=== PATIENT | female | born 1940 | race Caucasian/White ===

== ENCOUNTER → 2019-12-04 14:03 | Outpatient (BNVA) | payer MEDICARE, SELFPAY | PROVIDERS: PCP Internal Medicine; Referring Provider Internal Medicine; Visit Provider Nurse Practitioner Gerontology | DX: I12.9 Hypertensive chronic kidney disease with stage 1 through stage 4 chronic kidney disease, or unspecified chronic kidney disease (principal); E11.29 Type 2 diabetes mellitus with other diabetic kidney complication; N18.30 Chronic kidney disease, stage 3 unspecified; K21.9 Gastro-esophageal reflux disease without esophagitis; E21.2 Other hyperparathyroidism; E78.5 Hyperlipidemia, unspecified; E66.01 Morbid (severe) obesity due to excess calories; Z68.41 Body mass index [BMI] 40.0-44.9, adult; Z88.5 Allergy status to narcotic agent; Z88.0 Allergy status to penicillin; Z79.4 Long term (current) use of insulin; Z79.82 Long term (current) use of aspirin; Z79.899 Other long term (current) drug therapy | CPT/HCPCS: 82947; 99212 ==

== ENCOUNTER 2020-02-13 09:06 | Outpatient (REF) | payer MEDICARE, SELFPAY ==
[2020-02-13 11:21] LABS: MANUAL DIFF FLAG NO
[2020-02-13 11:28] LABS: Basophils Percent Auto 0.3 % (0-2); Eosinophils Absolute Auto 0.2 X10*3/uL (0.0-0.4); Eosinophils Percent Auto 2.8 % (0-4); Hematocrit 40.7 % (37-47); Imm Gran Abs Auto 0.05 X10*3/uL (0.00-0.03); Imm Gran Pct Auto 0.7 % (0.0-0.4); Lymphocytes Absolute Auto 1.7 X10*3/uL (1.2-4.9); Lymphocytes Percent Auto 22.3 % (20-40); Mean Corpuscular HGB Conc 31.9 g/dl (31.0-35.0); Mean Corpuscular Hemoglobin 27.6 pg (27.0-33.0); Mean Corpuscular Volume 86.4 fL (80-98); Mean Platelet Volume 10.2 fL (9.4-12.3); Monocytes Absolute Auto 0.6 X10*3/uL (0.1-1.2); Monocytes Percent Auto 8.3 % (2-11); Neutrophils Percent Auto 65.6 % (45-73); Platelet Count 233 X10*3/uL (160-400); Red Blood Count 4.71 X10*6/uL (4.20-5.50); Red Cell Distribution Width 13.2 % (11.0-16.0); White Blood Count 7.6 X10*3/uL (4.8-10.8)
[2020-02-13 11:37] LABS: Estimated Average Glucose 194 mg/dL; Hemoglobin A1c % 8.4 %
[2020-02-13 11:51] LABS: Alanine Aminotransferase 12 U/L (0-31); Albumin Level 3.7 g/dL (3.5-5.0); Alkaline Phosphatase 108 U/L (39-117); Anion Gap 15 (12-20); Aspartate Amino Transferase 12 U/L (5-31); Bilirubin Total 0.5 mg/dL (0.0-1.0); Blood Urea Nitrogen 38 mg/dL (9-16); Calcium 9.5 mg/dL (8.4-10.2); Carbon Dioxide 25 mmol/L (22-29); Chloride 102 mmol/L (96-108); Cholesterol 176 mg/dL; Estimated Glomerular Filt Rate 22; Glucose Fasting 184 mg/dL (60-99); HDL Cholesterol 35 mg/dL; LDL Cholesterol Calculated 100 mg/dl; Potassium 4.1 mmol/l (3.3-5.1); Sodium 138 mmol/L (135-145); Triglycerides 207 mg/dL
== END 2020-02-13 09:07 | disposition home or self-care (01) ==
LOC: HO.HMGCLDS 09:06
PROVIDERS: Internal Medicine Hypertension Specialist; PCP Internal Medicine; Visit Provider Nurse Practitioner Gerontology
DX: E11.29 Type 2 diabetes mellitus with other diabetic kidney complication (principal); I13.0 Hypertensive heart and chronic kidney disease with heart failure and stage 1 through stage 4 chronic kidney disease, or unspecified chronic kidney disease; N18.30 Chronic kidney disease, stage 3 unspecified
CPT/HCPCS: 36415; 80053; 80061; 82043; 83036; 85025

== ENCOUNTER → 2020-02-20 14:57 | Outpatient (BNVA) | payer MEDICARE, SELFPAY | PROVIDERS: PCP Internal Medicine; Visit Provider Internal Medicine Cardiovascular Disease | DX: I47.1 Supraventricular tachycardia (principal); I44.7 Left bundle-branch block, unspecified; I10 Essential (primary) hypertension | CPT/HCPCS: 93005; 99212 ==

== ENCOUNTER → 2020-03-04 11:14 | Outpatient (BNVA) | payer MEDICARE, SELFPAY | PROVIDERS: PCP Internal Medicine; Visit Provider Nurse Practitioner Gerontology | DX: Z13.89 Encounter for screening for other disorder (principal) | CPT/HCPCS: Q3014 ==

== ENCOUNTER → 2020-06-02 13:28 | Outpatient (BNVA) | payer MEDICARE, SELFPAY | PROVIDERS: PCP Internal Medicine; Visit Provider Nurse Practitioner Gerontology | DX: E11.29 Type 2 diabetes mellitus with other diabetic kidney complication (principal); E66.01 Morbid (severe) obesity due to excess calories; I10 Essential (primary) hypertension; E78.5 Hyperlipidemia, unspecified; R80.9 Proteinuria, unspecified; Z68.39 Body mass index [BMI] 39.0-39.9, adult | CPT/HCPCS: 82947; 99212 ==

== ENCOUNTER 2020-06-22 10:01 | Outpatient (REF) | payer MEDICARE, SELFPAY ==
[2020-06-22 11:29] LABS: MANUAL DIFF FLAG NO
[2020-06-22 11:40] LABS: Basophils Percent Auto 0.3 % (0-2); Eosinophils Absolute Auto 0.2 X10*3/uL (0.0-0.4); Eosinophils Percent Auto 2.4 % (0-4); Hematocrit 39.7 % (37-47); Hemoglobin 12.8 g/dl (12.0-16.0); Imm Gran Abs Auto 0.02 X10*3/uL (0.00-0.03); Imm Gran Pct Auto 0.3 % (0.0-0.4); Lymphocytes Absolute Auto 1.7 X10*3/uL (1.2-4.9); Lymphocytes Percent Auto 25.6 % (20-40); Mean Corpuscular HGB Conc 32.2 g/dl (31.0-35.0); Mean Corpuscular Hemoglobin 27.9 pg (27.0-33.0); Mean Corpuscular Volume 86.7 fL (80-98); Mean Platelet Volume 10.6 fL (9.4-12.3); Monocytes Absolute Auto 0.6 X10*3/uL (0.1-1.2); Monocytes Percent Auto 8.9 % (2-11); Neutrophils Absolute Auto 4.2 X10*3/uL (2.0-8.3); Neutrophils Percent Auto 62.5 % (45-73); Platelet Count 209 X10*3/uL (160-400); Red Blood Count 4.58 X10*6/uL (4.20-5.50); Red Cell Distribution Width 14.3 % (11.0-16.0); White Blood Count 6.6 X10*3/uL (4.8-10.8)
[2020-06-22 12:16] LABS: Anion Gap 16 (12-20); Blood Urea Nitrogen 47 mg/dL (9-16); Carbon Dioxide 25 mmol/L (22-29); Chloride 107 mmol/L (96-108); Estimated Glomerular Filt Rate 19; Potassium 4.4 mmol/L (3.3-5.1); Sodium 144 mmol/L (135-145)
== END 2020-06-22 10:02 | disposition home or self-care (01) ==
LOC: HO.HMGCLDS 10:01
PROVIDERS: PCP Internal Medicine; Visit Provider Internal Medicine Hypertension Specialist
DX: E11.22 Type 2 diabetes mellitus with diabetic chronic kidney disease (principal); E11.21 Type 2 diabetes mellitus with diabetic nephropathy; I13.0 Hypertensive heart and chronic kidney disease with heart failure and stage 1 through stage 4 chronic kidney disease, or unspecified chronic kidney disease; I50.9 Heart failure, unspecified; N18.30 Chronic kidney disease, stage 3 unspecified
CPT/HCPCS: 36415; 80051; 82565; 84520; 85025

== ENCOUNTER → 2020-08-28 13:54 | Outpatient (BNVA) | payer MEDICARE, SELFPAY | PROVIDERS: PCP Internal Medicine; Visit Provider Nurse Practitioner Gerontology | DX: E11.29 Type 2 diabetes mellitus with other diabetic kidney complication (principal); E78.5 Hyperlipidemia, unspecified; E66.01 Morbid (severe) obesity due to excess calories; I10 Essential (primary) hypertension; R80.9 Proteinuria, unspecified; Z68.41 Body mass index [BMI] 40.0-44.9, adult | CPT/HCPCS: 82947; 99212 ==

== ENCOUNTER 2020-09-14 08:42 | Outpatient (REF) | payer MEDICARE, SELFPAY ==
[2020-09-14 11:26] LABS: Hematocrit 37.8 % (37-47); Hemoglobin 12.1 g/dl (12.0-16.0); Mean Corpuscular Hemoglobin 27.6 pg (27.0-33.0); Mean Corpuscular Volume 86.1 fL (80-98); Mean Platelet Volume 10.1 fL (9.4-12.3); Platelet Count 234 X10*3/uL (160-400); Red Blood Count 4.39 X10*6/uL (4.20-5.50); White Blood Count 6.3 X10*3/uL (4.8-10.8)
[2020-09-14 11:40] LABS: Anion Gap 14 (12-20); Blood Urea Nitrogen 44 mg/dL (9-16); Calcium 9.2 mg/dL (8.4-10.2); Carbon Dioxide 26 mmol/L (22-29); Chloride 106 mmol/L (96-108); Estimated Glomerular Filt Rate 17; Potassium 4.8 mmol/L (3.3-5.1); Sodium 141 mmol/L (135-145)
[2020-09-14 11:56] LABS: Creatinine Urine 61.42 mg/dL
[2020-09-14 12:24] LABS: Alanine Aminotransferase 12 U/L (0-31); Albumin Level 3.5 g/dL (3.5-5.0); Alkaline Phosphatase 113 U/L (39-117); Anion Gap 13 (12-20); Aspartate Amino Transferase 13 U/L (5-31); Bilirubin Total 0.4 mg/dL (0.0-1.0); Blood Urea Nitrogen 45 mg/dL (9-16); Calcium 9.2 mg/dL (8.4-10.2); Carbon Dioxide 25 mmol/L (22-29); Chloride 107 mmol/L (96-108); Cholesterol 162 mg/dL; Estimated Glomerular Filt Rate 17; Glucose Fasting 179 mg/dL (60-99); HDL Cholesterol 30 mg/dL; LDL Cholesterol Calculated 95 mg/dl; Potassium 4.7 mmol/L (3.3-5.1); Sodium 140 mmol/L (135-145); Total Protein 5.6 g/dL (6.5-8.0); Triglycerides 185 mg/dL
== END 2020-09-14 08:43 | disposition home or self-care (01) ==
LOC: HO.HMGCLDS 08:42
PROVIDERS: Nurse Practitioner Gerontology; PCP Internal Medicine; Visit Provider Internal Medicine Hypertension Specialist
DX: E11.22 Type 2 diabetes mellitus with diabetic chronic kidney disease (principal); N18.4 Chronic kidney disease, stage 4 (severe)
CPT/HCPCS: 36415; 80051; 80053; 80061; 82043; 82310; 82565; 84520; 85027

== ENCOUNTER 2021-01-07 08:30 | Outpatient (REF) | payer MEDICARE, SELFPAY ==
[2021-01-07 11:37] LABS: Anion Gap 15 (12-20); Blood Urea Nitrogen 49 mg/dL (9-16); Calcium 9.8 mg/dL (8.4-10.2); Carbon Dioxide 26 mmol/L (22-29); Chloride 107 mmol/L (96-108); Estimated Glomerular Filt Rate 15; Potassium 4.7 mmol/L (3.3-5.1); Sodium 143 mmol/L (135-145)
== END 2021-01-07 08:31 | disposition home or self-care (01) ==
LOC: HO.HMGCLDS 08:30
PROVIDERS: PCP Internal Medicine; Visit Provider Internal Medicine Hypertension Specialist
DX: N18.4 Chronic kidney disease, stage 4 (severe) (principal)
CPT/HCPCS: 36415; 80051; 82310; 82565; 84520

== ENCOUNTER → 2021-01-12 14:01 | Outpatient (BNVA) | payer MEDICARE, SELFPAY | PROVIDERS: PCP Internal Medicine; Visit Provider Nurse Practitioner Gerontology | DX: E11.29 Type 2 diabetes mellitus with other diabetic kidney complication (principal); E11.22 Type 2 diabetes mellitus with diabetic chronic kidney disease; I12.9 Hypertensive chronic kidney disease with stage 1 through stage 4 chronic kidney disease, or unspecified chronic kidney disease; N18.4 Chronic kidney disease, stage 4 (severe); E78.5 Hyperlipidemia, unspecified; E66.01 Morbid (severe) obesity due to excess calories; R80.9 Proteinuria, unspecified; Z68.41 Body mass index [BMI] 40.0-44.9, adult; Z79.4 Long term (current) use of insulin | CPT/HCPCS: 82947; 99212 ==

== ENCOUNTER → 2021-02-08 15:50 | Outpatient (BNVA) | payer MEDICARE, SELFPAY | PROVIDERS: PCP Internal Medicine; Visit Provider Registered Nurse Diabetes Educator | DX: E11.22 Type 2 diabetes mellitus with diabetic chronic kidney disease (principal); N18.4 Chronic kidney disease, stage 4 (severe); Z79.4 Long term (current) use of insulin | CPT/HCPCS: Q3014 ==

== ENCOUNTER → 2021-02-15 13:29 | Outpatient (BNVA) | payer MEDICARE, SELFPAY | PROVIDERS: PCP Internal Medicine; Visit Provider Registered Nurse Diabetes Educator | DX: E11.22 Type 2 diabetes mellitus with diabetic chronic kidney disease (principal); N18.4 Chronic kidney disease, stage 4 (severe); Z79.4 Long term (current) use of insulin | CPT/HCPCS: 99211 ==

== ENCOUNTER → 2021-03-26 11:23 | Outpatient (BNVA) | payer MEDICARE, SELFPAY | PROVIDERS: PCP Internal Medicine; Visit Provider Registered Nurse Diabetes Educator | DX: E11.22 Type 2 diabetes mellitus with diabetic chronic kidney disease (principal); N18.4 Chronic kidney disease, stage 4 (severe); Z79.4 Long term (current) use of insulin | CPT/HCPCS: Q3014 ==

== ENCOUNTER 2021-04-29 09:25 | Outpatient (REF) | payer MEDICARE, SELFPAY ==
[2021-04-29 11:17] LABS: Basophils Percent Auto 0.3 % (0-2); Eosinophils Absolute Auto 0.2 X10*3/uL (0.0-0.4); Hemoglobin 11.8 g/dl (12.0-16.0); Imm Gran Abs Auto 0.03 X10*3/uL (0.00-0.03); Imm Gran Pct Auto 0.4 % (0.0-0.4); Lymphocytes Absolute Auto 1.5 X10*3/uL (1.2-4.9); Lymphocytes Percent Auto 21.8 % (20-40); MANUAL DIFF FLAG NO; Mean Corpuscular HGB Conc 31.1 g/dl (31.0-35.0); Mean Corpuscular Hemoglobin 27.5 pg (27.0-33.0); Mean Corpuscular Volume 88.6 fL (80.0-98.0); Mean Platelet Volume 10.3 fL (9.4-12.3); Monocytes Absolute Auto 0.7 X10*3/uL (0.1-1.2); Monocytes Percent Auto 9.9 % (2-11); Neutrophils Absolute Auto 4.4 x10*3/uL (2.0-8.3); Neutrophils Percent Auto 64.6 % (45-73); Platelet Count 259 X10*3/uL (160-400); Red Blood Count 4.29 X10*6/uL (4.20-5.50); Red Cell Distribution Width 14.9 % (11.0-16.0); White Blood Count 6.8 X10*3/uL (4.8-10.8)
[2021-04-29 11:21] LABS: Appearance Urine HAZY; Color Urine YELLOW; Glucose Urine UA 100 MG/DL (NEG); Leukocyte Esterase Urine NEG (NEG); Nitrite Urine NEG (NEG); UACC Culture Trigger NO; Urine Blood 1+ (NEG); Urine Ketones NEG (NEG); Urine Protein 3+ MG/DL (NEG-TRACE)
[2021-04-29 11:27] LABS: Estimated Average Glucose 148 mg/dL; Hemoglobin A1c % 6.8 %
[2021-04-29 11:42] LABS: Bacteria Urine 2+ /LPF; Mucus Urine 1+ /LPF; Squamous Epithelial Cell Urine 2+ /LPF; WBC Urine 0-2 /HPF (0-4)
[2021-04-29 11:55] LABS: TSH reflex Free T4 9.66 uIU/mL (0.32-4.0)
[2021-04-29 12:01] LABS: Alanine Aminotransferase 24 U/L (0-31); Albumin Level 3.2 g/dL (3.5-5.0); Alkaline Phosphatase 104 U/L (39-117); Anion Gap 12 (12-20); Aspartate Amino Transferase 22 U/L (5-31); Bilirubin Total 0.6 mg/dL (0.0-1.0); Blood Urea Nitrogen 48 mg/dL (9-16); Calcium 9.3 mg/dL (8.4-10.2); Carbon Dioxide 27 mmol/L (22-29); Chloride 108 mmol/L (96-108); Cholesterol 143 mg/dL; Estimated Glomerular Filt Rate 12; Glucose Fasting 80 mg/dL (60-99); HDL Cholesterol 35 mg/dL; LDL Cholesterol Calculated 87 mg/dl; Potassium 5.1 mmol/L (3.3-5.1); Sodium 142 mmol/L (135-145); Total Protein 5.5 g/dL (6.5-8.0); Triglycerides 108 mg/dL
[2021-04-29 13:35] LABS: Microalbum/Creatinine Ratio Ur 7214.9 ug/mg cr
[2021-04-29 16:23] LABS: Vitamin D 25-OH Total 27.8 ng/mL (>30)
== END 2021-04-29 09:26 | disposition home or self-care (01) ==
LOC: HO.HMGCLDS 09:25
PROVIDERS: Absent Provider Internal Medicine Hypertension Specialist; Visit Provider Internal Medicine
DX: I12.9 Hypertensive chronic kidney disease with stage 1 through stage 4 chronic kidney disease, or unspecified chronic kidney disease (principal); E11.22 Type 2 diabetes mellitus with diabetic chronic kidney disease; N18.4 Chronic kidney disease, stage 4 (severe); E78.00 Pure hypercholesterolemia, unspecified; E55.9 Vitamin D deficiency, unspecified
CPT/HCPCS: 36415; 80053; 80061; 81001; 82043; 82306; 83036; 84439; 84443; 85025

== ENCOUNTER → 2021-05-12 12:54 | Outpatient (REF) | payer MEDICARE, SELFPAY ==
--- NOTE | 2021-05-12 12:57 | CA_ITS ---
Transthoracic Echocardiogram Patient (Last, First, Middle): Kate Vidal M Gender: Female Date of : 1940 Age: 81 Procedure Date: 05/12/2021 Procedure Type: Transthoracic Echocardiogram Location: OP Height: 167.64 cm Weight: 113.4 kg BSA: 2.20 m2 Heart Rate: bpm Resident Intern: [facility] Referring MD: Shaquille Pandya MD Symptoms: I44.7 - Left bundle-branch block, unspecified Study Quality: Fair Conclusions: - 1. Normal LV systolic function with mild LVH with impaired relaxation filling pattern 2. Mild left atrial enlargement 3. Moderate mitral and calcification with possibly mild mitral stenosis and mild mitral regurgitation 4. Normal RV systolic pressure with mildly elevated right atrial pressures 5. No gross pericardial effusion Findings Left Ventricle Mildly increased left ventricular cavity size. There is mildly increased left ventricular wall thickness. The left ventricular systolic function is normal. The visually estimated ejection fraction is between 60-65%. There is paradoxical septal motion consistent with a left bundle branch block. Spectral Doppler is indicative of an impaired relaxation filling pattern. E/E prime ratio is between 8 and 15 consistent with indeterminate filling pressures. There is moderate septal asymmetric hypertrophy. Right Ventricle Normal right ventricular cavity size and systolic function. Atria The left atrium is mildly dilated. There is lipomatous hypertrophy of the interatrial septum. There is no evidence of interatrial shunt. The right atrium is normal in size. Aortic Valve There is mild calcification of the aortic valve. There is no aortic valve stenosis. There is no aortic valve regurgitation. Mitral Valve There is mild anterior and moderate posterior mitral leaflet thickening. The posterior mitral leaflet has restricted mobility. There is moderate mitral annular calcification. There is mild mitral valve regurgitation. There is mild mitral valve stenosis. Pulmonic Valve The pulmonic valve is likely normal. There is trace pulmonic valve regurgitation. Tricuspid Valve Normal tricuspid valve structure. There is mild tricuspid valve regurgitation. The right ventricular systolic pressure is normal. Mildly elevated right atrial pressure. There is no evidence of pulmonary hypertension. Great Vessels All visible segments of the aorta are normal in size. The pulmonary artery was not well visualized. Venous The inferior vena cava is moderately dilated and collapses greater than 50% with inspiration. Pericardium/Pleural There is no evidence of pericardial effusion. Prior Study Comparison Changes noted compared to prior study. mild mitral regurgitation mild mitral stenosis is present Measurements 2D Linear Measurements IVSd: 1.56 0.6-0.9/0.6-1.0 cm LVIDd: 6.02 3.9-5.3/4.2-5.9 cm LVIDd Index: 2.74 2.4-3.2/2.2-3.1 cm/m2 LVIDs: 5.10 2.0-3.6 cm LVPWd: 1.24 0.7-1.1 cm LA Diam: 4.10 2.7-3.8/3.0-4.0 cm LAIDs Index: 1.86 1.5-2.3 cm/m2 LV Mass: 486.68 67-162/88-224 g LV Mass Index: 221.22 43-95/49-115 g/m2 LVOT Diam: 2.00 3.0+(-)1.3 cm 2D Systolic Function EF 4C: 60.40 >55% EF 2C: 63.00 >55% EF BiP: 62.70 >55% Mitral Valve MV Pk E: 0.83 MV PK A: 0.78 MV Decel Time: 365.00 E/A: 1.10 E'Lateral: 3.70 E'Medial: 4.13 E/E' Med: 20.10 E/E' Lat: 22.50 PHT: 107.00 MVA PHT: 2.06 Decel [place]: 2.28 Aortic Valve AoV Pk Andres: 1.69 AoV Mn Andres: 1.23 AoV VTI: 0.48 AoV Pk Grad: 11.00 Aov Mn Grad: 7.00 YUSUF Cont.VTI: 2.13 LVOT LVOT Pk Andres: 1.18 LVOT Mn Andres: 0.86 LVOT VTI: 0.33 LVOT Pk Grad: 6.00 LVOT Mn Grad: 3.00 LVOT Diam: 2.00 LVOT Area: 3.14 Diastolic Function MV Pk E: 0.83 MV Pk A: 0.78 E/A: 1.10 E'Medial: 4.13 E/E' Med: 20.10 E' Laterial: 3.70 E/E' Lat: 22.50 Right Ventricle TAPSE (mm): 21.90 TVS' Andres: 10.30 Tricuspid Valve TR Pk Andres: 2.71 TR Pk Grad: 29.00 RA Press: 8.00 RVSP: 37.00 Great Vessels Aorta Sinus of Valsalva: 3.16 2.0-3.[address] [place]: 2.94 1.7-3.4 cm Ao Asc: 2.70 2.1-3.4 cm Updated in Other Vendor System with Status of Final Shaquille Pandya MD electronically signed on 05/13/2021 12:08:16 PM with status of Final
== END ==
LOC: HO.CARD 12:54
PROVIDERS: PCP Internal Medicine; Visit Provider Internal Medicine Cardiovascular Disease
DX: I44.7 Left bundle-branch block, unspecified (principal); I10 Essential (primary) hypertension
CPT/HCPCS: 93306; Q9957

== ENCOUNTER 2021-05-17 14:17 | Outpatient (REF) | payer MEDICARE, SELFPAY ==
--- NOTE | ~2021-05-17 | XR_ITS ---
EXAMINATION: XR CHEST CLINICAL INFORMATION: Dyspnea COMPARISON: None TECHNIQUE: 2 views of the chest were obtained. FINDINGS: The cardiac silhouette is enlarged. There is pulmonary venous redistribution. The lungs are otherwise clear. There are small bilateral pleural effusions. Findings are suggestive of mild CHF. There are degenerative changes of the spine. There is increased density projecting over the thoracic spine seen on the lateral view at the T2-T3, T6-T7 and T8-T9 disc space levels. It is uncertain whether this is related to degenerative disc disease. XR/XR chest 2V IMPRESSION: Probable mild CHF. Increased density projecting over the spine as described above, question related to degenerative disc disease. This could be confirmed with chest CT if clinically indicated.
== END 2021-05-17 14:18 | disposition home or self-care (01) ==
LOC: HO.XRAY 14:17
PROVIDERS: PCP Internal Medicine; Visit Provider Internal Medicine
DX: R06.00 Dyspnea, unspecified (principal); R06.01 Orthopnea
CPT/HCPCS: 71046

== ENCOUNTER 2021-05-20 15:10 | Outpatient (REF) | payer MEDICARE, SELFPAY ==
[2021-05-20 16:48] LABS: B Type Natriuretic Peptide 755 pg/mL (<100)
== END 2021-05-20 15:11 | disposition home or self-care (01) ==
LOC: HO.LAB 15:10
PROVIDERS: PCP Internal Medicine; Referring Provider Internal Medicine; Visit Provider Internal Medicine Cardiovascular Disease
DX: R06.01 Orthopnea (principal); I47.1 Supraventricular tachycardia; I44.7 Left bundle-branch block, unspecified; I50.30 Unspecified diastolic (congestive) heart failure
CPT/HCPCS: 36415; 83880; 99212

== ENCOUNTER 2021-05-28 09:26 | Outpatient (REF) | payer MEDICARE, SELFPAY ==
[2021-05-28 12:02] LABS: B Type Natriuretic Peptide 695 pg/mL (<100)
[2021-05-28 12:15] LABS: Anion Gap 13 (12-20); Blood Urea Nitrogen 55 mg/dL (9-16); Calcium 9.3 mg/dL (8.4-10.2); Carbon Dioxide 25 mmol/L (22-29); Chloride 108 mmol/L (96-108); Estimated Glomerular Filt Rate 12; Glucose Random 152 mg/dL (60-115); Potassium 4.8 mmol/L (3.3-5.1); Sodium 141 mmol/L (135-145)
== END 2021-05-28 09:27 | disposition home or self-care (01) ==
LOC: HO.LAB 09:26
PROVIDERS: Absent Provider Internal Medicine Cardiovascular Disease; PCP Internal Medicine; Visit Provider Nurse Practitioner Gerontology
DX: E11.29 Type 2 diabetes mellitus with other diabetic kidney complication (principal); E11.22 Type 2 diabetes mellitus with diabetic chronic kidney disease; I13.0 Hypertensive heart and chronic kidney disease with heart failure and stage 1 through stage 4 chronic kidney disease, or unspecified chronic kidney disease; N18.4 Chronic kidney disease, stage 4 (severe); I50.30 Unspecified diastolic (congestive) heart failure; E66.01 Morbid (severe) obesity due to excess calories; Z68.41 Body mass index [BMI] 40.0-44.9, adult; E78.5 Hyperlipidemia, unspecified; R80.9 Proteinuria, unspecified; Z79.4 Long term (current) use of insulin
CPT/HCPCS: 36415; 80048; 82947; 83880; 99212

== ENCOUNTER → 2021-06-25 12:32 | Outpatient (BNVA) | payer MEDICARE, SELFPAY | PROVIDERS: PCP Internal Medicine; Visit Provider Registered Nurse Diabetes Educator | DX: E11.22 Type 2 diabetes mellitus with diabetic chronic kidney disease (principal); N18.4 Chronic kidney disease, stage 4 (severe); Z79.4 Long term (current) use of insulin | CPT/HCPCS: 99211 ==

== ENCOUNTER → 2021-07-08 15:05 | Outpatient (BNVA) | payer MEDICARE, SELFPAY | PROVIDERS: PCP Internal Medicine; Referring Provider Internal Medicine; Visit Provider Internal Medicine Cardiovascular Disease | DX: I50.30 Unspecified diastolic (congestive) heart failure (principal); I47.1 Supraventricular tachycardia | CPT/HCPCS: 99212 ==

== ENCOUNTER 2021-07-15 12:41 | Outpatient (REF) | payer MEDICARE, SELFPAY ==
[2021-07-15 13:52] LABS: Hematocrit 36.3 % (37.0-47.0); Hemoglobin 11.5 g/dl (12.0-16.0); Mean Corpuscular HGB Conc 31.7 g/dl (31.0-35.0); Mean Corpuscular Hemoglobin 27.4 pg (27.0-33.0); Mean Corpuscular Volume 86.4 fL (80.0-98.0); Platelet Count 245 X10*3/uL (160-400); Red Cell Distribution Width 15.2 % (11.0-16.0); White Blood Count 7.6 X10*3/uL (4.8-10.8)
[2021-07-15 14:10] LABS: Anion Gap 16 (12-20); Blood Urea Nitrogen 62 mg/dL (9-16); Carbon Dioxide 24 mmol/L (22-29); Chloride 104 mmol/L (96-108); Potassium 4.3 mmol/L (3.3-5.1); Sodium 140 mmol/L (135-145)
[2021-07-15 14:11] LABS: Alanine Aminotransferase 32 U/L (0-31); Albumin Level 3.4 g/dL (3.5-5.0); Alkaline Phosphatase 132 U/L (39-117); Aspartate Amino Transferase 17 U/L (5-31); Bilirubin Total 0.7 mg/dL (0.0-1.0); Calcium 8.7 mg/dL (8.4-10.2); Estimated Glomerular Filt Rate 11; Glucose Random 163 mg/dL (60-115); Total Protein 5.8 g/dL (6.5-8.0)
[2021-07-15 14:26] LABS: B Type Natriuretic Peptide 877 pg/mL (<100)
[2021-07-15 17:41] LABS: Creatinine Urine 50.38 mg/dL
[2021-07-15 17:47] LABS: Protein/Creatinine Ratio, Ur 12.27 (<0.2); Total Protein Urine Random 618 mg/dL (<12)
[2021-07-16 13:56] LABS: PTHI 621 pg/mL (16-77)
== END 2021-07-15 12:42 | disposition home or self-care (01) ==
LOC: HO.HMGCLDS 12:41
PROVIDERS: Absent Provider Internal Medicine Cardiovascular Disease; PCP Internal Medicine; Visit Provider Internal Medicine Hypertension Specialist
DX: N18.4 Chronic kidney disease, stage 4 (severe) (principal); I50.30 Unspecified diastolic (congestive) heart failure
CPT/HCPCS: 36415; 80048; 80053; 83880; 83970; 84156; 85027

== ENCOUNTER → 2021-07-26 12:59 | Outpatient (BNVA) | payer MEDICARE, SELFPAY | PROVIDERS: PCP Internal Medicine; Visit Provider Registered Nurse Diabetes Educator | DX: E11.22 Type 2 diabetes mellitus with diabetic chronic kidney disease (principal); N18.4 Chronic kidney disease, stage 4 (severe); Z79.4 Long term (current) use of insulin | CPT/HCPCS: 99211 ==

== ENCOUNTER → 2021-08-12 15:29 | Outpatient (BNVA) | payer MEDICARE, SELFPAY | PROVIDERS: PCP Internal Medicine; Referring Provider Internal Medicine; Visit Provider Internal Medicine Cardiovascular Disease | DX: I47.1 Supraventricular tachycardia (principal); R00.2 Palpitations; I50.30 Unspecified diastolic (congestive) heart failure; Z79.899 Other long term (current) drug therapy | CPT/HCPCS: 93005; 99212 ==

== ENCOUNTER → 2021-08-16 12:27 | Outpatient (BNVA) | payer MEDICARE, SELFPAY | PROVIDERS: PCP Internal Medicine; Visit Provider Registered Nurse Diabetes Educator | DX: E11.22 Type 2 diabetes mellitus with diabetic chronic kidney disease (principal); N18.4 Chronic kidney disease, stage 4 (severe); Z79.4 Long term (current) use of insulin | CPT/HCPCS: 99211 ==

== ENCOUNTER → 2021-08-20 11:08 | Outpatient (REF) | payer MEDICARE, SELFPAY | LOC: HO.CARD 11:08 | PROVIDERS: PCP Internal Medicine; Visit Provider Internal Medicine Cardiovascular Disease | DX: I47.1 Supraventricular tachycardia (principal) | CPT/HCPCS: 93242 ==

== ENCOUNTER 2021-08-26 08:00 | Outpatient (REF) | payer MEDICARE, SELFPAY ==
[2021-08-26 11:08] LABS: MANUAL DIFF FLAG NO
[2021-08-26 11:15] LABS: Basophils Percent Auto 0.3 % (0-2); Eosinophils Absolute Auto 0.2 X10*3/uL (0.0-0.4); Eosinophils Percent Auto 3.3 % (0-4); Hematocrit 33.9 % (37.0-47.0); Hemoglobin 10.6 g/dl (12.0-16.0); Imm Gran Abs Auto 0.04 X10*3/uL (0.00-0.03); Imm Gran Pct Auto 0.6 % (0.0-0.4); Lymphocytes Absolute Auto 1.4 X10*3/uL (1.2-4.9); Lymphocytes Percent Auto 21.9 % (20-40); Mean Corpuscular HGB Conc 31.3 g/dl (31.0-35.0); Mean Corpuscular Hemoglobin 27.2 pg (27.0-33.0); Mean Corpuscular Volume 87.1 fL (80.0-98.0); Mean Platelet Volume 10.4 fL (9.4-12.3); Monocytes Absolute Auto 0.6 X10*3/uL (0.1-1.2); Monocytes Percent Auto 9.5 % (2-11); Neutrophils Absolute Auto 4.1 x10*3/uL (2.0-8.3); Neutrophils Percent Auto 64.4 % (45-73); Platelet Count 211 X10*3/uL (160-400); Red Blood Count 3.89 X10*6/uL (4.20-5.50); Red Cell Distribution Width 15.2 % (11.0-16.0); White Blood Count 6.3 X10*3/uL (4.8-10.8)
[2021-08-26 11:34] LABS: Anion Gap 13 (12-20); Blood Urea Nitrogen 62 mg/dL (9-16); Calcium 8.8 mg/dL (8.4-10.2); Carbon Dioxide 24 mmol/L (22-29); Chloride 106 mmol/L (96-108); Glucose Random 115 mg/dL (60-115); Potassium 4.6 mmol/L (3.3-5.1); Sodium 138 mmol/L (135-145)
[2021-08-26 11:36] LABS: Estimated Glomerular Filt Rate 10
[2021-08-26 11:37] LABS: B Type Natriuretic Peptide 655 pg/mL (<100)
[2021-08-26 11:49] LABS: Uric Acid 6.9 mg/dL (2.4-5.7)
== END 2021-08-26 08:01 | disposition home or self-care (01) ==
LOC: HO.HMGCLDS 08:00
PROVIDERS: Absent Provider Internal Medicine Hypertension Specialist; PCP Internal Medicine; Visit Provider Internal Medicine Cardiovascular Disease
DX: I50.30 Unspecified diastolic (congestive) heart failure (principal); N18.5 Chronic kidney disease, stage 5
CPT/HCPCS: 36415; 80048; 83880; 84550; 85025

== ENCOUNTER → 2021-09-20 12:37 | Outpatient (BNVA) | payer MEDICARE, SELFPAY | PROVIDERS: PCP Internal Medicine; Visit Provider Registered Nurse Diabetes Educator | DX: E11.22 Type 2 diabetes mellitus with diabetic chronic kidney disease (principal); N18.4 Chronic kidney disease, stage 4 (severe); Z79.4 Long term (current) use of insulin | CPT/HCPCS: 99211 ==

== ENCOUNTER → 2021-09-24 11:35 | Outpatient (REF) | payer MEDICARE, SELFPAY ==
--- NOTE | 2021-09-24 11:37 | HM_ITS ---
* Total monitoring time 2 days and 23 hours. * Underlying rhythm is sinus. Average rate 53/Min. Range 37 to 83. * Occasional supraventricular ectopy. [place] of 0.9%. * Several episodes of rapid ventricular rate noted. Longest 26 minutes. Rate in the 120s. Regular. Probable atrial tachycardia. * Rare ventricular ectopy. * One short run of 7 beats, possible accelerated idioventricular rhythm. Could also be supraventricular. * No patient events. MTDD
== END ==
LOC: HO.CARD 11:35
PROVIDERS: PCP Internal Medicine; Visit Provider Internal Medicine Cardiovascular Disease
DX: I47.1 Supraventricular tachycardia (principal)
CPT/HCPCS: 93242

== ENCOUNTER → 2021-10-13 15:03 | Outpatient (BNVA) | payer MEDICARE, SELFPAY | PROVIDERS: PCP Internal Medicine; Referring Provider Internal Medicine; Visit Provider Internal Medicine Cardiovascular Disease | DX: I50.30 Unspecified diastolic (congestive) heart failure (principal); I47.1 Supraventricular tachycardia; R00.2 Palpitations; Z79.899 Other long term (current) drug therapy | CPT/HCPCS: 99212 ==

== ENCOUNTER → 2021-10-18 11:39 | Outpatient (BNVA) | payer MEDICARE, SELFPAY | PROVIDERS: PCP Internal Medicine; Visit Provider Registered Nurse Diabetes Educator | DX: E11.22 Type 2 diabetes mellitus with diabetic chronic kidney disease (principal); N18.4 Chronic kidney disease, stage 4 (severe); Z79.4 Long term (current) use of insulin | CPT/HCPCS: 99211 ==

== ENCOUNTER → 2021-10-25 08:51 | Outpatient (REF) | payer MEDICARE, SELFPAY ==
[2021-10-25 11:37] LABS: Basophils Percent Auto 0.4 % (0-2); Eosinophils Absolute Auto 0.1 X10*3/uL (0.0-0.4); Eosinophils Percent Auto 2.5 % (0-4); Hematocrit 32.9 % (37.0-47.0); Hemoglobin 10.5 g/dl (12.0-16.0); Imm Gran Abs Auto 0.03 X10*3/uL (0.00-0.03); Imm Gran Pct Auto 0.5 % (0.0-0.4); Lymphocytes Absolute Auto 1.3 X10*3/uL (1.2-4.9); Lymphocytes Percent Auto 22.6 % (20-40); MANUAL DIFF FLAG NO; Mean Corpuscular HGB Conc 31.9 g/dl (31.0-35.0); Mean Corpuscular Volume 87.7 fL (80.0-98.0); Mean Platelet Volume 10.3 fL (9.4-12.3); Monocytes Absolute Auto 0.5 X10*3/uL (0.1-1.2); Monocytes Percent Auto 8.8 % (2-11); Neutrophils Absolute Auto 3.7 x10*3/uL (2.0-8.3); Neutrophils Percent Auto 65.2 % (45-73); Platelet Count 198 X10*3/uL (160-400); Red Blood Count 3.75 X10*6/uL (4.20-5.50); Red Cell Distribution Width 14.9 % (11.0-16.0); White Blood Count 5.7 X10*3/uL (4.8-10.8)
[2021-10-25 11:40] LABS: Appearance Urine Clear; Color Urine Yellow; Glucose Urine UA 100 mg/dL (Negative); Leukocyte Esterase Urine Negative (Negative); Nitrite Urine Negative (Negative); PH 6.5 (5.0-9.0); Specific Gravity - Urine 1.015 (1.005-1.025); UMIC TRIGGER UACC YES; Urine Blood Negative (Negative); Urine Ketones Negative (Negative); Urine Protein 300 (3+) mg/dL (Neg-Trace)
[2021-10-25 11:47] LABS: Bacteria Urine Trace (None Seen); Hyaline Casts Urine 0-2 /LPF (0-2); RBC Urine 0-2 /HPF (0-2); WBC Urine 0-5 /HPF (0-5)
[2021-10-25 12:31] LABS: Estimated Average Glucose 160 mg/dL; Hemoglobin A1c % 7.2 %
[2021-10-25 12:42] LABS: Free T4 (Free Thyroxine) 0.97 ng/dL (0.71-1.85); Vitamin D 25-OH Total 39.5 ng/mL (>30)
[2021-10-25 12:43] LABS: Ferritin 89 ng/mL (10-250); Thyroid Stimulating Hormone 4.38 uIU/mL (0.32-4.0)
[2021-10-25 13:02] LABS: Creatinine Urine 53.25 mg/dL
[2021-10-25 13:21] LABS: Alanine Aminotransferase 75 U/L (0-31); Albumin Level 3.5 g/dL (3.5-5.0); Alkaline Phosphatase 131 U/L (39-117); Anion Gap 17 (12-20); Aspartate Amino Transferase 36 U/L (5-31); Bilirubin Total 0.6 mg/dL (0.0-1.0); Blood Urea Nitrogen 60 mg/dL (9-16); Calcium 9.1 mg/dL (8.4-10.2); Carbon Dioxide 23 mmol/L (22-29); Chloride 104 mmol/L (96-108); Cholesterol 123 mg/dL; Estimated Glomerular Filt Rate 9; Glucose Fasting 156 mg/dL (60-99); HDL Cholesterol 32 mg/dL; Iron 62 mcg/dL (30-160); LDL Cholesterol Calculated 66 mg/dl; Percent Iron Saturation 21 % (15-50); Phosphorus 5.4 mg/dL (2.7-4.5); Potassium 4.9 mmol/L (3.3-5.1); Sodium 139 mmol/L (135-145); Total Iron Binding Capacity 291 mcg/dL (228-428); Total Protein 5.6 g/dL (6.5-8.0); Triglycerides 125 mg/dL; Unsaturated Iron Binding 229 ug/dL
--- NOTE | 2021-10-25 13:57 | HM_ITS ---
REQUESTING PROVIDER: Shaquille Pandya MD REASON FOR TEST: Palpitation. INTERPRETATION: The patient was hooked up to cardiac event monitor from 10/26/2019 to 11/24/2021. FINDINGS: Patient's baseline rhythm was normal sinus rhythm with heart rate 52-110 beats per minute. Multiple runs of SVT noted. Heart rate varying from 133 to 160 beats per minute. These were in the setting of known underlying bundle-branch block. The patient reported multiple events of fluttering and palpitation which correlated with SVT. CONCLUSION: Event monitor is remarkable. 1. Baseline normal sinus rhythm. 2. Multiple bursts of SVT. 3. The patient reported symptoms correlating with SVT. Shaquille Pandya MD NRS/MODL / [id number] MTDD
[2021-10-26 12:47] LABS: Calcium (PTHI) 9.2 mg/dL (8.6-10.4); PTHI 685 pg/mL (16-77)
== END ==
LOC: HO.CARD 08:51
PROVIDERS: Absent Provider Internal Medicine Hypertension Specialist; PCP Internal Medicine; Referring Provider Internal Medicine; Visit Provider Internal Medicine Cardiovascular Disease
DX: I13.2 Hypertensive heart and chronic kidney disease with heart failure and with stage 5 chronic kidney disease, or end stage renal disease (principal); E11.22 Type 2 diabetes mellitus with diabetic chronic kidney disease; N18.5 Chronic kidney disease, stage 5; I50.9 Heart failure, unspecified; R00.2 Palpitations; E78.00 Pure hypercholesterolemia, unspecified; E55.9 Vitamin D deficiency, unspecified; R79.89 Other specified abnormal findings of blood chemistry
CPT/HCPCS: 36415; 80048; 80053; 80061; 81001; 82043; 82306; 82728; 83036; 83540; 83970; 84100; 84439; 84443; 84550; 85025; 93270

== ENCOUNTER 2021-12-14 11:02 | Inpatient (IN) | payer MEDICARE, SELFPAY ==
--- NOTE | ~2021-12-14 | XR_ITS ---
EXAMINATION: XR CHEST CLINICAL INFORMATION: Pulmonary edema. COMPARISON: 05/17/2021 chest radiographs. TECHNIQUE: Frontal view of the chest was obtained. FINDINGS: Increased opacification is seen at the left lung base with blunting of the left costophrenic angle and superjacent markings. The right lung is clear. The heart and mediastinal structures are unremarkable. XR/XR chest 1V IMPRESSION: Small left pleural effusion represents interval worsening from the previous study.
[2021-12-14 11:12] VITALS: BP 157/89; PULSE 124; RESP 20; TEMP 36.9; O2SAT 97; BMI 42.7
[2021-12-14 11:27] VITALS: PULSE 127; RESP 26; O2SAT 94
--- NOTE | 2021-12-14 11:41 | ECG_ITS ---
Test Reason : TARCHYCARDIA,SOB Blood Pressure : / mmHG Vent. Rate : 121 BPM Atrial Rate : 000 BPM P-R Int : 000 ms QRS Dur : 144 ms QT Int : 388 ms P-R-T Axes : 000 000 168 degrees QTc Int : 550 ms Wide QRS tachycardia Left bundle branch block Abnormal ECG When compared with ECG of 21-JUN-2016 08:44, Wide QRS tachycardia has replaced Sinus rhythm Vent. rate has increased BY 66 BPM Left bundle branch block is new Referred By: Mildred Byrd Electronically Signed By:MARIE DIOP MD
--- NOTE | 2021-12-14 11:44 | ED_ITS ---
HPI - Chest Pain General Chief Complaint: Chest Pain Stated Complaint: Abnormal EKG Time Seen by Provider: 12/14/21 11:25 Source: patient Mode of arrival: ambulatory Limitations: no limitations History of Present Illness HPI narrative: Patient comes to the emergency room from the cardiology office. Patient has bee n complaining of chest pain with exertion and shortness of breath for approximately 1 month. Patient complaining also of worsening lower extremity edema and cellulitis. Patient recently finished a course of cephalexin 2 days ago. Patient denies fever chills. Patient also states that for the last month she has been unable to sleep in her bed due to orthopnea. Patient reports that 10 lb weight gain in the last month. Patient is supposed to be taking bumetanide 1 mg b.i.d., but she continues having symptoms. Related Data Home Medications Medication Instructions Recorded Confirmed cholecalciferol (vitamin D3) 25 25 mcg PO DAILY 12/04/19 12/14/21 mcg (1,000 unit) capsule lancets 33 gauge #100 ea 12/04/19 12/02/21 allopurinol 100 mg tablet 200 mg PO DAILY 12/20/20 12/14/21 latanoprost 0.005 % eye drops 1 drp ophthalmic (eye) BEDTIME 01/12/21 12/14/21 flash glucose sensor (FreeStyle 05/28/21 12/02/21 Charly 2 Sensor kit) hydralazine 25 mg tablet 25 mg PO BID 05/28/21 12/14/21 melatonin 5 mg capsule 5 mg PO BEDTIME PRN Sleep 07/08/21 12/14/21 metoprolol tartrate 50 mg tablet 75 mg PO BID 12/02/21 12/14/21 bumetanide 1 mg tablet 0.5 mg PO DAILY@1700 12/14/21 12/14/21 bumetanide 1 mg tablet 1 mg PO DAILY@0630 12/14/21 12/14/21 calcitriol 0.25 mcg capsule 0.25 mcg PO .everyother day 12/14/21 12/14/21 insulin glargine U-300 conc 300 44 unit subcut DAILY 12/14/21 12/14/21 unit/mL (3 mL) subcutaneous pen timolol maleate 0.5 % eye drops 1 drp ophthalmic (eye) DAILY 12/14/21 12/14/21 Previous Rx's Medication Instructions Recorded pen needle, diabetic 32 gauge x #360 ea 12/12/19 blood sugar diagnostic (OneTouch #400 ea 01/14/21 Verio test strips) insulin lispro 100 unit/mL 20 - 30 unit (0.2 - 0.3 mL) subcut 05/28/21 subcutaneous solution TID 90 days #80 mL atorvastatin 80 mg tablet 80 mg PO DAILY #90 tabs 11/08/21 pen needle, diabetic 32 gauge x #100 ea 12/09/21 (BD Ultra-Fine Renetta Pen Needle) Allergies Allergy/AdvReac Type Severity Reaction Status Date / Time amoxicillin [Amoxicillin] Allergy Unknown VAGINAL Verified 12/02/21 15:50 ITCH hydrocodone [HYDROCODONE] Allergy Unknown LETHARGIC Verified 12/02/21 15:50 Review of Systems Review of Systems: Constitutional : No Weight loss, No Fever, No Chills, No Night Sweats, No Fatigue, No Malaise ENT/Mouth : No Hearing loss, No Ear Pain, No Nasal Congestion, No Sinus Pain, No Hoarseness, No sore throat, No Rhinorrhea, No Swallowing Difficulty Eyes: No Eye Pain, No Swelling, No Redness, No Foreign Body, No Discharge, No Vision Changes Cardiovascular : Chest pain with exertion, shortness of breath with exertion, positive orthopnea, palpitations present intermittently, worsening lower extremity edema Respiratory : No Cough, No Sputum, No Wheezing, No Smoke Exposure, No Dyspnea Gastrointestinal : No Nausea, No Vomiting, No Diarrhea, No Constipation, No abdominal Pain, No Hematochezia, No Melena Genitourinary : no irregular bleeding, No Dysuria, No Urinary Frequency, No Hematuria, No Urinary Incontinence, No Urgency, No Flank Pain, No Urinary Flow Changes, No Hesitancy Musculoskeletal : No joint pain, No Myalgias, No Joint Swelling Skin : Finish course of Keflex 2 days ago for lower extremity cellulitis Neuro : No Weakness, No Numbness, No Paresthesias, No Loss of Consciousness, No Dizziness, No Headache Psych : No Anxiety/Panic, No Depression, No SI/HI/AH/VH, No Social Issues, Heme/Lymph: No Bruising, No Bleeding,No Lymphadenopathy Endocrine : No Polyuria, No Polydipsia, No Temperature Intolerance [facility] Past Medical History Medical History Arthritis Benign essential hypertension Chronic kidney disease, stage 4 (severe) Constipation Essential hypertension Gout History of kidney cancer Hyperlipidemia LDL goal <100 Left bundle branch block Morbid obesity with BMI of 40.0-44.9, adult Obesity due to excess calories Obstructive sleep apnea Personal history of renal cell carcinoma Psoriasis Pure hypercholesterolemia Sleep apnea Squamous cell carcinoma in situ Supraventricular tachycardia Type 2 diabetes mellitus with chronic kidney disease Type 2 diabetes mellitus with other diabetic kidney complication Vitamin D deficiency Surgical History History of carpal tunnel release of both wrists History of cryosurgery History of surgery Hx of colonoscopy Hx of hysterectomy Hx of mammogram Hx of tonsillectomy Hx of total knee replacement Family History Family History Mother Diabetes Father No problems noted. Social History Social History Household Members: None Housing: House Alcohol intake: former Patient Tobacco Use Status: Never used Tobacco e-Cigarette/Vaping Use: Never Used Second Hand Smoke Exposure: Yes (46 years of passive smoke exposure ) Advance Directives: Yes Advance Directives Information Provided: Yes Advance Directives on File: No service: No Current occupational status: retired Cognitive needs: No Hearing needs: No Vision needs: Yes (glasses) Physical Exam Vital Signs: Vital Signs: Last Vital Signs Temp 98.7 F 12/14/21 14:00 Pulse 125 H 12/14/21 14:00 Resp 24 H 12/14/21 14:00 BP 143/98 H 12/14/21 14:00 Pulse Ox 97 12/14/21 14:00 O2 Del Method 12/14/21 14:00 BMI result Body Mass Index 42.7 Const: Other: Appearance: Alert. Oriented X3. No acute distress. Eyes: Pupils equal, round and reactive to light. ENT: Pharynx normal. Neck: Normal inspection. Neck supple. No lymph nodes noted. No crepitus CVS: Tachycardia, heart rate approximately 110-120 Pulses normal. Normal S1 and S2 Respiratory: No respiratory distress. no Wheezing. No rales , decreased breath sounds on the left side Abdomen: Soft and nontender. No rigidity. No distention. Skin: Skin warm and dry. Normal skin color. Normal skin turgor. Extremities: +3 pitting edema, erythema over lower extremities, likely cellulitis Neuro: Oriented X 3. No motor deficit. No sensory deficit. Moving all extremities. No slurred speech. CN 2 through 12 grossly intact Psych: calm, cooperative, normal affect Course Course Course Narrative: Patient likely has CHF exacerbation. Chest x-ray shows small pleural effusion. Patient gets short of breath with minimal exertion. Patient was started on IV Bumex. Dr. Bustillos will be admitting the patient. It was noted that patient is mostly tachycardic but at times her heart rate drops to the low 40s. Patient's blood pressure remains within normal limits and patient remains asymptomatic. Medications Administered Generic Name Dose Route Start Last Admin Trade Name Freq PRN Reason Stop Dose Admin Bumetanide 25 mg/ IV 100 mls @ 2 mls/hr 12/14/21 12:00 12/14/21 13:44 Miscellaneous Supplies IVCONT 0.5 mg/hr .Q24H MC 2 mls/hr Administration 0.5 MG/HR MDM - Chest Pain Lab Data Result diagrams: 12/14/21 11:47 12/14/21 12:12 Labs: Lab Results 12/14/21 12/14/21 12/14/21 Range/Units 11:47 11:47 11:47 WBC 6.9 (4.8-10.8) X10*3/uL RBC 3.77 L (4.20-5.50) X10*6/uL Hgb 10.5 L (12.0-16.0) g/dl Hct 33.6 L (37.0-47.0) % MCV 89.1 (80.0-98.0) fL MCH 27.9 (27.0-33.0) pg MCHC 31.3 (31.0-35.0) g/dl RDW 15.6 (11.0-16.0) % Plt Count 237 (160-400) X10*3/uL MPV 10.4 (9.4-12.3) fL Immature Gran % (Auto) 0.4 (0.0-0.4) % Neut % (Auto) 77.3 H (45-73) % Lymph % (Auto) 13.1 L (20-40) % [place] % (Auto) 7.5 (2-11) % Eos % (Auto) 1.6 (0-4) % Baso % (Auto) 0.1 (0-2) % Lymph # (Auto) 0.9 L (1.2-4.9) X10*3/uL [place] # (Auto) 0.5 (0.1-1.2) X10*3/uL Eos # (Auto) 0.1 (0.0-0.4) X10*3/uL Baso # (Auto) 0.0 (0.0-0.2) X10*3/uL Abs Immat Gran (auto) 0.03 (0.00-0.03) X10*3/uL Absolute Neuts (auto) 5.3 (2.0-8.3) x10*3/uL Absolute Nucleated RBC 0.000 (0.0-0.012) X10*3/uL Nucleated RBC % (auto) 0.0 (0.0-0.2) /100WBC PT (10.0-13.1) SEC INR (0.9-1.1) Sodium (135-145) mmol/L Potassium (3.3-5.1) mmol/L Chloride (96-108) mmol/L Carbon Dioxide (22-29) mmol/L Anion Gap (12-20) BUN (9-16) mg/dL Creatinine (0.5-1.4) mg/dL Estim Creat Clear Calc Estimated GFR Random Glucose (60-115) mg/dL Calcium (8.4-10.2) mg/dL Total Bilirubin (0.0-1.0) mg/dL Direct Bilirubin (0.0-0.5) mg/dL AST (5-31) U/L ALT (0-31) U/L Alkaline Phosphatase (39-117) U/L Troponin I High Sens 75.4 H* (<3.5-17.0) ng/L B-Natriuretic Peptide (<100) pg/mL Total Protein (6.5-8.0) g/dL Albumin (3.5-5.0) g/dL COVID-19 (TREVON) Negative (Negative) COVID-19 Clin Com See Note 11/08/22 11/08/22 11/08/22 Range/Units 11:47 11:47 12:12 WBC (4.8-10.8) X10*3/uL RBC (4.20-5.50) X10*6/uL Hgb (12.0-16.0) g/dl Hct (37.0-47.0) % MCV (80.0-98.0) fL MCH (27.0-33.0) pg MCHC (31.0-35.0) g/dl RDW (11.0-16.0) % Plt Count (160-400) X10*3/uL MPV (9.4-12.3) fL Immature Gran % (Auto) (0.0-0.4) % Neut % (Auto) (45-73) % Lymph % (Auto) (20-40) % [place] % (Auto) (2-11) % Eos % (Auto) (0-4) % Baso % (Auto) (0-2) % Lymph # (Auto) (1.2-4.9) X10*3/uL [place] # (Auto) (0.1-1.2) X10*3/uL Eos # (Auto) (0.0-0.4) X10*3/uL Baso # (Auto) (0.0-0.2) X10*3/uL Abs Immat Gran (auto) (0.00-0.03) X10*3/uL Absolute Neuts (auto) (2.0-8.3) x10*3/uL Absolute Nucleated RBC (0.0-0.012) X10*3/uL Nucleated RBC % (auto) (0.0-0.2) /100WBC PT 13.0 (10.0-13.1) SEC INR 1.1 (0.9-1.1) Sodium 144 (135-145) mmol/L Potassium 4.3 (3.3-5.1) mmol/L Chloride 109 H (96-108) mmol/L Carbon Dioxide 22 (22-29) mmol/L Anion Gap 17 (12-20) BUN 100 H D (9-16) mg/dL Creatinine 5.13 H* (0.5-1.4) mg/dL Estim Creat Clear Calc 11.7 Estimated GFR 8 Random Glucose 78 (60-115) mg/dL Calcium 8.6 (8.4-10.2) mg/dL Total Bilirubin 0.5 (0.0-1.0) mg/dL Direct Bilirubin 0.3 (0.0-0.5) mg/dL AST 55 H (5-31) U/L ALT 65 H (0-31) U/L Alkaline Phosphatase 156 H (39-117) U/L Troponin I High Sens (<3.5-17.0) ng/L B-Natriuretic Peptide 1494 H (<100) pg/mL Total Protein 5.2 L (6.5-8.0) g/dL Albumin 3.2 L (3.5-5.0) g/dL COVID-19 (TREVON) (Negative) COVID-19 Clin Com Imaging Data Chest x-ray: Radiologist's impression: FINDINGS: Increased opacification is seen at the left lung base with blunting of the left costophrenic angle and superjacent markings. The right lung is clear. The heart and mediastinal structures are unremarkable. XR/XR chest 1V IMPRESSION: Small left pleural effusion represents interval worsening from the previous study. Critical Care Time Critical Care Time Critical Care Time: Yes Total Critical Care Time: 60 Attestation: I have personally provided critical care time. Time includes review of lab data, radiology results, discussion with consultants, and monitoring for potential decompensation. Intervention performed as documented. Discharge Plan Discharge Clinical Impression: CHF (congestive heart failure), Acute kidney injury superimposed on CKD Patient Disposition: Admitted As Inpatient Prescriptions: No Action (DME) pen needle, diabetic 32 gauge x 5/32 needle See Rx Instructions subcut .MEDSUPPLY Qty: 360 3RF Rx Instructions: As directed 4 times a day (DME) OneTouch Verio test strips Strip See Rx Instructions .ROUTE .MEDSUPPLY Qty: 400 3RF Rx Instructions: four times a day atorvastatin 80 mg tablet 80 mg PO DAILY Qty: 90 0RF (DME) pen needle, diabetic [BD Ultra-Fine Renetta Pen Needle] 32 gauge x 5/32 needle See Rx Instructions .ROUTE .MEDSUPPLY Qty: 100 5RF Rx Instructions: As directed 4 times a day bumetanide 1 mg Tablet 0.5 mg PO DAILY@1700 insulin glargine U-300 conc 300 unit/mL (3 mL) insulin pen 44 unit subcut DAILY timolol maleate 0.5 % Drops 1 drp OPHTHALMIC (EYE) DAILY metoprolol tartrate 50 mg tablet 75 mg PO BID latanoprost 0.005 % drops 1 drp ophthalmic (eye) BEDTIME (DME) lancets 33 gauge misc See Rx Instructions topical TID Qty: 100 Rx Instructions: As directed cholecalciferol (vitamin D3) 25 mcg (1,000 unit) capsule 25 mcg PO DAILY allopurinol 100 mg tablet 200 mg PO DAILY hydralazine 25 mg tablet 25 mg PO BID (DME) FreeStyle Charly 2 Sensor Kit See Rx Instructions .Route Rx Instructions: As directed insulin lispro 100 unit/mL solution 20 - 30 unit subcut TID 90 Days Qty: 80 1RF melatonin 5 mg capsule 5 mg PO BEDTIME PRN (Reason: Sleep) calcitriol 0.25 mcg capsule 0.25 mcg PO .everyother day bumetanide 1 mg tablet 1 mg PO DAILY@0630 Rx Instructions: 1/2 pm
[2021-12-14 11:52] LABS: MANUAL DIFF FLAG NO
[2021-12-14 11:56] LABS: Basophils Percent Auto 0.1 % (0-2); Eosinophils Absolute Auto 0.1 X10*3/uL (0.0-0.4); Eosinophils Percent Auto 1.6 % (0-4); Hematocrit 33.6 % (37.0-47.0); Hemoglobin 10.5 g/dl (12.0-16.0); Imm Gran Abs Auto 0.03 X10*3/uL (0.00-0.03); Imm Gran Pct Auto 0.4 % (0.0-0.4); Lymphocytes Absolute Auto 0.9 X10*3/uL (1.2-4.9); Lymphocytes Percent Auto 13.1 % (20-40); Mean Corpuscular HGB Conc 31.3 g/dl (31.0-35.0); Mean Corpuscular Hemoglobin 27.9 pg (27.0-33.0); Mean Corpuscular Volume 89.1 fL (80.0-98.0); Mean Platelet Volume 10.4 fL (9.4-12.3); Monocytes Absolute Auto 0.5 X10*3/uL (0.1-1.2); Monocytes Percent Auto 7.5 % (2-11); Neutrophils Absolute Auto 5.3 x10*3/uL (2.0-8.3); Neutrophils Percent Auto 77.3 % (45-73); Platelet Count 237 X10*3/uL (160-400); Red Blood Count 3.77 X10*6/uL (4.20-5.50); Red Cell Distribution Width 15.6 % (11.0-16.0); White Blood Count 6.9 X10*3/uL (4.8-10.8)
[2021-12-14 12:00] LABS: INTERNATIONAL NORM RATIO 1.1 (0.9-1.1)
--- NOTE | 2021-12-14 12:04 | PC.NURSE ---
Pt alert and oriented. Short of breath with exertion. Pitting edema in bilateral lower extremities. IV established, labs drawn and sent. Pt on bus monitor, noted to be ranging from 58-134. Reporting heart racing while tachycardic.
[2021-12-14 12:12] LABS: B Type Natriuretic Peptide 1494 pg/mL (<100)
[2021-12-14 12:19] LABS: Troponin-I High Sensitivity 75.4 ng/L (<3.5-17.0)
[2021-12-14 12:35] LABS: COVID-19 Test Negative (Negative)
[2021-12-14 12:45] LABS: Alanine Aminotransferase 65 U/L (0-31); Albumin Level 3.2 g/dL (3.5-5.0); Alkaline Phosphatase 156 U/L (39-117); Anion Gap 17 (12-20); Aspartate Amino Transferase 55 U/L (5-31); Bilirubin Direct 0.3 mg/dL (0.0-0.5); Bilirubin Total 0.5 mg/dL (0.0-1.0); Blood Urea Nitrogen 100 mg/dL (9-16); Calcium 8.6 mg/dL (8.4-10.2); Carbon Dioxide 22 mmol/L (22-29); Chloride 109 mmol/L (96-108); Creatinine Clr Calc Pharmacy 11.7; Estimated Glomerular Filt Rate 8; Glucose Random 78 mg/dL (60-115); Potassium 4.3 mmol/L (3.3-5.1); Sodium 144 mmol/L (135-145); Total Protein 5.2 g/dL (6.5-8.0)
--- NOTE | 2021-12-14 12:47 | PHA.MEDREC ---
Pharmacy Consult ? Medication Reconciliation Pharmacy has completed the medication reconciliation. Patient had list of medications on her phone. Completed med rec using list and patient was able to confirm list accuracy and time of last doses.
[2021-12-14] MEDS: Bumetanide 25 MG in Container,Empty 0 ML IVCONT (13:44)
[2021-12-14 14:00] VITALS: BP 143/98; PULSE 125; RESP 24; TEMP 37.1; O2SAT 97
--- NOTE | 2021-12-14 15:06 | PC.NURSE ---
Pt continues with heart rate from 50's to 120's on the monitor. Provider aware, will continue to monitor.
--- NOTE | 2021-12-14 15:32 | PC.NURSE ---
hospitalist at bedside for evaluation
--- NOTE | 2021-12-14 15:52 | PM.IMHP ---
History of Present Illness Date of Service: 12/14/21 Chief Complaint: Dyspnea on exertion, lower extremities edema A 81 years old lady with PMH of diastolic CHF, HLD, HTN, type 2 diabetes, CKD stage 4, morbid obesity among others who presents to the hospital from Cardiology office for worsening dyspnea on exertion and lower extremities edema. The patient reports that for the last few weeks she has been having more difficulties laying back or walking for short distances with worsening dyspnea on exertion with no associated chest pain but noticed increase palpitation upon minimal exertion. Denies any lightheadedness, wheezing, sweating, nausea or vomiting. She noticed increased body weight of more than 10 lb over the last few weeks with associated worsening edema in lower extremities and development of rash in the chance of her legs bilaterally. She went to Cardiology office today for regular follow-up for the surgeon was made to send her to the emergency by Dr. Pandya for admission and IV diuresis. The emergency noted to have worsening kidney function from her baseline. Started on Bumex drip per Cardiology recommendations. Review of Systems Review of Systems: No fever, chills or weakness No chest pain, palpitation Dyspnea on exertion, orthopnea No abdominal pain, nausea or vomiting No urinary symptoms Lower extremities edema bilaterally with superficial rash PMFSH Medical History Arthritis Benign essential hypertension Chronic kidney disease, stage 4 (severe) Constipation Essential hypertension Gout History of kidney cancer Hyperlipidemia LDL goal <100 Left bundle branch block Morbid obesity with BMI of 40.0-44.9, adult Obesity due to excess calories Obstructive sleep apnea Personal history of renal cell carcinoma Psoriasis Pure hypercholesterolemia Sleep apnea Squamous cell carcinoma in situ Supraventricular tachycardia Type 2 diabetes mellitus with chronic kidney disease Type 2 diabetes mellitus with other diabetic kidney complication Vitamin D deficiency Family History Mother Diabetes Father No problems noted. Surgical History History of carpal tunnel release of both wrists History of cryosurgery History of surgery Hx of colonoscopy Hx of hysterectomy Hx of mammogram Hx of tonsillectomy Hx of total knee replacement Social History Household Members: None Housing: House Alcohol intake: former Patient Tobacco Use Status: Never used Tobacco e-Cigarette/Vaping Use: Never Used Second Hand Smoke Exposure: Yes (46 years of passive smoke exposure ) Advance Directives: Yes Advance Directives Information Provided: Yes Advance Directives on File: No service: No Current occupational status: retired Cognitive needs: No Hearing needs: No Vision needs: Yes (glasses) Meds Allergies Allergy/AdvReac Type Severity Reaction Status Date / Time amoxicillin [Amoxicillin] Allergy Unknown VAGINAL Verified 12/02/21 15:50 ITCH hydrocodone [HYDROCODONE] Allergy Unknown LETHARGIC Verified 12/02/21 15:50 Active Medications: Current Medications Acetaminophen (Acetaminophen 325 Mg Tablet) 650 mg PO Q6H PRN PRN Reason: Pain, Mild (Pain Scale 1-3) Allopurinol (Allopurinol 100 Mg Tablet) 100 mg PO DAILY [facility] Atorvastatin Calcium (Atorvastatin Calcium 80 Mg Tablet) 80 mg PO DAILY [facility] Calcitriol (Calcitriol 0.25 Mcg Capsule) 0.25 mcg PO Q48H [facility] Heparin Sodium (Porcine) (Heparin Sodium,Porcine 5,000 Unit/Ml Vial) 5,000 unit SUBCUT Q12H [facility] Hydralazine HCl (Hydralazine Hcl 25 Mg Tablet) 25 mg PO BID [facility]; Protocol Bumetanide 25 mg/ IV (Miscellaneous Supplies) 100 mls @ 2 mls/hr IVCONT .Q24H [facility] Last Admin: 12/14/21 13:44 Dose: 0.5 mg/hr, 2 mls/hr Insulin Glargine (Insulin Glargine,Hum.Rec.Anlog 100 Unit/Ml 10 Ml Vial) 30 unit SUBCUT DAILY [facility] Insulin Human Lispro (Insulin Lispro 100 Unit/Ml 3 Ml Vial) 0 unit SUBCUT QIDACHS [facility]; Protocol Latanoprost (Latanoprost 0.005 % Ophth Cyndi 2.5 Ml Drops) 1 drop EYE-BOTH BEDTIME [facility] Melatonin (Melatonin 3 Mg Tablet) 6 mg PO BEDTIME PRN PRN Reason: Sleep Metoprolol Tartrate (Metoprolol Tartrate 25 Mg Tablet) 75 mg PO BID [facility]; Protocol Ondansetron HCl (Ondansetron Hcl 4 Mg/2 Ml Vial) 4 mg IVPUSH Q8H PRN PRN Reason: Nausea and Vomiting Pharmacy Consult (Consult Rx Perform Med Rec) 1 each MISCELLANE ONCE PRN PRN Reason: Consult order Sodium Chloride (0.9 % Sodium Chloride Flush 3 Ml Syringe) 3 ml IVFLUSH QSHIFT [facility] Timolol Maleate (Timolol Maleate 0.5 % Oph Cyndi 5 Ml Drbtl) 1 drop EYE-BOTH DAILY [facility] Vitamin D (Cholecalciferol (Vitamin D3) 25 Mcg Tablet) 25 mcg PO DAILY [facility] Home Medications Medication Instructions Recorded Confirmed Last Taken Type cholecalciferol (vitamin D3) 25 25 mcg PO DAILY 12/04/19 12/14/21 12/13/21 History mcg (1,000 unit) capsule lancets 33 gauge #100 ea 12/04/19 12/02/21 Unknown History allopurinol 100 mg tablet 200 mg PO DAILY 12/20/20 12/14/21 12/13/21 History latanoprost 0.005 % eye drops 1 drp ophthalmic (eye) BEDTIME 01/12/21 12/14/21 12/13/21 History flash glucose sensor (FreeStyle 05/28/21 12/02/21 Unknown History Charly 2 Sensor kit) hydralazine 25 mg tablet 25 mg PO BID 05/28/21 12/14/21 12/14/21 History melatonin 5 mg capsule 5 mg PO BEDTIME PRN Sleep 07/08/21 12/14/21 Unknown History metoprolol tartrate 50 mg tablet 75 mg PO BID 12/02/21 12/14/21 12/14/21 History bumetanide 1 mg tablet 0.5 mg PO DAILY@1700 12/14/21 12/14/21 12/13/21 History bumetanide 1 mg tablet 1 mg PO DAILY@0630 12/14/21 12/14/21 12/14/21 History calcitriol 0.25 mcg capsule 0.25 mcg PO .everyother day 12/14/21 12/14/21 Unknown History insulin glargine U-300 conc 300 44 unit subcut DAILY 12/14/21 12/14/21 12/13/21 History unit/mL (3 mL) subcutaneous pen timolol maleate 0.5 % eye drops 1 drp ophthalmic (eye) DAILY 12/14/21 12/14/21 12/13/21 History Physical Exam Vital Signs and Narrative: Vital Signs: Last Vital Signs Temp 98.7 F 12/14/21 14:00 Pulse 125 H 12/14/21 14:00 Resp 24 H 12/14/21 14:00 BP 143/98 H 12/14/21 14:00 Pulse Ox 97 12/14/21 14:00 O2 Del Method 12/14/21 14:00 BMI result Body Mass Index 42.7 Const: Other: Constitutional : Awake, interactive, not in distress Neck : Normal inspection, Supple Cardiovascular : RRR, no JVP, +2 bilateral lower extremity edema, tachycardia Respiratory : good bilateral air entry, no crackles, wheezes or rhonchi Gastrointestinal: soft, lax, Normal bowel sounds, Non tender Skin : Warm, Dry, bilateral lower extremities superficial pinkish rash with no erythema or tenderness Neurological : Alert & oriented x3, No focal deficit Results Labs CBC and Chem 7: 12/14/21 11:47 12/14/21 12:12 Labs: Laboratory Results - last 24 hr 12/14/21 12/14/21 12/14/21 11:47 11:47 11:47 MCV 89.1 MCH 27.9 MCHC 31.3 RDW 15.6 Plt Count 237 MPV 10.4 Immature Gran % (Auto) 0.4 Neut % (Auto) 77.3 H Lymph % (Auto) 13.1 L Charles % (Auto) 7.5 Eos % (Auto) 1.6 Baso % (Auto) 0.1 Lymph # (Auto) 0.9 L Charles # (Auto) 0.5 Eos # (Auto) 0.1 Baso # (Auto) 0.0 Abs Immat Gran (auto) 0.03 Absolute Neuts (auto) 5.3 Absolute Nucleated RBC 0.000 Nucleated RBC % (auto) 0.0 PT INR Anion Gap Estim Creat Clear Calc Estimated GFR Random Glucose Calcium Total Bilirubin Direct Bilirubin AST ALT Alkaline Phosphatase Troponin I High Sens 75.4 H* B-Natriuretic Peptide Total Protein Albumin COVID-19 (TREVON) Negative COVID-19 Clin Com See Note 12/14/21 12/14/21 12/14/21 11:47 11:47 12:12 MCV MCH MCHC RDW Plt Count MPV Immature Gran % (Auto) Neut % (Auto) Lymph % (Auto) Charles % (Auto) Eos % (Auto) Baso % (Auto) Lymph # (Auto) Charles # (Auto) Eos # (Auto) Baso # (Auto) Abs Immat Gran (auto) Absolute Neuts (auto) Absolute Nucleated RBC Nucleated RBC % (auto) PT 13.0 INR 1.1 Anion Gap 17 Estim Creat Clear Calc 11.7 Estimated GFR 8 Random Glucose 78 Calcium 8.6 Total Bilirubin 0.5 Direct Bilirubin 0.3 AST 55 H ALT 65 H Alkaline Phosphatase 156 H Troponin I High Sens B-Natriuretic Peptide 1494 H Total Protein 5.2 L Albumin 3.2 L COVID-19 (TREVON) COVID-19 Clin Com Imaging Radiologist's Impressions: Impressions Chest X-Ray 12/14/21 12:01 IMPRESSION: Small left pleural effusion represents interval worsening from the previous study. Assessment and Plan (1) Acute kidney injury superimposed on CKD: Status: Acute (2) Acute heart failure with preserved ejection fraction: Status: Acute Plan A 81 years old lady with PMH of diastolic CHF, HLD, HTN, type 2 diabetes, CKD stage 4, morbid obesity among others who presents to the hospital from Cardiology office for worsening dyspnea on exertion and lower extremities edema. Acute diastolic CHF exacerbation Patient not making enough urine even while on Bumex Start Bumex drip Monitor intake and output Get Cardiology evaluation Grady I on CKD stage 3 Worsening kidney function could be part of advanced kidney disease or secondary to heart failure exacerbation Monitor B and B while on Bumex drip Monitor intake and output Get Nephrology evaluation, patient my need to end up on dialysis soon Type 2 diabetes SSI, diabetic diet Decrease Lantus to 30 units Tachycardia Has an evidence of tachycardia with episodes of bradycardia EKG showing Continue current medications of metoprolol b.i.d. Cardiology to follow Get an echo DVT PPX Heparin The patient will need 2. Overnight hospital stay for treatment of acute heart failure and worsening kidney function pending Cardiology, Nephrology evaluation and repeat echo. Quality Stroke Does the patient have a stroke diagnosis?: No VTE Prior VTE?: No VTE Risk Level:: Medical - moderate - high VTE Device Contraindication: Treatment Not Indicated VTE Drug Contraindication: N/A - Med Ordered
--- NOTE | 2021-12-14 15:59 | PC.NURSE ---
Urine output of 120mL
[2021-12-14 16:47] LABS: Thyroid Stimulating Hormone 7.06 uIU/mL (0.32-4.0)
[2021-12-14 18:14] VITALS: BP 132/89; PULSE 129; RESP 18; O2SAT 96
[2021-12-14 18:26] LABS: Appearance Urine Clear; Color Urine Yellow; Glucose Urine UA Negative (Negative); Leukocyte Esterase Urine Negative (Negative); Nitrite Urine Negative (Negative); UMIC TRIGGER UACC YES; Urine Blood Negative (Negative); Urine Ketones Negative (Negative); Urine Protein 100 (2+) mg/dL (Neg-Trace)
[2021-12-14 18:31] LABS: Bacteria Urine None Seen (None Seen); Hyaline Casts Urine 0-2 /LPF (0-2); RBC Urine 0-2 /HPF (0-2); Squamous Epithelial Cell Urine 0-2 /HPF (0-2); WBC Urine 0-5 /HPF (0-5)
[2021-12-14 18:49] LABS: Glucose, Whole Blood 127 mg/dL (60-115)
[2021-12-14 20:35] LABS: Glucose, Whole Blood 197 mg/dL (60-115)
[2021-12-14] MEDS: Heparin Sodium,Porcine 5,000 UNIT/ML VIAL 5000 UNIT SUBCUT (20:50)
[2021-12-14] MEDS: hydrALAZINE HCl 25 MG TABLET PO (20:50)
[2021-12-14] MEDS: Metoprolol Tartrate 25 MG TABLET 75 MG PO (20:50)
[2021-12-14] MEDS: Insulin Lispro 100 UNIT/ML 3 ML VIAL SUBCUT (20:51)
[2021-12-14 20:55] VITALS: BP 130/80; PULSE 121
--- NOTE | 2021-12-14 23:10 | PC.NURSE ---
Hospital bed and commode provided for patient comfort and ease of walking.
[2021-12-14 23:54] VITALS: BP 144/84; PULSE 127; RESP 24; TEMP 36.9; O2SAT 93
[2021-12-15] VITALS (9 sets, daily range): BP systolic 138–163; BP diastolic 68–88; PULSE 55–122; RESP 17–23; TEMP 36.3–37; O2SAT 94–98; BMI 41.8
--- NOTE | 2021-12-15 | ECG_ITS ---
Test Reason : REPEAT Blood Pressure : / mmHG Vent. Rate : 123 BPM Atrial Rate : 000 BPM P-R Int : 000 ms QRS Dur : 150 ms QT Int : 400 ms P-R-T Axes : 000 -02 176 degrees QTc Int : 572 ms Wide QRS tachycardia Left bundle branch block Abnormal ECG When compared with ECG of 14-DEC-2021 11:51, No significant change was found Referred By: Kyree Balderas Electronically Signed By:MARIE DIOP MD
[2021-12-15] MEDS: Melatonin 3 MG TABLET 6 MG PO ×2 (00:39→21:57)
[2021-12-15] MEDS: diphenhydrAMINE HCL 25 MG CAPSULE PO (00:39)
--- NOTE | 2021-12-15 03:23 | PC.NURSE ---
While sleeping patient's heart rate drops to 55. Wide QRS, unable to capture on EKG (attempted x2) because when patient wakes up HR up to 122 and EKG appears same as prior. MD. Balderas aware. looking back on history pt's HR did the same tachy/jovanna during the daytime 12/14/21 and prior RN made MD's aware of same. Patient denies any complaints at this time.
[2021-12-15 06:58] LABS: Hematocrit 31.3 % (37.0-47.0); Hemoglobin 9.6 g/dl (12.0-16.0); Mean Corpuscular HGB Conc 30.7 g/dl (31.0-35.0); Mean Corpuscular Hemoglobin 27.6 pg (27.0-33.0); Mean Corpuscular Volume 89.9 fL (80.0-98.0); Mean Platelet Volume 10.3 fL (9.4-12.3); Platelet Count 201 X10*3/uL (160-400); Red Blood Count 3.48 X10*6/uL (4.20-5.50); Red Cell Distribution Width 15.8 % (11.0-16.0); White Blood Count 5.9 X10*3/uL (4.8-10.8)
--- NOTE | 2021-12-15 07:00 | CA_ITS ---
Transthoracic Echocardiogram Patient (Last, First, Middle): Kate Vidal M Gender: Female Date of : 1940 Age: 81 Procedure Date: 12/15/2021 Procedure Type: Transthoracic Echocardiogram Location: ER Height: 167.64 cm Weight: 120.2 kg BSA: 2.25 m2 Heart Rate: bpm BP: 163 / 76 mmHg Test Data Developer: Referring MD: Mario Bustillos MD Symptoms: Acute CHF exacerbation Study Quality: Adequate with Contrast ECG Rhythm: Sinus/Afib at times Conclusions: - There is moderately increased left ventricular wall thickness. The left ventricular systolic function is mild to moderately decreased. The visually estimated ejection fraction is between 35-40%. - LV is dilated. - Normal right ventricular cavity size. There is borderline right ventricular systolic function. - The left atrium is severely dilated. - There is moderate tricuspid valve regurgitation. Significantly elevated right atrial pressure. Moderate pulmonary hypertension is present. - The inferior vena cava is dilated and does not collapse with inspiration. Findings Left Ventricle There is moderately increased left ventricular wall thickness. The left ventricular systolic function is mild to moderately decreased. The visually estimated ejection fraction is between 35-40%. There is paradoxical septal motion consistent with a left bundle branch block. Diastolic function is indeterminate on the basis of available data. LV is dilated. Right Ventricle Normal right ventricular cavity size. There is borderline right ventricular systolic function. Atria The left atrium is severely dilated. Aortic Valve There is a normal trileaflet aortic valve. There is mild calcification of the aortic valve. There is no aortic valve stenosis. There is no aortic valve regurgitation. Mitral Valve There is no mitral valve stenosis. Posterior mitral valve leaflet appears restricted in some views. Mild to moderate mitral valve regurgitation. Pulmonic Valve The pulmonic valve is likely normal. Tricuspid Valve Normal tricuspid valve structure. There is moderate tricuspid valve regurgitation. Significantly elevated right atrial pressure. Moderate pulmonary hypertension is present. Great Vessels All visible segments of the aorta are normal in size. The visualized portions of the pulmonary artery and branches are normal. Venous The inferior vena cava is dilated and does not collapse with inspiration. Pericardium/Pleural There is a trivial pericardial effusion. There is a large pleural effusion. Prior Study Comparison Changes noted compared to prior study dated: 05/12/2021. EF 35-40%, Severe LA dilation, mild to moderate MR., moderate TR, moderate pulm hypertension. Measurements 2D Linear Measurements IVSd: 1.37 0.6-0.9/0.6-1.0 cm LVIDd: 6.08 3.9-5.3/4.2-5.9 cm LVIDd Index: 2.70 2.4-3.2/2.2-3.1 cm/m2 LVIDs: 4.44 2.0-3.6 cm LVPWd: 1.32 0.7-1.1 cm Ao Root: 3.20 2.1-3.5 cm LA Diam: 5.30 2.7-3.8/3.0-4.0 cm LAIDs Index: 2.36 1.5-2.3 cm/m2 LV Mass: 467.76 67-162/88-224 g LV Mass Index: 207.89 43-95/49-115 g/m2 LVOT Diam: 2.00 3.0+(-)1.3 cm 2D Systolic Function EF 4C: 35.80 >55% EF 2C: 44.30 >55% EF BiP: 38.50 >55% Mitral Valve MV Pk E: 1.10 MV PK A: 0.75 MV Decel Time: 191.00 E/A: 1.50 E'Lateral: 3.48 E'Medial: 4.24 E/E' Med: 25.90 E/E' Lat: 31.60 PHT: 56.00 MVA PHT: 3.93 Decel [place]: 5.75 Aortic Valve AoV Pk Andres: 1.19 AoV Mn Andres: 0.80 AoV VTI: 0.20 AoV Pk Grad: 6.00 Aov Mn Grad: 3.00 YUSUF Cont.VTI: 1.98 LVOT LVOT Pk Andres: 0.83 LVOT Mn Andres: 0.52 LVOT VTI: 0.13 LVOT Pk Grad: 3.00 LVOT Mn Grad: 1.00 LVOT Diam: 2.00 LVOT Area: 3.14 Diastolic Function MV Pk E: 1.10 MV Pk A: 0.75 E/A: 1.50 E'Medial: 4.24 E/E' Med: 25.90 E' Laterial: 3.48 E/E' Lat: 31.60 Right Ventricle TAPSE (mm): 17.00 TVS' Andres: 7.00 Tricuspid Valve TR Pk Andres: 2.84 TR Pk Grad: 32.00 RA Press: 15.00 RVSP: 47.00 Great Vessels Aorta Ao Root-2D: 3.20 2.0-3.7 cm Ao Asc: 3.00 2.1-3.4 cm Pulmonary Valve PV Pk Andres: 0.86 Peak PV Grad: 3.00 Updated in Other Vendor System with Status of Final David Rowan MD electronically signed on 12/15/2021 11:00:46 AM with status of Final
[2021-12-15 07:11] LABS: Glucose, Whole Blood 153 mg/dL (60-115)
[2021-12-15 07:19] LABS: Anion Gap 19 (12-20); Blood Urea Nitrogen 99 mg/dL (9-16); Calcium 8.8 mg/dL (8.4-10.2); Carbon Dioxide 22 mmol/L (22-29); Chloride 108 mmol/L (96-108); Creatinine Clr Calc Pharmacy 11.4; Estimated Glomerular Filt Rate 8; Glucose Random 183 mg/dL (60-115); Potassium 4.4 mmol/L (3.3-5.1); Sodium 145 mmol/L (135-145)
[2021-12-15] MEDS: Metoprolol Tartrate 25 MG TABLET 75 MG PO (09:38)
[2021-12-15] MEDS: calcitrioL 0.25 MCG CAPSULE PO (09:38)
[2021-12-15] MEDS: Cholecalciferol (Vitamin D3) 25 MCG TABLET PO (09:38)
[2021-12-15] MEDS: Atorvastatin Calcium 80 MG TABLET PO (09:38)
[2021-12-15] MEDS: allopurinoL 100 MG TABLET PO (09:38)
[2021-12-15] MEDS: Heparin Sodium,Porcine 5,000 UNIT/ML VIAL 5000 UNIT SUBCUT ×2 (09:39→21:36)
[2021-12-15] MEDS: hydrALAZINE HCl 25 MG TABLET PO (09:40)
[2021-12-15] MEDS: Insulin Glargine,Hum.rec.anlog 100 UNIT/ML 10 ML VIAL 30 UNIT SUBCUT (09:40)
[2021-12-15] MEDS: Hydrocortisone 1 % Cream 28.35 GM TUBE 1 APPL TOPICAL ×2 (09:41→21:37)
[2021-12-15] MEDS: 0.9 % Sodium Chloride Flush 3 ML SYRINGE IVFLUSH ×2 (09:41→17:30)
[2021-12-15] MEDS: timoloL maleate 0.5 % Oph Sol 5 ML DRBTL 1 DROP EYE-BOTH (09:43)
--- NOTE | 2021-12-15 10:26 | MHC.CM.PN ---
Addendum entered by Teresa Simth 12/15/21 11:18: Daughters to transport @ d/c Original Note: This technical report writer met with patient for D/C planning needs. Lives home alone, no service prior to d/c. Has daughters that do support her. Walks around @ home w/ cane. Has HCP w/ daughter. Vax'd. No services prior to hospital but open to [facility] if needed. IMM delivered.
--- NOTE | 2021-12-15 10:41 | PM.CNCAR ---
History of Present Illness History of Present Illness Date of Service: 12/15/21 Requesting physician: Regino Vaughn Chief complaint: CHF, A tach Narrative: 81-year-old female who is presenting from Cardiology Clinic with congestive heart failure. She has known history of diastolic heart failure. It appears she has been experiencing shortness of breath and lower extremity edema with progressive weight gain. She had Holter monitoring which showed multiple runs of supraventricular tachycardia. She has known left bundle-branch block. Previously his echocardiography showed normal biventricular function. She has multiple runs of SVT with heart rates as high as 120 to 130s but when she breaks out of them her heart rate is in 50s. She was on 75 mg of metoprolol b.i.d. at home. No dizziness or syncope. Clinically significantly volume overloaded at this point. She is saying her dry weight is close to 250 lb. She is also hypertensive at this point. Also complaining of her right shoulder discomfort with ambulation. This does not happen when she develops tachycardia. [facility] Past Medical History Medical History Arthritis Benign essential hypertension Chronic kidney disease, stage 4 (severe) Constipation Essential hypertension Gout History of kidney cancer Hyperlipidemia LDL goal <100 Left bundle branch block Morbid obesity with BMI of 40.0-44.9, adult Obesity due to excess calories Obstructive sleep apnea Personal history of renal cell carcinoma Psoriasis Pure hypercholesterolemia Sleep apnea Squamous cell carcinoma in situ Supraventricular tachycardia Type 2 diabetes mellitus with chronic kidney disease Type 2 diabetes mellitus with other diabetic kidney complication Vitamin D deficiency Family History Family History Mother Diabetes Father No problems noted. Surgical History Surgical History History of carpal tunnel release of both wrists History of cryosurgery History of surgery Hx of colonoscopy Hx of hysterectomy Hx of mammogram Hx of tonsillectomy Hx of total knee replacement Social History Social History Household Members: None Housing: House Alcohol intake: former Patient Tobacco Use Status: Never used Tobacco e-Cigarette/Vaping Use: Never Used Second Hand Smoke Exposure: Yes (46 years of passive smoke exposure ) Advance Directives: Yes Advance Directives Information Provided: Yes Advance Directives on File: No service: No Current occupational status: retired Cognitive needs: No Hearing needs: No Vision needs: Yes (glasses) Meds Allergies Allergy/AdvReac Type Severity Reaction Status Date / Time amoxicillin [Amoxicillin] Allergy Unknown VAGINAL Verified 12/02/21 15:50 ITCH hydrocodone [HYDROCODONE] Allergy Unknown LETHARGIC Verified 12/02/21 15:50 Active Medications: Current Medications Acetaminophen (Acetaminophen 325 Mg Tablet) 650 mg PO Q6H PRN PRN Reason: Pain, Mild (Pain Scale 1-3) Allopurinol (Allopurinol 100 Mg Tablet) 100 mg PO DAILY [facility] Last Admin: 12/15/21 09:38 Dose: 100 mg Atorvastatin Calcium (Atorvastatin Calcium 80 Mg Tablet) 80 mg PO DAILY [facility] Last Admin: 12/15/21 09:38 Dose: 80 mg Calcitriol (Calcitriol 0.25 Mcg Capsule) 0.25 mcg PO Q48H [facility] Last Admin: 12/15/21 09:38 Dose: 0.25 mcg Heparin Sodium (Porcine) (Heparin Sodium,Porcine 5,000 Unit/Ml Vial) 5,000 unit SUBCUT Q12H [facility] Last Admin: 12/15/21 09:39 Dose: 5,000 unit Hydralazine HCl (Hydralazine Hcl 25 Mg Tablet) 25 mg PO BID [facility]; Protocol Last Admin: 12/15/21 09:40 Dose: 25 mg Hydrocortisone (Hydrocortisone 1 % Cream 28.35 Gm Tube) 1 appl TOPICAL BID [facility]; Protocol Last Admin: 12/15/21 09:41 Dose: 1 appl Bumetanide 25 mg/ IV (Miscellaneous Supplies) 100 mls @ 2 mls/hr IVCONT .Q24H [facility] Last Admin: 12/14/21 13:44 Dose: 0.5 mg/hr, 2 mls/hr Insulin Glargine (Insulin Glargine,Hum.Rec.Anlog 100 Unit/Ml 10 Ml Vial) 30 unit SUBCUT DAILY [facility] Last Admin: 12/15/21 09:40 Dose: 30 unit Insulin Human Lispro (Insulin Lispro 100 Unit/Ml 3 Ml Vial) 0 unit SUBCUT QIDACHS [facility]; Protocol Last Admin: 12/15/21 09:41 Dose: Not Given Latanoprost (Latanoprost 0.005 % Ophth Cyndi 2.5 Ml Drops) 1 drop EYE-BOTH BEDTIME [facility] Last Admin: 12/15/21 00:50 Dose: Not Given Melatonin (Melatonin 3 Mg Tablet) 6 mg PO BEDTIME PRN PRN Reason: Sleep Last Admin: 12/15/21 00:39 Dose: 6 mg Metoprolol Tartrate (Metoprolol Tartrate 25 Mg Tablet) 75 mg PO BID [facility]; Protocol Last Admin: 12/15/21 09:38 Dose: 75 mg Ondansetron HCl (Ondansetron Hcl 4 Mg/2 Ml Vial) 4 mg IVPUSH Q8H PRN PRN Reason: Nausea and Vomiting Pharmacy Consult (Consult Rx Perform Med Rec) 1 each MISCELLANE ONCE PRN PRN Reason: Consult order Sodium Chloride (0.9 % Sodium Chloride Flush 3 Ml Syringe) 3 ml IVFLUSH QSHIFT [facility] Last Admin: 12/15/21 09:41 Dose: 3 ml Timolol Maleate (Timolol Maleate 0.5 % Oph Cyndi 5 Ml Drbtl) 1 drop EYE-BOTH DAILY [facility] Last Admin: 12/15/21 09:43 Dose: 1 drop Vitamin D (Cholecalciferol (Vitamin D3) 25 Mcg Tablet) 25 mcg PO DAILY [facility] Last Admin: 12/15/21 09:38 Dose: 25 mcg Home Medications Medication Instructions Recorded Confirmed Last Taken Type cholecalciferol (vitamin D3) 25 25 mcg PO DAILY 12/04/19 12/14/21 12/13/21 History mcg (1,000 unit) capsule lancets 33 gauge #100 ea 12/04/19 12/02/21 Unknown History allopurinol 100 mg tablet 200 mg PO DAILY 12/20/20 12/14/21 12/13/21 History latanoprost 0.005 % eye drops 1 drp ophthalmic (eye) BEDTIME 01/12/21 12/14/21 12/13/21 History flash glucose sensor (FreeStyle 05/28/21 12/02/21 Unknown History Charly 2 Sensor kit) hydralazine 25 mg tablet 25 mg PO BID 05/28/21 12/14/21 12/14/21 History melatonin 5 mg capsule 5 mg PO BEDTIME PRN Sleep 07/08/21 12/14/21 Unknown History metoprolol tartrate 50 mg tablet 75 mg PO BID 12/02/21 12/14/21 12/14/21 History bumetanide 1 mg tablet 0.5 mg PO DAILY@1700 12/14/21 12/14/21 12/13/21 History bumetanide 1 mg tablet 1 mg PO DAILY@0630 12/14/21 12/14/21 12/14/21 History calcitriol 0.25 mcg capsule 0.25 mcg PO .everyother day 12/14/21 12/14/21 Unknown History insulin glargine U-300 conc 300 44 unit subcut DAILY 12/14/21 12/14/21 12/13/21 History unit/mL (3 mL) subcutaneous pen timolol maleate 0.5 % eye drops 1 drp ophthalmic (eye) DAILY 12/14/21 12/14/21 12/13/21 History Physical Exam Vital Signs: Vital Signs: Last Vital Signs Temp 97.8 F 12/15/21 07:15 Pulse 122 H 12/15/21 09:48 Resp 19 12/15/21 09:48 BP 163/76 H 12/15/21 09:48 Pulse Ox 96 12/15/21 09:48 O2 Del Method 12/15/21 09:48 BMI result Body Mass Index 42.7 GENERAL APPEARANCE: in no acute distress, pleasant. NECK: no carotid bruit, elevated jugular venous distention. SKIN: no suspicious lesions, warm and dry. HEART: no murmurs, regular rate and rhythm. LUNGS: Bibasilar crackles. ABDOMEN: soft, nontender. EXTREMITIES: 2- 3+ edema bilaterally up to the knees. PERIPHERAL PULSES: equal. NEUROLOGIC: No gross deficits, AAO X 3 Objective Labs and Meds Result diagrams: 12/15/21 06:17 12/15/21 06:17 Lab results: Laboratory Results - last 24 hr 12/14/21 12/14/21 12/14/21 11:47 11:47 11:47 WBC 6.9 RBC 3.77 L Hgb 10.5 L Hct 33.6 L MCV 89.1 MCH 27.9 MCHC 31.3 RDW 15.6 Plt Count 237 MPV 10.4 Immature Gran % (Auto) 0.4 Neut % (Auto) 77.3 H Lymph % (Auto) 13.1 L Mccormick % (Auto) 7.5 Eos % (Auto) 1.6 Baso % (Auto) 0.1 Lymph # (Auto) 0.9 L Mccormick # (Auto) 0.5 Eos # (Auto) 0.1 Baso # (Auto) 0.0 Abs Immat Gran (auto) 0.03 Absolute Neuts (auto) 5.3 Absolute Nucleated RBC 0.000 Nucleated RBC % (auto) 0.0 PT INR Sodium Potassium Chloride Carbon Dioxide Anion Gap BUN Creatinine Estim Creat Clear Calc Estimated GFR POC Glucose Random Glucose Calcium Total Bilirubin Direct Bilirubin AST ALT Alkaline Phosphatase Troponin I High Sens 75.4 H* B-Natriuretic Peptide Total Protein Albumin TSH Urine Color Urine Appearance Urine pH Ur Specific [place] Urine Protein Urine Glucose (UA) Urine Ketones Urine Blood Urine Nitrite Ur Leukocyte Esterase Urine RBC Urine WBC Ur Squamous Epith Cells Urine Bacteria Hyaline Casts COVID-19 (TREVON) Negative COVID-Social[employer] Com See Note 12/14/21 12/14/21 12/14/21 11:47 11:47 12:12 WBC RBC Hgb Hct MCV MCH MCHC RDW Plt Count MPV Immature Gran % (Auto) Neut % (Auto) Lymph % (Auto) Mccormick % (Auto) Eos % (Auto) Baso % (Auto) Lymph # (Auto) Mccormick # (Auto) Eos # (Auto) Baso # (Auto) Abs Immat Gran (auto) Absolute Neuts (auto) Absolute Nucleated RBC Nucleated RBC % (auto) PT 13.0 INR 1.1 Sodium 144 Potassium 4.3 Chloride 109 H Carbon Dioxide 22 Anion Gap 17 BUN 100 H D Creatinine 5.13 H* Estim Creat Clear Calc 11.7 Estimated GFR 8 POC Glucose Random Glucose 78 Calcium 8.6 Total Bilirubin 0.5 Direct Bilirubin 0.3 AST 55 H ALT 65 H Alkaline Phosphatase 156 H Troponin I High Sens B-Natriuretic Peptide 1494 H Total Protein 5.2 L Albumin 3.2 L TSH 7.06 H Urine Color Urine Appearance Urine pH Ur Specific [place] Urine Protein Urine Glucose (UA) Urine Ketones Urine Blood Urine Nitrite Ur Leukocyte Esterase Urine RBC Urine WBC Ur Squamous Epith Cells Urine Bacteria Hyaline Casts COVID-19 (TREVON) COVID-WhoJam 12/14/21 12/14/21 12/14/21 18:17 18:45 20:32 WBC RBC Hgb Hct MCV MCH MCHC RDW Plt Count MPV Immature Gran % (Auto) Neut % (Auto) Lymph % (Auto) Mccormick % (Auto) Eos % (Auto) Baso % (Auto) Lymph # (Auto) Mccormick # (Auto) Eos # (Auto) Baso # (Auto) Abs Immat Gran (auto) Absolute Neuts (auto) Absolute Nucleated RBC Nucleated RBC % (auto) PT INR Sodium Potassium Chloride Carbon Dioxide Anion Gap BUN Creatinine Estim Creat Clear Calc Estimated GFR POC Glucose 127 H 197 H Random Glucose Calcium Total Bilirubin Direct Bilirubin AST ALT Alkaline Phosphatase Troponin I High Sens B-Natriuretic Peptide Total Protein Albumin TSH Urine Color Yellow Urine Appearance Clear Urine pH 5.0 Ur Specific [place] 1.010 Urine Protein 100 (2+) H Urine Glucose (UA) Negative Urine Ketones Negative Urine Blood Negative Urine Nitrite Negative Ur Leukocyte Esterase Negative Urine RBC 0-2 Urine WBC 0-5 Ur Squamous Epith Cells 0-2 Urine Bacteria None Seen Hyaline Casts 0-2 COVID-19 (TREVON) COVID-19 Clin Com 12/15/21 12/15/21 12/15/21 06:17 06:17 07:05 WBC 5.9 RBC 3.48 L Hgb 9.6 L Hct 31.3 L MCV 89.9 MCH 27.6 MCHC 30.7 L RDW 15.8 Plt Count 201 MPV 10.3 Immature Gran % (Auto) Neut % (Auto) Lymph % (Auto) Mccormick % (Auto) Eos % (Auto) Baso % (Auto) Lymph # (Auto) Mccormick # (Auto) Eos # (Auto) Baso # (Auto) Abs Immat Gran (auto) Absolute Neuts (auto) Absolute Nucleated RBC 0.000 Nucleated RBC % (auto) 0.0 PT INR Sodium 145 Potassium 4.4 Chloride 108 Carbon Dioxide 22 Anion Gap 19 BUN 99 H Creatinine 5.26 H* Estim Creat Clear Calc 11.4 Estimated GFR 8 POC Glucose 153 H Random Glucose 183 H Calcium 8.8 Total Bilirubin Direct Bilirubin AST ALT Alkaline Phosphatase Troponin I High Sens B-Natriuretic Peptide Total Protein Albumin TSH Urine Color Urine Appearance Urine pH Ur Specific [place] Urine Protein Urine Glucose (UA) Urine Ketones Urine Blood Urine Nitrite Ur Leukocyte Esterase Urine RBC Urine WBC Ur Squamous Epith Cells Urine Bacteria Hyaline Casts COVID-19 (TREVON) COVID-19 Clin Com Imaging Radiologist's impression: Impressions Chest X-Ray 12/14/21 12:01 IMPRESSION: Small left pleural effusion represents interval worsening from the previous study. Assessment and Plan (1) CHF (congestive heart failure): Status: Acute (2) Essential hypertension: Status: Acute (3) Supraventricular tachycardia: Status: Acute (4) Left bundle branch block: Status: Acute (5) Acute kidney injury superimposed on CKD: Status: Acute Plan Pleasant 81-year-old female presenting for shortness of breath and congestive heart failure. Her echocardiography is showing drop in ejection fraction from normal to 35 40%. She has been experiencing multiple runs of supraventricular tachycardia which I think is atrial tachycardia. She had multiple runs of similar arrhythmia on Holter monitor. She is symptomatic with them and get some palpitations. Blood pressure does not change in the setting of supraventricular tachycardia. She has known history of left bundle-branch block and previously are EF was normal. Right now she is significantly volume overloaded. She is acting like tachy-jovanna syndrome and her heart rates fluctuate between 120s to 130s when she is in atrial tach to sinus bradycardia in 50s. She is on metoprolol 75 mg twice a day. I am stopping the metoprolol. Continue Bumex drip. Gave him oral Zaroxolyn 5 mg. Increase the hydralazine to 50 mg 3 times a day and added isosorbide mononitrate 30 mg once a day. Fairly complex situation as there is cardiomyopathy present now too. I think this can be due to SVT versus left bundle-branch block. With the right shoulder discomfort happening with activities underlying coronary disease is also possible and she has multiple risk factors for that. In any case she has significant kidney injury which I think is due to cardiorenal interaction. My hope is that her creatinine will improve with diuresis. Would monitor her closely and electrolytes need to be monitored closely. If she has no symptomatic pauses or any other concerns and heart rate improved after stopping metoprolol then I will give her amiodarone to suppress the supraventricular tachycardia. I have explained to the patient that there is a possibility that we may have to consider putting a pacemaker in her because of significant fluctuation her heart rate and safety concerns about treating the tachycardia appropriately. Thank you for allowing me to participate in the care of your patient. Please feel free to contact me if you have any questions. Procedures Date of Service Date of Service: 12/15/21
--- NOTE | 2021-12-15 11:19 | PM.CNNEP ---
History of Present Illness Reason for Consult Consult date: 12/15/21 Chief Complaint Chief complaint: dyspnea on exertion, LE swelling History of Present Illness Narrative: 81 years old lady with CKD stage 4 who presented to the hospital from Cardiology office for worsening dyspnea on exertion and lower extremities edema. The patient reports that for the last few weeks she has been having more difficulties laying back or walking for short distances with worsening dyspnea on exertion with no associated chest pain but noticed increase palpitation upon minimal exertion.? Denies any lightheadedness, wheezing, sweating, nausea or vomiting.? She noticed increased body weight of more than 10 lb over the last few weeks with associated worsening edema in lower extremities and development of rash in the chance of her legs bilaterally. She went to Cardiology office yesterday for regular follow-up and was sent to the emergency by Dr. Pandya for admission and IV diuresis.? She was also noted to have worsening kidney function from her baseline.?She was started on Bumex drip and was admitted for further management. Nephrology was consulted to assist in her clinical care during her current hospital stay Review of Systems Review of Systems Yes all other systems are reviewed and are negative PMFSH Past Medical History Medical History Arthritis Benign essential hypertension Chronic kidney disease, stage 4 (severe) Constipation Essential hypertension Gout History of kidney cancer Hyperlipidemia LDL goal <100 Left bundle branch block Morbid obesity with BMI of 40.0-44.9, adult Obesity due to excess calories Obstructive sleep apnea Personal history of renal cell carcinoma Psoriasis Pure hypercholesterolemia Sleep apnea Squamous cell carcinoma in situ Supraventricular tachycardia Type 2 diabetes mellitus with chronic kidney disease Type 2 diabetes mellitus with other diabetic kidney complication Vitamin D deficiency Family History Family History Mother Diabetes Father No problems noted. Surgical History Surgical History History of carpal tunnel release of both wrists History of cryosurgery History of surgery Hx of colonoscopy Hx of hysterectomy Hx of mammogram Hx of tonsillectomy Hx of total knee replacement Social History Social History Household Members: None Housing: House Alcohol intake: former Patient Tobacco Use Status: Never used Tobacco e-Cigarette/Vaping Use: Never Used Second Hand Smoke Exposure: Yes (46 years of passive smoke exposure ) Advance Directives: Yes Advance Directives Information Provided: Yes Advance Directives on File: No service: No Current occupational status: retired Cognitive needs: No Hearing needs: No Vision needs: Yes (glasses) Meds Allergies Allergy/AdvReac Type Severity Reaction Status Date / Time amoxicillin [Amoxicillin] Allergy Unknown VAGINAL Verified 12/02/21 15:50 ITCH hydrocodone [HYDROCODONE] Allergy Unknown LETHARGIC Verified 12/02/21 15:50 Active Medications: Current Medications Acetaminophen (Acetaminophen 325 Mg Tablet) 650 mg PO Q6H PRN PRN Reason: Pain, Mild (Pain Scale 1-3) Allopurinol (Allopurinol 100 Mg Tablet) 100 mg PO DAILY [facility] Last Admin: 12/15/21 09:38 Dose: 100 mg Atorvastatin Calcium (Atorvastatin Calcium 80 Mg Tablet) 80 mg PO DAILY [facility] Last Admin: 12/15/21 09:38 Dose: 80 mg Calcitriol (Calcitriol 0.25 Mcg Capsule) 0.25 mcg PO Q48H [facility] Last Admin: 12/15/21 09:38 Dose: 0.25 mcg Heparin Sodium (Porcine) (Heparin Sodium,Porcine 5,000 Unit/Ml Vial) 5,000 unit SUBCUT Q12H [facility] Last Admin: 12/15/21 09:39 Dose: 5,000 unit Hydralazine HCl (Hydralazine Hcl 50 Mg Tablet) 50 mg PO TID [facility]; Protocol Hydrocortisone (Hydrocortisone 1 % Cream 28.35 Gm Tube) 1 appl TOPICAL BID [facility]; Protocol Last Admin: 12/15/21 09:41 Dose: 1 appl Bumetanide 25 mg/ IV (Miscellaneous Supplies) 100 mls @ 2 mls/hr IVCONT .Q24H [facility] Last Admin: 12/14/21 13:44 Dose: 0.5 mg/hr, 2 mls/hr Insulin Glargine (Insulin Glargine,Hum.Rec.Anlog 100 Unit/Ml 10 Ml Vial) 30 unit SUBCUT DAILY [facility] Last Admin: 12/15/21 09:40 Dose: 30 unit Insulin Human Lispro (Insulin Lispro 100 Unit/Ml 3 Ml Vial) 0 unit SUBCUT QIDACHS [facility]; Protocol Last Admin: 12/15/21 09:41 Dose: Not Given Isosorbide Mononitrate (Isosorbide Mononitrate 30 Mg Tab.Er.24h) 30 mg PO DAILY [facility]; Protocol Latanoprost (Latanoprost 0.005 % Ophth Cyndi 2.5 Ml Drops) 1 drop EYE-BOTH BEDTIME [facility] Last Admin: 12/15/21 00:50 Dose: Not Given Melatonin (Melatonin 3 Mg Tablet) 6 mg PO BEDTIME PRN PRN Reason: Sleep Last Admin: 12/15/21 00:39 Dose: 6 mg Ondansetron HCl (Ondansetron Hcl 4 Mg/2 Ml Vial) 4 mg IVPUSH Q8H PRN PRN Reason: Nausea and Vomiting Pharmacy Consult (Consult Rx Perform Med Rec) 1 each MISCELLANE ONCE PRN PRN Reason: Consult order Sodium Chloride (0.9 % Sodium Chloride Flush 3 Ml Syringe) 3 ml IVFLUSH QSHIFT [facility] Last Admin: 12/15/21 09:41 Dose: 3 ml Timolol Maleate (Timolol Maleate 0.5 % Oph Cyndi 5 Ml Drbtl) 1 drop EYE-BOTH DAILY [facility] Last Admin: 12/15/21 09:43 Dose: 1 drop Vitamin D (Cholecalciferol (Vitamin D3) 25 Mcg Tablet) 25 mcg PO DAILY [facility] Last Admin: 12/15/21 09:38 Dose: 25 mcg Home Medications Medication Instructions Recorded Confirmed Last Taken Type cholecalciferol (vitamin D3) 25 25 mcg PO DAILY 12/04/19 12/14/21 12/13/21 History mcg (1,000 unit) capsule lancets 33 gauge #100 ea 12/04/19 12/02/21 Unknown History allopurinol 100 mg tablet 200 mg PO DAILY 12/20/20 12/14/21 12/13/21 History latanoprost 0.005 % eye drops 1 drp ophthalmic (eye) BEDTIME 01/12/21 12/14/21 12/13/21 History flash glucose sensor (FreeStyle 05/28/21 12/02/21 Unknown History Charly 2 Sensor kit) hydralazine 25 mg tablet 25 mg PO BID 05/28/21 12/14/21 12/14/21 History melatonin 5 mg capsule 5 mg PO BEDTIME PRN Sleep 07/08/21 12/14/21 Unknown History metoprolol tartrate 50 mg tablet 75 mg PO BID 12/02/21 12/14/21 12/14/21 History bumetanide 1 mg tablet 0.5 mg PO DAILY@1700 12/14/21 12/14/21 12/13/21 History bumetanide 1 mg tablet 1 mg PO DAILY@0630 12/14/21 12/14/21 12/14/21 History calcitriol 0.25 mcg capsule 0.25 mcg PO .everyother day 12/14/21 12/14/21 Unknown History insulin glargine U-300 conc 300 44 unit subcut DAILY 12/14/21 12/14/21 12/13/21 History unit/mL (3 mL) subcutaneous pen timolol maleate 0.5 % eye drops 1 drp ophthalmic (eye) DAILY 12/14/21 12/14/21 12/13/21 History Physical Exam Vital Signs: Last Vital Signs Temp 97.8 F 12/15/21 07:15 Pulse 122 H 12/15/21 09:48 Resp 19 12/15/21 09:48 BP 163/76 H 12/15/21 09:48 Pulse Ox 96 12/15/21 09:48 O2 Del Method 12/15/21 09:48 BMI result Body Mass Index 42.7 Const General: no acute distress Orientation/consciousness: patient oriented x3 Eyes EOM: EOMs intact bilaterally Resp Auscultation: diminished lung sounds Cardio Rate: regular rate GI Palpation (GI): Soft to palpation Neuro General: patient oriented x3 and moves all extremities Results Lab Results Result Diagrams: 12/15/21 06:17 12/15/21 06:17 Lab results: Chemistry 12/14/21 12/15/21 12:12 06:17 Sodium 144 145 Potassium 4.3 4.4 Carbon Dioxide 22 22 BUN 100 H D 99 H Creatinine 5.13 H* 5.26 H* Calcium 8.6 8.8 Hematology 12/14/21 12/15/21 11:47 06:17 WBC 6.9 5.9 Hgb 10.5 L 9.6 L Plt Count 237 201 Urinalysis 12/14/21 18:17 Urine Color Yellow Urine Appearance Clear Urine pH 5.0 Ur Specific [place] 1.010 Urine Protein 100 (2+) H Urine Glucose (UA) Negative Urine Ketones Negative Urine Blood Negative Urine Nitrite Negative Ur Leukocyte Esterase Negative Urine RBC 0-2 Urine WBC 0-5 Ur Squamous Epith Cells 0-2 Hyaline Casts 0-2 Assessment and Plan (1) Acute kidney injury superimposed on CKD: Status: Acute Plan 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 K/HCO3 OK; On Bumex drip No indication for renal replacement yet; C/W rest of current supportive care for now Procedures Date of Service Date of Service: 12/15/21
--- NOTE | 2021-12-15 11:19 | HO.PM.IMPN ---
Subjective Subjective Date of Service: 12/15/21 Interval History: cc: sob, edema interval history:urinating, not sob at rest Cardiovascular Cardiovascular: Reports no additional cardiovascular complaints Respiratory Respiratory: Reports no additional respiratory complaints Physical Exam Vital Signs: Vital Signs: Last Vital Signs Temp 97.8 F 12/15/21 07:15 Pulse 122 H 12/15/21 09:48 Resp 19 12/15/21 09:48 BP 163/76 H 12/15/21 09:48 Pulse Ox 96 12/15/21 09:48 O2 Del Method 12/15/21 09:48 BMI result Body Mass Index 42.7 General: AO X 3, no acute distress Resp: diminished bilateral, no accessory muscles used CVS: S1,S2,regular, slow GI: soft, non tender, non distended Neuro: motor grossly intact, alert Psych: appropriate affect, appropriate insight Objective Data Active Medications Acetaminophen (Acetaminophen 325 Mg Tablet) 650 mg PO Q6H PRN PRN Reason: Pain, Mild (Pain Scale 1-3) Allopurinol (Allopurinol 100 Mg Tablet) 100 mg PO DAILY [facility] Last Admin: 12/15/21 09:38 Dose: 100 mg Documented By: BARBIE Atorvastatin Calcium (Atorvastatin Calcium 80 Mg Tablet) 80 mg PO DAILY [facility] Last Admin: 12/15/21 09:38 Dose: 80 mg Documented By: BARBIE Calcitriol (Calcitriol 0.25 Mcg Capsule) 0.25 mcg PO Q48H [facility] Last Admin: 12/15/21 09:38 Dose: 0.25 mcg Documented By: BARBIE Heparin Sodium (Porcine) (Heparin Sodium,Porcine 5,000 Unit/Ml Vial) 5,000 unit SUBCUT Q12H [facility] Last Admin: 12/15/21 09:39 Dose: 5,000 unit Documented By: BARBIE Hydralazine HCl (Hydralazine Hcl 50 Mg Tablet) 50 mg PO TID [facility]; Protocol Hydrocortisone (Hydrocortisone 1 % Cream 28.35 Gm Tube) 1 appl TOPICAL BID [facility]; Protocol Last Admin: 12/15/21 09:41 Dose: 1 appl Documented By: BARBIE Bumetanide 25 mg/ IV (Miscellaneous Supplies) 100 mls @ 2 mls/hr IVCONT .Q24H [facility] Last Admin: 12/14/21 13:44 Dose: 0.5 mg/hr, 2 mls/hr Documented By: PAOLA Insulin Glargine (Insulin Glargine,Hum.Rec.Anlog 100 Unit/Ml 10 Ml Vial) 30 unit SUBCUT DAILY [facility] Last Admin: 12/15/21 09:40 Dose: 30 unit Documented By: BARBIE Insulin Human Lispro (Insulin Lispro 100 Unit/Ml 3 Ml Vial) 0 unit SUBCUT QIDACHS [facility]; Protocol Last Admin: 12/15/21 09:41 Dose: Not Given Documented By: BARBIE Non-Admin Reason: See Note Isosorbide Mononitrate (Isosorbide Mononitrate 30 Mg Tab.Er.24h) 30 mg PO DAILY [facility]; Protocol Latanoprost (Latanoprost 0.005 % Ophth Cyndi 2.5 Ml Drops) 1 drop EYE-BOTH BEDTIME [facility] Last Admin: 12/15/21 00:50 Dose: Not Given Documented By: YURIY Non-Admin Reason: Med Not Available Melatonin (Melatonin 3 Mg Tablet) 6 mg PO BEDTIME PRN PRN Reason: Sleep Last Admin: 12/15/21 00:39 Dose: 6 mg Documented By: YURIY Ondansetron HCl (Ondansetron Hcl 4 Mg/2 Ml Vial) 4 mg IVPUSH Q8H PRN PRN Reason: Nausea and Vomiting Pharmacy Consult (Consult Rx Perform Med Rec) 1 each MISCELLANE ONCE PRN PRN Reason: Consult order Sodium Chloride (0.9 % Sodium Chloride Flush 3 Ml Syringe) 3 ml IVFLUSH QSHIFT [facility] Last Admin: 12/15/21 09:41 Dose: 3 ml Documented By: BARBIE Timolol Maleate (Timolol Maleate 0.5 % Oph Cyndi 5 Ml Drbtl) 1 drop EYE-BOTH DAILY [facility] Last Admin: 12/15/21 09:43 Dose: 1 drop Documented By: BARBIE Vitamin D (Cholecalciferol (Vitamin D3) 25 Mcg Tablet) 25 mcg PO DAILY [facility] Last Admin: 12/15/21 09:38 Dose: 25 mcg Documented By: BARBIE Labs CBC & Chem 7: 12/15/21 06:17 12/15/21 06:17 Labs: Laboratory Results - last 24 hr 12/14/21 12/14/21 12/14/21 11:47 11:47 11:47 MCV 89.1 MCH 27.9 MCHC 31.3 RDW 15.6 Plt Count 237 MPV 10.4 Immature Gran % (Auto) 0.4 Neut % (Auto) 77.3 H Lymph % (Auto) 13.1 L Castro % (Auto) 7.5 Eos % (Auto) 1.6 Baso % (Auto) 0.1 Lymph # (Auto) 0.9 L Castro # (Auto) 0.5 Eos # (Auto) 0.1 Baso # (Auto) 0.0 Abs Immat Gran (auto) 0.03 Absolute Neuts (auto) 5.3 Absolute Nucleated RBC 0.000 Nucleated RBC % (auto) 0.0 PT INR Anion Gap Estim Creat Clear Calc Estimated GFR POC Glucose Random Glucose Calcium Total Bilirubin Direct Bilirubin AST ALT Alkaline Phosphatase Troponin I High Sens 75.4 H* B-Natriuretic Peptide Total Protein Albumin TSH Urine Color Urine Appearance Urine pH Ur Specific [place] Urine Protein Urine Glucose (UA) Urine Ketones Urine Blood Urine Nitrite Ur Leukocyte Esterase Urine RBC Urine WBC Ur Squamous Epith Cells Urine Bacteria Hyaline Casts COVID-19 ([facility]REVON) Negative COVID-19 Clin Com See Note 12/14/21 12/14/21 12/14/21 11:47 11:47 12:12 MCV MCH MCHC RDW Plt Count MPV Immature Gran % (Auto) Neut % (Auto) Lymph % (Auto) Castro % (Auto) Eos % (Auto) Baso % (Auto) Lymph # (Auto) Castro # (Auto) Eos # (Auto) Baso # (Auto) Abs Immat Gran (auto) Absolute Neuts (auto) Absolute Nucleated RBC Nucleated RBC % (auto) PT 13.0 INR 1.1 Anion Gap 17 Estim Creat Clear Calc 11.7 Estimated GFR 8 POC Glucose Random Glucose 78 Calcium 8.6 Total Bilirubin 0.5 Direct Bilirubin 0.3 AST 55 H ALT 65 H Alkaline Phosphatase 156 H Troponin I High Sens B-Natriuretic Peptide 1494 H Total Protein 5.2 L Albumin 3.2 L TSH 7.06 H Urine Color Urine Appearance Urine pH Ur Specific [place] Urine Protein Urine Glucose (UA) Urine Ketones Urine Blood Urine Nitrite Ur Leukocyte Esterase Urine RBC Urine WBC Ur Squamous Epith Cells Urine Bacteria Hyaline Casts COVID-19 ([facility]ON) COVID-19 Clin Com 12/14/21 12/14/21 12/14/21 18:17 18:45 20:32 MCV MCH MCHC RDW Plt Count MPV Immature Gran % (Auto) Neut % (Auto) Lymph % (Auto) Castro % (Auto) Eos % (Auto) Baso % (Auto) Lymph # (Auto) Castro # (Auto) Eos # (Auto) Baso # (Auto) Abs Immat Gran (auto) Absolute Neuts (auto) Absolute Nucleated RBC Nucleated RBC % (auto) PT INR Anion Gap Estim Creat Clear Calc Estimated GFR POC Glucose 127 H 197 H Random Glucose Calcium Total Bilirubin Direct Bilirubin AST ALT Alkaline Phosphatase Troponin I High Sens B-Natriuretic Peptide Total Protein Albumin TSH Urine Color Yellow Urine Appearance Clear Urine pH 5.0 Ur Specific [place] 1.010 Urine Protein 100 (2+) H Urine Glucose (UA) Negative Urine Ketones Negative Urine Blood Negative Urine Nitrite Negative Ur Leukocyte Esterase Negative Urine RBC 0-2 Urine WBC 0-5 Ur Squamous Epith Cells 0-2 Urine Bacteria None Seen Hyaline Casts 0-2 COVID-19 ([facility]) COVID-19 Clin Com 12/15/21 12/15/21 12/15/21 06:17 06:17 07:05 MCV 89.9 MCH 27.6 MCHC 30.7 L RDW 15.8 Plt Count 201 MPV 10.3 Immature Gran % (Auto) Neut % (Auto) Lymph % (Auto) Castro % (Auto) Eos % (Auto) Baso % (Auto) Lymph # (Auto) Castro # (Auto) Eos # (Auto) Baso # (Auto) Abs Immat Gran (auto) Absolute Neuts (auto) Absolute Nucleated RBC 0.000 Nucleated RBC % (auto) 0.0 PT INR Anion Gap 19 Estim Creat Clear Calc 11.4 Estimated GFR 8 POC Glucose 153 H Random Glucose 183 H Calcium 8.8 Total Bilirubin Direct Bilirubin AST ALT Alkaline Phosphatase Troponin I High Sens B-Natriuretic Peptide Total Protein Albumin TSH Urine Color Urine Appearance Urine pH Ur Specific [place] Urine Protein Urine Glucose (UA) Urine Ketones Urine Blood Urine Nitrite Ur Leukocyte Esterase Urine RBC Urine WBC Ur Squamous Epith Cells Urine Bacteria Hyaline Casts COVID-19 ([facility]) COVID-19 Clin Com Assessment and Plan (1) CHF (congestive heart failure): Status: Acute Plan 81 years old lady with PMH of diastolic CHF, HLD, HTN, type 2 diabetes, CKD stage 4, morbid obesity among others who presented to the hospital from Cardiology office for worsening dyspnea on exertion and lower extremities edema. Acute on chronic CHF with reduced ejection fraction Echo with new finding of reduced EF Continue Bumex drip, given Zaroxolyn Avoid beta-blockers and calcium channel blockers Increased hydralazine and Imdur started Monitor electrolytes Acute kidney injury on CKD 3 Likely cardiorenal Monitor on diuresis Nephrology following Atrial tachycardia with sinus bradycardia Avoid beta-sravanthi or calcium channel blockers Monitor Diabetes Insulin DVT prophylaxis with heparin subQ reason for continued hospitalization: iv diuresis in paitent with severe volume overload, and close monitoring of renal function. Quality Stroke Does the patient have a stroke diagnosis?: No VTE Prior VTE?: No VTE Risk Level:: Medical - moderate - high VTE Device Contraindication: Treatment Not Indicated VTE Drug Contraindication: N/A - Med Ordered
[2021-12-15] MEDS: Isosorbide Mononitrate 30 MG TAB.ER.24H PO (11:31)
[2021-12-15] MEDS: metOLazone 5 MG TABLET PO (11:31)
[2021-12-15 13:22] LABS: Glucose, Whole Blood 151 mg/dL (60-115)
[2021-12-15] MEDS: Bumetanide 25 MG in Container,Empty 0 ML IVCONT ×2 (14:01→23:15)
[2021-12-15 16:32] LABS: Glucose, Whole Blood 268 mg/dL (60-115)
[2021-12-15] MEDS: Insulin Lispro 100 UNIT/ML 3 ML VIAL SUBCUT ×2 (17:36→21:36)
[2021-12-15] MEDS: hydrALAZINE HCl 50 MG TABLET PO ×2 (17:36→21:36)
[2021-12-15 19:38] LABS: Glucose, Whole Blood 230 mg/dL (60-115)
[2021-12-15] MEDS: Sennosides 8.6 MG TABLET 17.2 MG PO (21:36)
[2021-12-16] VITALS (7 sets, daily range): BP systolic 131–181; BP diastolic 56–88; PULSE 55–133; RESP 18–20; TEMP 36.1–36.6; O2SAT 96–98
[2021-12-16 07:08] LABS: Hematocrit 30.3 % (37.0-47.0); Hemoglobin 9.7 g/dl (12.0-16.0); Mean Corpuscular Volume 87.6 fL (80.0-98.0); Mean Platelet Volume 10.9 fL (9.4-12.3); Platelet Count 201 X10*3/uL (160-400); Red Blood Count 3.46 X10*6/uL (4.20-5.50); Red Cell Distribution Width 15.5 % (11.0-16.0); White Blood Count 6.6 X10*3/uL (4.8-10.8)
[2021-12-16 07:34] LABS: Glucose, Whole Blood 178 mg/dL (60-115)
[2021-12-16 07:43] LABS: Anion Gap 19 (12-20); Blood Urea Nitrogen 96 mg/dL (9-16); Calcium 8.7 mg/dL (8.4-10.2); Carbon Dioxide 20 mmol/L (22-29); Chloride 108 mmol/L (96-108); Creatinine Clr Calc Pharmacy 11.5; Estimated Glomerular Filt Rate 8; Glucose Fasting 167 mg/dL (60-99); Magnesium 1.6 mg/dL (1.6-2.6); Potassium 4.2 mmol/L (3.3-5.1); Sodium 143 mmol/L (135-145)
[2021-12-16] MEDS: Cholecalciferol (Vitamin D3) 25 MCG TABLET PO (08:08)
[2021-12-16] MEDS: Insulin Glargine,Hum.rec.anlog 100 UNIT/ML 10 ML VIAL 30 UNIT SUBCUT (08:08)
[2021-12-16] MEDS: allopurinoL 100 MG TABLET PO (08:08)
[2021-12-16] MEDS: Insulin Lispro 100 UNIT/ML 3 ML VIAL SUBCUT ×4 (08:08→22:03)
[2021-12-16] MEDS: Atorvastatin Calcium 80 MG TABLET PO (08:08)
[2021-12-16] MEDS: hydrALAZINE HCl 50 MG TABLET PO (08:08)
[2021-12-16] MEDS: Isosorbide Mononitrate 30 MG TAB.ER.24H PO (08:08)
[2021-12-16] MEDS: Heparin Sodium,Porcine 5,000 UNIT/ML VIAL 5000 UNIT SUBCUT ×2 (08:08→22:02)
[2021-12-16] MEDS: timoloL maleate 0.5 % Oph Sol 5 ML DRBTL 1 DROP EYE-BOTH ×2 (08:09→22:04)
[2021-12-16] MEDS: Hydrocortisone 1 % Cream 28.35 GM TUBE 1 APPL TOPICAL ×2 (08:09→22:04)
--- NOTE | 2021-12-16 10:30 | HO.PM.IMPN ---
Subjective Subjective Date of Service: 12/16/21 Interval History: cc: sob, edema interval history:urinating, not sob at rest Cardiovascular Cardiovascular: Reports no additional cardiovascular complaints Respiratory Respiratory: Reports no additional respiratory complaints Physical Exam Vital Signs: Vital Signs: Last Vital Signs Temp 97.4 F 12/16/21 07:14 Pulse 133 H 12/16/21 07:14 Resp 20 12/16/21 07:14 BP 181/85 H 12/16/21 07:14 Pulse Ox 97 12/16/21 07:14 O2 Del Method 12/16/21 07:14 BMI result Body Mass Index 41.8 General: AO X 3, no acute distress Resp: diminished bilateral, no accessory muscles used CVS: S1,S2,regular, slow GI: soft, non tender, non distended Neuro: motor grossly intact, alert Psych: appropriate affect, appropriate insight Objective Data Active Medications Acetaminophen (Acetaminophen 325 Mg Tablet) 650 mg PO Q6H PRN PRN Reason: Pain, Mild (Pain Scale 1-3) Allopurinol (Allopurinol 100 Mg Tablet) 100 mg PO DAILY [facility] Last Admin: 12/16/21 08:08 Dose: 100 mg Documented By: ERICK Atorvastatin Calcium (Atorvastatin Calcium 80 Mg Tablet) 80 mg PO DAILY [facility] Last Admin: 12/16/21 08:08 Dose: 80 mg Documented By: ERICK Calcitriol (Calcitriol 0.25 Mcg Capsule) 0.25 mcg PO Q48H [facility] Last Admin: 12/15/21 09:38 Dose: 0.25 mcg Documented By: BARBIE Heparin Sodium (Porcine) (Heparin Sodium,Porcine 5,000 Unit/Ml Vial) 5,000 unit SUBCUT Q12H [facility] Last Admin: 12/16/21 08:08 Dose: 5,000 unit Documented By: ERICK Hydralazine HCl (Hydralazine Hcl 50 Mg Tablet) 50 mg PO TID [facility]; Protocol Last Admin: 12/16/21 08:08 Dose: 50 mg Documented By: ERICK Hydrocortisone (Hydrocortisone 1 % Cream 28.35 Gm Tube) 1 appl TOPICAL BID [facility]; Protocol Last Admin: 12/16/21 08:09 Dose: 1 appl Documented By: ERICK Bumetanide 25 mg/ IV (Miscellaneous Supplies) 100 mls @ 2 mls/hr IVCONT .Q24H [facility] Last Admin: 12/15/21 23:15 Dose: 0.5 mg/hr, 2 mls/hr Documented By: EMERSON Insulin Glargine (Insulin Glargine,Hum.Rec.Anlog 100 Unit/Ml 10 Ml Vial) 30 unit SUBCUT DAILY [facility] Last Admin: 12/16/21 08:08 Dose: 30 unit Documented By: ERICK Insulin Human Lispro (Insulin Lispro 100 Unit/Ml 3 Ml Vial) 0 unit SUBCUT QIDACHS [facility]; Protocol Last Admin: 12/16/21 08:08 Dose: 3 unit Documented By: ERICK Isosorbide Mononitrate (Isosorbide Mononitrate 30 Mg Tab.Er.24h) 30 mg PO DAILY [facility]; Protocol Last Admin: 12/16/21 08:08 Dose: 30 mg Documented By: ERICK Latanoprost (Latanoprost 0.005 % Ophth Cyndi 2.5 Ml Drops) 1 drop EYE-BOTH BEDTIME [facility] Last Admin: 12/15/21 22:03 Dose: Not Given Documented By: EMERSON Non-Admin Reason: Med Not Available Melatonin (Melatonin 3 Mg Tablet) 6 mg PO BEDTIME PRN PRN Reason: Sleep Last Admin: 12/15/21 21:57 Dose: 6 mg Documented By: EMERSON Ondansetron HCl (Ondansetron Hcl 4 Mg/2 Ml Vial) 4 mg IVPUSH Q8H PRN PRN Reason: Nausea and Vomiting Pharmacy Consult (Consult Rx Perform Med Rec) 1 each MISCELLANE ONCE PRN PRN Reason: Consult order Sodium Chloride (0.9 % Sodium Chloride Flush 3 Ml Syringe) 3 ml IVFLUSH QSHIFT [facility] Last Admin: 12/16/21 07:50 Dose: Not Given Documented By: ERICK Non-Admin Reason: See Note Timolol Maleate (Timolol Maleate 0.5 % Oph Cyndi 5 Ml Drbtl) 1 drop EYE-BOTH DAILY [facility] Last Admin: 12/16/21 08:09 Dose: 1 drop Documented By: ERICK Vitamin D (Cholecalciferol (Vitamin D3) 25 Mcg Tablet) 25 mcg PO DAILY [facility] Last Admin: 12/16/21 08:08 Dose: 25 mcg Documented By: ERICK Labs CBC & Chem 7: 12/16/21 06:31 12/16/21 06:31 Labs: Laboratory Results - last 24 hr 12/15/21 12/15/21 12/15/21 13:13 16:27 19:17 MCV MCH MCHC RDW Plt Count MPV Absolute Nucleated RBC Nucleated RBC % (auto) Anion Gap Estim Creat Clear Calc Estimated GFR POC Glucose 151 H 268 H 230 H Fasting Glucose Calcium Magnesium 12/16/21 12/16/21 12/16/21 06:31 06:31 07:30 MCV 87.6 MCH 28.0 MCHC 32.0 RDW 15.5 Plt Count 201 MPV 10.9 Absolute Nucleated RBC 0.000 Nucleated RBC % (auto) 0.0 Anion Gap 19 Estim Creat Clear Calc 11.5 Estimated GFR 8 POC Glucose 178 H Fasting Glucose 167 H Calcium 8.7 Magnesium 1.6 Assessment and Plan (1) CHF (congestive heart failure): Status: Acute Plan 81 years old lady with PMH of diastolic CHF, HLD, HTN, type 2 diabetes, CKD stage 4, morbid obesity among others who presented to the hospital from Cardiology office for worsening dyspnea on exertion and lower extremities edema. Acute on chronic CHF with reduced ejection fraction Echo with new finding of reduced EF Continue Bumex drip, given Zaroxolyn Avoid beta-blockers and calcium channel blockers Increased hydralazine and Imdur started Monitor electrolytes Acute kidney injury on CKD 3 Likely cardiorenal Monitor on diuresis no need for MANAGER EDUCATION at this time Nephrology following Atrial tachycardia with sinus bradycardia Avoid beta-sravanthi or calcium channel blockers Monitor, may need pacer Diabetes Insulin DVT prophylaxis with heparin subQ reason for continued hospitalization: iv diuresis in paitent with severe volume overload, and close monitoring of renal function. Quality Stroke Does the patient have a stroke diagnosis?: No VTE Prior VTE?: No VTE Risk Level:: Medical - moderate - high VTE Device Contraindication: Treatment Not Indicated VTE Drug Contraindication: N/A - Med Ordered
--- NOTE | 2021-12-16 10:34 | PM.PNNEP ---
Subjective Subjective Date of Service: 12/16/21 Interval history: Seen AM. Feels better. All recent data reviewed Physical Exam Vital Signs: Vital Signs: Last Vital Signs Temp 97.4 F 12/16/21 07:14 Pulse 133 H 12/16/21 07:14 Resp 20 12/16/21 07:14 BP 181/85 H 12/16/21 07:14 Pulse Ox 97 12/16/21 07:14 O2 Del Method 12/16/21 07:14 BMI result Body Mass Index 41.8 Const: General: no acute distress Orientation/consciousness: patient oriented x3 Eyes: EOM: EOMs intact bilaterally Neck: Neck: Yes supple Resp: Auscultation: diminished lung sounds Cardio: Rate: regular rate GI: Palpation (GI): Soft to palpation Neuro: General: patient oriented x3 and moves all extremities Objective Data Labs CBC & Chem 7: 12/16/21 06:31 12/16/21 06:31 Labs: Laboratory Results - last 24 hr 12/15/21 12/15/21 12/15/21 13:13 16:27 19:17 WBC RBC Hgb Hct MCV MCH MCHC RDW Plt Count MPV Absolute Nucleated RBC Nucleated RBC % (auto) Sodium Potassium Chloride Carbon Dioxide Anion Gap BUN Creatinine Estim Creat Clear Calc Estimated GFR POC Glucose 151 H 268 H 230 H Fasting Glucose Calcium Magnesium 12/16/21 12/16/21 12/16/21 06:31 06:31 07:30 WBC 6.6 RBC 3.46 L Hgb 9.7 L Hct 30.3 L MCV 87.6 MCH 28.0 MCHC 32.0 RDW 15.5 Plt Count 201 MPV 10.9 Absolute Nucleated RBC 0.000 Nucleated RBC % (auto) 0.0 Sodium 143 Potassium 4.2 Chloride 108 Carbon Dioxide 20 L Anion Gap 19 BUN 96 H Creatinine 5.17 H* Estim Creat Clear Calc 11.5 Estimated GFR 8 POC Glucose 178 H Fasting Glucose 167 H Calcium 8.7 Magnesium 1.6 Procedures Date of Service Date of Service: 12/16/21 Assessment & Plan Assessment and plan (1) Acute kidney injury superimposed on CKD: Status: Acute Assessment and Plan: 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 K/HCO3 OK; On Bumex drip; Vol status better; Renal fn stable No indication for renal replacement yet; C/W rest of current supportive care for now Time Spent With Patient Time: Total time spent is greater than 50% in coordination of care (as documented) at patient's floor/unit and/or counseling patient: Progress Note: Quality Stroke Does the patient have a stroke diagnosis?: No
[2021-12-16 11:44] LABS: Glucose, Whole Blood 265 mg/dL (60-115)
[2021-12-16] MEDS: Acetaminophen 325 MG TABLET 650 MG PO (13:00)
[2021-12-16] MEDS: Bumetanide 25 MG in Container,Empty 0 ML IVCONT (13:01)
--- NOTE | 2021-12-16 13:11 | PM.PNCARD ---
Subjective Subjective Date of Service: 12/16/21 Interval history: Seen examined at bedside. Saying her breathing is regular better but continues to be short of breath. A lot of palpitations and multiple runs of atrial tachycardia on the telemetry. Also experiencing right shoulder pain with activity. Physical Exam Vital Signs: Last Vital Signs Temp 97.9 F 12/16/21 11:59 Pulse 57 12/16/21 12:11 Resp 18 12/16/21 11:59 BP 162/68 H 12/16/21 12:11 Pulse Ox 97 12/16/21 12:11 O2 Del Method 12/16/21 11:59 BMI result Body Mass Index 41.8 GENERAL APPEARANCE: in no acute distress, pleasant. NECK: no carotid bruit, elevated jugular venous distention. SKIN: no suspicious lesions, warm and dry. HEART: no murmurs, regular rate and rhythm. LUNGS: Bibasilar crackles. ABDOMEN: soft, nontender. EXTREMITIES: 2- 3+ edema with changes from lymphedema as well as erythema bilaterally. PERIPHERAL PULSES: equal. NEUROLOGIC: No gross deficits, AAO X 3 Objective Labs and Meds Result diagrams: 12/16/21 06:31 12/16/21 06:31 Lab results: Laboratory Results - last 24 hr 12/15/21 12/15/21 12/15/21 13:13 16:27 19:17 WBC RBC Hgb Hct MCV MCH MCHC RDW Plt Count MPV Absolute Nucleated RBC Nucleated RBC % (auto) Sodium Potassium Chloride Carbon Dioxide Anion Gap BUN Creatinine Estim Creat Clear Calc Estimated GFR POC Glucose 151 H 268 H 230 H Fasting Glucose Calcium Magnesium 12/16/21 12/16/21 12/16/21 06:31 06:31 07:30 WBC 6.6 RBC 3.46 L Hgb 9.7 L Hct 30.3 L MCV 87.6 MCH 28.0 MCHC 32.0 RDW 15.5 Plt Count 201 MPV 10.9 Absolute Nucleated RBC 0.000 Nucleated RBC % (auto) 0.0 Sodium 143 Potassium 4.2 Chloride 108 Carbon Dioxide 20 L Anion Gap 19 BUN 96 H Creatinine 5.17 H* Estim Creat Clear Calc 11.5 Estimated GFR 8 POC Glucose 178 H Fasting Glucose 167 H Calcium 8.7 Magnesium 1.6 12/16/21 11:35 WBC RBC Hgb Hct MCV MCH MCHC RDW Plt Count MPV Absolute Nucleated RBC Nucleated RBC % (auto) Sodium Potassium Chloride Carbon Dioxide Anion Gap BUN Creatinine Estim Creat Clear Calc Estimated GFR POC Glucose 265 H Fasting Glucose Calcium Magnesium Progress Note: A&P Assessment and plan (1) CHF (congestive heart failure): Status: Acute (2) Acute kidney injury superimposed on CKD: Status: Acute (3) Essential hypertension: Status: Acute (4) Cardiomyopathy: Status: Acute Plan 81-year-old female who is here for congestive heart failure. Echocardiography has shown ejection fraction of 35-40% with global hypokinesis. She has multiple runs of atrial tachycardia on telemetry and her Holter monitor also showed similar changes previously. She has been taken off the metoprolol. She was bradycardic at baseline when not in atrial tachycardia and we decided to stop the metoprolol to see if he can replace that with amiodarone. Will start on 40 mg twice a day of amiodarone today. Still clinically volume overloaded. Kidney function is significantly abnormal but plateaued and not getting worse. My hope is that with continues diuresis and improved forward flow kidney function will recover. Increasing hydralazine to 75 mg 3 times a day. Increase isosorbide to 60 mg if BP stays stable today. Multiple issues going on. Quite complex situation. She also is complaining of right shoulder discomfort when she ambulates. She will need ischemic evaluation which we will decide based on how things evolve. I have explained to the patient that she has some bradycardia and conduction disease and baseline and there is a possibility that for treating her atrial tachycardia we may have to titrate medications which may worsen bradycardia and she may require pacemaker. Currently there is no indication for that. Thank you for allowing me to participate in the care of your patient. Please feel free to contact me if you have any questions. Time Spent With Patient Time: Total time spent is greater than 50% in coordination of care (as documented) at patient's floor/unit and/or counseling patient: Progress Note: Quality Stroke Does the patient have a stroke diagnosis?: No Procedures Date of Service Date of Service: 12/16/21
[2021-12-16] MEDS: Amiodarone HCL 200 MG TABLET 400 MG PO ×2 (13:31→22:03)
[2021-12-16] MEDS: metOLazone 5 MG TABLET PO (13:31)
[2021-12-16 16:03] LABS: Glucose, Whole Blood 182 mg/dL (60-115)
[2021-12-16] MEDS: hydrALAZINE HCl 25 MG TABLET 75 MG PO ×2 (17:18→22:02)
[2021-12-16] MEDS: Magnesium Oxide 400 MG TABLET PO (17:18)
[2021-12-16 19:49] LABS: Glucose, Whole Blood 201 mg/dL (60-115)
[2021-12-16] MEDS: Melatonin 3 MG TABLET 6 MG PO (22:03)
[2021-12-16] MEDS: 0.9 % Sodium Chloride Flush 3 ML SYRINGE IVFLUSH (22:04)
[2021-12-17] VITALS (7 sets, daily range): BP systolic 137–154; BP diastolic 63–78; PULSE 53–62; RESP 18–20; TEMP 36.3–37; O2SAT 94–98
[2021-12-17 06:19] LABS: Hematocrit 30.2 % (37.0-47.0); Hemoglobin 9.5 g/dl (12.0-16.0); Mean Corpuscular HGB Conc 31.5 g/dl (31.0-35.0); Mean Corpuscular Hemoglobin 27.8 pg (27.0-33.0); Mean Corpuscular Volume 88.3 fL (80.0-98.0); Mean Platelet Volume 10.7 fL (9.4-12.3); Platelet Count 210 X10*3/uL (160-400); Red Blood Count 3.42 X10*6/uL (4.20-5.50); Red Cell Distribution Width 15.2 % (11.0-16.0); White Blood Count 5.6 X10*3/uL (4.8-10.8)
[2021-12-17 06:39] LABS: Anion Gap 21 (12-20); Blood Urea Nitrogen 99 mg/dL (9-16); Calcium 8.5 mg/dL (8.4-10.2); Carbon Dioxide 22 mmol/L (22-29); Chloride 101 mmol/L (96-108); Creatinine Clr Calc Pharmacy 11.5; Estimated Glomerular Filt Rate 8; Glucose Fasting 166 mg/dL (60-99); Potassium 3.5 mmol/L (3.3-5.1); Sodium 140 mmol/L (135-145)
[2021-12-17 07:21] LABS: Glucose, Whole Blood 156 mg/dL (60-115)
[2021-12-17] MEDS: Cholecalciferol (Vitamin D3) 25 MCG TABLET PO (08:52)
[2021-12-17] MEDS: calcitrioL 0.25 MCG CAPSULE PO (08:52)
[2021-12-17] MEDS: Magnesium Oxide 400 MG TABLET PO ×2 (08:53→17:03)
[2021-12-17] MEDS: Amiodarone HCL 200 MG TABLET 400 MG PO ×2 (08:53→22:32)
[2021-12-17] MEDS: Atorvastatin Calcium 80 MG TABLET PO (08:53)
[2021-12-17] MEDS: hydrALAZINE HCl 25 MG TABLET 75 MG PO ×3 (08:54→22:31)
[2021-12-17] MEDS: Isosorbide Mononitrate 30 MG TAB.ER.24H PO (08:56)
[2021-12-17] MEDS: allopurinoL 100 MG TABLET PO (08:56)
[2021-12-17] MEDS: Heparin Sodium,Porcine 5,000 UNIT/ML VIAL 5000 UNIT SUBCUT ×2 (08:57→22:32)
[2021-12-17] MEDS: Insulin Lispro 100 UNIT/ML 3 ML VIAL SUBCUT ×4 (09:04→22:32)
[2021-12-17] MEDS: Insulin Glargine,Hum.rec.anlog 100 UNIT/ML 10 ML VIAL 30 UNIT SUBCUT (09:05)
[2021-12-17] MEDS: Hydrocortisone 1 % Cream 28.35 GM TUBE 1 APPL TOPICAL ×2 (09:26→22:37)
--- NOTE | 2021-12-17 09:52 | PM.PNNEP ---
Subjective Subjective Date of Service: 12/17/21 Interval history: Seen AM. Feels better. All recent data reviewed Physical Exam Vital Signs: Vital Signs: Last Vital Signs Temp 97.4 F 12/17/21 07:27 Pulse 54 12/17/21 07:27 Resp 20 12/17/21 07:27 BP 151/68 H 12/17/21 07:27 Pulse Ox 96 12/17/21 07:27 O2 Del Method 12/17/21 07:27 BMI result Body Mass Index 41.8 Const: General: no acute distress Orientation/consciousness: patient oriented x3 Eyes: EOM: EOMs intact bilaterally Neck: Neck: Yes supple Resp: Auscultation: diminished lung sounds Cardio: Rate: regular rate GI: Palpation (GI): Soft to palpation Neuro: General: patient oriented x3 and moves all extremities Objective Data Labs CBC & Chem 7: 12/17/21 05:30 12/17/21 05:30 Labs: Laboratory Results - last 24 hr 12/16/21 12/16/21 12/16/21 11:35 15:59 19:39 WBC RBC Hgb Hct MCV MCH MCHC RDW Plt Count MPV Absolute Nucleated RBC Nucleated RBC % (auto) Sodium Potassium Chloride Carbon Dioxide Anion Gap BUN Creatinine Estim Creat Clear Calc Estimated GFR POC Glucose 265 H 182 H 201 H Fasting Glucose Calcium 12/17/21 12/17/21 12/17/21 05:30 05:30 07:17 WBC 5.6 RBC 3.42 L Hgb 9.5 L Hct 30.2 L MCV 88.3 MCH 27.8 MCHC 31.5 RDW 15.2 Plt Count 210 MPV 10.7 Absolute Nucleated RBC 0.000 Nucleated RBC % (auto) 0.0 Sodium 140 Potassium 3.5 Chloride 101 Carbon Dioxide 22 Anion Gap 21 H BUN 99 H Creatinine 5.16 H* Estim Creat Clear Calc 11.5 Estimated GFR 8 POC Glucose 156 H Fasting Glucose 166 H Calcium 8.5 Procedures Date of Service Date of Service: 12/17/21 Assessment & Plan Assessment and plan (1) Acute kidney injury superimposed on CKD: Status: Acute Assessment and Plan: 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 K/HCO3 OK; On Bumex drip; Vol status better; Renal fn stable No indication for renal replacement yet; C/W rest of current supportive care for now Time Spent With Patient Time: Total time spent is greater than 50% in coordination of care (as documented) at patient's floor/unit and/or counseling patient: Progress Note: Quality Stroke Does the patient have a stroke diagnosis?: No
--- NOTE | 2021-12-17 10:15 | P.PNIM_ITS ---
Subjective Subjective Date of Service: 12/17/21 Interval History: cc: sob, edema interval history:urinating, not sob at rest Cardiovascular Cardiovascular: Reports no additional cardiovascular complaints Respiratory Respiratory: Reports no additional respiratory complaints Physical Exam Vital Signs: Vital Signs: Last Vital Signs Temp 97.4 F 12/17/21 07:27 Pulse 54 12/17/21 07:27 Resp 20 12/17/21 07:27 BP 151/68 H 12/17/21 07:27 Pulse Ox 96 12/17/21 07:27 O2 Del Method 12/17/21 07:27 BMI result Body Mass Index 41.8 Const: General: no acute distress Orientation/consciousness: patient oriented x3 Eyes: EOM: EOMs intact bilaterally Neck: Neck: Yes supple Resp: Auscultation: diminished lung sounds Cardio: Rate: regular rate GI: Palpation (GI): Soft to palpation Neuro: General: patient oriented x3 and moves all extremities Objective Data Active Medications Acetaminophen (Acetaminophen 325 Mg Tablet) 650 mg PO Q6H PRN PRN Reason: Pain, Mild (Pain Scale 1-3) Last Admin: 12/16/21 13:00 Dose: 650 mg Documented By: RADHA Allopurinol (Allopurinol 100 Mg Tablet) 100 mg PO DAILY [facility] Last Admin: 12/17/21 08:56 Dose: 100 mg Documented By: STEPHANIE Amiodarone HCl (Amiodarone Hcl 200 Mg Tablet) 400 mg PO BID [facility] Last Admin: 12/17/21 08:53 Dose: 400 mg Documented By: STEPHANIE Atorvastatin Calcium (Atorvastatin Calcium 80 Mg Tablet) 80 mg PO DAILY [facility] Last Admin: 12/17/21 08:53 Dose: 80 mg Documented By: STEPHANIE Calcitriol (Calcitriol 0.25 Mcg Capsule) 0.25 mcg PO Q48H [facility] Last Admin: 12/17/21 08:52 Dose: 0.25 mcg Documented By: STEPHANIE Heparin Sodium (Porcine) (Heparin Sodium,Porcine 5,000 Unit/Ml Vial) 5,000 unit SUBCUT Q12H [facility] Last Admin: 12/17/21 08:57 Dose: 5,000 unit Documented By: STEPHANIE Hydralazine HCl (Hydralazine Hcl 25 Mg Tablet) 75 mg PO TID [facility]; Protocol Last Admin: 12/17/21 08:54 Dose: 75 mg Documented By: STEPHANIE Hydrocortisone (Hydrocortisone 1 % Cream 28.35 Gm Tube) 1 appl TOPICAL BID [facility]; Protocol Last Admin: 12/17/21 09:26 Dose: 1 appl Documented By: STEPHANIE Bumetanide 25 mg/ IV (Miscellaneous Supplies) 100 mls @ 2 mls/hr IVCONT .Q24H [facility] Last Admin: 12/16/21 13:01 Dose: 0.5 mg/hr, 2 mls/hr Documented By: RADHA Insulin Glargine (Insulin Glargine,Hum.Rec.Anlog 100 Unit/Ml 10 Ml Vial) 30 unit SUBCUT DAILY [facility] Last Admin: 12/17/21 09:05 Dose: 30 unit Documented By: STEPHANIE Insulin Human Lispro (Insulin Lispro 100 Unit/Ml 3 Ml Vial) 0 unit SUBCUT QIDACHS [facility]; Protocol Last Admin: 12/17/21 09:04 Dose: 2 unit Documented By: STEPHANIE Isosorbide Mononitrate (Isosorbide Mononitrate 60 Mg Tab.Er.24h) 60 mg PO DAILY [facility]; Protocol Latanoprost (Latanoprost 0.005 % Ophth Cyndi 2.5 Ml Drops) 1 drop EYE-BOTH BEDTIME [facility] Last Admin: 12/16/21 22:10 Dose: Not Given Documented By: EMERSON Non-Admin Reason: Med Not Available Magnesium Oxide (Magnesium Oxide 400 Mg Tablet) 400 mg PO BIDPC [facility] Last Admin: 12/17/21 08:53 Dose: 400 mg Documented By: STEPHANIE Melatonin (Melatonin 3 Mg Tablet) 6 mg PO BEDTIME PRN PRN Reason: Sleep Last Admin: 12/16/21 22:03 Dose: 6 mg Documented By: EMERSON Ondansetron HCl (Ondansetron Hcl 4 Mg/2 Ml Vial) 4 mg IVPUSH Q8H PRN PRN Reason: Nausea and Vomiting Pharmacy Consult (Consult Rx Perform Med Rec) 1 each MISCELLANE ONCE PRN PRN Reason: Consult order Sodium Chloride (0.9 % Sodium Chloride Flush 3 Ml Syringe) 3 ml IVFLUSH QSHIFT [facility] Last Admin: 12/17/21 09:25 Dose: Not Given Documented By: STEPHANIE Non-Admin Reason: IV Running Timolol Maleate (Timolol Maleate 0.5 % Oph Cyndi 5 Ml Drbtl) 1 drop EYE-BOTH DAILY [facility] Last Admin: 12/16/21 22:04 Dose: 1 drop Documented By: EMERSON Vitamin D (Cholecalciferol (Vitamin D3) 25 Mcg Tablet) 25 mcg PO DAILY [facility] Last Admin: 12/17/21 08:52 Dose: 25 mcg Documented By: STEPHANIE Labs CBC & Chem 7: 12/17/21 05:30 12/17/21 05:30 Labs: Laboratory Results - last 24 hr 12/16/21 12/16/21 12/16/21 11:35 15:59 19:39 MCV MCH MCHC RDW Plt Count MPV Absolute Nucleated RBC Nucleated RBC % (auto) Anion Gap Estim Creat Clear Calc Estimated GFR POC Glucose 265 H 182 H 201 H Fasting Glucose Calcium 12/17/21 12/17/21 12/17/21 05:30 05:30 07:17 MCV 88.3 MCH 27.8 MCHC 31.5 RDW 15.2 Plt Count 210 MPV 10.7 Absolute Nucleated RBC 0.000 Nucleated RBC % (auto) 0.0 Anion Gap 21 H Estim Creat Clear Calc 11.5 Estimated GFR 8 POC Glucose 156 H Fasting Glucose 166 H Calcium 8.5 Assessment and Plan (1) CHF (congestive heart failure): Status: Acute Plan 81 years old lady with PMH of diastolic CHF, HLD, HTN, type 2 diabetes, CKD stage 4, morbid obesity among others who presented to the hospital from Cardiology office for worsening dyspnea on exertion and lower extremities edema. Acute on chronic CHF with reduced ejection fraction Echo with new finding of reduced EF Continue Bumex drip, given Zaroxolyn Avoid beta-blockers and calcium channel blockers Increased hydralazine and Imdur started Monitor electrolytes continue diuresis Acute kidney injury on CKD 3 Likely cardiorenal Monitor on diuresis no need for UNIFORM ATTENDANT at this time Nephrology following Atrial tachycardia with sinus bradycardia Avoid beta-sravanthi or calcium channel blockers started amio 400mg bid Diabetes Insulin DVT prophylaxis with heparin subQ reason for continued hospitalization: iv diuresis in patient with severe volume overload, and close monitoring of renal function. Quality Stroke Does the patient have a stroke diagnosis?: No VTE Prior VTE?: No VTE Risk Level:: Medical - moderate - high VTE Device Contraindication: Treatment Not Indicated VTE Drug Contraindication: N/A - Med Ordered
[2021-12-17] MEDS: Isosorbide Mononitrate 60 MG TAB.ER.24H PO (10:40)
--- NOTE | 2021-12-17 11:15 | P.PNCA_ITS ---
Subjective Subjective Date of Service: 12/17/21 Interval history: Seen examined at bedside. Feeling better. Creatinine continues to be plateaued. Physical Exam Vital Signs: Last Vital Signs Temp 97.4 F 12/17/21 11:05 Pulse 56 12/17/21 11:05 Resp 20 12/17/21 11:05 BP 137/63 12/17/21 11:05 Pulse Ox 96 12/17/21 11:05 O2 Del Method 12/17/21 11:05 BMI result Body Mass Index 41.8 GENERAL APPEARANCE: in no acute distress, pleasant. NECK: no carotid bruit, mild jugular venous distention. SKIN: no suspicious lesions, warm and dry. HEART: no murmurs, regular rate and rhythm. LUNGS: Few crackles at bases. ABDOMEN: soft, nontender. EXTREMITIES: 2- 3+ edema with changes from lymphedema as well as erythema bilaterally. PERIPHERAL PULSES: equal. NEUROLOGIC: No gross deficits, AAO X 3 Objective Labs and Meds Result diagrams: 12/17/21 05:30 12/17/21 05:30 Lab results: Laboratory Results - last 24 hr 12/16/21 12/16/21 12/16/21 11:35 15:59 19:39 WBC RBC Hgb Hct MCV MCH MCHC RDW Plt Count MPV Absolute Nucleated RBC Nucleated RBC % (auto) Sodium Potassium Chloride Carbon Dioxide Anion Gap BUN Creatinine Estim Creat Clear Calc Estimated GFR POC Glucose 265 H 182 H 201 H Fasting Glucose Calcium 12/17/21 12/17/21 12/17/21 05:30 05:30 07:17 WBC 5.6 RBC 3.42 L Hgb 9.5 L Hct 30.2 L MCV 88.3 MCH 27.8 MCHC 31.5 RDW 15.2 Plt Count 210 MPV 10.7 Absolute Nucleated RBC 0.000 Nucleated RBC % (auto) 0.0 Sodium 140 Potassium 3.5 Chloride 101 Carbon Dioxide 22 Anion Gap 21 H BUN 99 H Creatinine 5.16 H* Estim Creat Clear Calc 11.5 Estimated GFR 8 POC Glucose 156 H Fasting Glucose 166 H Calcium 8.5 Progress Note: A&P Assessment and plan (1) CHF (congestive heart failure): Status: Acute (2) Acute kidney injury superimposed on CKD: Status: Acute (3) Essential hypertension: Status: Acute (4) Cardiomyopathy: Status: Acute Plan 81-year-old female who is here for congestive heart failure. Echocardiography has shown ejection fraction of 35-40% with global hypokinesis. She has multiple runs of atrial tachycardia on telemetry and her Holter monitor also showed similar changes previously. She has been taken off the metoprolol. She was bradycardic at baseline when not in atrial tachycardia and we decided to stop the metoprolol to see if he can re place that with amiodarone. Started her on Amiodarone 400 mg BID and she has not had further SVT. Volume status improving. c/w IV Bumex. Kidney function is significantly abnormal but plateaued and not getting worse. My hope is that with continued diuresis and improved forward flow the kidney function will recover. Increased hydralazine to 75 mg 3 times a day. Increased isosorbide to 60 mg. BP improving. Multiple issues going on. Quite complex situation. She also is complaining of right shoulder discomfort when she ambulates. She will need ischemic evaluation which we will decide based on how things evolve. I have explained to the patient that she has some bradycardia and conduction disease and baseline and there is a possibility that for treating her atrial tachycardia we may have to titrate medications which may worsen bradycardia and she may require pacemaker. Currently there is no indication for that. Thank you for allowing me to participate in the care of your patient. Please feel free to contact me if you have any questions. Time Spent With Patient Time: Total time spent is greater than 50% in coordination of care (as documented) at patient's floor/unit and/or counseling patient: Progress Note: Quality Stroke Does the patient have a stroke diagnosis?: No Procedures Date of Service Date of Service: 12/17/21
[2021-12-17 12:16] LABS: Glucose, Whole Blood 197 mg/dL (60-115)
[2021-12-17] MEDS: Bumetanide 25 MG in Container,Empty 0 ML IVCONT (12:44)
--- NOTE | 2021-12-17 12:46 | MHC.CM.PN ---
IMM 02/14/21 Patient continues on IV Bumex. Per MD rounds no discharge today DP Home with or with out services. Pts dtr will provide transportation home.
[2021-12-17] MEDS: 0.9 % Sodium Chloride Flush 3 ML SYRINGE IVFLUSH (16:09)
[2021-12-17 16:45] LABS: Glucose, Whole Blood 191 mg/dL (60-115)
[2021-12-17 20:25] LABS: Glucose, Whole Blood 207 mg/dL (60-115)
[2021-12-17] MEDS: Melatonin 3 MG TABLET 6 MG PO (22:31)
[2021-12-17] MEDS: polyethylene glycoL 3350 17 GM POWD.PACK PO (22:32)
[2021-12-17] MEDS: timoloL maleate 0.5 % Oph Sol 5 ML DRBTL 1 DROP EYE-BOTH (22:38)
[2021-12-17] MEDS: Latanoprost 0.005 % Ophth Sol 2.5 ML DROPS 1 DROP EYE-BOTH (22:39)
[2021-12-18] MEDS: 0.9 % Sodium Chloride Flush 3 ML SYRINGE IVFLUSH ×3 (00:57→16:47)
[2021-12-18 03:25] VITALS: BP 186/77; PULSE 58; RESP 18; TEMP 36.3; O2SAT 94
[2021-12-18] MEDS: Amiodarone/Dextrose 150 MG/100 ML PLAST..BAG 600 MG IV ×2 (05:36→23:43)
--- NOTE | 2021-12-18 05:42 | P.EN_ITS ---
Event Note Date of Service: 12/18/21 Event Note: Was called by nurse for evaluation of possible sustained v tach. At bedside, pt's HR in the 150s with BP 129/89. Patient awake and with palpitations. Obtained 12 lead EKG and ordered amiodarone bolus. Discussed EKG with brand ambassador promotional model corsets salesperson, Dr Rowan who thinks the rhythm is atrial flutter with LBBB morphology as patient has known LBBB. Agreed with amiodarone bolus. Rate controlle with amio bolus with HR in hte 70s. Palpitations resolved. No need for GGT as patient is on po amiodarone.
--- NOTE | 2021-12-18 06:26 | PC.NURSE ---
at approx 0515, pt noted on the tele monitor to be in SVT rhythym. Upon examination, pt stated she could feel her heartbeat in her neck, along with a complaint of nausea. MD was notified, and came to examine the pt. Vitals recorded at 128/73, 153 HR, 96% RA, 97.3F. MD ordered stat EKG, read as abnormal ECG, prolonged QT interval, and sinus tachycardia. MD ordered x1 stat bolus amiodarone 150mg. administered, pt HR dropped within a range of 70-80, has maintained this range at time of writing. Will continue to monitor.
[2021-12-18 06:51] LABS: Hemoglobin 9.8 g/dl (12.0-16.0); Mean Corpuscular HGB Conc 31.6 g/dl (31.0-35.0); Mean Corpuscular Hemoglobin 27.5 pg (27.0-33.0); Mean Corpuscular Volume 86.8 fL (80.0-98.0); Platelet Count 208 X10*3/uL (160-400); Red Blood Count 3.57 X10*6/uL (4.20-5.50); Red Cell Distribution Width 15.2 % (11.0-16.0); White Blood Count 5.9 X10*3/uL (4.8-10.8)
[2021-12-18 07:28] LABS: Anion Gap 22 (12-20); Blood Urea Nitrogen 97 mg/dL (9-16); Calcium 8.8 mg/dL (8.4-10.2); Carbon Dioxide 24 mmol/L (22-29); Chloride 96 mmol/L (96-108); Creatinine Clr Calc Pharmacy 11.5; Estimated Glomerular Filt Rate 8; Glucose Fasting 214 mg/dL (60-99); Magnesium 1.8 mg/dL (1.6-2.6); Potassium 3.5 mmol/L (3.3-5.1); Sodium 138 mmol/L (135-145)
[2021-12-18 08:00] VITALS: BP 164/67; PULSE 67; RESP 19; TEMP 36.5; O2SAT 96
[2021-12-18 08:01] LABS: Glucose, Whole Blood 188 mg/dL (60-115)
[2021-12-18] MEDS: Amiodarone HCL 200 MG TABLET 400 MG PO ×2 (08:03→20:47)
[2021-12-18] MEDS: Atorvastatin Calcium 80 MG TABLET PO (08:03)
[2021-12-18] MEDS: hydrALAZINE HCl 25 MG TABLET 75 MG PO (08:03)
[2021-12-18] MEDS: Cholecalciferol (Vitamin D3) 25 MCG TABLET PO (08:03)
[2021-12-18] MEDS: Heparin Sodium,Porcine 5,000 UNIT/ML VIAL 5000 UNIT SUBCUT ×2 (08:03→20:47)
[2021-12-18] MEDS: Insulin Lispro 100 UNIT/ML 3 ML VIAL SUBCUT ×4 (08:03→20:48)
[2021-12-18] MEDS: Isosorbide Mononitrate 60 MG TAB.ER.24H PO (08:03)
[2021-12-18] MEDS: Insulin Glargine,Hum.rec.anlog 100 UNIT/ML 10 ML VIAL 30 UNIT SUBCUT (08:03)
[2021-12-18] MEDS: allopurinoL 100 MG TABLET PO (08:04)
[2021-12-18] MEDS: Magnesium Oxide 400 MG TABLET PO ×2 (08:04→16:42)
[2021-12-18] MEDS: Hydrocortisone 1 % Cream 28.35 GM TUBE 1 APPL TOPICAL ×2 (08:04→20:48)
[2021-12-18] MEDS: Magnesium Sulfate/H2O 2 GM/50 ML PIGGYBACK IV (08:14)
--- NOTE | 2021-12-18 11:14 | PM.PNCARD ---
Subjective Subjective Date of Service: 12/18/21 Interval history: Seen examined at bedside. Feeling good. She had runs of atrial tachycardia overnight and heart rates were up to 150s. Difficult to say whether this was similar rhythm or atrial flutter. Previously she clearly had atrial tachycardia. Physical Exam Vital Signs: Last Vital Signs Temp 97.7 F 12/18/21 08:00 Pulse 67 12/18/21 08:00 Resp 19 12/18/21 08:00 BP 164/67 H 12/18/21 08:00 Pulse Ox 96 12/18/21 08:00 O2 Del Method 12/18/21 08:00 BMI result Body Mass Index 41.8 GENERAL APPEARANCE: in no acute distress, pleasant. NECK: no carotid bruit, mild jugular venous distention. SKIN: no suspicious lesions, warm and dry. HEART: no murmurs, regular rate and rhythm. LUNGS: Few crackles at bases. ABDOMEN: soft, nontender. EXTREMITIES: 2- 3+ edema. PERIPHERAL PULSES: equal. NEUROLOGIC: No gross deficits, AAO X 3 Objective Labs and Meds Result diagrams: 12/18/21 06:20 12/18/21 06:20 Lab results: Laboratory Results - last 24 hr 12/17/21 12/17/21 12/17/21 11:07 16:33 20:21 WBC RBC Hgb Hct MCV MCH MCHC RDW Plt Count MPV Absolute Nucleated RBC Nucleated RBC % (auto) Sodium Potassium Chloride Carbon Dioxide Anion Gap BUN Creatinine Estim Creat Clear Calc Estimated GFR POC Glucose 197 H 191 H 207 H Random Glucose Fasting Glucose Calcium Magnesium 12/18/21 12/18/21 12/18/21 06:20 06:20 06:20 WBC 5.9 RBC 3.57 L Hgb 9.8 L Hct 31.0 L MCV 86.8 MCH 27.5 MCHC 31.6 RDW 15.2 Plt Count 208 MPV 10.0 Absolute Nucleated RBC 0.000 Nucleated RBC % (auto) 0.0 Sodium 138 Cancelled Potassium 3.5 Cancelled Chloride 96 Cancelled Carbon Dioxide 24 Cancelled Anion Gap 22 H Cancelled BUN 97 H Cancelled Creatinine 5.18 H* Cancelled Estim Creat Clear Calc 11.5 Cancelled Estimated GFR 8 Cancelled POC Glucose Random Glucose Cancelled Fasting Glucose 214 H Calcium 8.8 Cancelled Magnesium 1.8 Cancelled 12/18/21 07:48 WBC RBC Hgb Hct MCV MCH MCHC RDW Plt Count MPV Absolute Nucleated RBC Nucleated RBC % (auto) Sodium Potassium Chloride Carbon Dioxide Anion Gap BUN Creatinine Estim Creat Clear Calc Estimated GFR POC Glucose 188 H Random Glucose Fasting Glucose Calcium Magnesium Progress Note: A&P Assessment and plan (1) Cardiomyopathy: Status: Acute (2) CHF (congestive heart failure): Status: Acute (3) Acute kidney injury superimposed on CKD: Status: Acute (4) Essential hypertension: Status: Acute Plan 81-year-old female who is here for congestive heart failure. Echocardiography has shown ejection fraction of 35-40% with global hypokinesis. She has multiple runs of atrial tachycardia on telemetry and her Holter monitor also showed similar changes previously. She has been taken off the metoprolol. She was bradycardic at baseline when not in atrial tachycardia and we decided to stop the metoprolol to see if we can replace that with amiodarone. Started her on Amiodarone 400 mg BID. she had one episode overnight on 12/18 and received IV amio. Volume status improving. c/w IV Bumex. Kidney function is significantly abnormal - nephro following. Multiple issues going on. Quite complex situation. She also is complaining of right shoulder discomfort when she ambulates. She will need ischemic evaluation eventually. Thank you for allowing me to participate in the care of your patient. Please feel free to contact me if you have any questions. Time Spent With Patient Time: Total time spent is greater than 50% in coordination of care (as documented) at patient's floor/unit and/or counseling patient: Progress Note: Quality Stroke Does the patient have a stroke diagnosis?: No Procedures Date of Service Date of Service: 12/18/21
[2021-12-18 11:39] LABS: Glucose, Whole Blood 211 mg/dL (60-115)
[2021-12-18] MEDS: Aspirin 81 MG TAB.CHEW PO (11:45)
[2021-12-18 12:00] VITALS: BP 130/60; PULSE 50; RESP 18; TEMP 36.3; O2SAT 96
--- NOTE | 2021-12-18 12:03 | HO.PM.IMPN ---
Subjective Subjective Date of Service: 12/18/21 Interval History: cc: sob, edema interval history:urinating, not sob at rest, had palpiations last night, noted to have episode of atrial tach with abberancy Cardiovascular Cardiovascular: Reports no additional cardiovascular complaints Respiratory Respiratory: Reports no additional respiratory complaints Physical Exam Vital Signs: Vital Signs: Last Vital Signs Temp 97.7 F 12/18/21 08:00 Pulse 67 12/18/21 08:00 Resp 19 12/18/21 08:00 BP 164/67 H 12/18/21 08:00 Pulse Ox 96 12/18/21 08:00 O2 Del Method 12/18/21 08:00 BMI result Body Mass Index 41.8 GENERAL APPEARANCE: in no acute distress, pleasant. NECK: no carotid bruit, mild jugular venous distention. SKIN: no suspicious lesions, warm and dry. HEART: no murmurs, regular rate and rhythm. LUNGS: Few crackles at bases. ABDOMEN: soft, nontender. EXTREMITIES: 2- 3+ edema. PERIPHERAL PULSES: equal. NEUROLOGIC: No gross deficits, AAO X 3 Objective Data Active Medications Acetaminophen (Acetaminophen 325 Mg Tablet) 650 mg PO Q6H PRN PRN Reason: Pain, Mild (Pain Scale 1-3) Last Admin: 12/16/21 13:00 Dose: 650 mg Documented By: RADHA Allopurinol (Allopurinol 100 Mg Tablet) 100 mg PO DAILY [facility] Last Admin: 12/18/21 08:04 Dose: 100 mg Documented By: RUSTY Amiodarone HCl (Amiodarone Hcl 200 Mg Tablet) 400 mg PO BID [facility] Last Admin: 12/18/21 08:03 Dose: 400 mg Documented By: RUSTY Aspirin (Aspirin 81 Mg Tab.Chew) 81 mg PO DAILY [facility] Last Admin: 12/18/21 11:45 Dose: 81 mg Documented By: RUSTY Atorvastatin Calcium (Atorvastatin Calcium 80 Mg Tablet) 80 mg PO DAILY [facility] Last Admin: 12/18/21 08:03 Dose: 80 mg Documented By: RUSTY Calcitriol (Calcitriol 0.25 Mcg Capsule) 0.25 mcg PO Q48H [facility] Last Admin: 12/17/21 08:52 Dose: 0.25 mcg Documented By: STEPHANIE Heparin Sodium (Porcine) (Heparin Sodium,Porcine 5,000 Unit/Ml Vial) 5,000 unit SUBCUT Q12H [facility] Last Admin: 12/18/21 08:03 Dose: 5,000 unit Documented By: RUSTY Hydralazine HCl (Hydralazine Hcl 50 Mg Tablet) 100 mg PO TID [facility]; Protocol Hydrocortisone (Hydrocortisone 1 % Cream 28.35 Gm Tube) 1 appl TOPICAL BID [facility]; Protocol Last Admin: 12/18/21 08:04 Dose: 1 appl Documented By: RUSTY Bumetanide 25 mg/ IV (Miscellaneous Supplies) 100 mls @ 2 mls/hr IVCONT .Q24H [facility] Last Admin: 12/17/21 12:44 Dose: 0.5 mg/hr, 2 mls/hr Documented By: MAKAYLA Insulin Glargine (Insulin Glargine,Hum.Rec.Anlog 100 Unit/Ml 10 Ml Vial) 30 unit SUBCUT DAILY [facility] Last Admin: 12/18/21 08:03 Dose: 30 unit Documented By: RUSTY Insulin Human Lispro (Insulin Lispro 100 Unit/Ml 3 Ml Vial) 0 unit SUBCUT QIDACHS [facility]; Protocol Last Admin: 12/18/21 11:46 Dose: 4 unit Documented By: RUSTY Isosorbide Mononitrate (Isosorbide Mononitrate 60 Mg Tab.Er.24h) 60 mg PO DAILY [facility]; Protocol Last Admin: 12/18/21 08:03 Dose: 60 mg Documented By: RUSTY Latanoprost (Latanoprost 0.005 % Ophth Cyndi 2.5 Ml Drops) 1 drop EYE-BOTH BEDTIME [facility] Last Admin: 12/17/21 22:39 Dose: 1 drop Documented By: SAMEER Magnesium Oxide (Magnesium Oxide 400 Mg Tablet) 400 mg PO BIDPC [facility] Last Admin: 12/18/21 08:04 Dose: 400 mg Documented By: RUSTY Melatonin (Melatonin 3 Mg Tablet) 6 mg PO BEDTIME PRN PRN Reason: Sleep Last Admin: 12/17/21 22:31 Dose: 6 mg Documented By: SAMEER Ondansetron HCl (Ondansetron Hcl 4 Mg/2 Ml Vial) 4 mg IVPUSH Q8H PRN PRN Reason: Nausea and Vomiting Pharmacy Consult (Consult Rx Perform Med Rec) 1 each MISCELLANE ONCE PRN PRN Reason: Consult order Sodium Chloride (0.9 % Sodium Chloride Flush 3 Ml Syringe) 3 ml IVFLUSH QSHIFT [facility] Last Admin: 12/18/21 08:04 Dose: 3 ml Documented By: RUSTY Timolol Maleate (Timolol Maleate 0.5 % Oph Cyndi 5 Ml Drbtl) 1 drop EYE-BOTH DAILY [facility] Last Admin: 12/17/21 22:38 Dose: 1 drop Documented By: SAMEER Vitamin D (Cholecalciferol (Vitamin D3) 25 Mcg Tablet) 25 mcg PO DAILY [facility] Last Admin: 12/18/21 08:03 Dose: 25 mcg Documented By: RUSTY Labs CBC & Chem 7: 12/18/21 06:20 12/18/21 06:20 Labs: Laboratory Results - last 24 hr 12/17/21 12/17/21 12/17/21 11:07 16:33 20:21 MCV MCH MCHC RDW Plt Count MPV Absolute Nucleated RBC Nucleated RBC % (auto) Anion Gap Estim Creat Clear Calc Estimated GFR POC Glucose 197 H 191 H 207 H Random Glucose Fasting Glucose Calcium Magnesium 12/18/21 12/18/21 12/18/21 06:20 06:20 06:20 MCV 86.8 MCH 27.5 MCHC 31.6 RDW 15.2 Plt Count 208 MPV 10.0 Absolute Nucleated RBC 0.000 Nucleated RBC % (auto) 0.0 Anion Gap 22 H Cancelled Estim Creat Clear Calc 11.5 Cancelled Estimated GFR 8 Cancelled POC Glucose Random Glucose Cancelled Fasting Glucose 214 H Calcium 8.8 Cancelled Magnesium 1.8 Cancelled 12/18/21 12/18/21 07:48 11:31 MCV MCH MCHC RDW Plt Count MPV Absolute Nucleated RBC Nucleated RBC % (auto) Anion Gap Estim Creat Clear Calc Estimated GFR POC Glucose 188 H 211 H Random Glucose Fasting Glucose Calcium Magnesium Assessment and Plan (1) CHF (congestive heart failure): Status: Acute Plan 81 years old lady with PMH of diastolic CHF, HLD, HTN, type 2 diabetes, CKD stage 4, morbid obesity among others who presented to the hospital from Cardiology office for worsening dyspnea on exertion and lower extremities edema. Acute on chronic CHF with reduced ejection fraction Echo with new finding of reduced EF Continue Bumex drip, given Zaroxolyn Avoid beta-blockers and calcium channel blockers Increased hydralazine and Imdur started Monitor electrolytes continue diuresis Acute kidney injury on CKD 3 Likely cardiorenal Monitor on diuresis no need for METER RECORD CLERK at this time Nephrology following Atrial tachycardia with sinus bradycardia Avoid beta-sravnathi or calcium channel blockers amio 400mg bid Diabetes Insulin DVT prophylaxis with heparin subQ reason for continued hospitalization: iv diuresis in patient with severe volume overload, and close monitoring of renal function. Quality Stroke Does the patient have a stroke diagnosis?: No VTE Prior VTE?: No VTE Risk Level:: Medical - moderate - high VTE Device Contraindication: Treatment Not Indicated VTE Drug Contraindication: N/A - Med Ordered
[2021-12-18] MEDS: Bumetanide 25 MG in Container,Empty 0 ML IVCONT (12:22)
--- NOTE | 2021-12-18 14:36 | PM.PNNEP ---
Subjective Subjective Date of Service: 12/18/21 Interval history: Events noted.All recent data reviewed Physical Exam Vital Signs: Vital Signs: Last Vital Signs Temp 97.4 F 12/18/21 12:00 Pulse 50 12/18/21 12:00 Resp 18 12/18/21 12:00 BP 130/60 12/18/21 12:00 Pulse Ox 96 12/18/21 12:00 O2 Del Method 12/18/21 12:00 BMI result Body Mass Index 41.8 Const: General: no acute distress HEENT: Head: Yes normocephalic Eyes: EOM: EOMs intact bilaterally Neck: Neck: Yes supple Resp: Auscultation: diminished lung sounds Cardio: Rate: regular rate GI: Palpation (GI): Soft to palpation Neuro: General: moves all extremities Objective Data Labs CBC & Chem 7: 12/18/21 06:20 12/18/21 06:20 Labs: Laboratory Results - last 24 hr 12/17/21 12/17/21 12/18/21 16:33 20:21 06:20 WBC 5.9 RBC 3.57 L Hgb 9.8 L Hct 31.0 L MCV 86.8 MCH 27.5 MCHC 31.6 RDW 15.2 Plt Count 208 MPV 10.0 Absolute Nucleated RBC 0.000 Nucleated RBC % (auto) 0.0 Sodium Potassium Chloride Carbon Dioxide Anion Gap BUN Creatinine Estim Creat Clear Calc Estimated GFR POC Glucose 191 H 207 H Random Glucose Fasting Glucose Calcium Magnesium 12/18/21 12/18/21 12/18/21 06:20 06:20 07:48 WBC RBC Hgb Hct MCV MCH MCHC RDW Plt Count MPV Absolute Nucleated RBC Nucleated RBC % (auto) Sodium 138 Cancelled Potassium 3.5 Cancelled Chloride 96 Cancelled Carbon Dioxide 24 Cancelled Anion Gap 22 H Cancelled BUN 97 H Cancelled Creatinine 5.18 H* Cancelled Estim Creat Clear Calc 11.5 Cancelled Estimated GFR 8 Cancelled POC Glucose 188 H Random Glucose Cancelled Fasting Glucose 214 H Calcium 8.8 Cancelled Magnesium 1.8 Cancelled 12/18/21 11:31 WBC RBC Hgb Hct MCV MCH MCHC RDW Plt Count MPV Absolute Nucleated RBC Nucleated RBC % (auto) Sodium Potassium Chloride Carbon Dioxide Anion Gap BUN Creatinine Estim Creat Clear Calc Estimated GFR POC Glucose 211 H Random Glucose Fasting Glucose Calcium Magnesium Procedures Date of Service Date of Service: 12/18/21 Assessment & Plan Assessment and plan (1) Acute kidney injury superimposed on CKD: Status: Acute Assessment and Plan: 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 K/HCO3 OK; On Bumex drip; Vol status better; Renal fn stable No indication for renal replacement yet; C/W rest of current supportive care for now Time Spent With Patient Time: Total time spent is greater than 50% in coordination of care (as documented) at patient's floor/unit and/or counseling patient: Progress Note: Quality Stroke Does the patient have a stroke diagnosis?: No
[2021-12-18 15:28] LABS: Glucose, Whole Blood 226 mg/dL (60-115)
[2021-12-18 16:00] VITALS: BP 161/70; PULSE 63; RESP 18; TEMP 36.3; O2SAT 97
--- NOTE | 2021-12-18 16:10 | ECG_ITS ---
Test Reason : ? tele change Blood Pressure : / mmHG Vent. Rate : 061 BPM Atrial Rate : 061 BPM P-R Int : 240 ms QRS Dur : 156 ms QT Int : 544 ms P-R-T Axes : 058 -01 161 degrees QTc Int : 547 ms Sinus rhythm with 1st degree A-V block with occasional Premature ventricular complexes Left bundle branch block Abnormal ECG When compared with ECG of 15-DEC-2021 03:17, Sinus rhythm has replaced Wide QRS tachycardia Vent. rate has decreased BY 62 BPM Referred By: Regino Vaughn Electronically Signed By:MARIE DIOP MD
[2021-12-18] MEDS: hydrALAZINE HCl 50 MG TABLET 100 MG PO ×2 (16:44→20:47)
[2021-12-18 19:58] VITALS: BP 155/70; PULSE 68; RESP 18; TEMP 36.4; O2SAT 95
[2021-12-18] MEDS: diphenhydrAMINE HCL 25 MG CAPSULE PO (20:47)
[2021-12-18] MEDS: timoloL maleate 0.5 % Oph Sol 5 ML DRBTL 1 DROP EYE-BOTH (20:48)
[2021-12-18] MEDS: Latanoprost 0.005 % Ophth Sol 2.5 ML DROPS 1 DROP EYE-BOTH (20:48)
[2021-12-18 21:26] LABS: Glucose, Whole Blood 181 mg/dL (60-115)
[2021-12-18 23:18] VITALS: BP 142/77; PULSE 146; RESP 20; TEMP 36.2; O2SAT 96
[2021-12-19] VITALS (7 sets, daily range): BP systolic 117–151; BP diastolic 54–72; PULSE 60–137; RESP 18–20; TEMP 36.2–36.9; O2SAT 93–95
--- NOTE | 2021-12-19 | ECG_ITS ---
Test Reason : cp Blood Pressure : / mmHG Vent. Rate : 071 BPM Atrial Rate : 071 BPM P-R Int : 252 ms QRS Dur : 154 ms QT Int : 496 ms P-R-T Axes : 077 024 175 degrees QTc Int : 538 ms Sinus rhythm with 1st degree A-V block with occasional Premature ventricular complexes and Premature atrial complexes Left bundle branch block Abnormal ECG When compared with ECG of 18-DEC-2021 16:22, No significant changes seen Referred By: Regino Vaughn Electronically Signed By:MARIE DIOP MD
[2021-12-19 07:29] LABS: Hematocrit 31.4 % (37.0-47.0); Hemoglobin 10.3 g/dl (12.0-16.0); Mean Corpuscular HGB Conc 32.8 g/dl (31.0-35.0); Mean Corpuscular Hemoglobin 27.8 pg (27.0-33.0); Mean Corpuscular Volume 84.9 fL (80.0-98.0); Mean Platelet Volume 10.8 fL (9.4-12.3); Platelet Count 203 X10*3/uL (160-400); Red Cell Distribution Width 15.1 % (11.0-16.0); White Blood Count 6.5 X10*3/uL (4.8-10.8)
[2021-12-19 07:31] LABS: Glucose, Whole Blood 157 mg/dL (60-115)
[2021-12-19 07:44] LABS: Anion Gap 24 (12-20); Blood Urea Nitrogen 97 mg/dL (9-16); Calcium 8.9 mg/dL (8.4-10.2); Carbon Dioxide 24 mmol/L (22-29); Chloride 95 mmol/L (96-108); Creatinine Clr Calc Pharmacy 11.1; Estimated Glomerular Filt Rate 8; Glucose Fasting 167 mg/dL (60-99); Magnesium 2.1 mg/dL (1.6-2.6); Potassium 3.8 mmol/L (3.3-5.1); Sodium 139 mmol/L (135-145)
[2021-12-19] MEDS: Magnesium Oxide 400 MG TABLET PO ×2 (08:15→17:25)
[2021-12-19] MEDS: hydrALAZINE HCl 50 MG TABLET 100 MG PO ×3 (08:15→21:42)
[2021-12-19] MEDS: Insulin Lispro 100 UNIT/ML 3 ML VIAL SUBCUT ×4 (08:15→21:43)
[2021-12-19] MEDS: Insulin Glargine,Hum.rec.anlog 100 UNIT/ML 10 ML VIAL 30 UNIT SUBCUT (08:15)
[2021-12-19] MEDS: Isosorbide Mononitrate 60 MG TAB.ER.24H PO (08:15)
[2021-12-19] MEDS: allopurinoL 100 MG TABLET PO (08:15)
[2021-12-19] MEDS: Heparin Sodium,Porcine 5,000 UNIT/ML VIAL 5000 UNIT SUBCUT ×2 (08:15→21:43)
[2021-12-19] MEDS: Cholecalciferol (Vitamin D3) 25 MCG TABLET PO (08:15)
[2021-12-19] MEDS: Acetaminophen 325 MG TABLET 650 MG PO (08:16)
[2021-12-19] MEDS: calcitrioL 0.25 MCG CAPSULE PO (08:16)
[2021-12-19] MEDS: Amiodarone HCL 200 MG TABLET 400 MG PO ×2 (08:16→21:43)
[2021-12-19] MEDS: Atorvastatin Calcium 80 MG TABLET PO (08:16)
[2021-12-19] MEDS: Aspirin 81 MG TAB.CHEW PO (08:16)
[2021-12-19] MEDS: Hydrocortisone 1 % Cream 28.35 GM TUBE 1 APPL TOPICAL ×2 (08:20→21:58)
[2021-12-19] MEDS: Metoprolol Tartrate 5 MG/5 ML VIAL 2.5 MG IVPUSH (10:47)
[2021-12-19] MEDS: Metoprolol Tartrate 25 MG TABLET PO ×2 (10:47→21:43)
--- NOTE | 2021-12-19 10:54 | HO.PM.IMPN ---
Subjective Subjective Date of Service: 12/19/21 Interval History: cc: sob, edema interval history:urinating, not sob at rest, had palpiations last night, noted to have episode of atrial tach with some symptoms Cardiovascular Cardiovascular: Reports no additional cardiovascular complaints Respiratory Respiratory: Reports no additional respiratory complaints Physical Exam Vital Signs: Vital Signs: Last Vital Signs Temp 98.0 F 12/19/21 08:00 Pulse 137 H 12/19/21 08:00 Resp 19 12/19/21 08:00 BP 118/64 12/19/21 08:00 Pulse Ox 95 12/19/21 08:00 O2 Del Method 12/19/21 08:00 O2 Flow Rate 3 12/18/21 23:18 BMI result Body Mass Index 41.8 Const: General: no acute distress HEENT: Head: Yes normocephalic Eyes: EOM: EOMs intact bilaterally Neck: Neck: Yes supple Resp: Auscultation: diminished lung sounds Cardio: Rate: regular rate GI: Palpation (GI): Soft to palpation Neuro: General: moves all extremities Objective Data Active Medications Acetaminophen (Acetaminophen 325 Mg Tablet) 650 mg PO Q6H PRN PRN Reason: Pain, Mild (Pain Scale 1-3) Last Admin: 12/19/21 08:16 Dose: 650 mg Documented By: ERICK Allopurinol (Allopurinol 100 Mg Tablet) 100 mg PO DAILY [facility] Last Admin: 12/19/21 08:15 Dose: 100 mg Documented By: ERICK Amiodarone HCl (Amiodarone Hcl 200 Mg Tablet) 400 mg PO BID [facility] Last Admin: 12/19/21 08:16 Dose: 400 mg Documented By: ERICK Aspirin (Aspirin 81 Mg Tab.Chew) 81 mg PO DAILY [facility] Last Admin: 12/19/21 08:16 Dose: 81 mg Documented By: ERICK Atorvastatin Calcium (Atorvastatin Calcium 80 Mg Tablet) 80 mg PO DAILY [facility] Last Admin: 12/19/21 08:16 Dose: 80 mg Documented By: ERICK Calcitriol (Calcitriol 0.25 Mcg Capsule) 0.25 mcg PO Q48H [facility] Last Admin: 12/19/21 08:16 Dose: 0.25 mcg Documented By: ERICK Heparin Sodium (Porcine) (Heparin Sodium,Porcine 5,000 Unit/Ml Vial) 5,000 unit SUBCUT Q12H [facility] Last Admin: 12/19/21 08:15 Dose: 5,000 unit Documented By: ERICK Hydralazine HCl (Hydralazine Hcl 50 Mg Tablet) 100 mg PO TID [facility]; Protocol Last Admin: 12/19/21 08:15 Dose: 100 mg Documented By: ERICK Hydrocortisone (Hydrocortisone 1 % Cream 28.35 Gm Tube) 1 appl TOPICAL BID [facility]; Protocol Last Admin: 12/19/21 08:20 Dose: 1 appl Documented By: ERICK Bumetanide 25 mg/ IV (Miscellaneous Supplies) 100 mls @ 2 mls/hr IVCONT .Q24H [facility] Last Admin: 12/18/21 12:22 Dose: 0.5 mg/hr, 2 mls/hr Documented By: RUSTY Insulin Glargine (Insulin Glargine,Hum.Rec.Anlog 100 Unit/Ml 10 Ml Vial) 30 unit SUBCUT DAILY [facility] Last Admin: 12/19/21 08:15 Dose: 30 unit Documented By: ERICK Insulin Human Lispro (Insulin Lispro 100 Unit/Ml 3 Ml Vial) 0 unit SUBCUT QIDACHS [facility]; Protocol Last Admin: 12/19/21 08:15 Dose: 2 unit Documented By: ERICK Isosorbide Mononitrate (Isosorbide Mononitrate 60 Mg Tab.Er.24h) 60 mg PO DAILY [facility]; Protocol Last Admin: 12/19/21 08:15 Dose: 60 mg Documented By: ERICK Latanoprost (Latanoprost 0.005 % Ophth Cyndi 2.5 Ml Drops) 1 drop EYE-BOTH BEDTIME [facility] Last Admin: 12/18/21 20:48 Dose: 1 drop Documented By: SAMEER Magnesium Oxide (Magnesium Oxide 400 Mg Tablet) 400 mg PO BIDPC [facility] Last Admin: 12/19/21 08:15 Dose: 400 mg Documented By: ERICK Melatonin (Melatonin 3 Mg Tablet) 6 mg PO BEDTIME PRN PRN Reason: insomnia Metoprolol Tartrate (Metoprolol Tartrate 25 Mg Tablet) 25 mg PO TID [facility]; Protocol Last Admin: 12/19/21 10:47 Dose: 25 mg Documented By: ERICK Ondansetron HCl (Ondansetron Hcl 4 Mg/2 Ml Vial) 4 mg IVPUSH Q8H PRN PRN Reason: Nausea and Vomiting Pharmacy Consult (Consult Rx Perform Med Rec) 1 each MISCELLANE ONCE PRN PRN Reason: Consult order Sodium Chloride (0.9 % Sodium Chloride Flush 3 Ml Syringe) 3 ml IVFLUSH QSHIFT [facility] Last Admin: 12/19/21 07:13 Dose: Not Given Documented By: ERICK Non-Admin Reason: See Note Timolol Maleate (Timolol Maleate 0.5 % Oph Cyndi 5 Ml Drbtl) 1 drop EYE-BOTH DAILY [facility] Last Admin: 12/18/21 20:48 Dose: 1 drop Documented By: SAMEER Vitamin D (Cholecalciferol (Vitamin D3) 25 Mcg Tablet) 25 mcg PO DAILY [facility] Last Admin: 12/19/21 08:15 Dose: 25 mcg Documented By: ERICK Labs CBC & Chem 7: 12/19/21 06:30 12/19/21 06:30 Labs: Laboratory Results - last 24 hr 12/18/21 12/18/21 12/18/21 11:31 15:19 21:13 MCV MCH MCHC RDW Plt Count MPV Absolute Nucleated RBC Nucleated RBC % (auto) Anion Gap Estim Creat Clear Calc Estimated GFR POC Glucose 211 H 226 H 181 H Fasting Glucose Calcium Magnesium 12/19/21 12/19/21 12/19/21 06:30 06:30 07:27 MCV 84.9 MCH 27.8 MCHC 32.8 RDW 15.1 Plt Count 203 MPV 10.8 Absolute Nucleated RBC 0.000 Nucleated RBC % (auto) 0.0 Anion Gap 24 H Estim Creat Clear Calc 11.1 Estimated GFR 8 POC Glucose 157 H Fasting Glucose 167 H Calcium 8.9 Magnesium 2.1 Assessment and Plan (1) CHF (congestive heart failure): Status: Acute Plan 81 years old lady with PMH of diastolic CHF, HLD, HTN, type 2 diabetes, CKD stage 4, morbid obesity among others who presented to the hospital from Cardiology office for worsening dyspnea on exertion and lower extremities edema. Acute on chronic CHF with reduced ejection fraction Echo with new finding of reduced EF Continue Bumex drip Increased hydralazine and Imdur started Monitor electrolytes continue diuresis Acute kidney injury on CKD 3 Likely cardiorenal Monitor on diuresis no need for SHINGLE INSPECTOR at this time Nephrology following Atrial tachycardia with sinus bradycardia amio 400mg bid will start lopressor 25mg tid Diabetes Insulin DVT prophylaxis with heparin subQ reason for continued hospitalization: iv diuresis in patient with severe volume overload, and close monitoring of renal function. Quality Stroke Does the patient have a stroke diagnosis?: No VTE Prior VTE?: No VTE Risk Level:: Medical - moderate - high VTE Device Contraindication: Treatment Not Indicated VTE Drug Contraindication: N/A - Med Ordered
--- NOTE | 2021-12-19 11:01 | PM.PNCARD ---
Subjective Subjective Date of Service: 12/19/21 Interval history: Patient seen examined at bedside. She has multiple runs of atrial tachycardia on telemetry. Feeling palpitations. Physical Exam Vital Signs: Last Vital Signs Temp 98.0 F 12/19/21 08:00 Pulse 137 H 12/19/21 08:00 Resp 19 12/19/21 08:00 BP 118/64 12/19/21 08:00 Pulse Ox 95 12/19/21 08:00 O2 Del Method 12/19/21 08:00 O2 Flow Rate 3 12/18/21 23:18 BMI result Body Mass Index 41.8 GENERAL APPEARANCE: in no acute distress, pleasant. NECK: no carotid bruit, mild jugular venous distention. SKIN: no suspicious lesions, warm and dry. HEART: no murmurs, regular rate and rhythm. LUNGS: Few crackles at bases. ABDOMEN: soft, nontender. EXTREMITIES: 2- 3+ edema. PERIPHERAL PULSES: equal. NEUROLOGIC: No gross deficits, AAO X 3 Objective Labs and Meds Result diagrams: 12/19/21 06:30 12/19/21 06:30 Lab results: Laboratory Results - last 24 hr 12/18/21 12/18/21 12/18/21 11:31 15:19 21:13 WBC RBC Hgb Hct MCV MCH MCHC RDW Plt Count MPV Absolute Nucleated RBC Nucleated RBC % (auto) Sodium Potassium Chloride Carbon Dioxide Anion Gap BUN Creatinine Estim Creat Clear Calc Estimated GFR POC Glucose 211 H 226 H 181 H Fasting Glucose Calcium Magnesium 12/19/21 12/19/21 12/19/21 06:30 06:30 07:27 WBC 6.5 RBC 3.70 L Hgb 10.3 L Hct 31.4 L MCV 84.9 MCH 27.8 MCHC 32.8 RDW 15.1 Plt Count 203 MPV 10.8 Absolute Nucleated RBC 0.000 Nucleated RBC % (auto) 0.0 Sodium 139 Potassium 3.8 Chloride 95 L Carbon Dioxide 24 Anion Gap 24 H BUN 97 H Creatinine 5.35 H* Estim Creat Clear Calc 11.1 Estimated GFR 8 POC Glucose 157 H Fasting Glucose 167 H Calcium 8.9 Magnesium 2.1 Progress Note: A&P Assessment and plan (1) Cardiomyopathy: Status: Acute (2) CHF (congestive heart failure): Status: Acute (3) Acute kidney injury superimposed on CKD: Status: Acute (4) Essential hypertension: Status: Acute Plan 81-year-old female who is here for congestive heart failure. Echocardiography has shown ejection fraction of 35-40% with global hypokinesis. She has multiple runs of atrial tachycardia on telemetry and her Holter monitor also showed similar changes previously. Metoprolol was initially stopped and she was started on amiodarone. She has been on 400 mg b.i.d. amiodarone. She continues to have multiple runs of atrial tachycardia. We have decided to put her back on metoprolol in addition to amiodarone. She started on 25 mg 3 times a day of metoprolol tartrate. Peripheral edema still present. Her breathing is improving. Currently on IV Bumex. Creatinine continues to be significantly abnormal. Nephrology is following. Multiple issues going on. Quite complex situation. She also is complaining of right shoulder discomfort when she ambulates. She will need ischemic evaluation eventually. Thank you for allowing me to participate in the care of your patient. Please feel free to contact me if you have any questions. Time Spent With Patient Time: Total time spent is greater than 50% in coordination of care (as documented) at patient's floor/unit and/or counseling patient: Progress Note: Quality Stroke Does the patient have a stroke diagnosis?: No Procedures Date of Service Date of Service: 12/19/21
[2021-12-19 11:58] LABS: Glucose, Whole Blood 206 mg/dL (60-115)
[2021-12-19] MEDS: ondansetron HCL 4 MG/2 ML VIAL IVPUSH (12:00)
--- NOTE | 2021-12-19 14:39 | PM.PNNEP ---
Subjective Subjective Date of Service: 12/19/21 Interval history: All recent data reviewed. Renal function stable. No uremic symptoms Physical Exam Vital Signs: Vital Signs: Last Vital Signs Temp 97.4 F 12/19/21 12:00 Pulse 60 12/19/21 12:00 Resp 18 12/19/21 12:00 BP 117/54 L 12/19/21 12:00 Pulse Ox 95 12/19/21 12:00 O2 Del Method 12/19/21 12:00 O2 Flow Rate 3 12/18/21 23:18 BMI result Body Mass Index 41.8 Const: General: no acute distress Orientation/consciousness: patient oriented x3 Eyes: EOM: EOMs intact bilaterally Neck: Neck: Yes supple Resp: Auscultation: diminished lung sounds Cardio: Rate: regular rate GI: Palpation (GI): Soft to palpation Neuro: General: patient oriented x3 and moves all extremities Objective Data Labs CBC & Chem 7: 12/19/21 06:30 12/19/21 06:30 Labs: Laboratory Results - last 24 hr 12/18/21 12/18/21 12/19/21 15:19 21:13 06:30 WBC 6.5 RBC 3.70 L Hgb 10.3 L Hct 31.4 L MCV 84.9 MCH 27.8 MCHC 32.8 RDW 15.1 Plt Count 203 MPV 10.8 Absolute Nucleated RBC 0.000 Nucleated RBC % (auto) 0.0 Sodium Potassium Chloride Carbon Dioxide Anion Gap BUN Creatinine Estim Creat Clear Calc Estimated GFR POC Glucose 226 H 181 H Fasting Glucose Calcium Magnesium 12/19/21 12/19/21 12/19/21 06:30 07:27 11:50 WBC RBC Hgb Hct MCV MCH MCHC RDW Plt Count MPV Absolute Nucleated RBC Nucleated RBC % (auto) Sodium 139 Potassium 3.8 Chloride 95 L Carbon Dioxide 24 Anion Gap 24 H BUN 97 H Creatinine 5.35 H* Estim Creat Clear Calc 11.1 Estimated GFR 8 POC Glucose 157 H 206 H Fasting Glucose 167 H Calcium 8.9 Magnesium 2.1 Procedures Date of Service Date of Service: 12/19/21 Assessment & Plan Assessment and plan (1) Acute kidney injury superimposed on CKD: Status: Acute Assessment and Plan: 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 K/HCO3 OK; On Bumex drip; Vol status better; Renal fn stable No indication for renal replacement yet; C/W rest of current supportive care for now Time Spent With Patient Time: Total time spent is greater than 50% in coordination of care (as documented) at patient's floor/unit and/or counseling patient: Progress Note: Quality Stroke Does the patient have a stroke diagnosis?: No
[2021-12-19 16:46] LABS: Glucose, Whole Blood 156 mg/dL (60-115)
--- NOTE | 2021-12-19 18:21 | PC.NURSE ---
informed MD of pt's HR sustaining 130-140s. additional dose of lopressor administered as ordered w/ + effect. prn meds administered w/ + effect. pt family at bedside this evening.
[2021-12-19 21:16] LABS: Glucose, Whole Blood 242 mg/dL (60-115)
[2021-12-19] MEDS: Bumetanide 25 MG in Container,Empty 0 ML IVCONT (21:43)
[2021-12-19] MEDS: timoloL maleate 0.5 % Oph Sol 5 ML DRBTL 1 DROP EYE-BOTH (21:46)
[2021-12-19] MEDS: Melatonin 3 MG TABLET 6 MG PO (21:57)
[2021-12-20] VITALS (7 sets, daily range): BP systolic 142–159; BP diastolic 63–70; PULSE 52–128; RESP 16–20; TEMP 36–36.6; O2SAT 93–97
[2021-12-20 07:22] LABS: Hematocrit 31.9 % (37.0-47.0); Hemoglobin 10.1 g/dl (12.0-16.0); Mean Corpuscular HGB Conc 31.7 g/dl (31.0-35.0); Mean Corpuscular Hemoglobin 27.5 pg (27.0-33.0); Mean Corpuscular Volume 86.9 fL (80.0-98.0); Platelet Count 208 X10*3/uL (160-400); Red Blood Count 3.67 X10*6/uL (4.20-5.50); White Blood Count 7.4 X10*3/uL (4.8-10.8)
[2021-12-20 07:37] LABS: Glucose, Whole Blood 188 mg/dL (60-115)
[2021-12-20 08:33] LABS: Anion Gap 19 (12-20); Blood Urea Nitrogen 98 mg/dL (9-16); Carbon Dioxide 30 mmol/L (22-29); Chloride 91 mmol/L (96-108); Creatinine Clr Calc Pharmacy 11.1; Estimated Glomerular Filt Rate 8; Glucose Fasting 201 mg/dL (60-99); Magnesium 2.2 mg/dL (1.6-2.6); Potassium 3.7 mmol/L (3.3-5.1); Sodium 136 mmol/L (135-145)
[2021-12-20] MEDS: Insulin Lispro 100 UNIT/ML 3 ML VIAL SUBCUT ×4 (09:09→21:32)
[2021-12-20] MEDS: Atorvastatin Calcium 80 MG TABLET PO (09:10)
[2021-12-20] MEDS: hydrALAZINE HCl 50 MG TABLET 100 MG PO ×3 (09:10→21:33)
[2021-12-20] MEDS: Aspirin 81 MG TAB.CHEW PO (09:10)
[2021-12-20] MEDS: Insulin Glargine,Hum.rec.anlog 100 UNIT/ML 10 ML VIAL 30 UNIT SUBCUT (09:10)
[2021-12-20] MEDS: Magnesium Oxide 400 MG TABLET PO ×2 (09:11→17:59)
[2021-12-20] MEDS: Heparin Sodium,Porcine 5,000 UNIT/ML VIAL 5000 UNIT SUBCUT ×2 (09:11→21:32)
[2021-12-20] MEDS: Cholecalciferol (Vitamin D3) 25 MCG TABLET PO (09:11)
[2021-12-20] MEDS: Amiodarone HCL 200 MG TABLET 400 MG PO ×2 (09:11→21:33)
[2021-12-20] MEDS: Metoprolol Tartrate 25 MG TABLET PO ×3 (09:11→21:33)
[2021-12-20] MEDS: Isosorbide Mononitrate 60 MG TAB.ER.24H PO (09:11)
[2021-12-20] MEDS: allopurinoL 100 MG TABLET PO (09:11)
[2021-12-20] MEDS: 0.9 % Sodium Chloride Flush 3 ML SYRINGE IVFLUSH ×2 (09:12→14:30)
[2021-12-20] MEDS: timoloL maleate 0.5 % Oph Sol 5 ML DRBTL 1 DROP EYE-BOTH (09:16)
[2021-12-20] MEDS: Hydrocortisone 1 % Cream 28.35 GM TUBE 1 APPL TOPICAL (09:16)
--- NOTE | 2021-12-20 10:23 | PM.PNNEP ---
Subjective Subjective Date of Service: 12/20/21 Interval history: Seen and examied,events noted Physical Exam Vital Signs: Vital Signs: Last Vital Signs Temp 97.4 F 12/20/21 07:19 Pulse 128 H 12/20/21 07:19 Resp 16 12/20/21 07:19 BP 152/67 H 12/20/21 07:19 Pulse Ox 93 12/20/21 07:19 O2 Del Method 12/20/21 07:19 O2 Flow Rate 3 12/18/21 23:18 BMI result Body Mass Index 41.8 Const: General: no acute distress Orientation/consciousness: patient oriented x3 HEENT: Head: Yes normocephalic Eyes: EOM: EOMs intact bilaterally Neck: Neck: Yes supple Resp: Auscultation: diminished lung sounds Cardio: Rate: regular rate GI: Palpation (GI): Soft to palpation Neuro: General: patient oriented x3 and moves all extremities Objective Data Labs CBC & Chem 7: 12/20/21 07:03 12/20/21 07:03 Labs: Laboratory Results - last 24 hr 12/19/21 12/19/21 12/19/21 11:50 16:42 20:33 WBC RBC Hgb Hct MCV MCH MCHC RDW Plt Count MPV Absolute Nucleated RBC Nucleated RBC % (auto) Sodium Potassium Chloride Carbon Dioxide Anion Gap BUN Creatinine Estim Creat Clear Calc Estimated GFR POC Glucose 206 H 156 H 242 H Fasting Glucose Calcium Magnesium 12/20/21 12/20/21 12/20/21 07:03 07:03 07:18 WBC 7.4 RBC 3.67 L Hgb 10.1 L Hct 31.9 L MCV 86.9 MCH 27.5 MCHC 31.7 RDW 15.0 Plt Count 208 MPV 10.0 Absolute Nucleated RBC 0.000 Nucleated RBC % (auto) 0.0 Sodium 136 Potassium 3.7 Chloride 91 L Carbon Dioxide 30 H Anion Gap 19 BUN 98 H Creatinine 5.35 H* Estim Creat Clear Calc 11.1 Estimated GFR 8 POC Glucose 188 H Fasting Glucose 201 H Calcium 9.0 Magnesium 2.2 Procedures Date of Service Date of Service: 12/20/21 Assessment & Plan Assessment and plan (1) Acute kidney injury superimposed on CKD: Status: Acute Assessment and Plan: YULIA: most c/w CRS but despite diuresis delay renal improvement is concenring 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
[2021-12-20 11:18] LABS: Glucose, Whole Blood 279 mg/dL (60-115)
--- NOTE | 2021-12-20 11:24 | HO.PM.IMPN ---
Subjective Subjective Date of Service: 12/20/21 Interval History: cc: sob, edema interval history:urinating, not sob at rest Cardiovascular Cardiovascular: Reports no additional cardiovascular complaints Respiratory Respiratory: Reports no additional respiratory complaints Physical Exam Vital Signs: Vital Signs: Last Vital Signs Temp 96.8 F 12/20/21 11:21 Pulse 89 12/20/21 11:21 Resp 16 12/20/21 11:21 BP 144/67 H 12/20/21 11:21 Pulse Ox 96 12/20/21 11:21 O2 Del Method 12/20/21 11:21 O2 Flow Rate 3 12/18/21 23:18 BMI result Body Mass Index 41.8 Const: General: no acute distress Orientation/consciousness: patient oriented x3 HEENT: Head: Yes normocephalic Eyes: EOM: EOMs intact bilaterally Neck: Neck: Yes supple Resp: Auscultation: diminished lung sounds Cardio: Rate: regular rate GI: Palpation (GI): Soft to palpation Neuro: General: patient oriented x3 and moves all extremities Objective Data Active Medications Acetaminophen (Acetaminophen 325 Mg Tablet) 650 mg PO Q6H PRN PRN Reason: Pain, Mild (Pain Scale 1-3) Last Admin: 12/19/21 08:16 Dose: 650 mg Documented By: ERICK Allopurinol (Allopurinol 100 Mg Tablet) 100 mg PO DAILY [facility] Last Admin: 12/20/21 09:11 Dose: 100 mg Documented By: RADHA Amiodarone HCl (Amiodarone Hcl 200 Mg Tablet) 400 mg PO BID [facility] Last Admin: 12/20/21 09:11 Dose: 400 mg Documented By: RADHA Aspirin (Aspirin 81 Mg Tab.Chew) 81 mg PO DAILY [facility] Last Admin: 12/20/21 09:10 Dose: 81 mg Documented By: RADHA Atorvastatin Calcium (Atorvastatin Calcium 80 Mg Tablet) 80 mg PO DAILY [facility] Last Admin: 12/20/21 09:10 Dose: 80 mg Documented By: RADHA Calcitriol (Calcitriol 0.25 Mcg Capsule) 0.25 mcg PO Q48H [facility] Last Admin: 12/19/21 08:16 Dose: 0.25 mcg Documented By: ERICK Heparin Sodium (Porcine) (Heparin Sodium,Porcine 5,000 Unit/Ml Vial) 5,000 unit SUBCUT Q12H [facility] Last Admin: 12/20/21 09:11 Dose: 5,000 unit Documented By: RADHA Hydralazine HCl (Hydralazine Hcl 50 Mg Tablet) 100 mg PO TID [facility]; Protocol Last Admin: 12/20/21 09:10 Dose: 100 mg Documented By: RADHA Hydrocortisone (Hydrocortisone 1 % Cream 28.35 Gm Tube) 1 appl TOPICAL BID [facility]; Protocol Last Admin: 12/20/21 09:16 Dose: 1 appl Documented By: RADHA Bumetanide 25 mg/ IV (Miscellaneous Supplies) 100 mls @ 2 mls/hr IVCONT .Q24H [facility] Last Admin: 12/19/21 21:43 Dose: 0.5 mg/hr, 2 mls/hr Documented By: CHERRY Insulin Glargine (Insulin Glargine,Hum.Rec.Anlog 100 Unit/Ml 10 Ml Vial) 30 unit SUBCUT DAILY [facility] Last Admin: 12/20/21 09:10 Dose: 30 unit Documented By: RADHA Insulin Human Lispro (Insulin Lispro 100 Unit/Ml 3 Ml Vial) 0 unit SUBCUT QIDACHS [facility]; Protocol Last Admin: 12/20/21 11:21 Dose: 6 unit Documented By: RADHA Isosorbide Mononitrate (Isosorbide Mononitrate 60 Mg Tab.Er.24h) 60 mg PO DAILY [facility]; Protocol Last Admin: 12/20/21 09:11 Dose: 60 mg Documented By: RADHA Latanoprost (Latanoprost 0.005 % Ophth Cyndi 2.5 Ml Drops) 1 drop EYE-BOTH BEDTIME [facility] Last Admin: 12/19/21 21:58 Dose: Not Given Documented By: CHERRY Non-Admin Reason: Med Not Available Magnesium Oxide (Magnesium Oxide 400 Mg Tablet) 400 mg PO BIDPC [facility] Last Admin: 12/20/21 09:11 Dose: 400 mg Documented By: RADHA Melatonin (Melatonin 3 Mg Tablet) 6 mg PO BEDTIME PRN PRN Reason: insomnia Last Admin: 12/19/21 21:57 Dose: 6 mg Documented By: CHERRY Metoprolol Tartrate (Metoprolol Tartrate 25 Mg Tablet) 25 mg PO TID [facility]; Protocol Last Admin: 12/20/21 09:11 Dose: 25 mg Documented By: RADHA Ondansetron HCl (Ondansetron Hcl 4 Mg/2 Ml Vial) 4 mg IVPUSH Q8H PRN PRN Reason: Nausea and Vomiting Last Admin: 12/19/21 12:00 Dose: 4 mg Documented By: ERICK Pharmacy Consult (Consult Rx Perform Med Rec) 1 each MISCELLANE ONCE PRN PRN Reason: Consult order Sodium Chloride (0.9 % Sodium Chloride Flush 3 Ml Syringe) 3 ml IVFLUSH QSHIFT [facility] Last Admin: 12/20/21 09:12 Dose: 3 ml Documented By: RADHA Timolol Maleate (Timolol Maleate 0.5 % Oph Cyndi 5 Ml Drbtl) 1 drop EYE-BOTH DAILY [facility] Last Admin: 12/20/21 09:16 Dose: 1 drop Documented By: RADHA Vitamin D (Cholecalciferol (Vitamin D3) 25 Mcg Tablet) 25 mcg PO DAILY [facility] Last Admin: 12/20/21 09:11 Dose: 25 mcg Documented By: RADHA Labs CBC & Chem 7: 12/20/21 07:03 12/20/21 07:03 Labs: Laboratory Results - last 24 hr 12/19/21 12/19/21 12/19/21 11:50 16:42 20:33 MCV MCH MCHC RDW Plt Count MPV Absolute Nucleated RBC Nucleated RBC % (auto) Anion Gap Estim Creat Clear Calc Estimated GFR POC Glucose 206 H 156 H 242 H Fasting Glucose Calcium Magnesium 12/20/21 12/20/21 12/20/21 07:03 07:03 07:18 MCV 86.9 MCH 27.5 MCHC 31.7 RDW 15.0 Plt Count 208 MPV 10.0 Absolute Nucleated RBC 0.000 Nucleated RBC % (auto) 0.0 Anion Gap 19 Estim Creat Clear Calc 11.1 Estimated GFR 8 POC Glucose 188 H Fasting Glucose 201 H Calcium 9.0 Magnesium 2.2 12/20/21 11:03 MCV MCH MCHC RDW Plt Count MPV Absolute Nucleated RBC Nucleated RBC % (auto) Anion Gap Estim Creat Clear Calc Estimated GFR POC Glucose 279 H Fasting Glucose Calcium Magnesium Assessment and Plan (1) CHF (congestive heart failure): Status: Acute Plan 81 years old lady with PMH of diastolic CHF, HLD, HTN, type 2 diabetes, CKD stage 4, morbid obesity among others who presented to the hospital from Cardiology office for worsening dyspnea on exertion and lower extremities edema. Acute on chronic CHF with reduced ejection fraction Echo with new finding of reduced EF Continue Bumex drip, so far -8L Increased hydralazine and Imdur started Monitor electrolytes continue diuresis Acute kidney injury on CKD 3 Likely cardiorenal Monitor on diuresis no need for [employer] WA[employer]/WAITRESS at this time, but likely in near future Nephrology following Atrial tachycardia with sinus bradycardia amio 400mg bid started lopressor 25mg tid Diabetes Insulin DVT prophylaxis with heparin subQ reason for continued hospitalization: iv diuresis in patient with severe volume overload, and close monitoring of renal function. Quality Stroke Does the patient have a stroke diagnosis?: No VTE Prior VTE?: No VTE Risk Level:: Medical - moderate - high VTE Device Contraindication: Treatment Not Indicated VTE Drug Contraindication: N/A - Med Ordered
--- NOTE | 2021-12-20 12:13 | MHC.CM.PN ---
Per ROUNDS discussion, Patient is on a Bumex Drip and not yet medically cleared for dc. PT is recommending home with services and CM will continue to follow.
--- NOTE | 2021-12-20 12:34 | PM.PNCARD ---
Subjective Subjective Date of Service: 12/20/21 Principal diagnosis: Heart failure Interval history: Patient has diuresed overall 8 L since admission. Says feels much better. With overall she is much less swollen as per her. Breathing is improved. Her cardiac arrhythmias have also improved significantly. Denies any palpitations. Review of Systems Review of Systems Yes all other systems are reviewed and are negative Physical Exam Vital Signs: Last Vital Signs Temp 96.8 F 12/20/21 11:21 Pulse 89 12/20/21 11:21 Resp 16 12/20/21 11:21 BP 144/67 H 12/20/21 11:21 Pulse Ox 96 12/20/21 11:21 O2 Del Method 12/20/21 11:21 O2 Flow Rate 3 12/18/21 23:18 BMI result Body Mass Index 41.8 Const General: cooperative, comfortable, no acute distress, alert and awake Nutritional Appearance: obese morbidly obese Orientation/consciousness: patient oriented x3 Neck Neck: Yes trachea midline, Yes supple and Yes JVD Resp Effort & Inspection: normal respiratory effort Auscultation: clear to auscultation bilaterally and diminished lung sounds Cardio Jugular venous distension: JVD Rate: regular rate Rhythm: regular rhythm Heart sounds: S1 normal heart sound present, S2 normal heart sound present, no click, no gallops and no murmurs Skin General skin exam: no rashes or lesions noted and ecchymosis Neuro General: patient oriented x3 and no focal motor deficits Extrem General: No clubbing, No cyanosis and Yes edema Objective Labs and Meds Result diagrams: 12/20/21 07:03 12/20/21 07:03 Lab results: Laboratory Results - last 24 hr 12/19/21 12/19/21 12/20/21 16:42 20:33 07:03 WBC 7.4 RBC 3.67 L Hgb 10.1 L Hct 31.9 L MCV 86.9 MCH 27.5 MCHC 31.7 RDW 15.0 Plt Count 208 MPV 10.0 Absolute Nucleated RBC 0.000 Nucleated RBC % (auto) 0.0 Sodium Potassium Chloride Carbon Dioxide Anion Gap BUN Creatinine Estim Creat Clear Calc Estimated GFR POC Glucose 156 H 242 H Fasting Glucose Calcium Magnesium 12/20/21 12/20/21 12/20/21 07:03 07:18 11:03 WBC RBC Hgb Hct MCV MCH MCHC RDW Plt Count MPV Absolute Nucleated RBC Nucleated RBC % (auto) Sodium 136 Potassium 3.7 Chloride 91 L Carbon Dioxide 30 H Anion Gap 19 BUN 98 H Creatinine 5.35 H* Estim Creat Clear Calc 11.1 Estimated GFR 8 POC Glucose 188 H 279 H Fasting Glucose 201 H Calcium 9.0 Magnesium 2.2 Progress Note: A&P Assessment and plan (1) Acute heart failure with preserved ejection fraction: Status: Acute Assessment and Plan: Patient present with acute heart failure predominant right heart failure findings. Has diuresed overall well about 8 L. Continue IV diuresis IV Bumex. Has advanced kidney dysfunction cannot add Aldactone therapy to her regimen. Importance of heart failure management was discussed. Will require outpatient workup for sleep apnea and treatment for the same. Continue controller cardiac arrhythmias. LV systolic dysfunction most likely tachycardia mediated. Will follow-up echocardiogram as outpatient. Continue to suppress supraventricular tachycardia/atrial tachycardia with current therapy. Overall prognosis is guarded. Please repeat BMP and BNP tomorrow (2) Supraventricular tachycardia: Status: Acute Assessment and Plan: Supraventricular tachycardia/atrial tachycardia currently suppressed on amiodarone loading and metoprolol. Change metoprolol to 25 mg b.i.d.. Continue amiodarone loading. Amiodarone loading for 2 weeks followed by 200 mg daily. Overall continue to suppress atrial arrhythmias as this most likely is cause for her LV systolic dysfunction. Overall prognosis guarded. Will follow up Time Spent With Patient Time: Total time spent is greater than 50% in coordination of care (as documented) at patient's floor/unit and/or counseling patient: Progress Note: Quality Stroke Does the patient have a stroke diagnosis?: No Procedures Date of Service Date of Service: 12/20/21
[2021-12-20 15:58] LABS: Glucose, Whole Blood 224 mg/dL (60-115)
[2021-12-20 18:53] LABS: Total Protein Urine Random 107 mg/dL (<12)
[2021-12-20 19:05] LABS: Microalbum/Creatinine Ratio Ur 2792.3 ug/mg cr
[2021-12-20 21:18] LABS: Glucose, Whole Blood 233 mg/dL (60-115)
[2021-12-20] MEDS: Melatonin 3 MG TABLET 6 MG PO (21:39)
[2021-12-21] MEDS: Hydrocortisone 1 % Cream 28.35 GM TUBE 1 APPL TOPICAL ×2 (00:40→08:42)
[2021-12-21] MEDS: Latanoprost 0.005 % Ophth Sol 2.5 ML DROPS 1 DROP EYE-BOTH (00:40)
[2021-12-21] MEDS: 0.9 % Sodium Chloride Flush 3 ML SYRINGE IVFLUSH ×2 (00:41→08:40)
[2021-12-21 04:00] VITALS: BP 128/60; PULSE 56; RESP 16; TEMP 36.1; O2SAT 94
[2021-12-21 07:58] LABS: Hemoglobin 11.1 g/dl (12.0-16.0); Mean Corpuscular HGB Conc 31.7 g/dl (31.0-35.0); Mean Corpuscular Volume 88.2 fL (80.0-98.0); Platelet Count 235 X10*3/uL (160-400); Red Blood Count 3.97 X10*6/uL (4.20-5.50); White Blood Count 8.4 X10*3/uL (4.8-10.8)
[2021-12-21 08:00] VITALS: BP 172/63; PULSE 56; RESP 20; TEMP 36.4; O2SAT 95
[2021-12-21 08:02] LABS: Glucose, Whole Blood 168 mg/dL (60-115)
[2021-12-21 08:31] LABS: Anion Gap 20 (12-20); Blood Urea Nitrogen 99 mg/dL (9-16); Calcium 9.6 mg/dL (8.4-10.2); Carbon Dioxide 33 mmol/L (22-29); Chloride 88 mmol/L (96-108); Estimated Glomerular Filt Rate 7; Glucose Fasting 172 mg/dL (60-99); Magnesium 2.4 mg/dL (1.6-2.6); Potassium 4.3 mmol/L (3.3-5.1); Sodium 137 mmol/L (135-145)
[2021-12-21] MEDS: Metoprolol Tartrate 25 MG TABLET PO ×2 (08:38→18:59)
[2021-12-21] MEDS: Amiodarone HCL 200 MG TABLET 400 MG PO (08:38)
[2021-12-21] MEDS: allopurinoL 100 MG TABLET PO (08:38)
[2021-12-21] MEDS: Heparin Sodium,Porcine 5,000 UNIT/ML VIAL 5000 UNIT SUBCUT (08:39)
[2021-12-21] MEDS: Isosorbide Mononitrate 60 MG TAB.ER.24H PO (08:39)
[2021-12-21] MEDS: Cholecalciferol (Vitamin D3) 25 MCG TABLET PO (08:39)
[2021-12-21] MEDS: Magnesium Oxide 400 MG TABLET PO ×2 (08:39→18:59)
[2021-12-21] MEDS: hydrALAZINE HCl 50 MG TABLET 100 MG PO ×2 (08:39→18:59)
[2021-12-21] MEDS: Atorvastatin Calcium 80 MG TABLET PO (08:39)
[2021-12-21] MEDS: calcitrioL 0.25 MCG CAPSULE PO (08:39)
[2021-12-21] MEDS: Aspirin 81 MG TAB.CHEW PO (08:39)
[2021-12-21] MEDS: Insulin Lispro 100 UNIT/ML 3 ML VIAL SUBCUT ×2 (08:40→11:56)
[2021-12-21] MEDS: Insulin Glargine,Hum.rec.anlog 100 UNIT/ML 10 ML VIAL 30 UNIT SUBCUT (08:40)
[2021-12-21] MEDS: timoloL maleate 0.5 % Oph Sol 5 ML DRBTL 1 DROP EYE-BOTH (08:43)
[2021-12-21] MEDS: ondansetron HCL 4 MG/2 ML VIAL IVPUSH (08:55)
--- NOTE | 2021-12-21 10:23 | PM.PNCARD ---
Subjective Subjective Date of Service: 12/21/21 Principal diagnosis: Heart failure Interval history: Patient diuresing tepid early overnight has only about 600 cc of negative balance on IV Bumex drip. Continues to have swelling in both lower extremity, right greater than left. Difficult to assess overall volume status given her body habitus. Creatinine is stable. BNP was not drawn, has been added to her lap. Blood pressure is elevated. She had 1 episode of fast heart rate consistent with atrial tachycardia with bundle-branch block Review of Systems Constitutional: Reports no additional constitutional complaints Cardiovascular: Denies syncope, Reports leg edema, Denies palpitations and Reports dyspnea Respiratory: Reports dyspnea Gastrointestinal: Reports no additional gastrointestinal complaints Musculoskeletal: Reports no additional musculoskeletal complaints Reports system reviewed and no additional complaints, except as documented and Denies syncope Psychiatric: Reports no additional psychiatric complaints Endocrine: Reports no additional endocrine complaints and Denies palpitations Hematologic/Lymphatic: Reports no additional hematologic/lymphatic complaints Allergic/Immunologic: Reports no additional allergic/immunologic complaints Physical Exam Vital Signs: Last Vital Signs Temp 97.6 F 12/21/21 08:00 Pulse 56 12/21/21 08:00 Resp 20 12/21/21 08:00 BP 172/63 H 12/21/21 08:00 Pulse Ox 95 12/21/21 08:00 O2 Del Method 12/21/21 08:00 O2 Flow Rate 3 12/18/21 23:18 BMI result Body Mass Index 41.8 Objective Labs and Meds Result diagrams: 12/21/21 07:37 12/21/21 07:38 Lab results: Laboratory Results - last 24 hr 12/20/21 12/20/21 12/20/21 11:03 15:48 18:00 WBC RBC Hgb Hct MCV MCH MCHC RDW Plt Count MPV Absolute Nucleated RBC Nucleated RBC % (auto) Sodium Potassium Chloride Carbon Dioxide Anion Gap BUN Creatinine Estim Creat Clear Calc Estimated GFR POC Glucose 279 H 224 H Fasting Glucose Calcium Magnesium U Random Total Protein Urine Creatinine Cancelled Urine Microalbumin Microalb/Creat Ratio 12/20/21 12/20/21 12/21/21 18:00 20:14 07:37 WBC 8.4 RBC 3.97 L Hgb 11.1 L Hct 35.0 L MCV 88.2 MCH 28.0 MCHC 31.7 RDW 15.0 Plt Count 235 MPV 10.0 Absolute Nucleated RBC 0.000 Nucleated RBC % (auto) 0.0 Sodium Potassium Chloride Carbon Dioxide Anion Gap BUN Creatinine Estim Creat Clear Calc Estimated GFR POC Glucose 233 H Fasting Glucose Calcium Magnesium U Random Total Protein 107 H Urine Creatinine 23.60 Urine Microalbumin 659.0 Microalb/Creat Ratio 2792.3 12/21/21 12/21/21 07:38 07:53 WBC RBC Hgb Hct MCV MCH MCHC RDW Plt Count MPV Absolute Nucleated RBC Nucleated RBC % (auto) Sodium 137 Potassium 4.3 Chloride 88 L Carbon Dioxide 33 H Anion Gap 20 BUN 99 H Creatinine 5.89 H* Estim Creat Clear Calc 10.0 Estimated GFR 7 POC Glucose 168 H Fasting Glucose 172 H Calcium 9.6 D Magnesium 2.4 U Random Total Protein Urine Creatinine Urine Microalbumin Microalb/Creat Ratio Progress Note: A&P Assessment and plan (1) CHF (congestive heart failure): Status: Acute Assessment and Plan: Patient heart failure predominantly right-sided heart failure syndrome but has cardiomyopathy. Difficult to assess her volume status. Will check BNP. BNP is improved significantly will switch her to oral diuretics today and discharged home later today. Blood pressure is still not optimized. Add Norvasc 5 mg to regimen. Continue hydralazine. I think she would benefit as outpatient are with CardioMEMS device. Discussed with her. She is agreeable. Will set up as an outpatient to help us with management of heart failure and identified earlier to avoid hospitalization. She understands and agrees. Avoidance of salt loading was discussed. Heart failure education to be provided. (2) Supraventricular tachycardia: Status: Acute Assessment and Plan: Atrial tachycardia/SVT. One episode yesterday his self terminating. Continue amiodarone loading for 2 weeks followed by 200 mg daily and continue metoprolol therapy. Will follow up as outpatient. Time Spent With Patient Time: Total time spent is greater than 50% in coordination of care (as documented) at patient's floor/unit and/or counseling patient: Progress Note: Quality Stroke Does the patient have a stroke diagnosis?: No Procedures Date of Service Date of Service: 12/21/21
[2021-12-21 10:41] LABS: B Type Natriuretic Peptide 672 pg/mL (<100)
[2021-12-21 11:29] LABS: Glucose, Whole Blood 323 mg/dL (60-115)
[2021-12-21 11:55] VITALS: BP 172/63; PULSE 56; O2SAT 95
[2021-12-21 12:04] VITALS: PULSE 43
[2021-12-21] MEDS: Bumetanide 25 MG in Container,Empty 0 ML IVCONT (13:59)
--- NOTE | 2021-12-21 14:37 | P.PNNP_ITS ---
Subjective Subjective Date of Service: 12/21/21 Principal diagnosis: YULIA CKD CHF Interval history: Seen and examinedd, events ntoed Physical Exam Vital Signs: Vital Signs: Last Vital Signs Temp 97.6 F 12/21/21 08:00 Pulse 43 L 12/21/21 12:04 Resp 20 12/21/21 08:00 BP 172/63 H 12/21/21 11:55 Pulse Ox 95 12/21/21 11:55 O2 Del Method 12/21/21 08:00 O2 Flow Rate 3 12/18/21 23:18 BMI result Body Mass Index 41.8 Const: General: no acute distress Orientation/consciousness: patient oriented x3 HEENT: Head: Yes normocephalic Eyes: EOM: EOMs intact bilaterally Neck: Neck: Yes supple Resp: Auscultation: diminished lung sounds Cardio: Rate: regular rate GI: Palpation (GI): Soft to palpation Neuro: General: patient oriented x3 and moves all extremities Objective Data Labs CBC & Chem 7: 12/21/21 07:37 12/21/21 07:38 Labs: Laboratory Results - last 24 hr 12/20/21 12/20/21 12/20/21 15:48 18:00 18:00 WBC RBC Hgb Hct MCV MCH MCHC RDW Plt Count MPV Absolute Nucleated RBC Nucleated RBC % (auto) Sodium Potassium Chloride Carbon Dioxide Anion Gap BUN Creatinine Estim Creat Clear Calc Estimated GFR POC Glucose 224 H Fasting Glucose Calcium Magnesium B-Natriuretic Peptide U Random Total Protein 107 H Urine Creatinine Cancelled 23.60 Urine Microalbumin 659.0 Microalb/Creat Ratio 2792.3 12/20/21 12/21/21 12/21/21 20:14 07:37 07:37 WBC 8.4 RBC 3.97 L Hgb 11.1 L Hct 35.0 L MCV 88.2 MCH 28.0 MCHC 31.7 RDW 15.0 Plt Count 235 MPV 10.0 Absolute Nucleated RBC 0.000 Nucleated RBC % (auto) 0.0 Sodium Potassium Chloride Carbon Dioxide Anion Gap BUN Creatinine Estim Creat Clear Calc Estimated GFR POC Glucose 233 H Fasting Glucose Calcium Magnesium B-Natriuretic Peptide 672 H U Random Total Protein Urine Creatinine Urine Microalbumin Microalb/Creat Ratio 12/21/21 12/21/21 12/21/21 07:38 07:53 11:15 WBC RBC Hgb Hct MCV MCH MCHC RDW Plt Count MPV Absolute Nucleated RBC Nucleated RBC % (auto) Sodium 137 Potassium 4.3 Chloride 88 L Carbon Dioxide 33 H Anion Gap 20 BUN 99 H Creatinine 5.89 H* Estim Creat Clear Calc 10.0 Estimated GFR 7 POC Glucose 168 H 323 H Fasting Glucose 172 H Calcium 9.6 D Magnesium 2.4 B-Natriuretic Peptide U Random Total Protein Urine Creatinine Urine Microalbumin Microalb/Creat Ratio Procedures Date of Service Date of Service: 12/21/21 Assessment & Plan Assessment and plan (1) Acute kidney injury superimposed on CKD: Status: Acute Assessment and Plan: YULIA: most c/w CRS but despite diuresis delay renal improvement is concenring 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 but need to r/o other causes ( UPCR 0.7 back in 2019 but 12.2 in 07/2021) HFpEF: diuresing on bumex drip MBD of CKD Disc: no abs indication for LITIGATION COORDINATOR yet but need to make prepartaions: protect LUE I d/w her daughter ( Cha) and PT the signif of her adv CKD and need for prep for LITIGATION COORDINATOR and we may need to start LITIGATION COORDINATOR this hosp REC: cont diuresis; sero w/u as ordered to r/o other causes of NSyn/CKD; protect LUE; check PTH; ask vasc to see for future AVF palcement Will follow juan alberto with team Time Spent With Patient Time: Total time spent is greater than 50% in coordination of care (as documented) at patient's floor/unit and/or counseling patient: Progress Note: Quality Stroke Does the patient have a stroke diagnosis?: No
--- NOTE | 2021-12-21 15:44 | P.DS_ITS ---
DS: Providers Provider Date of Service: 12/21/21 Date of admission: 12/14/21 15:45 Primary care physician: Imer Hernandez MD Consults: 12/14/21 15:44 Consult to Cardiology Routine Consulting Provider: David Rowan Reason for consultation: CHF exacerbation 12/14/21 15:50 Consult to Nephrology Routine Consulting Provider: Orlin Mauricio Reason for consultation: YULIA on CKD, Fluid overload DS: Diagnosis Discharge Diagnosis (1) Acute kidney injury superimposed on CKD: Status: Acute DS: Summary Hospital Course Hospital Course: from initial hpi: Chief Complaint: Dyspnea on exertion, lower extremities edema A 81 years old lady with PMH of diastolic CHF, HLD, HTN, type 2 diabetes, CKD stage 4, morbid obesity among others who presents to the hospital from Cardiology office for worsening dyspnea on exertion and lower extremities edema. The patient reports that for the last few weeks she has been having more difficulties laying back or walking for short distances with worsening dyspnea on exertion with no associated chest pain but noticed increase palpitation upon minimal exertion.? Denies any lightheadedness, wheezing, sweating, nausea or vomiting.? She noticed increased body weight of more than 10 lb over the last few weeks with associated worsening edema in lower extremities and development of rash in the chance of her legs bilaterally. She went to Cardiology office today for regular follow-up for the surgeon was made to send her to the emergency by Dr. Pandya for admission and IV diuresis.? The emergency noted to have worsening kidney function from her baseline.? Started on Bumex drip per Cardiology recommendations. hospital course: Patient was admitted for acute on chronic CHF with reduced ejection fraction ( reduced EF is new finding), she was treated with Bumex infusion. was approximately -8.6 L during hospitalization with significant improvement in symptoms. She was seen by Cardiology who recommended increasing hydralazine and starting Imdur and amlodipine, as well as following up outpatient for CardioMEMS device. Patient also presented with acute kidney injury on CKD 3, likely cardiorenal, her creatinine remained about 5.6 with no obvious uremia, patient was urinating with Bumex, therefore, no emergent dialysis was pursued, patient likely will need dialysis in the near future and will follow up closely with Nephrology. Course was further complicated by atrial tachycardia. She was started on amiodarone 400 b.i.d. and will be transitioned to 200 mg daily after 2 week total loading. for diabetes she was continue on insulin. For morbid o besity weight loss recommended. Patient is feeling better will be discharged home. Time Spent with Patient Time attestation: Total time spent providing and/or coordinating discharge services: Discharge coordination time: Greater than 30 minutes Quality: Safe Use of Opioids Does Pt have an Active Cancer Diagnosis on the Problem List?: No Quality: Stroke Does the patient have a stroke diagnosis?: No Physical Exam Vital Signs: Vital Signs: Last Vital Signs Temp 97.6 F 12/21/21 08:00 Pulse 43 L 12/21/21 12:04 Resp 20 12/21/21 08:00 BP 172/63 H 12/21/21 11:55 Pulse Ox 95 12/21/21 11:55 O2 Del Method 12/21/21 08:00 O2 Flow Rate 3 12/18/21 23:18 BMI result Body Mass Index 41.8 Const: General: no acute distress Orientation/consciousness: patient oriented x3 HEENT: Head: Yes normocephalic Eyes: EOM: EOMs intact bilaterally Neck: Neck: Yes supple Resp: Auscultation: diminished lung sounds Cardio: Rate: regular rate GI: Palpation (GI): Soft to palpation Neuro: General: patient oriented x3 and moves all extremities DS: Data Data Completed and Pending Labs on day of discharge: Laboratory Results - last 24 hr 12/20/21 12/20/21 12/20/21 15:48 18:00 18:00 WBC RBC Hgb Hct MCV MCH MCHC RDW Plt Count MPV Absolute Nucleated RBC Nucleated RBC % (auto) Sodium Potassium Chloride Carbon Dioxide Anion Gap BUN Creatinine Estim Creat Clear Calc Estimated GFR POC Glucose 224 H Fasting Glucose Calcium Magnesium B-Natriuretic Peptide U Random Total Protein 107 H Urine Creatinine Cancelled 23.60 Urine Microalbumin 659.0 Microalb/Creat Ratio 2792.3 12/20/21 12/21/21 12/21/21 20:14 07:37 07:37 WBC 8.4 RBC 3.97 L Hgb 11.1 L Hct 35.0 L MCV 88.2 MCH 28.0 MCHC 31.7 RDW 15.0 Plt Count 235 MPV 10.0 Absolute Nucleated RBC 0.000 Nucleated RBC % (auto) 0.0 Sodium Potassium Chloride Carbon Dioxide Anion Gap BUN Creatinine Estim Creat Clear Calc Estimated GFR POC Glucose 233 H Fasting Glucose Calcium Magnesium B-Natriuretic Peptide 672 H U Random Total Protein Urine Creatinine Urine Microalbumin Microalb/Creat Ratio 12/21/21 12/21/21 12/21/21 07:38 07:53 11:15 WBC RBC Hgb Hct MCV MCH MCHC RDW Plt Count MPV Absolute Nucleated RBC Nucleated RBC % (auto) Sodium 137 Potassium 4.3 Chloride 88 L Carbon Dioxide 33 H Anion Gap 20 BUN 99 H Creatinine 5.89 H* Estim Creat Clear Calc 10.0 Estimated GFR 7 POC Glucose 168 H 323 H Fasting Glucose 172 H Calcium 9.6 D Magnesium 2.4 B-Natriuretic Peptide U Random Total Protein Urine Creatinine Urine Microalbumin Microalb/Creat Ratio Discharge Plan Discharge Anticipated Discharge Date/Time: 12/21/21 15:34 Patient Disposition: Home, Self-Care Discharge Diagnosis: chf, yulia Referrals: Imer Hernandez MD [Primary Care Provider] - 1 Week Orlin Mauricio MD [Physician] - 1 Week Discharge Medications: New amiodarone 200 mg Tablet 400 mg PO BID Qty: 60 0RF Rx Instructions: 400mg bid for one week then 200mg daily hydralazine 50 mg Tablet 100 mg PO TID Qty: 90 0RF Protocol: Hold for SBP< HOLD for SBP < : 90 amlodipine 5 mg Tablet 5 mg PO DAILY Qty: 30 0RF Protocol: Hold for SBP< HOLD for SBP < : 90 isosorbide mononitrate 60 mg Tablet Extended Release 24 Hr 60 mg PO DAILY Qty: 30 0RF Protocol: Hold for SBP< HOLD for SBP < : 90 aspirin 81 mg Tablet,Chewable 81 mg PO DAILY Qty: 30 0RF Continued (DME) pen needle, diabetic 32 gauge x 5/32 needle See Rx Instructions subcut .MEDSUPPLY Qty: 360 3RF Rx Instructions: As directed 4 times a day (DME) OneTouch Verio test strips Strip See Rx Instructions .ROUTE .MEDSUPPLY Qty: 400 3RF Rx Instructions: four times a day atorvastatin 80 mg tablet 80 mg PO DAILY Qty: 90 0RF (DME) pen needle, diabetic [BD Ultra-Fine Renetta Pen Needle] 32 gauge x 5/32 needle See Rx Instructions .ROUTE .MEDSUPPLY Qty: 100 5RF Rx Instructions: As directed 4 times a day bumetanide 1 mg Tablet 0.5 mg PO DAILY@1700 insulin glargine U-300 conc 300 unit/mL (3 mL) insulin pen 44 unit subcut DAILY timolol maleate 0.5 % Drops 1 drp OPHTHALMIC (EYE) DAILY metoprolol tartrate 50 mg tablet 75 mg PO BID latanoprost 0.005 % drops 1 drp ophthalmic (eye) BEDTIME (DME) lancets 33 gauge misc See Rx Instructions topical TID Qty: 100 Rx Instructions: As directed cholecalciferol (vitamin D3) 25 mcg (1,000 unit) capsule 25 mcg PO DAILY allopurinol 100 mg tablet 200 mg PO DAILY (DME) FreeStyle Charly 2 Sensor Kit See Rx Instructions .Route Rx Instructions: As directed insulin lispro 100 unit/mL solution 20 - 30 unit subcut TID 90 Days Qty: 80 1RF melatonin 5 mg capsule 5 mg PO BEDTIME PRN (Reason: Sleep) calcitriol 0.25 mcg capsule 0.25 mcg PO .everyother day bumetanide 1 mg tablet 1 mg PO DAILY@0630 Rx Instructions: 1/2 pm Discontinued hydralazine 25 mg tablet 25 mg PO BID Discharge Orders: Discharge Order (Routine); Ordered 12/21/21 Ordered By: Regino Vaughn Diet: Advance to usual diet Activity on Discharge: As tolerated Stand Alone Forms: Patient Portal Discharge page Other Ambulatory Orders: Basic Metabolic Panel (Routine) Timeframe: 2 Days Facility: [facility] - Location: Laboratory Ordered By: Regino Vaughn Complete Blood Count no Diff (Routine) Timeframe: 2 Days Facility: [facility] - Location: Laboratory Ordered By: Regino Vaughn Care Plan Goals: reocvery Health Concerns: chf, yulia, atach Plan of Treatment: med changes as above, labs in 2 days, follow up very closely with cardiology and nephrology Assessment: see above
--- NOTE | 2021-12-21 15:52 | MHC.CM.PN ---
Patient has been medically cleared for dc to home today, self care. IMM addressed with Patient at bedside and original has been given to her and a copy has been placed on the chart. Patient's Daughter will provide transportation to home.Patient is aware of and in agreement with the dc plan.
[2021-12-23 13:36] LABS: IgA 83 mg/dL (70-320); IgG 569 mg/dL (600-1540); IgM 70 mg/dL (50-300)
[2021-12-23 14:16] LABS: Calcium (PTHI) 9.6 mg/dL (8.6-10.4); PTHI 568 pg/mL (16-77)
[2021-12-24 14:03] LABS: Kappa Light Chain, Free Serum 98.1 mg/L (3.3-19.4); Kappa/Lambda Lt Ch Free Ratio 1.35 (0.26-1.65); Lambda Light Chain, Free Serum 72.8 mg/L (5.7-26.3)
== END 2021-12-21 18:30 | disposition home or self-care (01) | DRG 291 ==
LOC: HO.ED 15:44 → HO.EDOVER 16:13 → HO.IMC 12-15 15:22
PROVIDERS: Internal Medicine Nephrology; Admitting Provider Student in an Organized Health Care Education/Training Program; Emergency Provider Emergency Medicine; PCP Internal Medicine; Visit Provider Internal Medicine
DX: I13.0 Hypertensive heart and chronic kidney disease with heart failure and stage 1 through stage 4 chronic kidney disease, or unspecified chronic kidney disease (principal); I50.23 Acute on chronic systolic (congestive) heart failure; N17.9 Acute kidney failure, unspecified; Z68.41 Body mass index [BMI] 40.0-44.9, adult; I47.1 Supraventricular tachycardia; E11.22 Type 2 diabetes mellitus with diabetic chronic kidney disease; N18.30 Chronic kidney disease, stage 3 unspecified; M10.9 Gout, unspecified; E66.01 Morbid (severe) obesity due to excess calories; I44.7 Left bundle-branch block, unspecified; I42.9 Cardiomyopathy, unspecified; G47.33 Obstructive sleep apnea (adult) (pediatric); E78.5 Hyperlipidemia, unspecified; E55.9 Vitamin D deficiency, unspecified; N25.0 Renal osteodystrophy; Z20.822 Contact with and (suspected) exposure to COVID-19; Z85.528 Personal history of other malignant neoplasm of kidney; Z88.0 Allergy status to penicillin; Z88.5 Allergy status to narcotic agent; Z79.4 Long term (current) use of insulin; Z79.82 Long term (current) use of aspirin; Z79.899 Other long term (current) drug therapy
CPT/HCPCS: 36415; 71045; 80048; 80076; 81001; 82043; 82784; 82947; 83521; 83735; 83880; 83970; 84156; 84443; 84484; 85025; 85027; 85610; 86334; 87635; 92950; 93005; 93306; 97110; 97116; 97162; 99212; 99285; J0282; J2405; J3475; Q9957

== ENCOUNTER 2021-12-23 09:54 | Outpatient (REF) | payer MEDICARE, SELFPAY ==
[2021-12-23 11:19] LABS: MANUAL DIFF FLAG NO
[2021-12-23 11:43] LABS: Anion Gap 20 (12-20); Blood Urea Nitrogen 112 mg/dL (9-16); Calcium 9.3 mg/dL (8.4-10.2); Carbon Dioxide 32 mmol/L (22-29); Chloride 87 mmol/L (96-108); Estimated Glomerular Filt Rate 6; Glucose Random 386 mg/dL (60-115); Potassium 4.3 mmol/L (3.3-5.1); Sodium 135 mmol/L (135-145)
[2021-12-23 11:46] LABS: Basophils Percent Auto 0.1 % (0-2); Eosinophils Absolute Auto 0.1 X10*3/uL (0.0-0.4); Hematocrit 31.9 % (37.0-47.0); Imm Gran Abs Auto 0.03 X10*3/uL (0.00-0.03); Imm Gran Pct Auto 0.4 % (0.0-0.4); Lymphocytes Absolute Auto 0.5 X10*3/uL (1.2-4.9); Lymphocytes Percent Auto 6.4 % (20-40); Mean Corpuscular HGB Conc 31.3 g/dl (31.0-35.0); Mean Corpuscular Hemoglobin 27.8 pg (27.0-33.0); Mean Corpuscular Volume 88.6 fL (80.0-98.0); Mean Platelet Volume 10.7 fL (9.4-12.3); Monocytes Absolute Auto 0.3 X10*3/uL (0.1-1.2); Neutrophils Percent Auto 88.1 % (45-73); Platelet Count 218 X10*3/uL (160-400); Red Cell Distribution Width 14.8 % (11.0-16.0); White Blood Count 7.9 X10*3/uL (4.8-10.8)
[2021-12-23 18:56] LABS: Appearance Urine Cloudy; Color Urine Yellow; Glucose Urine UA 250 mg/dL (Negative); Leukocyte Esterase Urine Negative (Negative); Nitrite Urine Negative (Negative); PH 5.5 (5.0-9.0); Specific Gravity - Urine 1.015 (1.005-1.025); UMIC TRIGGER UACC YES; Urine Blood Negative (Negative); Urine Ketones Negative (Negative); Urine Protein 300 (3+) mg/dL (Neg-Trace)
[2021-12-23 19:02] LABS: Bacteria Urine 4+ (None Seen); Hyaline Casts Urine 0-2 /LPF (0-2); RBC Urine 0-2 /HPF (0-2); UACC Culture Trigger YES
== END 2021-12-23 09:55 | disposition home or self-care (01) ==
LOC: HO.HMGCLDS 09:54
PROVIDERS: Absent Provider Internal Medicine; PCP Internal Medicine; Visit Provider Internal Medicine
DX: I42.9 Cardiomyopathy, unspecified (principal); I11.0 Hypertensive heart disease with heart failure; R06.00 Dyspnea, unspecified; I50.30 Unspecified diastolic (congestive) heart failure
CPT/HCPCS: 36415; 80048; 81001; 81003; 85025; 87086

== ENCOUNTER 2022-01-05 14:09 | Outpatient (REF) | payer MEDICARE, SELFPAY ==
[2022-01-05 16:46] LABS: Estimated Average Glucose 171 mg/dL; Hemoglobin A1C 150.7563 umol/L; Hemoglobin A1c % 7.6 %
[2022-01-05 16:47] LABS: Estimated Glomerular Filt Rate 7
[2022-01-05 16:53] LABS: Alanine Aminotransferase 31 U/L (0-31); Albumin Level 3.3 g/dL (3.5-5.0); Alkaline Phosphatase 136 U/L (39-117); Anion Gap 17 (12-20); Aspartate Amino Transferase 25 U/L (5-31); Bilirubin Total 0.7 mg/dL (0.0-1.0); Blood Urea Nitrogen 94 mg/dL (9-16); Calcium 9.2 mg/dL (8.4-10.2); Carbon Dioxide 29 mmol/L (22-29); Chloride 94 mmol/L (96-108); Glucose Random 97 mg/dL (60-115); Potassium 4.4 mmol/L (3.3-5.1); Sodium 136 mmol/L (135-145); Total Protein 5.5 g/dL (6.5-8.0)
[2022-01-11 12:04] LABS: NT-proBNP 9870 pg/mL
== END 2022-01-05 14:10 | disposition home or self-care (01) ==
LOC: HO.HMGCLDS 14:09
PROVIDERS: PCP Internal Medicine; Visit Provider Nurse Practitioner Family
DX: N18.9 Chronic kidney disease, unspecified (principal); I50.9 Heart failure, unspecified; N17.9 Acute kidney failure, unspecified
CPT/HCPCS: 36415; 80053; 83036; 83880

== ENCOUNTER 2022-01-11 13:02 | Outpatient (REF) | payer MEDICARE, SELFPAY ==
--- NOTE | ~2022-01-11 | MR_ITS ---
EXAMINATION: MR ABDOMEN WITHOUT AND WITH CONTRAST CLINICAL INFORMATION: Renal cyst. History of cryoablation treatment of right renal carcinoma. COMPARISON: Abdomen MRI from 09/13/2019. TECHNIQUE: MR abdomen was performed on a high-field magnet without and with use of 10 mL intravenous Gadavist contrast. Postcontrast images are performed in multiphase dynamic sequences. Imaging was performed in 3 planes. FINDINGS: LUNG BASES: Cardiomegaly. Small right pleural effusion is present. There appears to be atelectasis in the partially visualized lower lobes LIVER: Liver has normal size, contour and parenchymal signal. No hepatic mass. No cirrhotic morphology or steatosis. GALLBLADDER AND BILIARY TREE: Gallbladder is physiologically distended and has normal wall thickness. A 0.3 cm polyp or small stone of the posterior wall of the gallbladder (image 8, series 5). No pericholecystic fluid. No dilated bile ducts. PANCREAS: Normal. No edema, pancreatic ductal dilatation or mass. SPLEEN: Spleen is normal in size. There are calcified granulomas of the spleen. ADRENAL GLANDS: Normal. KIDNEYS: Simple cysts of both kidneys. 1.1 cm cyst with thin septation of the posterior right lower pole (Bosniak category 2 cyst). There is intrinsic T1 signal shortening of proteinaceous cysts of the right and left kidney that measures 0.9 cm and 1 cm, respectively (image 51, series 12). 0.9 cm focus of T1 signal shortening and T2 signal hypointensity is in the posterolateral lower pole the left kidney represents a proteinaceous cyst. No renal imaging follow-up is recommended for Bosniak category 1 or category 2 cysts. At the site of prior cryoablation of right renal cell carcinoma, there is a focus of heterogeneous, predominantly low T2 signal intensity that measures up to 2.4 cm and does not enhance after contrast administration. This is stable compared to 09/13/2019. This has the appearance of posttreatment fibrosis. The previously observed subcapsular collection along the lateral surface of the right kidney is 0.9 cm wide, previously 1.2 cm wide on 09/13/2019. Mild bilateral perinephric edema is present. BOWEL, PERITONEUM AND ABDOMINAL WALL: Stomach is unremarkable. No dilated loops of bowel. No bowel wall thickening or hyperenhancement. Minimal mesenteric edema is present. No ascites. There is mild edema of subcutaneous tissues of the flanks and back. Old small fat-containing umbilical hernia. There are old areas of reticular signal change in the subcutaneous tissues of the abdominal wall, likely from medication injections. VASCULATURE: Unremarkable. LYMPH NODES: No pathologic sized lymph nodes in the abdomen. SKELETAL: Chronic facet arthropathy, disc degenerative change, grade 1 anterolisthesis and spinal canal stenosis at L4-L5. Hemangioma of the L1 vertebral body. No suspicious bone lesions. OTHER: 3.1 cm simple cyst in the right adnexal area is partially seen on the coronal localizer images. This was observed on 09/13/2019 (previously measured 3.8 cm maximum dimension). This is almost certainly benign. If deemed clinically appropriate, annual pelvic ultrasound follow-up may be pursued to ensure long-term stability. MR/MR abdomen wo/w con IMPRESSION: * No evidence of recurrent renal cell carcinoma at site of cryoablation treatment. * There are Bosniak category 1 and category 2 cysts of the kidneys. * Cardiomegaly and small right pleural effusion. Mild anasarca. * Small stone or polyp of the gallbladder.
== END 2022-01-11 13:03 | disposition home or self-care (01) ==
LOC: HO.MRI 13:02
PROVIDERS: Visit Provider Internal Medicine Hypertension Specialist
DX: N28.1 Cyst of kidney, acquired (principal)
CPT/HCPCS: 74183; A9585

== ENCOUNTER → 2022-01-12 15:24 | Outpatient (REF) | payer MEDICARE, SELFPAY ==
--- NOTE | 2022-01-12 15:28 | ECG_ITS ---
Test Reason : bradycardia Blood Pressure : / mmHG Vent. Rate : 041 BPM Atrial Rate : 041 BPM P-R Int : 266 ms QRS Dur : 162 ms QT Int : 560 ms P-R-T Axes : 051 -07 147 degrees QTc Int : 462 ms Marked sinus bradycardia with 1st degree A-V block Left bundle branch block Abnormal ECG When compared with ECG of 19-DEC-2021 00:02, Premature ventricular complexes are no longer Present Premature atrial complexes are no longer Present Vent. rate has decreased BY 30 BPM T wave amplitude has decreased in Anterior leads T wave inversion less evident in Lateral leads QT has shortened Referred By: Imer Hernandez Electronically Signed By:ORION MCKEON MD
== END ==
LOC: HO.CARD 15:24
PROVIDERS: PCP Internal Medicine; Visit Provider Internal Medicine
DX: R00.1 Bradycardia, unspecified (principal)
CPT/HCPCS: 93005

== ENCOUNTER → 2022-01-17 09:45 | Outpatient (BNVA) | payer MEDICARE, SELFPAY | PROVIDERS: PCP Internal Medicine; Referring Provider Internal Medicine; Visit Provider Internal Medicine Cardiovascular Disease | DX: R00.1 Bradycardia, unspecified (principal); I42.9 Cardiomyopathy, unspecified; I11.0 Hypertensive heart disease with heart failure; I50.9 Heart failure, unspecified; I47.1 Supraventricular tachycardia; G47.10 Hypersomnia, unspecified; Z79.899 Other long term (current) drug therapy | CPT/HCPCS: 93005; 99212 ==

== ENCOUNTER → 2022-01-25 14:02 | Outpatient (REF) | payer MEDICARE, SELFPAY | LOC: HO.SL 14:02 | PROVIDERS: Visit Provider Internal Medicine Cardiovascular Disease | DX: G47.33 Obstructive sleep apnea (adult) (pediatric) (principal); G47.10 Hypersomnia, unspecified; I50.9 Heart failure, unspecified | CPT/HCPCS: 95806 ==

== ENCOUNTER 2022-01-27 12:26 | Day surgery (SDC) | payer MEDICARE, SELFPAY ==
[2022-01-19 09:32] VITALS: BMI 40.0
[2022-01-27] VITALS (10 sets, daily range): BP systolic 136–162; BP diastolic 45–62; PULSE 58–72; RESP 12–20; TEMP 36.3–36.8; O2SAT 92–97; BMI 39.8
[2022-01-27 13:08] LABS: MANUAL DIFF FLAG NO
[2022-01-27 13:18] LABS: Basophils Percent Auto 0.3 % (0-2); Eosinophils Absolute Auto 0.1 X10*3/uL (0.0-0.4); Eosinophils Percent Auto 1.8 % (0-4); Hematocrit 28.7 % (37.0-47.0); Hemoglobin 9.1 g/dl (12.0-16.0); Imm Gran Abs Auto 0.11 X10*3/uL (0.00-0.03); Imm Gran Pct Auto 1.8 % (0.0-0.4); Lymphocytes Percent Auto 16.1 % (20-40); Mean Corpuscular HGB Conc 31.7 g/dl (31.0-35.0); Mean Corpuscular Hemoglobin 28.3 pg (27.0-33.0); Mean Corpuscular Volume 89.4 fL (80.0-98.0); Mean Platelet Volume 9.1 fL (9.4-12.3); Monocytes Absolute Auto 0.6 X10*3/uL (0.1-1.2); Monocytes Percent Auto 9.6 % (2-11); Neutrophils Absolute Auto 4.3 x10*3/uL (2.0-8.3); Neutrophils Percent Auto 70.4 % (45-73); Platelet Count 210 X10*3/uL (160-400); Red Blood Count 3.21 X10*6/uL (4.20-5.50); Red Cell Distribution Width 16.6 % (11.0-16.0); White Blood Count 6.2 X10*3/uL (4.8-10.8)
--- NOTE | 2022-01-27 13:27 | HO.ANESPROP2 ---
HPI - Anesthesia Eval Consult details Narrative: [facility] Active Problems Active Problems: All Active Problems (Updated 01/19/22 @ 09:28 by Milvia Jiménez, RN) Proteinuria (Acute) Exertional dyspnea (Acute) Orthopnea (Acute) Elevated TSH (Acute) (HFpEF) heart failure with preserved ejection fraction (Acute) Acute heart failure with preserved ejection fraction (Acute) CHF (congestive heart failure) (Acute) Acute kidney injury superimposed on CKD (Acute) Cardiomyopathy (Acute) Bradycardia, unspecified (Acute) Squamous cell carcinoma in situ (Acute) Vitamin D deficiency (Acute) Morbid obesity with BMI of 40.0-44.9, adult (Acute) Constipation (Acute) Psoriasis (Acute) Gout (Acute) Personal history of renal cell carcinoma (Acute) Obstructive sleep apnea (Acute) Pure hypercholesterolemia (Acute) Benign essential hypertension (Acute) Chronic kidney disease, stage 4 (severe) (Acute) Type 2 diabetes mellitus with chronic kidney disease (Acute) Obesity due to excess calories (Acute) Left bundle branch block (Acute) Supraventricular tachycardia (Acute) Type 2 diabetes mellitus with other diabetic kidney complication (Acute) Essential hypertension (Acute) Hyperlipidemia LDL goal <100 (Acute) Past Medical History Medical History (Updated 01/19/22 @ 09:28 by Milvia Jiménez, RN) Anxiety and depression Arthritis Back pain Benign essential hypertension Chronic kidney disease, stage 4 (severe) Constipation Essential hypertension GERD (gastroesophageal reflux disease) Gout History of kidney cancer Hyperlipidemia LDL goal <100 Left bundle branch block Morbid obesity with BMI of 40.0-44.9, adult Obesity due to excess calories Obstructive sleep apnea Personal history of renal cell carcinoma Psoriasis Pure hypercholesterolemia Sleep apnea Squamous cell carcinoma in situ Supraventricular tachycardia Type 2 diabetes mellitus with chronic kidney disease Type 2 diabetes mellitus with other diabetic kidney complication Vitamin D deficiency Functional capacity: independent ambulation (Limited) Family History Family History Mother Diabetes Father No problems noted. Family history of problems with anesthesia: No Surgical History Surgical History History of carpal tunnel release of both wrists History of cryosurgery History of surgery Hx of colonoscopy Hx of hysterectomy Hx of mammogram Hx of tonsillectomy Hx of total knee replacement History of Problems with Anesthesia: No Social History Social History Household Members: None Housing: Apartment Housing Other:: 2nd floor - uses stair chair Are you a primary palliative care specialist to a significant other at home: No Do you presently have visiting nurse or other home services: Yes ([employer], PT, VNA post-hospital discharge) Alcohol intake: former Patient Tobacco Use Status: Never used Tobacco e-Cigarette/Vaping Use: Never Used Second Hand Smoke Exposure: Yes (father) Have you been hit, kicked, punched, or otherwise hurt by someone within the past year? If so, by whom?: No Are you DNR?: No Advance Directives: Yes Advance Directives Information Provided: No Advance Directives on File: Yes Advance Directives Date on File: 12/15/21 Recently lost weight without trying: No Nutrition Risks: Surgical patient >75years Poor oral hygiene: No (full upper denture, partial lower) service: No Current occupational status: retired Cognitive needs: Yes (walker ) Hearing needs: No Vision needs: Yes (glasses) Meds Allergies Allergy/AdvReac Type Severity Reaction Status Date / Time amoxicillin [Amoxicillin] Allergy Severe VAGINAL Verified 01/19/22 09:28 ITCH bee pollen [bee stings] Allergy Severe Anaphylaxis Verified 01/19/22 09:28 hydrocodone [HYDROCODONE] Allergy Severe severe Verified 01/19/22 09:28 lethargy Home Medications Medication Instructions Recorded Confirmed Last Taken Type cholecalciferol (vitamin D3) 25 25 mcg PO DAILY 12/04/19 01/19/22 12/13/21 History mcg (1,000 unit) capsule lancets 33 gauge #100 ea 12/04/19 12/24/21 Unknown History allopurinol 100 mg tablet 200 mg PO DAILY 12/20/20 01/19/22 12/13/21 History latanoprost 0.005 % eye drops 1 drp ophthalmic (eye) BEDTIME 01/12/21 01/19/22 12/13/21 History flash glucose sensor (FreeStyle 05/28/21 12/24/21 Unknown History Charly 2 Sensor kit) melatonin 5 mg capsule 10 mg PO BEDTIME PRN Sleep 07/08/21 01/19/22 Unknown History calcitriol 0.25 mcg capsule 0.25 mcg PO .everyother day 12/14/21 01/17/22 Unknown History insulin glargine U-300 conc 300 44 unit subcut DAILY 12/14/21 01/19/22 12/13/21 History unit/mL (3 mL) subcutaneous pen timolol maleate 0.5 % eye drops 1 drp ophthalmic (eye) DAILY 12/14/21 01/19/22 12/13/21 History atorvastatin 80 mg tablet 80 mg PO BEDTIME 01/19/22 01/19/22 Unknown History Exam Exam Date and Time: January 27, 2022 1327 Height,Weight and Vital Signs: Height 5 ft 6 in Weight 112 kg Last Vital Signs Temp 98.2 F 01/27/22 12:56 Pulse 72 01/27/22 12:56 Resp 20 01/27/22 12:56 BP 162/62 H 01/27/22 12:56 Pulse Ox 97 01/27/22 12:56 O2 Del Method 01/27/22 12:56 Pertinent Lab Results Pertinent Lab Results: Laboratory Tests 01/27/22 13:04 WBC 6.2 RBC 3.21 L Hgb 9.1 L Hct 28.7 L MCV 89.4 MCH 28.3 MCHC 31.7 RDW 16.6 H Plt Count 210 MPV 9.1 L Immature Gran % (Auto) 1.8 H Neut % (Auto) 70.4 Lymph % (Auto) 16.1 L Avery % (Auto) 9.6 Eos % (Auto) 1.8 Baso % (Auto) 0.3 Lymph # (Auto) 1.0 L A[place] # (Auto) 0.6 Eos # (Auto) 0.1 Baso # (Auto) 0.0 Abs Immat Gran (auto) 0.11 H Absolute Neuts (auto) 4.3 Absolute Nucleated RBC 0.000 Nucleated RBC % (auto) 0.0 Narrative Narrative: bun/creat 61/5.4 , K 4.8 Airway Mallampati Class: III TM Dist: <=3cm Neck ROM: Full Denture: Upper Heart: s3 Lungs: CTA Assessment and Plan Assessment Anesthesia Assessment: Anesthesia Plan Discussed and Chart Reviewed Final Anesthetic Review Family History of Problems with Anesthesia: No History of Problems with Anesthesia: No NPO: Yes ASA Class: IV Final Preanesthetic Review: No Changes in Pt Med Stat, Meds/Allgs Chart Reviewed, Consent Obtained/Reviewed and Anes Risks/Benef Reviewed Patient Risk: High Procedure Risk: Low Anesthetic Plan Anesthetic Plan: MAC: and Agree w/ Assess. and Plan Disposition: Standard PACU
[2022-01-27 13:48] LABS: Anion Gap 18 (12-20); Blood Urea Nitrogen 61 mg/dL (9-16); Calcium 9.5 mg/dL (8.4-10.2); Carbon Dioxide 27 mmol/L (22-29); Chloride 104 mmol/L (96-108); Creatinine Clr Calc Pharmacy 10.5; Estimated Glomerular Filt Rate 8; Glucose Fasting 164 mg/dL (60-99); Potassium 4.8 mmol/L (3.3-5.1); Sodium 144 mmol/L (135-145)
[2022-01-27 14:16] LABS: Glucose, Whole Blood 138 mg/dL (60-115)
--- NOTE | 2022-01-27 16:37 | PM.EVENT ---
Event Note Date of Service: 01/27/22 Event Note: The patient is status post CardioMEMS implantation via right femoral approach. She should lay flat in bed for 2 hours with the leg straight. Bed can be raised to 30 degrees after 2 hours and she should rest in bed for another 3 hours for a total of 5 hours. If any concerns for bleeding or hematoma formation, please message by [employer] connect. After bedrest she can be ambulated and discharged home. Time Spent With Patient Time: Total time managing care of this patient today ____ minutes.
--- NOTE | 2022-02-02 12:43 | W.PM.OPN ---
Operative Note Operative Note Date of Service: 01/27/22 Narrative: Procedure:? CardioMEMS implantation.? Indication:? Congestive heart failure.? We identified the patient and performed time-out.? After this patient was given sedation by Anesthesia. We accessed the right common femoral vein using micropuncture and advanced a J-wire.? We dilated the tract and placed 12 [place] sheath in the right femoral vein.? We then advanced a 7 [place] Med[employer]onic [place] catheter and measured pressures going up in right atrium, right ventricle, left pulmonary artery and pulmonary capillary wedge position.? Right heart catheterization: Right atrial pressure 10 mm Hg, RV 40/12, PA 42/16 mean 25, pulmonary capillary wedge pressure 16. PA saturation 71%. Cardiac index 3.3 Heart rate 59 beats per minute, blood pressure 148/67. At this stage we performed left pulmonary angiogram to choose an appropriate site for CardioMEMS implantation.? We wired with an 018 wire into 1 of the branches of left pulmonary artery.? We walked back the [place] catheter and advanced the CardioMEMS delivery catheter over the 018 wire.? When we were in appropriate position we deployed the CardioMEMS and confirmed that it was free from the delivery catheter and removed the delivery catheter.? After this we advanced a [place] catheter over the 018 wire to the main pulmonary artery and removed the 018 wire.? We measured pulmonary artery pressures and calibrated the device.? Once we were satisfied with appropriate calibration of the device we removed the [place] scans catheter.? The right femoral vein sheath was removed with manual compression with good hemostasis. Patient will be transferred to PACU for recovery.? She will stay flat in bed for 2 hours and then the head and the bed will be raised to 30 degrees for 3 hours.? Once she is stable and can get out of bed she will be sent back home. Complications: None.
== END 2022-01-27 21:10 | disposition home or self-care (01) ==
PROVIDERS: PCP Internal Medicine; Visit Provider Internal Medicine Cardiovascular Disease
DX: I13.0 Hypertensive heart and chronic kidney disease with heart failure and stage 1 through stage 4 chronic kidney disease, or unspecified chronic kidney disease (principal); I50.30 Unspecified diastolic (congestive) heart failure; I11.0 Hypertensive heart disease with heart failure; N18.4 Chronic kidney disease, stage 4 (severe); I43 Cardiomyopathy in diseases classified elsewhere; R00.1 Bradycardia, unspecified; E11.22 Type 2 diabetes mellitus with diabetic chronic kidney disease; I44.7 Left bundle-branch block, unspecified; E78.5 Hyperlipidemia, unspecified; E66.01 Morbid (severe) obesity due to excess calories; Z68.39 Body mass index [BMI] 39.0-39.9, adult; Z79.4 Long term (current) use of insulin; Z79.82 Long term (current) use of aspirin; Z79.899 Other long term (current) drug therapy; Z88.0 Allergy status to penicillin; Z88.8 Allergy status to other drugs, medicaments and biological substances
CPT/HCPCS: 33289; 36415; 80048; 82803; 82947; 85025; C1769; C1894; C2624; J3010; Q9967

== ENCOUNTER → 2022-02-10 11:24 | Outpatient (REF) | payer MEDICARE, SELFPAY ==
--- NOTE | 2022-02-10 11:30 | HM_ITS ---
* Total monitoring time 3 days. * Underlying rhythm is sinus with first-degree block, IVCD. * Average ventricular rate 65/Min. Range 49 to 83/Min. About 9% of the time, rate less than 60/Min. * Frequent PACs with a burden of 12%. * Occasional PVCs. Low burden. One very short run of idioventricular rhythm. * No sustained arrhythmias. * Rapid heartbeat in diary correlate with sinus rhythm. MTDD
== END ==
LOC: HO.CARD 11:24
PROVIDERS: Visit Provider Internal Medicine Cardiovascular Disease
DX: R00.1 Bradycardia, unspecified (principal)
CPT/HCPCS: 93242

== ENCOUNTER → 2022-02-22 14:53 | Outpatient (BNVA) | payer MEDICARE, SELFPAY | PROVIDERS: PCP Internal Medicine; Referring Provider Internal Medicine; Visit Provider Nurse Practitioner Family | DX: I11.0 Hypertensive heart disease with heart failure (principal); I50.9 Heart failure, unspecified; R00.1 Bradycardia, unspecified; I47.1 Supraventricular tachycardia; Z95.818 Presence of other cardiac implants and grafts | CPT/HCPCS: 93005; 99212 ==

== ENCOUNTER 2022-03-02 14:06 | Outpatient (REF) | payer MEDICARE, SELFPAY ==
[2022-03-02 16:39] LABS: Appearance Urine Clear; Color Urine Yellow; Glucose Urine UA Negative (Negative); Leukocyte Esterase Urine Negative (Negative); Nitrite Urine Negative (Negative); PH 5.5 (5.0-9.0); Specific Gravity - Urine 1.015 (1.005-1.025); UMIC TRIGGER UACC YES; Urine Blood Negative (Negative); Urine Ketones Negative (Negative); Urine Protein 300 (3+) mg/dL (Neg-Trace)
[2022-03-02 16:41] LABS: Bacteria Urine None Seen (None Seen); WBC Urine 0-5 /HPF (0-5)
== END 2022-03-02 14:07 | disposition home or self-care (01) ==
LOC: HO.HMGCLNP 14:06
PROVIDERS: PCP Internal Medicine; Visit Provider Internal Medicine
DX: Z13.89 Encounter for screening for other disorder (principal)
CPT/HCPCS: 81001; 87086

== ENCOUNTER 2022-03-03 04:50 | Inpatient (IN) | payer MEDICARE, SELFPAY ==
[2022-03-03] VITALS (10 sets, daily range): BP systolic 105–148; BP diastolic 34–65; PULSE 52–73; RESP 10–20; TEMP 36.1–36.6; O2SAT 91–96; BMI 37.5
--- NOTE | ~2022-03-03 | CT_ITS ---
EXAMINATION: CT ABDOMEN AND PELVIS WITHOUT CONTRAST CLINICAL INFORMATION: Abdominal pain with constipation COMPARISON: MRI abdomen 01/11/2022, CT abdomen pelvis 07/13/2011 TECHNIQUE: Multidetector volumetric imaging was performed from the superior aspect of the liver through the pubic symphysis. Sagittal and coronal reformatted images were obtained on the technologist's workstation. This CT examination was performed using dose optimization techniques as appropriate, variously including the following: *Automated exposure control *Adjustment of mA and/or kV according to patient size (this includes techniques or standardized protocols for targeted exams where dose is matched to indication/reason for exam; i.e. extremities or head) *Use of iterative reconstruction technique DLP: 815 mGy-cm FINDINGS: LUNG BASES: The heart is enlarged and there is increasing atelectasis at the lung bases with small pleural effusions slightly increased in size compared to the prior MRI. LIVER, GALLBLADDER, AND BILIARY TREE: The liver is mildly enlarged at 17.7 cm in greatest length and multiple calcified granulomas are again noted. No worrisome solid focal hepatic lesion or biliary ductal dilatation is present. The gallbladder is unremarkable with no evidence of radiopaque gallstones, gallbladder wall thickening, or obvious pericholecystic inflammatory changes. PANCREAS: Unremarkable. SPLEEN: Multiple splenic granulomas are present ADRENAL GLANDS: Unremarkable. KIDNEYS AND URETERS: On the right kidney again noted is a subcapsular collection with calcified russell. There is a anterior calcified mass seen near the inferior pole of the right kidney which is related to the patient's prior cryoablation. Multiple renal cysts seen on the MRI study not well evaluated on this noncontrast CT BLADDER: Unremarkable. GASTROINTESTINAL TRACT: A small hiatal hernia is seen. There is a large stool burden present in the colon with a large stool ball in the rectum which is quite distended measuring 9 x 8 x 14.6 x 8.3 cm. Some perirectal inflammatory changes seen suggesting early stercoral colitis The small bowel is unremarkable. The appendix is not seen with certainty but there is no evidence of appendicitis.. ABDOMINAL WALL: Bilateral inguinal hernias are seen containing only fat. LYMPH NODES: No retroperitoneal lymphadenopathy. VASCULAR: Calcific atherosclerotic change present in the aorta and iliofemoral vessels as well as branch vessels but no aneurysms are seen. PELVIC VISCERA: Unremarkable. OSSEOUS STRUCTURES: Degenerative changes are present in both hips as well as the spine most marked at L4-L5 and L5-S1. There is grade 1 anterolisthesis of bowel for upon L5 CT/CT abdomen pelvis wo IV con IMPRESSION: 1. Large stool burden in the colon with a large stool ball in the rectum with some perirectal inflammatory changes suggesting early stercoral colitis. This is undoubtedly the cause of the patient's constipation. 2. Incidental note made of cardiomegaly, hepatic and splenic granulomas, calcified right renal mass related to prior cryoablation with subcapsular collection and degenerative changes in the spine and hips. Fleischner guidelines were followed.
--- NOTE | ~2022-03-03 | XR_ITS ---
EXAMINATION: XR ABDOMEN KUB CLINICAL INDICATION: Abdominal pain COMPARISON: CT scan abdomen pelvis 01/27/2022 TECHNIQUE: AP view of the abdomen. FINDINGS: There is a large volume of stool throughout colon. No abnormally dilated bowel loop. Bowel pattern is nonobstructive. Vascular calcification of aorta without evidence of aneurysm. Degenerative spondylosis of lumbar spine. Degenerative joint disease. XR/XR KUB IMPRESSION: Large volume of stool in colon. Nonobstructive bowel pattern.
--- NOTE | ~2022-03-03 | XR_ITS ---
EXAMINATION: XR CHEST CLINICAL INFORMATION: Cough COMPARISON: Chest radiograph from 12/14/2021 TECHNIQUE: Frontal view of the chest was obtained. FINDINGS: Prominence of the pulmonary vasculature and interstitium. Opacity involving the medial right lung base may reflect developing infectious/inflammatory etiology. Small left-sided pleural effusion with subjacent atelectasis. No pneumothorax. Trachea is midline. Cardiac mediastinal silhouette is stable. CardioMEMS. Osseous structures are intact. Soft tissues are unremarkable. XR/XR chest 1V IMPRESSION: 1. Prominence of the pulmonary vasculature and interstitium. 2. Opacity involving the medial right lung base may reflect developing infectious/inflammatory etiology. 3. Small left-sided pleural effusion with subjacent atelectasis.
--- NOTE | ~2022-03-03 | XR_ITS ---
EXAMINATION: XR CHEST CLINICAL INFORMATION: Check for CHF versus pneumonia COMPARISON: Chest x-ray March 03, 2022 TECHNIQUE: Frontal view of the chest was obtained. FINDINGS: Cardiac silhouette is enlarged. Cardio mems device noted. The lungs are adequately aerated. Similar small left-sided pleural effusion with overlying airspace disease, suspect atelectasis. No pneumothorax. XR/XR chest 1V IMPRESSION: Similar small left-sided pleural effusion with overlying airspace disease, suspect atelectasis.
--- NOTE | 2022-03-03 05:44 | MHC.EDTECH ---
pt cleaned of bowel movement, linens changed.
--- NOTE | 2022-03-03 06:41 | ECG_ITS ---
Test Reason : ABD PAIN Blood Pressure : / mmHG Vent. Rate : 071 BPM Atrial Rate : 000 BPM P-R Int : 000 ms QRS Dur : 170 ms QT Int : 498 ms P-R-T Axes : 000 051 159 degrees QTc Int : 541 ms Atrial fibrillation Left bundle branch block Abnormal ECG When compared with ECG of 12-JAN-2022 15:33, Atrial fibrillation has replaced Sinus rhythm Vent. rate has increased BY 30 BPM Referred By: Bridget Sheridan Electronically Signed By:PETER WINSTON
--- NOTE | 2022-03-03 06:48 | ED.ABDPAIN ---
HPI - Abdominal Pain General Chief Complaint: Abdominal Pain Stated Complaint: Constipation Time Seen by Provider: 03/03/22 06:41 Source: patient Mode of arrival: EMS History of Present Illness HPI narrative: 81-year-old female with history prior hysterectomy presents with complaints of last bowel movement 3 days ago and then underwent an enema at home with presence of stool but she has complaints of significant lower abdominal discomfort and vomited this morning but denies any fevers or chills or urinary symptoms. Patient herself feels like she may be constipated. Related Data Home Medications Medication Instructions Recorded Confirmed cholecalciferol (vitamin D3) 25 25 mcg PO DAILY 12/04/19 02/22/22 mcg (1,000 unit) capsule lancets 33 gauge #100 ea 12/04/19 02/22/22 allopurinol 100 mg tablet 200 mg PO DAILY 12/20/20 02/22/22 latanoprost 0.005 % eye drops 1 drp ophthalmic (eye) BEDTIME 01/12/21 02/22/22 flash glucose sensor (ProxinoStyle 05/28/21 02/22/22 Charly 2 Sensor kit) melatonin 5 mg capsule 10 mg PO BEDTIME PRN Sleep 07/08/21 02/22/22 calcitriol 0.25 mcg capsule 0.25 mcg PO .everyother day 12/14/21 02/22/22 insulin glargine U-300 conc 300 44 unit subcut DAILY 12/14/21 02/22/22 unit/mL (3 mL) subcutaneous pen timolol maleate 0.5 % eye drops 1 drp ophthalmic (eye) DAILY 12/14/21 02/22/22 atorvastatin 80 mg tablet 80 mg PO BEDTIME 01/19/22 02/22/22 insulin lispro 100 unit/mL 20 - 30 unit subcut TID 02/22/22 02/22/22 subcutaneous solution metoprolol tartrate 50 mg tablet 1 tab PO BID 03/03/22 Previous Rx's Medication Instructions Recorded pen needle, diabetic 32 gauge x #360 ea 12/12/19 blood sugar diagnostic (OneTouch #400 ea 01/14/21 Verio test strips) pen needle, diabetic 32 gauge x #100 ea 12/09/21 (BD Ultra-Fine Renetta Pen Needle) aspirin 81 mg chewable tablet 81 mg PO DAILY #30 tabs 12/21/21 blood sugar diagnostic (OneTouch #300 ea 01/11/22 Verio test strips) lancets (OneTouch UltraSoft #300 ea 01/11/22 Lancets) pantoprazole 40 mg tablet,delayed 40 mg PO DAILY 90 days #90 tabs 01/11/22 release pen needle, diabetic 32 gauge x #100 ea 01/11/22 5/32 (BD Ultra-Fine Renetta Pen Needle) bumetanide 1 mg tablet 1 mg PO BID 90 days #135 tabs 01/17/22 hydralazine 50 mg tablet 100 mg PO TID 90 days #540 tabs 01/17/22 amlodipine 5 mg tablet 5 mg PO DAILY #30 tabs 01/20/22 isosorbide mononitrate 60 mg 60 mg PO DAILY 30 days #30 tabs 01/20/22 tablet,extended release 24 hr amiodarone 200 mg tablet 200 mg PO DAILY 90 days #90 tabs 02/22/22 Allergies Allergy/AdvReac Type Severity Reaction Status Date / Time amoxicillin [Amoxicillin] Allergy Severe VAGINAL Verified 02/22/22 14:56 ITCH bee pollen [bee stings] Allergy Severe Anaphylaxis Verified 02/22/22 14:56 hydrocodone [HYDROCODONE] Allergy Severe severe Verified 02/22/22 14:56 lethargy Review of Systems Review of Systems Pertinent positives and negatives as stated in the HPI [facility] Past Medical History Source: nursing notes reviewed Medical History Anxiety and depression Arthritis Back pain Benign essential hypertension Chronic kidney disease, stage 4 (severe) Chronic kidney disease, stage V Constipation Essential hypertension GERD (gastroesophageal reflux disease) Gout History of kidney cancer Hyperlipidemia LDL goal <100 Left bundle branch block Morbid obesity with BMI of 40.0-44.9, adult Obesity due to excess calories Obstructive sleep apnea Personal history of renal cell carcinoma Psoriasis Pure hypercholesterolemia Sleep apnea Squamous cell carcinoma in situ Supraventricular tachycardia Type 2 diabetes mellitus with chronic kidney disease Type 2 diabetes mellitus with other diabetic kidney complication Vitamin D deficiency Surgical History History of carpal tunnel release of both wrists History of cryosurgery History of surgery Hx of colonoscopy Hx of hysterectomy Hx of mammogram Hx of tonsillectomy Hx of total knee replacement Family History Family History Mother Diabetes Father No problems noted. Social History Social History Household Members: None Housing: Apartment Housing Other:: 2nd floor - uses stair chair Are you a primary insurance healthcare consultant to a significant other at home: No Do you presently have visiting nurse or other home services: Yes (DIRECTOR ASSET, PT, VNA post-hospital discharge) Alcohol intake: former Patient Tobacco Use Status: Never used Tobacco e-Cigarette/Vaping Use: Never Used Second Hand Smoke Exposure: Yes (father) Advance Directives: No Advance Directives Date on File: 12/15/21 service: No Current occupational status: retired Cognitive needs: Yes (walker ) Hearing needs: No Vision needs: Yes (glasses) Physical Exam ED Vital Signs: Vital Signs - 24 hr 03/03/22 04:58 03/03/22 05:59 03/03/22 07:38 Temperature 97.8 F Pulse Rate 73 72 Respiratory Rate 16 20 14 Blood Pressure 148/45 H 139/58 L Pulse Oximetry 94 96 Oxygen Delivery Method Room Air Room Air Oxygen Flow Rate 03/03/22 07:41 03/03/22 09:12 Temperature Pulse Rate 63 63 Respiratory Rate 14 12 Blood Pressure 125/36 L 122/34 L Pulse Oximetry 94 92 Oxygen Delivery Method Aerosol Mask Room Air Oxygen Flow Rate 2 BMI result Body Mass Index 37.5 VITAL SIGNS: Reviewed. GENERAL: Elevated BMI, Well developed, well nourished, in no acute distress. HEAD: Normocephalic/atraumatic EYES: PERRLA, EOMI EARS: Ext canals without abnormality OROPHARYNX: no oral lesions noted, posterior pharynx clear LUNGS: Normal breath sounds. No adventitious sounds or accessory muscle use. SpO2<96> CARDIOVASCULAR: Regular rate and rhythm without noted murmurs, no JVD bilateral minimal lower extremity edema ABDOMEN: Soft, mild distension with lower abdominal discomfort on deep palpation. MUSCULOSKELETAL: No tenderness, deformities, or effusions noted on gross inspection. EXTREMITIES: No cyanosis, clubbing or edema. SKIN: Inspection of the skin reveals no rashes NEUROLOGIC: Alert and oriented x 4. Strength and sensation to light touch were grossly intact x 4. Medical Decision Making Medical Decision Making MDM Narrative: 81-year-old female history of constipation but also intra-abdominal surgery and most highly suspect SBO as opposed to constipation at this time and no evidence to suggest acute infection. Patient has a history of atrial fibrillation and is on anticoagulation. I have reviewed all investigations and my interpretation is that patient has chronically stable microcytic anemia likely of chronic disease, there is a noted decrease in platelet level, patient's renal function is chronically stable and will follow with 500 cc fluids although there are no acute EKG changes with the potassium value of 5.7. Lactic acid is elevated but unlikely to be associated with any acute infection and instead due to poor oral intake given constipation for 3 days and troponin levels are chronically stable an elevated without acute changes on EKG. Patient is noted to be mildly hypoxic at 89-90% and does have a history heart failure although does not appear to be tachypneic and suspect that this is partially secondary to body habitus. Will pursue BNP, chest x-ray, and Lasix. 0955: Patient received Lasix for suspected pulmonary congestion contributing to her hypoxia and is currently on supplemental oxygen, chest x-ray does demonstrate an infiltrate as well as pulmonary vasculature prominence. Patient does not have a leukocytosis but given the findings of the infiltrate on the chest x-ray and her hypoxia she will receive empiric antibiotics. Lactic acid and BMP are pending. Differential Diagnosis Differential Diagnoses: The differential diagnosis associated with the presentation includes Please see the discussion above Consult Healthcare Provider Management of the patient was discussed with: Tobacco Stemmer Machine 0908: I discussed the case with Dr. Frank who recommends admission to medicine and he will consult on the patient. 0941: I consulted inpatient hospitalist for admission. 1100: I had an extensive discussion with the inpatient hospitalist, Dr. Farrar, does accept admission. Lab Data MDM Lab Attestation statement: I reviewed the patient's lab results. Please see the discussion above 03/03/22 07:35 03/03/22 07:35 Labs: Lab Results 03/03/22 03/03/22 03/03/22 Range/Units 07:35 07:35 07:35 WBC 9.8 (4.8-10.8) X10*3/uL RBC 2.97 L (4.20-5.50) X10*6/uL Hgb 8.4 L (12.0-16.0) g/dl Hct 27.1 L (37.0-47.0) % MCV 91.2 (80.0-98.0) fL MCH 28.3 (27.0-33.0) pg MCHC 31.0 (31.0-35.0) g/dl RDW 18.2 H (11.0-16.0) % Plt Count 143 L D (160-400) X10*3/uL MPV 9.8 (9.4-12.3) fL Immature Gran % (Auto) 0.4 (0.0-0.4) % Neut % (Auto) 84.0 H (45-73) % Lymph % (Auto) 8.2 L (20-40) % [place] % (Auto) 7.0 (2-11) % Eos % (Auto) 0.3 (0-4) % Baso % (Auto) 0.1 (0-2) % Lymph # (Auto) 0.8 L (1.2-4.9) X10*3/uL [place] # (Auto) 0.7 (0.1-1.2) X10*3/uL Eos # (Auto) 0.0 (0.0-0.4) X10*3/uL Baso # (Auto) 0.0 (0.0-0.2) X10*3/uL Abs Immat Gran (auto) 0.04 H (0.00-0.03) X10*3/uL Absolute Neuts (auto) 8.2 (2.0-8.3) x10*3/uL Absolute Nucleated RBC 0.000 (0.0-0.012) X10*3/uL Nucleated RBC % (auto) 0.0 (0.0-0.2) /100WBC PT 10.2 (10.0-13.1) SEC INR 0.9 (0.9-1.1) VBG pH (7.32-7.43) VBG pCO2 mmHg VBG pO2 mmHg VBG HCO3 (22-26) mmol/L VBG O2 Saturation % VBG Base Excess mmol/L Sodium 136 (135-145) mmol/L Potassium 5.7 H (3.3-5.1) mmol/L Chloride 100 (96-108) mmol/L Carbon Dioxide 22 (22-29) mmol/L Anion Gap 20 (12-20) BUN 74 H (9-16) mg/dL Creatinine 5.80 H* (0.5-1.4) mg/dL Estim Creat Clear Calc 9.9 Estimated GFR 7 Random Glucose 245 H (60-115) mg/dL Lactic Acid (0.5-2.0) mmol/L Calcium 10.0 (8.4-10.2) mg/dL Total Bilirubin 0.7 (0.0-1.0) mg/dL AST 27 (5-31) U/L ALT 25 (0-31) U/L Alkaline Phosphatase 182 H (39-117) U/L Troponin I High Sens (<3.5-17.0) ng/L B-Natriuretic Peptide (<100) pg/mL Total Protein 5.7 L (6.5-8.0) g/dL Albumin 3.3 L (3.5-5.0) g/dL COVID-19 (TREOVN) (Negative) COVID-19 Clin Com 03/03/22 03/03/22 03/03/22 Range/Units 07:35 07:35 07:35 WBC (4.8-10.8) X10*3/uL RBC (4.20-5.50) X10*6/uL Hgb (12.0-16.0) g/dl Hct (37.0-47.0) % MCV (80.0-98.0) fL MCH (27.0-33.0) pg MCHC (31.0-35.0) g/dl RDW (11.0-16.0) % Plt Count (160-400) X10*3/uL MPV (9.4-12.3) fL Immature Gran % (Auto) (0.0-0.4) % Neut % (Auto) (45-73) % Lymph % (Auto) (20-40) % [place] % (Auto) (2-11) % Eos % (Auto) (0-4) % Baso % (Auto) (0-2) % Lymph # (Auto) (1.2-4.9) X10*3/uL [place] # (Auto) (0.1-1.2) X10*3/uL Eos # (Auto) (0.0-0.4) X10*3/uL Baso # (Auto) (0.0-0.2) X10*3/uL Abs Immat Gran (auto) (0.00-0.03) X10*3/uL Absolute Neuts (auto) (2.0-8.3) x10*3/uL Absolute Nucleated RBC (0.0-0.012) X10*3/uL Nucleated RBC % (auto) (0.0-0.2) /100WBC PT (10.0-13.1) SEC INR (0.9-1.1) VBG pH (7.32-7.43) VBG pCO2 mmHg VBG pO2 mmHg VBG HCO3 (22-26) mmol/L VBG O2 Saturation % VBG Base Excess mmol/L Sodium (135-145) mmol/L Potassium (3.3-5.1) mmol/L Chloride (96-108) mmol/L Carbon Dioxide (22-29) mmol/L Anion Gap (12-20) BUN (9-16) mg/dL Creatinine (0.5-1.4) mg/dL Estim Creat Clear Calc Estimated GFR Random Glucose (60-115) mg/dL Lactic Acid 2.1 H* (0.5-2.0) mmol/L Calcium (8.4-10.2) mg/dL Total Bilirubin (0.0-1.0) mg/dL AST (5-31) U/L ALT (0-31) U/L Alkaline Phosphatase (39-117) U/L Troponin I High Sens 61.5 H* (<3.5-17.0) ng/L B-Natriuretic Peptide 183 H (<100) pg/mL Total Protein (6.5-8.0) g/dL Albumin (3.5-5.0) g/dL COVID-19 (TREVON) (Negative) COVID-19 Clin Com 03/03/22 03/03/22 03/03/22 Range/Units 07:39 09:20 09:50 WBC (4.8-10.8) X10*3/uL RBC (4.20-5.50) X10*6/uL Hgb (12.0-16.0) g/dl Hct (37.0-47.0) % MCV (80.0-98.0) fL MCH (27.0-33.0) pg MCHC (31.0-35.0) g/dl RDW (11.0-16.0) % Plt Count (160-400) X10*3/uL MPV (9.4-12.3) fL Immature Gran % (Auto) (0.0-0.4) % Neut % (Auto) (45-73) % Lymph % (Auto) (20-40) % [place] % (Auto) (2-11) % Eos % (Auto) (0-4) % Baso % (Auto) (0-2) % Lymph # (Auto) (1.2-4.9) X10*3/uL [place] # (Auto) (0.1-1.2) X10*3/uL Eos # (Auto) (0.0-0.4) X10*3/uL Baso # (Auto) (0.0-0.2) X10*3/uL Abs Immat Gran (auto) (0.00-0.03) X10*3/uL Absolute Neuts (auto) (2.0-8.3) x10*3/uL Absolute Nucleated RBC (0.0-0.012) X10*3/uL Nucleated RBC % (auto) (0.0-0.2) /100WBC PT (10.0-13.1) SEC INR (0.9-1.1) VBG pH 7.37 (7.32-7.43) VBG pCO2 44 mmHg VBG pO2 163 mmHg VBG HCO3 26 (22-26) mmol/L VBG O2 Saturation 98.0 % VBG Base Excess 1.1 mmol/L Sodium (135-145) mmol/L Potassium (3.3-5.1) mmol/L Chloride (96-108) mmol/L Carbon Dioxide (22-29) mmol/L Anion Gap (12-20) BUN (9-16) mg/dL Creatinine (0.5-1.4) mg/dL Estim Creat Clear Calc Estimated GFR Random Glucose (60-115) mg/dL Lactic Acid (0.5-2.0) mmol/L Calcium (8.4-10.2) mg/dL Total Bilirubin (0.0-1.0) mg/dL AST (5-31) U/L ALT (0-31) U/L Alkaline Phosphatase (39-117) U/L Troponin I High Sens 57.8 H* (<3.5-17.0) ng/L B-Natriuretic Peptide (<100) pg/mL Total Protein (6.5-8.0) g/dL Albumin (3.5-5.0) g/dL COVID-19 (TREVON) Negative (Negative) COVID-19 Clin Com See Note Independent Interpretation I performed an independent interpretation of an: EKG Interpretation: LBBB, HR-71, no STEMI Radiology Impression Radiologist Impression: My interpretation is in agreement with radiology's impression of the imaging study. External Record Review External record reviewed: Inpatient record, Outpatient record and Prior outpatient labs Chronic Conditions Patient?s care impacted by: Diabetes and Hypertension Medications Administered Discontinued Medications Generic Name Dose Route Start Last Admin Trade Name Freq PRN Reason Stop Dose Admin Fentanyl 25 mcg 03/03/22 06:53 03/03/22 07:38 Fentanyl Citrate/Pf 100 Mcg/2 Ml Vial IVPUSH 03/03/22 06:54 25 mcg ONCE ONE Administration Protocol Furosemide 60 mg 03/03/22 09:49 03/03/22 10:12 Furosemide 100 Mg/10 Ml Vial IVPUSH 03/03/22 09:50 60 mg ONCE ONE Administration Protocol Sodium Chloride 500 mls @ 999 mls/hr 03/03/22 08:45 03/03/22 09:30 Ns IV 03/03/22 09:15 999 mls/hr .Q31M MC Administration Lidocaine HCl 10 ml 03/03/22 07:16 03/03/22 07:38 Lidocaine Hcl 2 % Urojet 10 Ml Jel.Pf.Alen TOPICAL 03/03/22 07:17 10 ml ONCE ONE Administration Critical Care Time Critical Care Time Critical Care Time: Yes Total Critical Care Time: 30 Attestation: I personally attest to this time spent taking care of the patient. Discharge Plan Discharge Clinical Impression: Stercoral colitis, CHF exacerbation, Hypoxia, Pulmonary infiltrate Patient Disposition: Admitted As Inpatient Prescriptions: No Action (DME) pen needle, diabetic 32 gauge x 5/32 needle See Rx Instructions subcut .MEDSUPPLY Qty: 360 3RF Rx Instructions: As directed 4 times a day (DME) OneTouch Verio test strips Strip See Rx Instructions .ROUTE .MEDSUPPLY Qty: 400 3RF Rx Instructions: four times a day (DME) pen needle, diabetic [BD Ultra-Fine Renetta Pen Needle] 32 gauge x 5/32 needle See Rx Instructions .ROUTE .MEDSUPPLY Qty: 100 5RF Rx Instructions: As directed 4 times a day bumetanide 1 mg tablet 1 mg PO BID 90 Days Qty: 135 3RF Rx Instructions: 1 tab in the AM and 1/2 a tab in the PM hydralazine 50 mg tablet 100 mg PO TID 90 Days Qty: 540 3RF Protocol: Hold for SBP< HOLD for SBP < : 90 amlodipine 5 mg tablet 5 mg PO DAILY Qty: 30 0RF Protocol: Hold for SBP< HOLD for SBP < : 90 isosorbide mononitrate 60 mg tablet extended release 24 hr 60 mg PO DAILY 30 Days Qty: 30 0RF Protocol: Hold for SBP< HOLD for SBP < : 90 insulin glargine U-300 conc 300 unit/mL (3 mL) insulin pen 44 unit subcut DAILY timolol maleate 0.5 % Drops 1 drp OPHTHALMIC (EYE) DAILY aspirin 81 mg Tablet,Chewable 81 mg PO DAILY Qty: 30 0RF atorvastatin 80 mg tablet 80 mg PO BEDTIME metoprolol tartrate 50 mg tablet 1 tab PO BID pantoprazole 40 mg tablet,delayed release (DR/EC) 40 mg PO DAILY 90 Days Qty: 90 1RF (DME) pen needle, diabetic [BD Ultra-Fine Renetta Pen Needle] 32 gauge x 5/32 needle See Rx Instructions .ROUTE .MEDSUPPLY Qty: 100 3RF Rx Instructions: As directed once a day (DME) OneTouch Verio test strips Strip See Rx Instructions .Route Qty: 300 3RF Rx Instructions: As directed 3 times a day (DME) lancets [OneTouch UltraSoft Lancets] Misc See Rx Instructions .ROUTE .MEDSUPPLY Qty: 300 3RF Rx Instructions: As directed 3 times a day latanoprost 0.005 % drops 1 drp ophthalmic (eye) BEDTIME (DME) lancets 33 gauge misc See Rx Instructions topical TID Qty: 100 Rx Instructions: As directed cholecalciferol (vitamin D3) 25 mcg (1,000 unit) capsule 25 mcg PO DAILY allopurinol 100 mg tablet 200 mg PO DAILY (DME) FreeStyle Charly 2 Sensor Kit See Rx Instructions .Route Rx Instructions: As directed melatonin 5 mg capsule 10 mg PO BEDTIME PRN (Reason: Sleep) calcitriol 0.25 mcg capsule 0.25 mcg PO .everyother day insulin lispro 100 unit/mL solution 20 - 30 unit subcut TID Label Comments: Humalog amiodarone 200 mg tablet 200 mg PO DAILY 90 Days Qty: 90 1RF
[2022-03-03] MEDS: Lidocaine HCl 2 % Urojet 10 ML JEL.PF.APP TOPICAL (07:38)
[2022-03-03] MEDS: fentaNYL citrate/PF 100 MCG/2 ML VIAL 25 MCG IVPUSH (07:38)
[2022-03-03 07:39] LABS: MANUAL DIFF FLAG NO
[2022-03-03 07:42] LABS: Basophils Percent Auto 0.1 % (0-2); Eosinophils Percent Auto 0.3 % (0-4); Hematocrit 27.1 % (37.0-47.0); Hemoglobin 8.4 g/dl (12.0-16.0); Imm Gran Abs Auto 0.04 X10*3/uL (0.00-0.03); Imm Gran Pct Auto 0.4 % (0.0-0.4); Lymphocytes Absolute Auto 0.8 X10*3/uL (1.2-4.9); Lymphocytes Percent Auto 8.2 % (20-40); Mean Corpuscular Hemoglobin 28.3 pg (27.0-33.0); Mean Corpuscular Volume 91.2 fL (80.0-98.0); Monocytes Absolute Auto 0.7 X10*3/uL (0.1-1.2); Neutrophils Absolute Auto 8.2 x10*3/uL (2.0-8.3); Red Blood Count 2.97 X10*6/uL (4.20-5.50); Red Cell Distribution Width 18.2 % (11.0-16.0); White Blood Count 9.8 X10*3/uL (4.8-10.8)
[2022-03-03 07:43] LABS: Venous Blood Gas Refer to POC result
[2022-03-03 07:45] LABS: VBG Base Excess 1.1 mmol/L; VBG HCO3 26 mmol/L (22-26); VBG pCO2 44 mmHg; VBG pH 7.37 (7.32-7.43); VBG pO2 163 mmHg
[2022-03-03 07:52] LABS: INTERNATIONAL NORM RATIO 0.9 (0.9-1.1); Prothrombin Time 10.2 SEC (10.0-13.1)
[2022-03-03 08:14] LABS: Mean Platelet Volume 9.8 fL (9.4-12.3); Platelet Count 143 X10*3/uL (160-400)
[2022-03-03 08:18] LABS: Alanine Aminotransferase 25 U/L (0-31); Albumin Level 3.3 g/dL (3.5-5.0); Alkaline Phosphatase 182 U/L (39-117); Anion Gap 20 (12-20); Aspartate Amino Transferase 27 U/L (5-31); Bilirubin Total 0.7 mg/dL (0.0-1.0); Blood Urea Nitrogen 74 mg/dL (9-16); Carbon Dioxide 22 mmol/L (22-29); Chloride 100 mmol/L (96-108); Creatinine Clr Calc Pharmacy 9.9; Estimated Glomerular Filt Rate 7; Glucose Random 245 mg/dL (60-115); Potassium 5.7 mmol/L (3.3-5.1); Sodium 136 mmol/L (135-145); Total Protein 5.7 g/dL (6.5-8.0)
[2022-03-03 08:19] LABS: Troponin-I High Sensitivity 61.5 ng/L (<3.5-17.0)
[2022-03-03] MEDS: 0.9 % Sodium Chloride 500 ML 999 ML IV (09:30)
[2022-03-03 10:11] LABS: B Type Natriuretic Peptide 183 pg/mL (<100)
[2022-03-03 10:12] LABS: COVID-19 Test Negative (Negative); IDNOW Serial# BCCEAD1C
[2022-03-03] MEDS: Furosemide 100 MG/10 ML VIAL 60 MG IVPUSH (10:12)
[2022-03-03 10:19] LABS: Troponin-I High Sensitivity 57.8 ng/L (<3.5-17.0)
[2022-03-03 10:58] LABS: Reflex Lactate? Lactic Acid Added
[2022-03-03 11:39] LABS: Lactic Acid 1.2 mmol/L (0.5-2.0); ~Lactic Acid-LAB USE ONLY 1.2 mmol/L (0.5-2.0)
--- NOTE | 2022-03-03 11:47 | P.HPHOSP_ITS ---
History of Present Illness Date of Service: 03/03/22 Attending physician on admission: Josemanuel Farrar Chief Complaint: Constipation Pt is a 81-year-old female with a PMH significant for?diastolic CHF, HLD, HTN, insulin-dependent DM, CKD stage 4, morbid obesity, and chronic constipation who presents to the ED with?severe abdominal pain and constipation x4 days. Pt stat es that she has chronic constipation which she treats with laxatives as necessary, but this is her by far her worst episode ever. Normally has a BM every 2-3 days, but it has over 4 days since last BM. Pt has had hemorrhoid pain that prevents her from pushing and a small amount of bright red blood on toilet paper. Pt also complains of severe 10/10 lower abdominal pain and has experienced two episodes of vomiting yesterday, one after orange juice and the other in the evening after differ. She has tried oral laxatives and rectal enema with no effect. Pt complains of worsening SOB with exertion and chronic cough and lower leg edema. Of note, pt had a cardioMEMS device implanted two weeks ago. Pt complains of chronic chills but no fever. In the ED patient was mildly hypoxic at 89-90% O2, improved on supplemental oxygen. Labs were significant for WBC WNL, H&H chronically decreased at 8.4/27.1 (stable, near baseline), slightly low platelets at 143, mild hyperkalemia at 5.6, chronically elevated BUN at 74 (stable, near baseline), chronically elevated creatinine at 5.86 (stable, at baseline), lactic acid 2.1 with repeat at 1.2, chronically elevated troponin of 61.5 with repeat 57.8 (at baseline), and BNP mildly elevated at 183. VBG WNL. UA clear. CXR showed prominence of pulmonary vasculature and interstitium with opacity of the mediastinal right lung base suggestive of developing infectious/inflammatory etiology, and small right-sided pleural effusion. CT?of the abdomen and pelvis found a large stool burden in the colon with a large stool ball in the rectum and some perirectal inflammatory changes suggesting early stercoral colitis. EKG showed new onset AFib and chronic left branch block. Pt was treated with NS, fentanyl, ceftriaxone, and IV lasix. Pt will be admitted to the hospital for treatment and further evaluation acute constipation in new onset AFib. Review of Systems Review of Systems: Severe constipation and abdominal pain x4 days Shortness of breath with exertion Chronic cough Nausea, vomiting x2 Painful defecation Yes all other systems are reviewed and are negative [facility] Medical History Anxiety and depression Arthritis Back pain Benign essential hypertension Chronic kidney disease, stage 4 (severe) Chronic kidney disease, stage V Constipation Essential hypertension Fecal impaction in rectum GERD (gastroesophageal reflux disease) Gout History of kidney cancer Hyperlipidemia LDL goal <100 Left bundle branch block Morbid obesity with BMI of 40.0-44.9, adult Obesity due to excess calories Obstructive sleep apnea Personal history of renal cell carcinoma Psoriasis Pure hypercholesterolemia Sleep apnea Squamous cell carcinoma in situ Supraventricular tachycardia Type 2 diabetes mellitus with chronic kidney disease Type 2 diabetes mellitus with other diabetic kidney complication Vitamin D deficiency Family History Mother Diabetes Father No problems noted. Surgical History History of carpal tunnel release of both wrists History of cryosurgery History of surgery Hx of colonoscopy Hx of hysterectomy Hx of mammogram Hx of tonsillectomy Hx of total knee replacement Social History Household Members: Family and None Household Members Other:: daughter has being staying with pt for the past 2 weeks Housing: House Housing Other:: 2nd floor - uses stair chair Are you a primary manager primary care to a significant other at home: No Do you presently have visiting nurse or other home services: Yes Alcohol intake: never Patient Tobacco Use Status: Never used Tobacco Smoked in Last 30 Days: No e-Cigarette/Vaping Use: Never Used Second Hand Smoke Exposure: No Use of substances other than those prescribed or required for medical reasons: No Currently Displaying Signs/Symptoms of Drug Intoxication Withdrawal: No Any prior treatment program specific to substance use: No (n/a) Have you been hit, kicked, punched, or otherwise hurt by someone within the past year? If so, by whom?: No Do you feel safe in your current relationship?: Yes Is there a partner from a previous relationship who is making you feel unsafe now?: No Are you made to feel afraid or neglected: No Advance Directives: No Advance Directives Date on File: 12/15/21 Do you have thoughts of harming others: None Do you have a plan to hurt others: No Plan Recently lost weight without trying: Yes How much weight loss: 24-33 pounds Eating poorly because of decreased appetite: Yes Nutrition screen score: 6 Nutrition Risks: No Nutritional Risk Patient : No : No Poor oral hygiene: No service: No Current occupational status: retired Cognitive needs: Yes (walker ) Hearing needs: No Vision needs: Yes (glasses) Meds Allergies Allergy/AdvReac Type Severity Reaction Status Date / Time amoxicillin [Amoxicillin] Allergy Severe VAGINAL Verified 02/22/22 14:56 ITCH bee pollen [bee stings] Allergy Severe Anaphylaxis Verified 02/22/22 14:56 hydrocodone [HYDROCODONE] Allergy Severe severe Verified 02/22/22 14:56 lethargy Active Medications: Current Medications Pharmacy Consult (Consult Rx Perform Med Rec) 1 each MISCELLANE ONCE PRN PRN Reason: Consult order Home Medications Medication Instructions Recorded Confirmed Last Taken Type cholecalciferol (vitamin D3) 25 25 mcg PO DAILY 12/04/19 03/03/22 03/02/22 History mcg (1,000 unit) capsule lancets 33 gauge #100 ea 12/04/19 02/22/22 Unknown History allopurinol 100 mg tablet 200 mg PO DAILY 12/20/20 03/03/22 03/02/22 History latanoprost 0.005 % eye drops 1 drp ophthalmic (eye) BEDTIME 01/12/21 03/03/22 12/13/21 History flash glucose sensor (FreeStyle 05/28/21 02/22/22 Unknown History Charly 2 Sensor kit) melatonin 5 mg capsule 10 mg PO BEDTIME PRN Sleep 07/08/21 03/03/22 Unknown History calcitriol 0.25 mcg capsule 0.25 mcg PO DAILY 12/14/21 03/03/22 03/02/22 History insulin glargine U-300 conc 300 20 unit subcut BEDTIME 12/14/21 03/03/22 12/13/21 History unit/mL (3 mL) subcutaneous pen atorvastatin 80 mg tablet 80 mg PO BEDTIME 01/19/22 03/03/22 03/01/22 History insulin lispro 100 unit/mL See Protocol subcut TIDAC 02/22/22 03/03/22 Unknown History subcutaneous solution bumetanide 1 mg tablet 0.5 tab PO DAILY@1800 03/03/22 03/03/22 03/02/22 History bumetanide 1 mg tablet 1 mg PO DAILY 03/03/22 03/03/22 03/02/22 History docusate sodium 100 mg capsule 200 mg PO BEDTIME 03/03/22 03/03/22 Unknown History pantoprazole 40 mg tablet,delayed 40 mg PO DAILY@0630 03/03/22 03/03/22 Unknown History release Physical Exam Vital Signs and Narrative: Vital Signs: Last Vital Signs Temp 97.8 F 03/03/22 04:58 Pulse 58 03/03/22 11:19 Resp 10 L 03/03/22 11:19 BP 137/53 L 03/03/22 11:19 Pulse Ox 91 L 03/03/22 11:19 O2 Del Method 03/03/22 11:19 O2 Flow Rate 2 03/03/22 07:41 BMI result Body Mass Index 37.5 Constitutional: Alert, uncomfortable. Mental Status: Oriented to person, place and time. Eyes: Pupils are equal, round, and reactive to light. Ear, Nose, and Throat: Oropharynx clear, mucous membranes moist. Ears and nose without deformities. Trachea midline. Respiratory: Clear to auscultation bilaterally. No wheezing, rales, or rhonchi. Cardiovascular: S1, S2 regular. No murmurs, rubs, or gallops. Gastrointestinal: Lower abdominal tenderness. No rebound tenderness. Mildly distended. Neurologic: Cranial nerves II-XI are grossly intact. No focal neurological deficits. Moves all extremities spontaneously. Skin: No rashes or lesions noted. Musculoskeletal: No cyanosis or clubbing. Extremities: Significant lower-leg edema bilaterally. Psychiatric: Normal mood and affect. Results Labs 03/03/22 07:35 03/03/22 07:35 Labs: Laboratory Results - last 24 hr 03/03/22 03/03/22 03/03/22 07:35 07:35 07:35 MCV 91.2 MCH 28.3 MCHC 31.0 RDW 18.2 H Plt Count 143 L D MPV 9.8 Immature Gran % (Auto) 0.4 Neut % (Auto) 84.0 H Lymph % (Auto) 8.2 L [place] % (Auto) 7.0 Eos % (Auto) 0.3 Baso % (Auto) 0.1 Lymph # (Auto) 0.8 L [place] # (Auto) 0.7 Eos # (Auto) 0.0 Baso # (Auto) 0.0 Abs Immat Gran (auto) 0.04 H Absolute Neuts (auto) 8.2 Absolute Nucleated RBC 0.000 Nucleated RBC % (auto) 0.0 PT 10.2 INR 0.9 VBG pH VBG pCO2 VBG pO2 VBG HCO3 VBG O2 Saturation VBG Base Excess Anion Gap 20 Estim Creat Clear Calc 9.9 Estimated GFR 7 Random Glucose 245 H Lactic Acid Lactic Acid F/U @ 2Hr Calcium 10.0 Total Bilirubin 0.7 AST 27 ALT 25 Alkaline Phosphatase 182 H Troponin I High Sens B-Natriuretic Peptide Total Protein 5.7 L Albumin 3.3 L COVID-19 ([facility]) [employer] 03/03/22 03/03/22 03/03/22 07:35 07:35 07:35 MCV MCH MCHC RDW Plt Count MPV Immature Gran % (Auto) Neut % (Auto) Lymph % (Auto) [place] % (Auto) Eos % (Auto) Baso % (Auto) Lymph # (Auto) [place] # (Auto) Eos # (Auto) Baso # (Auto) Abs Immat Gran (auto) Absolute Neuts (auto) Absolute Nucleated RBC Nucleated RBC % (auto) PT INR VBG pH VBG pCO2 VBG pO2 VBG HCO3 VBG O2 Saturation VBG Base Excess Anion Gap Estim Creat Clear Calc Estimated GFR Random Glucose Lactic Acid 2.1 H* Lactic Acid F/U @ 2Hr Calcium Total Bilirubin AST ALT Alkaline Phosphatase Troponin I High Sens 61.5 H* B-Natriuretic Peptide 183 H Total Protein Albumin COVID-19 ([facility]) [employer] 03/03/22 03/03/22 03/03/22 07:39 09:20 09:50 MCV MCH MCHC RDW Plt Count MPV Immature Gran % (Auto) Neut % (Auto) Lymph % (Auto) [place] % (Auto) Eos % (Auto) Baso % (Auto) Lymph # (Auto) [place] # (Auto) Eos # (Auto) Baso # (Auto) Abs Immat Gran (auto) Absolute Neuts (auto) Absolute Nucleated RBC Nucleated RBC % (auto) PT INR VBG pH 7.37 VBG pCO2 44 VBG pO2 163 VBG HCO3 26 VBG O2 Saturation 98.0 VBG Base Excess 1.1 Anion Gap Estim Creat Clear Calc Estimated GFR Random Glucose Lactic Acid Lactic Acid F/U @ 2Hr Calcium Total Bilirubin AST ALT Alkaline Phosphatase Troponin I High Sens 57.8 H* B-Natriuretic Peptide Total Protein Albumin COVID-19 (TREVON) Negative COVID-19 Clin Com See Note 03/03/22 03/03/22 11:14 11:14 MCV MCH MCHC RDW Plt Count MPV Immature Gran % (Auto) Neut % (Auto) Lymph % (Auto) [place] % (Auto) Eos % (Auto) Baso % (Auto) Lymph # (Auto) [place] # (Auto) Eos # (Auto) Baso # (Auto) Abs Immat Gran (auto) Absolute Neuts (auto) Absolute Nucleated RBC Nucleated RBC % (auto) PT INR VBG pH VBG pCO2 VBG pO2 VBG HCO3 VBG O2 Saturation VBG Base Excess Anion Gap Estim Creat Clear Calc Estimated GFR Random Glucose Lactic Acid 1.2 Lactic Acid F/U @ 2Hr 1.2 Calcium Total Bilirubin AST ALT Alkaline Phosphatase Troponin I High Sens B-Natriuretic Peptide Total Protein Albumin COVID-19 (TREVON) COVID-19 Clin Com Imaging Radiologist's Impressions: Impressions Abdomen/Pelvis CT 03/03/22 08:02 IMPRESSION: 1. Large stool burden in the colon with a large stool ball in the rectum with some perirectal inflammatory changes suggesting early stercoral colitis. This is undoubtedly the cause of the patient's constipation. 2. Incidental note made of cardiomegaly, hepatic and splenic granulomas, calcified right renal mass related to prior cryoablation with subcapsular collection and degenerative changes in the spine and hips. Fleischner guidelines were followed. Chest X-Ray 03/03/22 09:55 IMPRESSION: 1. Prominence of the pulmonary vasculature and interstitium. 2. Opacity involving the medial right lung base may reflect developing infectious/inflammatory etiology. 3. Small left-sided pleural effusion with subjacent atelectasis. Assessment and Plan (1) Fecal impaction in rectum: Status: Acute (2) CHF exacerbation: Status: Acute Plan Pt is a 81-year-old female with a PMH significant for?diastolic CHF, HLD, HTN, insulin-dependent DM, CKD stage 4, morbid obesity, and chronic constipation who presents to the ED with?severe abdominal pain and constipation x4 days. Pt will be admitted to telemetry for treatment evaluation of fecal impaction, new onset afib, and acute CHF exacerbation. Fecal impaction CT?found a large stool burden in the colon with a large stool ball in the rectum and some perirectal inflammatory changes suggesting early stercoral colitis Colace p.o. Miralax p.o. Bisacodyl 10 mg suppository Fleet enema Lidocaine patch and IV Tylenol for pain management Clear liquid diet General surgery consult New onset afib EKG shows new onset AFib with chronic left bundle-branch block Patient had CardioMEMS device implanted 2 weeks ago Patient not on anticoagulation Echocardiogram Cardiology consult NPO after midnight, per cardiology Hyperkalemia Potassium 5.7 on admission Lokelma 10g PO x1 CKD stage 4 Creatinine stable, but LLE and hyperkalemia concerning for worsening kidney function and possible need for dialysis Nephrology consult Diastolic CHF, acute exacacerbation Pt markedly hypervolemic Lasix 80mg bid, per nephrology Monitor BP, lytes, mg, I/O Cardiology consult Question of pneumonia Chest x-ray with evidence of possible pneumonia Ceftriaxone Insulin-dependent DM Hold home meds SSI, lantus Morbid obesity Weight loss encouraged Full Code Attending:?Dr. Farrar DVT Prophylaxis: Heparin Pt will require a hospitalization of at least two nights?for treatment evaluation of fecal impaction, new onset afib, and acute CHF exacerbation. Time Spent With Patient Time: Total time managing care of this patient today ____ minutes. Quality Stroke Does the patient have a stroke diagnosis?: No VTE Prior VTE?: No VTE Risk Level:: Medical - moderate - high VTE Device Contraindication: Treatment Not Indicated VTE Drug Contraindication: N/A - Med Ordered
[2022-03-03 11:51] LABS: Anion Gap 15 (12-20); Blood Urea Nitrogen 75 mg/dL (9-16); Calcium 9.6 mg/dL (8.4-10.2); Carbon Dioxide 26 mmol/L (22-29); Chloride 102 mmol/L (96-108); Creatinine Clr Calc Pharmacy 9.9; Estimated Glomerular Filt Rate 7; Glucose Random 183 mg/dL (60-115); Potassium 5.6 mmol/L (3.3-5.1); Sodium 137 mmol/L (135-145)
[2022-03-03 12:30] LABS: Lactic Acid 2.1 mmol/L (0.5-2.0)
[2022-03-03] MEDS: cefTRIAXone sodium 1 GM in 0.9 % Sodium Chloride 50 ML IV (12:30)
--- NOTE | 2022-03-03 12:43 | P.CONGS_ITS ---
History of Present Illness Consult details Consult date: 03/03/22 Narrative: 81F with multiple medical problems, including CHF, CKD, cardiomyopathy, who came to the ED this morning because of what she describes as constipation. She describes pain in the rectal and some lower abdominal pain as well. She says she has had hard stools for a long time and always had difficulty with bowel mov ement. She says her last good BM was about 3 days ago and these were noted to be hard stools. She had a CT scan in the ED showing a high stool volume in the colon, but especially in the rectum with signs of stercoral colitis. I was therefore consulted. She lives at home but say she barely ambulates because of poor balance and severe joint pains. Review of Systems Constitutional: Constitutional: Denies chills and Denies fever(s) Cardiovascular: Cardiovascular: Reports dyspnea on exertion Respiratory: Respiratory: Denies cough and Reports dyspnea on exertion Gastrointestinal: Gastrointestinal: Reports abdominal pain Genitourinary: Genitourinary: Denies dysuria Musculoskeletal: Musculoskeletal: Reports abnormal gait, Reports back pain, Reports myalgias and Reports arthralgias Neurologic: Reports abnormal gait [facility] Past Medical History Medical History Anxiety and depression Arthritis Back pain Benign essential hypertension Chronic kidney disease, stage 4 (severe) Chronic kidney disease, stage V Constipation Essential hypertension Fecal impaction in rectum GERD (gastroesophageal reflux disease) Gout History of kidney cancer Hyperlipidemia LDL goal <100 Left bundle branch block Morbid obesity with BMI of 40.0-44.9, adult Obesity due to excess calories Obstructive sleep apnea Personal history of renal cell carcinoma Psoriasis Pure hypercholesterolemia Sleep apnea Squamous cell carcinoma in situ Supraventricular tachycardia Type 2 diabetes mellitus with chronic kidney disease Type 2 diabetes mellitus with other diabetic kidney complication Vitamin D deficiency Family History Family History Mother Diabetes Father No problems noted. Surgical History Surgical History History of carpal tunnel release of both wrists History of cryosurgery History of surgery Hx of colonoscopy Hx of hysterectomy Hx of mammogram Hx of tonsillectomy Hx of total knee replacement Social History Social History Household Members: Family and None Household Members Other:: daughter has being staying with pt for the past 2 weeks Housing: House Housing Other:: 2nd floor - uses stair chair Are you a primary tire care manager to a significant other at home: No Do you presently have visiting nurse or other home services: Yes Alcohol intake: never Patient Tobacco Use Status: Never used Tobacco Smoked in Last 30 Days: No e-Cigarette/Vaping Use: Never Used Second Hand Smoke Exposure: No Use of substances other than those prescribed or required for medical reasons: No Currently Displaying Signs/Symptoms of Drug Intoxication Withdrawal: No Any prior treatment program specific to substance use: No (n/a) Have you been hit, kicked, punched, or otherwise hurt by someone within the past year? If so, by whom?: No Do you feel safe in your current relationship?: Yes Is there a partner from a previous relationship who is making you feel unsafe now?: No Are you made to feel afraid or neglected: No Advance Directives: No Advance Directives Date on File: 12/15/21 Do you have thoughts of harming others: None Do you have a plan to hurt others: No Plan Recently lost weight without trying: Yes How much weight loss: 24-33 pounds Eating poorly because of decreased appetite: Yes Nutrition screen score: 6 Nutrition Risks: No Nutritional Risk Patient : No : No Poor oral hygiene: No service: No Current occupational status: retired Cognitive needs: Yes (walker ) Hearing needs: No Vision needs: Yes (glasses) Meds Allergies Allergy/AdvReac Type Severity Reaction Status Date / Time amoxicillin [Amoxicillin] Allergy Severe VAGINAL Verified 02/22/22 14:56 ITCH bee pollen [bee stings] Allergy Severe Anaphylaxis Verified 02/22/22 14:56 hydrocodone [HYDROCODONE] Allergy Severe severe Verified 02/22/22 14:56 lethargy Active Medications: Current Medications Pharmacy Consult (Consult Rx Perform Med Rec) 1 each MISCELLANE ONCE PRN PRN Reason: Consult order Home Medications Medication Instructions Recorded Confirmed Last Taken Type cholecalciferol (vitamin D3) 25 25 mcg PO DAILY 12/04/19 03/03/22 03/02/22 History mcg (1,000 unit) capsule lancets 33 gauge #100 ea 12/04/19 02/22/22 Unknown History allopurinol 100 mg tablet 200 mg PO DAILY 12/20/20 03/03/22 03/02/22 History latanoprost 0.005 % eye drops 1 drp ophthalmic (eye) BEDTIME 01/12/21 03/03/22 12/13/21 History flash glucose sensor (FreeStyle 05/28/21 02/22/22 Unknown History Charly 2 Sensor kit) melatonin 5 mg capsule 10 mg PO BEDTIME PRN Sleep 07/08/21 03/03/22 Unknown History calcitriol 0.25 mcg capsule 0.25 mcg PO DAILY 12/14/21 03/03/22 03/02/22 History insulin glargine U-300 conc 300 20 unit subcut BEDTIME 12/14/21 03/03/22 12/13/21 History unit/mL (3 mL) subcutaneous pen atorvastatin 80 mg tablet 80 mg PO BEDTIME 01/19/22 03/03/22 03/01/22 History insulin lispro 100 unit/mL See Protocol subcut TIDAC 02/22/22 03/03/22 Unknown History subcutaneous solution bumetanide 1 mg tablet 0.5 tab PO DAILY@1800 03/03/22 03/03/22 03/02/22 History bumetanide 1 mg tablet 1 mg PO DAILY 03/03/22 03/03/22 03/02/22 History docusate sodium 100 mg capsule 200 mg PO BEDTIME 03/03/22 03/03/22 Unknown History pantoprazole 40 mg tablet,delayed 40 mg PO DAILY@0630 03/03/22 03/03/22 Unknown History release Physical Exam 2 Vital Signs: Vital Signs: Last Vital Signs Temp 97.8 F 03/03/22 04:58 Pulse 58 03/03/22 11:19 Resp 10 L 03/03/22 11:19 BP 137/53 L 03/03/22 11:19 Pulse Ox 91 L 03/03/22 11:19 O2 Del Method 03/03/22 11:19 O2 Flow Rate 2 03/03/22 07:41 BMI result Body Mass Index 37.5 Const: Other: frail looking, obese General: no acute distress Resp: Effort & Inspection: normal respiratory effort Cardio: Rate: bradycardic GI: Other: mild tenderness lower abd rectal exam - large hemorrhoids, mostly external, good sphincter tone, large amounts of hard stools in rectal vault, no lesions, no blood Inspection: No distended Palpation (GI): Soft to palpation, not firm, no guarding and not rigid Results Labs 03/03/22 07:35 03/03/22 11:14 Labs: Abnormal lab results 03/03/22 03/03/22 03/03/22 Range/Units 07:35 07:35 07:35 RBC 2.97 L (4.20-5.50) X10*6/uL Hgb 8.4 L (12.0-16.0) g/dl Hct 27.1 L (37.0-47.0) % RDW 18.2 H (11.0-16.0) % Plt Count 143 L D (160-400) X10*3/uL Neut % (Auto) 84.0 H (45-73) % Lymph % (Auto) 8.2 L (20-40) % Lymph # (Auto) 0.8 L (1.2-4.9) X10*3/uL Abs Immat Gran (auto) 0.04 H (0.00-0.03) X10*3/uL Potassium 5.7 H (3.3-5.1) mmol/L BUN 74 H (9-16) mg/dL Creatinine 5.80 H* (0.5-1.4) mg/dL Random Glucose 245 H (60-115) mg/dL Lactic Acid (0.5-2.0) mmol/L Alkaline Phosphatase 182 H (39-117) U/L Troponin I High Sens 61.5 H* (<3.5-17.0) ng/L B-Natriuretic Peptide (<100) pg/mL Total Protein 5.7 L (6.5-8.0) g/dL Albumin 3.3 L (3.5-5.0) g/dL 03/03/22 03/03/22 03/03/22 Range/Units 07:35 07:35 09:20 RBC (4.20-5.50) X10*6/uL Hgb (12.0-16.0) g/dl Hct (37.0-47.0) % RDW (11.0-16.0) % Plt Count (160-400) X10*3/uL Neut % (Auto) (45-73) % Lymph % (Auto) (20-40) % Lymph # (Auto) (1.2-4.9) X10*3/uL Abs Immat Gran (auto) (0.00-0.03) X10*3/uL Potassium (3.3-5.1) mmol/L BUN (9-16) mg/dL Creatinine (0.5-1.4) mg/dL Random Glucose (60-115) mg/dL Lactic Acid 2.1 H* (0.5-2.0) mmol/L Alkaline Phosphatase (39-117) U/L Troponin I High Sens 57.8 H* (<3.5-17.0) ng/L B-Natriuretic Peptide 183 H (<100) pg/mL Total Protein (6.5-8.0) g/dL Albumin (3.5-5.0) g/dL 03/03/22 Range/Units 11:14 RBC (4.20-5.50) X10*6/uL Hgb (12.0-16.0) g/dl Hct (37.0-47.0) % RDW (11.0-16.0) % Plt Count (160-400) X10*3/uL Neut % (Auto) (45-73) % Lymph % (Auto) (20-40) % Lymph # (Auto) (1.2-4.9) X10*3/uL Abs Immat Gran (auto) (0.00-0.03) X10*3/uL Potassium 5.6 H (3.3-5.1) mmol/L BUN 75 H (9-16) mg/dL Creatinine 5.86 H* (0.5-1.4) mg/dL Random Glucose 183 H (60-115) mg/dL Lactic Acid (0.5-2.0) mmol/L Alkaline Phosphatase (39-117) U/L Troponin I High Sens (<3.5-17.0) ng/L B-Natriuretic Peptide (<100) pg/mL Total Protein (6.5-8.0) g/dL Albumin (3.5-5.0) g/dL Short CBC 03/03/22 Range/Units 07:35 WBC 9.8 (4.8-10.8) X10*3/uL Hgb 8.4 L (12.0-16.0) g/dl Hct 27.1 L (37.0-47.0) % Plt Count 143 L D (160-400) X10*3/uL BMP 03/03/22 03/03/22 07:35 11:14 Sodium 136 137 Potassium 5.7 H 5.6 H Chloride 100 102 Carbon Dioxide 22 26 BUN 74 H 75 H Creatinine 5.80 H* 5.86 H* Calcium 10.0 9.6 Liver Function 03/03/22 Range/Units 07:35 Total Bilirubin 0.7 (0.0-1.0) mg/dL AST 27 (5-31) U/L ALT 25 (0-31) U/L Alkaline Phosphatase 182 H (39-117) U/L Albumin 3.3 L (3.5-5.0) g/dL All other labs normal. Imaging Additional studies: Laboratory Results WBC 9.8 X10*3/uL (4.8-10.8) 03/03/22 07:35 RBC 2.97 X10*6/uL (4.20-5.50) L 03/03/22 07:35 Hgb 8.4 g/dl (12.0-16.0) L 03/03/22 07:35 Hct 27.1 % (37.0-47.0) L 03/03/22 07:35 MCV 91.2 fL (80.0-98.0) 03/03/22 07:35 MCH 28.3 pg (27.0-33.0) 03/03/22 07:35 MCHC 31.0 g/dl (31.0-35.0) 03/03/22 07:35 RDW 18.2 % (11.0-16.0) H 03/03/22 07:35 Plt Count 143 X10*3/uL (160-400) L D 03/03/22 07:35 MPV 9.8 fL (9.4-12.3) 03/03/22 07:35 Immature Gran % (Auto) 0.4 % (0.0-0.4) 03/03/22 07:35 Neut % (Auto) 84.0 % (45-73) H 03/03/22 07:35 Lymph % (Auto) 8.2 % (20-40) L 03/03/22 07:35 Christian % (Auto) 7.0 % (2-11) 03/03/22 07:35 Eos % (Auto) 0.3 % (0-4) 03/03/22 07:35 Baso % (Auto) 0.1 % (0-2) 03/03/22 07:35 Lymph # (Auto) 0.8 X10*3/uL (1.2-4.9) L 03/03/22 07:35 Christian # (Auto) 0.7 X10*3/uL (0.1-1.2) 03/03/22 07:35 Eos # (Auto) 0.0 X10*3/uL (0.0-0.4) 03/03/22 07:35 Baso # (Auto) 0.0 X10*3/uL (0.0-0.2) 03/03/22 07:35 Abs Immat Gran (auto) 0.04 X10*3/uL (0.00-0.03) H 03/03/22 07:35 Absolute Neuts (auto) 8.2 x10*3/uL (2.0-8.3) 03/03/22 07:35 Absolute Nucleated RBC 0.000 X10*3/uL (0.0-0.012) 03/03/22 07:35 Nucleated RBC % (auto) 0.0 /100WBC (0.0-0.2) 03/03/22 07:35 PT 10.2 SEC (10.0-13.1) 03/03/22 07:35 INR 0.9 (0.9-1.1) 03/03/22 07:35 VBG pH 7.37 (7.32-7.43) 03/03/22 07:39 VBG pCO2 44 mmHg 03/03/22 07:39 VBG pO2 163 mmHg 03/03/22 07:39 VBG HCO3 26 mmol/L (22-26) 03/03/22 07:39 VBG O2 Saturation 98.0 % 03/03/22 07:39 VBG Base Excess 1.1 mmol/L 03/03/22 07:39 Sodium 137 mmol/L (135-145) 03/03/22 11:14 Potassium 5.6 mmol/L (3.3-5.1) H 03/03/22 11:14 Chloride 102 mmol/L (96-108) 03/03/22 11:14 Carbon Dioxide 26 mmol/L (22-29) 03/03/22 11:14 Anion Gap 15 (12-20) 03/03/22 11:14 BUN 75 mg/dL (9-16) H 03/03/22 11:14 Creatinine 5.86 mg/dL (0.5-1.4) H* 03/03/22 11:14 Estim Creat Clear Calc 9.9 03/03/22 11:14 Estimated GFR 7 03/03/22 11:14 Random Glucose 183 mg/dL (60-115) H 03/03/22 11:14 Lactic Acid 1.2 mmol/L (0.5-2.0) 03/03/22 11:14 Lactic Acid F/U @ 2Hr 1.2 mmol/L (0.5-2.0) 03/03/22 11:14 Calcium 9.6 mg/dL (8.4-10.2) 03/03/22 11:14 Total Bilirubin 0.7 mg/dL (0.0-1.0) 03/03/22 07:35 AST 27 U/L (5-31) 03/03/22 07:35 ALT 25 U/L (0-31) 03/03/22 07:35 Alkaline Phosphatase 182 U/L (39-117) H 03/03/22 07:35 Troponin I High Sens 57.8 ng/L (<3.5-17.0) H* 03/03/22 09:20 B-Natriuretic Peptide 183 pg/mL (<100) H 03/03/22 07:35 Total Protein 5.7 g/dL (6.5-8.0) L 03/03/22 07:35 Albumin 3.3 g/dL (3.5-5.0) L 03/03/22 07:35 COVID-19 (TREVON) Negative (Negative) 03/03/22 09:50 COVID-19 Clin Com See Note 03/03/22 09:50 Impressions Abdomen/Pelvis CT 03/03/22 08:02 IMPRESSION: 1. Large stool burden in the colon with a large stool ball in the rectum with some perirectal inflammatory changes suggesting early stercoral colitis. This is undoubtedly the cause of the patient's constipation. 2. Incidental note made of cardiomegaly, hepatic and splenic granulomas, calcified right renal mass related to prior cryoablation with subcapsular collection and degenerative changes in the spine and hips. Fleischner guidelines were followed. Chest X-Ray 03/03/22 09:55 IMPRESSION: 1. Prominence of the pulmonary vasculature and interstitium. 2. Opacity involving the medial right lung base may reflect developing infectious/inflammatory etiology. 3. Small left-sided pleural effusion with subjacent atelectasis. Assessment and Plan (1) Fecal impaction in rectum: Status: Acute She is chronically constipated with large amounts of stool in the colon especially the rectum, with some signs of stercoral colitis. I proceeded to do manual disimpactionat bedside. She was placed in lateral decubitus position. I disimpacted her of hard and pasty stools in the rectal vault. There were no lesions seen. She has large hemorrhoids as well. She will benefit from stool softeners and laxatives, including Miralax or GOlytey, as well as periodic enemas. Her abdl exam is ohterwise benign. She has multiple medical problems as well. I will follow along while she is in the hospital. Time Spent With Patient Time: Total time managing care of this patient today ____ minutes. Procedures Date of Service Date of Service: 03/03/22
--- NOTE | 2022-03-03 13:30 | CA_ITS ---
Transthoracic Echocardiogram Patient (Last, First, Middle): Kate Vidal M Gender: Female Date of : 1940 Age: 81 Procedure Date: 03/03/2022 Procedure Type: Transthoracic Echocardiogram Location: ER Height: 170. cm Weight: 108.86 kg BSA: 2.18 m2 Heart Rate: 54 bpm BP: 105 / 54 mmHg Developer Designer: MICHELLE Referring MD: Harriet MCGHEE Symptoms: New onset afib Study Quality: Adequate ECG Rhythm: Bradycardia Conclusions: - The left ventricular systolic function is normal. The calculated ejection fraction is 58% by biplane method. - Evidence suggests grade II (moderate) diastolic dysfunction. - There is severely increased left ventricular wall thickness. - The basal inferior, basal inferoseptal, and basal inferolateral segments are hypokinetic. - There is mild calcification of the aortic valve. - There is mild mitral annular calcification. Findings Left Ventricle Normal left ventricular cavity size. There is severely increased left ventricular wall thickness. The left ventricular systolic function is normal. The calculated ejection fraction is 58% by biplane method. E/E prime ratio is >15, consistent with elevated filling pressures. Evidence suggests grade II (moderate) diastolic dysfunction. LV peak GLS -13.3%. Wall Motion Rest Echo Findings The basal inferior, basal inferoseptal, and basal inferolateral segments are hypokinetic. Right Ventricle Moderately increased right ventricular cavity size. There is normal right ventricular systolic function. Atria The left atrium is mildly dilated. The right atrium is moderately dilated. Aortic Valve There is mild calcification of the aortic valve. There is no aortic valve stenosis. There is no aortic valve regurgitation. Mitral Valve There is mild mitral annular calcification. There is mild mitral valve regurgitation. There is no mitral valve stenosis. Pulmonic Valve The pulmonic valve is likely normal. Tricuspid Valve There is trace tricuspid valve regurgitation. There is no evidence of pulmonary hypertension. Great Vessels The aorta was not well visualized. The sinuses of valsalva is normal in size. Venous The inferior vena cava is normal in size and collapses greater than 50% with inspiration. Pericardium/Pleural There is a trivial pericardial effusion. Prior Study Comparison Changes noted compared to prior study dated: 12/15/2021. Improved LVEF. Measurements 2D Linear Measurements IVSd: 1.57 0.6-0.9/0.6-1.0 cm LVIDd: 4.62 3.9-5.3/4.2-5.9 cm LVIDd Index: 2.12 2.4-3.2/2.2-3.1 cm/m2 LVIDs: 3.74 2.0-3.6 cm LVPWd: 1.48 0.7-1.1 cm LA Diam: 4.70 2.7-3.8/3.0-4.0 cm LAIDs Index: 2.16 1.5-2.3 cm/m2 LV Mass: 366.71 67-162/88-224 g LV Mass Index: 168.22 43-95/49-115 g/m2 LVOT Diam: 2.10 3.0+(-)1.3 cm 2D Systolic Function EF 4C: 50.00 >55% EF 2C: 62.30 >55% EF BiP: 57.70 >55% Mitral Valve MV Pk E: 1.27 MV PK A: 1.01 MV Decel Time: 162.00 E/A: 1.30 E'Lateral: 4.68 E'Medial: 3.92 E/E' Med: 32.40 E/E' Lat: 27.10 PHT: 47.00 MVA PHT: 4.68 Decel Gentry: 7.84 Aortic Valve AoV Pk Andres: 1.79 AoV Mn Andres: 1.32 AoV VTI: 0.55 AoV Pk Grad: 13.00 Aov Mn Grad: 8.00 YUSUF Cont.VTI: 2.34 LVOT LVOT Pk Andres: 1.27 LVOT Mn Andres: 0.88 LVOT VTI: 0.37 LVOT Pk Grad: 6.00 LVOT Mn Grad: 4.00 LVOT Diam: 2.10 LVOT Area: 3.46 Diastolic Function MV Pk E: 1.27 MV Pk A: 1.01 E/A: 1.30 E'Medial: 3.92 E/E' Med: 32.40 E' Laterial: 4.68 E/E' Lat: 27.10 Right Ventricle TAPSE (mm): 30.50 TVS' Andres: 13.70 Tricuspid Valve TR Pk Andres: 2.43 TR Pk Grad: 24.00 RA Press: 8.00 RVSP: 32.00 Great Vessels Aorta Sinus of Valsalva: 3.60 2.0-3.5 cm Pulmonary Valve PV Pk Andres: 1.45 Peak PV Grad: 8.00 Updated in Other Vendor System with Status of Final Rick Benitez MD electronically signed on 03/03/2022 4:18:28 PM with status of Final
[2022-03-03] MEDS: Acetaminophen 1,000 MG/100 ML PIGGYBACK 400 MG IV ×2 (13:45→18:43)
[2022-03-03] MEDS: Sodium Zirconium Cyclosilicate 10 GM POWD.PACK PO (13:56)
[2022-03-03] MEDS: Lidocaine 4 % Patch ADH..PATCH 1 PATCH TRANSDERMA (13:56)
[2022-03-03] MEDS: bisacodyL 10 MG SUPP.RECT PR (13:57)
[2022-03-03] MEDS: Docusate Sodium 100 MG CAPSULE PO ×2 (13:57→20:42)
[2022-03-03] MEDS: Sodium Phosphate,Mono-Dibasic 133 ML ENEMA PR (13:57)
--- NOTE | 2022-03-03 13:57 | PHA.MEDREC ---
Pharmacy Consult ? Medication Reconciliation Pharmacy has completed the medication reconciliation. Spoke with pt daughter
--- NOTE | 2022-03-03 14:43 | PC.NURSE ---
Pt had 3 watery BMs throughout stay in ED, with receiving medications for assistance.
--- NOTE | 2022-03-03 14:51 | PC.NURSE ---
1430: pt receiving echo
[2022-03-03 15:16] LABS: Glucose, Whole Blood 146 mg/dL (60-115)
[2022-03-03] MEDS: polyethylene glycoL 3350 17 GM POWD.PACK PO (15:20)
--- NOTE | 2022-03-03 16:21 | PM.EVENT ---
Event Note Date of Service: 03/04/22 Event Note: This patient is seen and examined with APC. Patient was having some abdominal pain and also feels constipated that is why she came to the hospital, upon chart review seems like ED physician documentation patient saturation was 89-90% but when I saw the patient patient was not hypoxic and neither is complaining of short of breath. In the background patient says that she is having shortness of breath intermittent from year ,especially with excersion Shows she got enema as and laxative in the ED and patient had 2-3 bowel movement as per the patient, afterwards somewhat ease discomfort white but still has pain also she is complaining of some question of not producing urine. Otherwise denies any fever chills or nausea or vomiting at currently Denies any chest pain or dizziness or lightheadedness. Lab imaging, EKG reviewed. Lab wolfe patient has creatinine of 5.8, mild hyperkalemia5.6, Seems like mild chronic anemia normocytic Chest x-ray reviewed? mild opacity-Opacity involving the medial right lung base EKG shows possible AFib. ct abd: Large stool burden in the colon with a large stool ball in the rectum with some perirectal inflammatory changes suggesting early stercoral colitis. This is undoubtedly the cause of the patient's constipation. Physical exam : Please see H&P note in addition abd: Soft, nondistended, has pain left lower quadrant mostly but also has nonspecific pain diffuse, bowel sounds are positive, patient passing gases also past 2-3 bowel movement as above. Chest: Air entry seems fair ,very few scattered rhonchi assessment and plan coordinated in APCs note, Agree with the plan in addition: AFib: Question new onset Heart rate controlled Continue home medications echo cardiology eval npo past midnight Constipation with stool ball: No white count or any fever ? Seems like CT abdomen changes possibly due to constipation and stay stool collection rather than infection ?Pneumonia: continue antibiotics Time Spent With Patient Time: Total time managing care of this patient today ____ minutes.
--- NOTE | 2022-03-03 16:28 | PM.EVENT ---
Event Note Date of Service: 03/03/22 Event Note: Seen on afternoon rounds Complaints of rectal pain as well as lower abdominal pain Abdomen remained soft and benign, not distended Manual disimpaction done earlier Oral laxatives and stool softeners -MiraLax had been ordered Colace ordered as well Will follow Time Spent With Patient Time: Total time managing care of this patient today ____ minutes.
[2022-03-03] MEDS: Furosemide 100 MG/10 ML VIAL 80 MG IVPUSH (18:41)
[2022-03-03] MEDS: 0.9 % Sodium Chloride Flush 3 ML SYRINGE IVFLUSH (18:42)
[2022-03-03] MEDS: Latanoprost 0.005 % Ophth Sol 2.5 ML DROPS 1 DROP EYE-BOTH (20:40)
[2022-03-03 20:41] LABS: Glucose, Whole Blood 159 mg/dL (60-115)
[2022-03-03] MEDS: Atorvastatin Calcium 80 MG TABLET PO (20:42)
[2022-03-03] MEDS: Morphine Sulfate 4 MG/ML CARTRIDGE IVPUSH (20:42)
[2022-03-04] VITALS (7 sets, daily range): BP systolic 124–157; BP diastolic 60–72; PULSE 52–72; RESP 16–18; TEMP 36–36.8; O2SAT 93–98
--- NOTE | 2022-03-04 00:32 | CONS_ITS ---
DATE OF SERVICE: REASON FOR CONSULTATION: I was asked to see patient to assist in evaluation and management of her advanced stage 5 chronic kidney disease in the setting of being admitted to the hospital with marked fluid overload along with relatively severe constipation and overall doing poorly. HISTORY OF PRESENT ILLNESS: In summary, the patient is a 81-year-old female well known to my partner, Dr. Mcknight, who has known advanced stage 5 chronic kidney disease and actually again prepared to go on dialysis. It looks like she was seen last month and her creatinine at that time was 4.6 with an EGFR of 9 mL per minute. The patient states that she has gained a lot of fluid weight over the past several weeks. It is unclear what type of diuretic regimen she has been taking. She has been on and off different regimens of diuretics. PAST MEDICAL HISTORY: Includes diastolic dysfunction, hyperlipidemia, hypertension, diabetes, stage 5 chronic kidney disease, morbid obesity, chronic constipation, and most likely has underlying pulmonary hypertension and obstructive sleep apnea. There is also mention made of a history of gout, kidney cancer, for which I believe that she had cryoablation of renal mass. History of SVT, GERD are all listed. MEDICATIONS: Her current medications as an outpatient are noted in the records and for reasons that are unclear there is no diuretic listed, but the outpatient records from Dr. Mcknight mentions being on Bumex 1 mg twice a day. Current medications are on the APR. ALLERGIES: SHE HAS MULTIPLE ALLERGIES LISTED IN ELECTRONIC MEDICAL RECORD. FAMILY HISTORY: Noncontributory, as there is no family history of kidney problems. SOCIAL HISTORY: She is a nonsmoker, nondrinker. No illicit drug use and denies taking NSAIDs. REVIEW OF SYSTEMS: As noted above. PHYSICAL EXAMINATION: GENERAL: Morbidly obese. VITAL SIGNS: Blood pressure of 106/60 with heart rate in the 60s, 92% sats on room air. NECK: Unable to assess for JVD. She has short, round neck. LUNGS: Decreased breath sounds at the bases. CARDIAC: Regular rate and rhythm. ABDOMEN: Again obese, soft. EXTREMITIES: Show 3+ edema bilaterally up to the knees. There is no asterixis. LABORATORY DATA: Hemoglobin 8.4, hematocrit 27.1, white blood cell count 9.8. Sodium 137, potassium 5.6, chloride 102, bicarb 26, BUN 75, creatinine 5.8. In reviewing her serum creatinines over the past several months, they have been anywhere from 5.3 to 6.3. IMPRESSION: 81-YEAR-OLD MORBIDLY OBESE DIABETIC WITH STAGE 5 KIDNEY DISEASE AND MARKED FLUID OVERLOAD WITH MULTIPLE CHRONIC MEDICAL PROBLEMS. 1. Advanced stage 5 chronic kidney disease. The patient is now basically at end-stage renal disease and we will need to start renal replacement therapy in the near future. She has no overt uremic symptoms and the indication for dialysis would be for volume management at this point in time. Therefore, we can wait on starting her on dialysis, but rather try and diurese her and then see how she responds. There is a sub group of patients that have renal congestion and when you diurese them, they actually help improve renal function and she might fall into that category. The one looming question is whether she can tolerate diuresis as her blood pressure runs low, most likely has pulmonary hypertension, and may have challenges in terms of cardiac output if we try and diurese her, which we see in patients like this who have right heart failure and pulmonary hypertension at times. 2. The etiology for advanced kidney disease is presumably diabetic, hypertensive, cardiorenal syndrome. 3. Hypervolemia, multifactorial including advanced kidney disease along with her cardiac dysfunction causing fluid retention state. 4. Anemia. She would be a candidate for epo and/or iron to maintain her hemoglobin 9-10 range. 5. 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 We will check an intact PTH and phosphorus and treat accordingly. RECOMMENDATIONS: At this time include a trial of Lasix 80 mg IV q.8 hours. Monitor urine output and renal function. Avoid nephrotoxins. Check hepatitis B panel in preparation that she may need to start on dialysis. Protect her nondominant arm for future AV fistula. May need to get Cardiology involved to see what can be done to try and support her blood pressure as we try and diurese her. In particular, she may be a candidate for midodrine to increase her blood pressure as we try and diurese her. We will follow the patient closely with the team. MD MARICEL Kunz/JAYLON / [phone]
[2022-03-04] MEDS: 0.9 % Sodium Chloride Flush 3 ML SYRINGE IVFLUSH ×4 (01:07→20:38)
[2022-03-04] MEDS: Acetaminophen 1,000 MG/100 ML PIGGYBACK 400 MG IV ×3 (01:08→20:36)
[2022-03-04] MEDS: Omeprazole 20 MG CAPSULE.DR PO (05:57)
[2022-03-04 06:42] LABS: Hemoglobin 8.1 g/dl (12.0-16.0); Mean Corpuscular HGB Conc 31.2 g/dl (31.0-35.0); Mean Corpuscular Hemoglobin 28.5 pg (27.0-33.0); Mean Corpuscular Volume 91.5 fL (80.0-98.0); Mean Platelet Volume 9.9 fL (9.4-12.3); Platelet Count 129 X10*3/uL (160-400); Red Blood Count 2.84 X10*6/uL (4.20-5.50); Red Cell Distribution Width 17.9 % (11.0-16.0); White Blood Count 6.7 X10*3/uL (4.8-10.8)
[2022-03-04 07:23] LABS: Anion Gap 19 (12-20); Blood Urea Nitrogen 75 mg/dL (9-16); Calcium 9.5 mg/dL (8.4-10.2); Carbon Dioxide 24 mmol/L (22-29); Chloride 102 mmol/L (96-108); Creatinine Clr Calc Pharmacy 10.2; Estimated Glomerular Filt Rate 7; Glucose Random 110 mg/dL (60-115); Potassium 4.9 mmol/L (3.3-5.1); Sodium 140 mmol/L (135-145)
[2022-03-04 07:30] LABS: Glucose, Whole Blood 125 mg/dL (60-115)
[2022-03-04 08:05] LABS: Iron 44 mcg/dL (30-160)
[2022-03-04 08:23] LABS: Ferritin 210 ng/mL (10-250)
[2022-03-04 08:24] LABS: Percent Iron Saturation 22 % (15-50); Total Iron Binding Capacity 201 mcg/dL (228-428); Unsaturated Iron Binding 157 ug/dL
[2022-03-04 08:46] LABS: Folate 9.3 ng/mL (> or = 4.0); Vitamin B12 489 pg/mL (200-900)
--- NOTE | 2022-03-04 09:02 | ECG_ITS ---
Test Reason : chf Blood Pressure : / mmHG Vent. Rate : 059 BPM Atrial Rate : 000 BPM P-R Int : 000 ms QRS Dur : 164 ms QT Int : 542 ms P-R-T Axes : 000 -03 171 degrees QTc Int : 536 ms Undetermined rhythm Possible ectopic atrial rhythm? Left bundle branch block Abnormal ECG When compared with ECG of 03-MAR-2022 06:49, Previous ECG has undetermined rhythm, needs review T wave inversion less evident in Lateral leads Referred By: Peter Winston Electronically Signed By:PETER WINSTON
[2022-03-04] MEDS: Lidocaine 4 % Patch ADH..PATCH 1 PATCH TRANSDERMA (09:04)
[2022-03-04] MEDS: Aspirin 81 MG TAB.CHEW PO (09:04)
[2022-03-04] MEDS: calcitrioL 0.25 MCG CAPSULE PO (09:04)
[2022-03-04] MEDS: Furosemide 100 MG/10 ML VIAL 80 MG IVPUSH ×2 (09:04→16:33)
[2022-03-04] MEDS: allopurinoL 100 MG TABLET 200 MG PO (09:04)
[2022-03-04] MEDS: Docusate Sodium 100 MG CAPSULE PO ×2 (09:05→20:37)
[2022-03-04] MEDS: Isosorbide Mononitrate 60 MG TAB.ER.24H PO (09:05)
[2022-03-04] MEDS: Amiodarone HCL 200 MG TABLET PO (09:05)
[2022-03-04] MEDS: Cholecalciferol (Vitamin D3) 25 MCG TABLET PO (09:05)
[2022-03-04] MEDS: polyethylene glycoL 3350 17 GM POWD.PACK PO (09:06)
--- NOTE | 2022-03-04 09:10 | PM.PNGS ---
Subjective Subjective Date of Service: 03/04/22 Interval history: underwent manual disimpaction yesterday given laxatives has passed a lot of stools overnight feels much better says pain on lower abd and rectum has resolved Physical Exam Vital Signs: Vital Signs: Last Vital Signs Temp 97.2 F 03/04/22 07:55 Pulse 54 03/04/22 07:55 Resp 17 03/04/22 07:55 BP 126/66 03/04/22 07:55 Pulse Ox 98 03/04/22 07:55 O2 Del Method 03/04/22 03:30 O2 Flow Rate 2 03/03/22 07:41 BMI result Body Mass Index 37.5 Const: General: comfortable and no acute distress Resp: Effort & Inspection: normal respiratory effort Cardio: Rhythm: regular rhythm GI: Palpation (GI): Soft to palpation, not firm, nontender and no guarding Objective Data Active Medications Allopurinol (Allopurinol 100 Mg Tablet) 200 mg PO DAILY [facility] Last Admin: 03/04/22 09:04 Dose: 200 mg Documented By: ANDRZEJ Amiodarone HCl (Amiodarone Hcl 200 Mg Tablet) 200 mg PO DAILY [facility] Last Admin: 03/04/22 09:05 Dose: 200 mg Documented By: ANDRZEJ Aspirin (Aspirin 81 Mg Tab.Chew) 81 mg PO DAILY [facility] Last Admin: 03/04/22 09:04 Dose: 81 mg Documented By: ANDRZEJ Atorvastatin Calcium (Atorvastatin Calcium 80 Mg Tablet) 80 mg PO BEDTIME [facility] Last Admin: 03/03/22 20:42 Dose: 80 mg Documented By: SARAH BETH Calcitriol (Calcitriol 0.25 Mcg Capsule) 0.25 mcg PO DAILY [facility] Last Admin: 03/04/22 09:04 Dose: 0.25 mcg Documented By: ANDRZEJ Dextrose (Dextrose 50 % 25 Gm/50 Ml Syringe) 25 gm IVPUSH Q15M PRN; Protocol PRN Reason: per Hypoglycemia Standing Ord. Docusate Sodium (Docusate Sodium 100 Mg Capsule) 100 mg PO BID [facility] Last Admin: 03/04/22 09:05 Dose: 100 mg Documented By: ANDRZEJ Furosemide (Furosemide 100 Mg/10 Ml Vial) 80 mg IVPUSH BID@0900,1800 [facility]; Protocol Last Admin: 03/04/22 09:04 Dose: 80 mg Documented By: ANDRZEJ Glucose (Glucose Gel 15 Gm Gel..Gram.) 15 gm PO Q15M PRN; Protocol PRN Reason: per Hypoglycemia Standing Ord. Ceftriaxone Sodium 1 gm/ (Sodium Chloride) 50 mls @ 100 mls/hr IV Q24H [facility] Acetaminophen (Ofirmev) 1,000 mg in 100 mls @ 400 mls/hr IV Q6H [facility] Last Infusion: 03/04/22 06:19 Dose: 400 mls/hr Documented By: TON Insulin Human Lispro (Insulin Lispro 100 Unit/Ml 3 Ml Vial) 0 unit SUBCUT QIDACHS [facility]; Protocol Last Admin: 03/04/22 07:35 Dose: Not Given Documented By: ANDRZEJ Non-Admin Reason: No Insulin Coverage Isosorbide Mononitrate (Isosorbide Mononitrate 60 Mg Tab.Er.24h) 60 mg PO DAILY [facility]; Protocol Last Admin: 03/04/22 09:05 Dose: 60 mg Documented By: ANDRZEJ Latanoprost (Latanoprost 0.005 % Ophth Cyndi 2.5 Ml Drops) 1 drop EYE-BOTH BEDTIME [facility] Last Admin: 03/03/22 20:40 Dose: 1 drop Documented By: SENIAASY Lidocaine (Lidocaine 4 % Patch Adh..Patch) 1 patch TRANSDERMA DAILY [facility]; Protocol Last Admin: 03/04/22 09:04 Dose: 1 patch Documented By: ANDRZEJ Melatonin (Melatonin 3 Mg Tablet) 9 mg PO BEDTIME PRN PRN Reason: Sleep Omeprazole (Omeprazole 20 Mg Chin.) 20 mg PO DAILY@0630 [facility] Last Admin: 03/04/22 05:57 Dose: 20 mg Documented By: TON Ondansetron HCl (Ondansetron Hcl 4 Mg/2 Ml Vial) 4 mg IVPUSH Q8H PRN PRN Reason: Nausea and Vomiting Pharmacy Consult (Consult Rx Perform Med Rec) 1 each MISCELLANE ONCE PRN PRN Reason: Consult order Polyethylene Glycol (Polyethylene Glycol 3350 17 Gm Powd.Pack) 17 gm PO DAILY [facility] Last Admin: 03/04/22 09:06 Dose: 17 gm Documented By: ANDRZEJ Sodium Chloride (0.9 % Sodium Chloride Flush 3 Ml Syringe) 3 ml IVFLUSH QSHIFT [facility] Last Admin: 03/04/22 09:05 Dose: 3 ml Documented By: ANDRZEJ Vitamin D (Cholecalciferol (Vitamin D3) 25 Mcg Tablet) 25 mcg PO DAILY [facility] Last Admin: 03/04/22 09:05 Dose: 25 mcg Documented By: ANDRZEJ Labs 03/04/22 06:06 03/04/22 06:06 Labs: Laboratory Results - last 24 hr 03/03/22 03/03/22 03/03/22 07:35 07:35 09:20 MCV MCH MCHC RDW Plt Count MPV Absolute Nucleated RBC Nucleated RBC % (auto) Anion Gap Estim Creat Clear Calc Estimated GFR POC Glucose Random Glucose Lactic Acid 2.1 H* Lactic Acid F/U @ 2Hr Calcium Iron TIBC % Saturation Unsat Iron Binding Ferritin Troponin I High Sens 57.8 H* B-Natriuretic Peptide 183 H Vitamin B12 Folate COVID-19 ([facility]) COVID-19 Clin Com 03/03/22 03/03/22 03/03/22 09:50 11:14 11:14 MCV MCH MCHC RDW Plt Count MPV Absolute Nucleated RBC Nucleated RBC % (auto) Anion Gap 15 Estim Creat Clear Calc 9.9 Estimated GFR 7 POC Glucose Random Glucose 183 H Lactic Acid Lactic Acid F/U @ 2Hr 1.2 Calcium 9.6 Iron TIBC % Saturation Unsat Iron Binding Ferritin Troponin I High Sens B-Natriuretic Peptide Vitamin B12 Folate COVID-19 ([facility]) Negative COVID-19 Clin Com See Note 03/03/22 03/03/22 03/03/22 11:14 15:12 20:37 MCV MCH MCHC RDW Plt Count MPV Absolute Nucleated RBC Nucleated RBC % (auto) Anion Gap Estim Creat Clear Calc Estimated GFR POC Glucose 146 H 159 H Random Glucose Lactic Acid 1.2 Lactic Acid F/U @ 2Hr Calcium Iron TIBC % Saturation Unsat Iron Binding Ferritin Troponin I High Sens B-Natriuretic Peptide Vitamin B12 Folate COVID-19 ([facility]) COVID-19 Clin Com 03/04/22 03/04/22 03/04/22 06:06 06:06 06:06 MCV 91.5 MCH 28.5 MCHC 31.2 RDW 17.9 H Plt Count 129 L MPV 9.9 Absolute Nucleated RBC 0.000 Nucleated RBC % (auto) 0.0 Anion Gap 19 Estim Creat Clear Calc 10.2 Estimated GFR 7 POC Glucose Random Glucose 110 Lactic Acid Lactic Acid F/U @ 2Hr Calcium 9.5 Iron 44 TIBC 201 L % Saturation 22 Unsat Iron Binding 157 Ferritin 210 Troponin I High Sens B-Natriuretic Peptide Vitamin B12 489 Folate 9.3 COVID-19 ([facility]) COVID-19 Clin Com 03/04/22 07:23 MCV MCH MCHC RDW Plt Count MPV Absolute Nucleated RBC Nucleated RBC % (auto) Anion Gap Estim Creat Clear Calc Estimated GFR POC Glucose 125 H Random Glucose Lactic Acid Lactic Acid F/U @ 2Hr Calcium Iron TIBC % Saturation Unsat Iron Binding Ferritin Troponin I High Sens B-Natriuretic Peptide Vitamin B12 Folate COVID-19 ([facility]) COVID-19 Clin Com Procedures Date of Service Date of Service: 03/04/22 Progress Note: A&P Assessment and plan (1) Fecal impaction in rectum: Status: Acute Assessment and Plan: resolved has been passing good stools will need to be on bowel regimen at home - Colace BID, fiber supplement, Miralax looks well has other medical issues Time Spent With Patient Time: Total time managing care of this patient today ____ minutes. Quality Stroke Does the patient have a stroke diagnosis?: No VTE Prior VTE?: No VTE Risk Level:: Medical - moderate - high VTE Device Contraindication: Treatment Not Indicated VTE Drug Contraindication: N/A - Med Ordered
--- NOTE | 2022-03-04 09:57 | MHC.CM.PN ---
pt lives alone has mow and vna that provides sn and physical therapy has own ride home vax x 3
--- NOTE | 2022-03-04 10:39 | PM.CNCAR ---
History of Present Illness History of Present Illness Date of Service: 03/04/22 Chief complaint: Constipation Narrative: This is a cardiology consultation regarding possible congestive heart failure. Fairly complicated and most recently seen by Cady Escobedo in our office. Primary infrastructure director is Dr. Pandya. Has numerous medical issues including obesity, hypertension, diabetes, dyslipidemia, chronic kidney disease, fairly advanced, cardiomyopathy, chronic heart failure with preserved ejection fraction, pulmonary hypertension among others. She most recently had a CardioMEMS device placed for heart failure management. Current admission is more for GI issues like constipation and she also states she could not pee as well. However, it was felt that she might also have some congestive heart failure and hence we have been asked to see her. However, patient states that her breathing is actually just about the same as usual. She also has generalized swelling but they also unchanged from before. Review of Systems Review of Systems: Yes all other systems are reviewed and are negative Constitutional: Constitutional: Reports as per HPI Eyes: Eyes: Reports as per HPI ENT: Reports as per HPI Cardiovascular: Cardiovascular: Reports as per HPI, Denies acrocyanosis, Denies cool extremities, Denies chest pain, Denies leg edema, Denies lightheadedness, Denies palpitations and Denies dyspnea Respiratory: Respiratory: Reports as per HPI, Reports no additional respiratory complaints and Denies dyspnea Gastrointestinal: Gastrointestinal: Reports as per HPI and Reports no additional gastrointestinal complaints Genitourinary: Genitourinary: Reports as per HPI Musculoskeletal: Musculoskeletal: Reports no additional musculoskeletal complaints and Reports as per HPI Integumentary/Breasts: Skin/Breast: Reports system reviewed and no additional complaints, except as docu Neurologic: Reports system reviewed and no additional complaints, except as documented and Reports as per HPI Psychiatric: Psychiatric: Reports no additional psychiatric complaints and Reports as per HPI Endocrine: Endocrine: Reports no additional endocrine complaints, Reports as per HPI and Denies palpitations Hematologic/Lymphatic: Hematologic/Lymphatic: Reports no additional hematologic/lymphatic complaints and Reports as per HPI Allergic/Immunologic: Allergic/Immunologic: Reports no additional allergic/immunologic complaints and Reports as per HPI [facility] Past Medical History Medical History Anxiety and depression Arthritis Back pain Benign essential hypertension Chronic kidney disease, stage 4 (severe) Chronic kidney disease, stage V Constipation Essential hypertension Fecal impaction in rectum GERD (gastroesophageal reflux disease) Gout History of kidney cancer Hyperlipidemia LDL goal <100 Left bundle branch block Morbid obesity with BMI of 40.0-44.9, adult Obesity due to excess calories Obstructive sleep apnea Personal history of renal cell carcinoma Psoriasis Pure hypercholesterolemia Sleep apnea Squamous cell carcinoma in situ Supraventricular tachycardia Type 2 diabetes mellitus with chronic kidney disease Type 2 diabetes mellitus with other diabetic kidney complication Vitamin D deficiency Family History Family History Mother Diabetes Father No problems noted. Surgical History Surgical History History of carpal tunnel release of both wrists History of cryosurgery History of surgery Hx of colonoscopy Hx of hysterectomy Hx of mammogram Hx of tonsillectomy Hx of total knee replacement Social History Social History Household Members: Family and None Household Members Other:: daughter has being staying with pt for the past 2 weeks Housing: House Housing Other:: 2nd floor - uses stair chair Are you a primary rn palliative care to a significant other at home: No Do you presently have visiting nurse or other home services: Yes Alcohol intake: never Patient Tobacco Use Status: Never used Tobacco Smoked in Last 30 Days: No e-Cigarette/Vaping Use: Never Used Second Hand Smoke Exposure: No Use of substances other than those prescribed or required for medical reasons: No Currently Displaying Signs/Symptoms of Drug Intoxication Withdrawal: No Any prior treatment program specific to substance use: No (n/a) Have you been hit, kicked, punched, or otherwise hurt by someone within the past year? If so, by whom?: No Do you feel safe in your current relationship?: Yes Is there a partner from a previous relationship who is making you feel unsafe now?: No Are you made to feel afraid or neglected: No Advance Directives: No Advance Directives Date on File: 12/15/21 Do you have thoughts of harming others: None Do you have a plan to hurt others: No Plan Recently lost weight without trying: Yes How much weight loss: 24-33 pounds Eating poorly because of decreased appetite: Yes Nutrition screen score: 6 Nutrition Risks: No Nutritional Risk Patient : No : No Poor oral hygiene: No service: No Current occupational status: retired Cognitive needs: Yes (walker ) Hearing needs: No Vision needs: Yes (glasses) Meds Allergies Allergy/AdvReac Type Severity Reaction Status Date / Time amoxicillin [Amoxicillin] Allergy Severe VAGINAL Verified 02/22/22 14:56 ITCH bee pollen [bee stings] Allergy Severe Anaphylaxis Verified 02/22/22 14:56 hydrocodone [HYDROCODONE] Allergy Severe severe Verified 02/22/22 14:56 lethargy Active Medications: Current Medications Allopurinol (Allopurinol 100 Mg Tablet) 200 mg PO DAILY [facility] Last Admin: 03/04/22 09:04 Dose: 200 mg Amiodarone HCl (Amiodarone Hcl 200 Mg Tablet) 200 mg PO DAILY [facility] Last Admin: 03/04/22 09:05 Dose: 200 mg Aspirin (Aspirin 81 Mg Tab.Chew) 81 mg PO DAILY [facility] Last Admin: 03/04/22 09:04 Dose: 81 mg Atorvastatin Calcium (Atorvastatin Calcium 80 Mg Tablet) 80 mg PO BEDTIME [facility] Last Admin: 03/03/22 20:42 Dose: 80 mg Calcitriol (Calcitriol 0.25 Mcg Capsule) 0.25 mcg PO DAILY [facility] Last Admin: 03/04/22 09:04 Dose: 0.25 mcg Dextrose (Dextrose 50 % 25 Gm/50 Ml Syringe) 25 gm IVPUSH Q15M PRN; Protocol PRN Reason: per Hypoglycemia Standing Ord. Docusate Sodium (Docusate Sodium 100 Mg Capsule) 100 mg PO BID [facility] Last Admin: 03/04/22 09:05 Dose: 100 mg Furosemide (Furosemide 100 Mg/10 Ml Vial) 80 mg IVPUSH BID@0900,1800 [facility]; Protocol Last Admin: 03/04/22 09:04 Dose: 80 mg Glucose (Glucose Gel 15 Gm Gel..Gram.) 15 gm PO Q15M PRN; Protocol PRN Reason: per Hypoglycemia Standing Ord. Ceftriaxone Sodium 1 gm/ (Sodium Chloride) 50 mls @ 100 mls/hr IV Q24H [facility] Acetaminophen (Ofirmev) 1,000 mg in 100 mls @ 400 mls/hr IV Q6H [facility] Last Infusion: 03/04/22 06:19 Dose: Infused Insulin Human Lispro (Insulin Lispro 100 Unit/Ml 3 Ml Vial) 0 unit SUBCUT QIDACHS [facility]; Protocol Last Admin: 03/04/22 07:35 Dose: Not Given Isosorbide Mononitrate (Isosorbide Mononitrate 60 Mg Tab.Er.24h) 60 mg PO DAILY [facility]; Protocol Last Admin: 03/04/22 09:05 Dose: 60 mg Latanoprost (Latanoprost 0.005 % Ophth Cyndi 2.5 Ml Drops) 1 drop EYE-BOTH BEDTIME [facility] Last Admin: 03/03/22 20:40 Dose: 1 drop Lidocaine (Lidocaine 4 % Patch Adh..Patch) 1 patch TRANSDERMA DAILY [facility]; Protocol Last Admin: 03/04/22 09:04 Dose: 1 patch Melatonin (Melatonin 3 Mg Tablet) 9 mg PO BEDTIME PRN PRN Reason: Sleep Omeprazole (Omeprazole 20 Mg Capsule.Dr) 20 mg PO DAILY@0630 [facility] Last Admin: 03/04/22 05:57 Dose: 20 mg Ondansetron HCl (Ondansetron Hcl 4 Mg/2 Ml Vial) 4 mg IVPUSH Q8H PRN PRN Reason: Nausea and Vomiting Pharmacy Consult (Consult Rx Perform Med Rec) 1 each MISCELLANE ONCE PRN PRN Reason: Consult order Polyethylene Glycol (Polyethylene Glycol 3350 17 Gm Powd.Pack) 17 gm PO DAILY [facility] Last Admin: 03/04/22 09:06 Dose: 17 gm Sodium Chloride (0.9 % Sodium Chloride Flush 3 Ml Syringe) [facility] Admin: 03/04/22 09:05 Dose: 3 ml Vitamin D (Cholecalciferol (Vitamin D3) 25 Mcg Tablet) 25 mcg PO DAILY [facility] Last Admin: 03/04/22 09:05 Dose: 25 mcg Home Medications Medication Instructions Recorded Confirmed Last Taken Type cholecalciferol (vitamin D3) 25 25 mcg PO DAILY 12/04/19 03/03/22 03/02/22 History mcg (1,000 unit) capsule lancets 33 gauge #100 ea 12/04/19 02/22/22 Unknown History allopurinol 100 mg tablet 200 mg PO DAILY 12/20/20 03/03/22 03/02/22 History latanoprost 0.005 % eye drops 1 drp ophthalmic (eye) BEDTIME 01/12/21 03/03/22 12/13/21 History flash glucose sensor (FreeStyle 05/28/21 02/22/22 Unknown History Charly 2 Sensor kit) melatonin 5 mg capsule 10 mg PO BEDTIME PRN Sleep 07/08/21 03/03/22 Unknown History calcitriol 0.25 mcg capsule 0.25 mcg PO DAILY 12/14/21 03/03/22 03/02/22 History insulin glargine U-300 conc 300 20 unit subcut BEDTIME 12/14/21 03/03/22 12/13/21 History unit/mL (3 mL) subcutaneous pen atorvastatin 80 mg tablet 80 mg PO BEDTIME 01/19/22 03/03/22 03/01/22 History insulin lispro 100 unit/mL See Protocol subcut TIDAC 02/22/22 03/03/22 Unknown History subcutaneous solution bumetanide 1 mg tablet 0.5 tab PO DAILY@1800 03/03/22 03/03/22 03/02/22 History bumetanide 1 mg tablet 1 mg PO DAILY 03/03/22 03/03/22 03/02/22 History docusate sodium 100 mg capsule 200 mg PO BEDTIME 03/03/22 03/03/22 Unknown History pantoprazole 40 mg tablet,delayed 40 mg PO DAILY@0630 03/03/22 03/03/22 Unknown History release Physical Exam Vital Signs: Vital Signs: Last Vital Signs Temp 97.2 F 03/04/22 07:55 Pulse 54 03/04/22 07:55 Resp 17 03/04/22 07:55 BP 126/66 03/04/22 07:55 Pulse Ox 98 03/04/22 07:55 O2 Del Method 03/04/22 03:30 O2 Flow Rate 2 03/03/22 07:41 BMI result Body Mass Index 37.5 Const: Other: Looks generally edematous General: comfortable and no acute distress Orientation/consciousness: patient oriented x3 HEENT: Other: Unremarkable Head: Yes normal to inspection Neck: Neck: Yes normal visual inspection Chest: Chest palpation & inspection: normal inspection of the chest Resp: Auscultation: clear to auscultation bilaterally Cardio: Palpation: normal PMI Heart sounds: S1 normal heart sound present, S2 normal heart sound present, no gallops, no murmurs and no rubs GI: Palpation (GI): Soft to palpation Back/Spine/Pelvis: Other: unremarkable Skin: General skin exam: no rashes or lesions noted Neuro: General: patient oriented x3 Extrem: Other: 2 to 3+ edema bilateral. General: Yes normal to inspection Psych: Mental Status: mental status grossly normal Objective Labs and Meds 03/04/22 06:06 03/04/22 06:06 Lab results: Laboratory Results - last 24 hr 03/03/22 03/03/22 03/03/22 07:35 11:14 11:14 WBC RBC Hgb Hct MCV MCH MCHC RDW Plt Count MPV Absolute Nucleated RBC Nucleated RBC % (auto) Sodium 137 Potassium 5.6 H Chloride 102 Carbon Dioxide 26 Anion Gap 15 BUN 75 H Creatinine 5.86 H* Estim Creat Clear Calc 9.9 Estimated GFR 7 POC Glucose Random Glucose 183 H Lactic Acid 2.1 H* Lactic Acid F/U @ 2Hr 1.2 Calcium 9.6 Iron TIBC % Saturation Unsat Iron Binding Ferritin Vitamin B12 Folate 03/03/22 03/03/22 03/03/22 11:14 15:12 20:37 WBC RBC Hgb Hct MCV MCH MCHC RDW Plt Count MPV Absolute Nucleated RBC Nucleated RBC % (auto) Sodium Potassium Chloride Carbon Dioxide Anion Gap BUN Creatinine Estim Creat Clear Calc Estimated GFR POC Glucose 146 H 159 H Random Glucose Lactic Acid 1.2 Lactic Acid F/U @ 2Hr Calcium Iron TIBC % Saturation Unsat Iron Binding Ferritin Vitamin B12 Folate 03/04/22 03/04/22 03/04/22 06:06 06:06 06:06 WBC 6.7 RBC 2.84 L Hgb 8.1 L Hct 26.0 L MCV 91.5 MCH 28.5 MCHC 31.2 RDW 17.9 H Plt Count 129 L MPV 9.9 Absolute Nucleated RBC 0.000 Nucleated RBC % (auto) 0.0 Sodium 140 Potassium 4.9 Chloride 102 Carbon Dioxide 24 Anion Gap 19 BUN 75 H Creatinine 5.64 H* Estim Creat Clear Calc 10.2 Estimated GFR 7 POC Glucose Random Glucose 110 Lactic Acid Lactic Acid F/U @ 2Hr Calcium 9.5 Iron 44 TIBC 201 L % Saturation 22 Unsat Iron Binding 157 Ferritin 210 Vitamin B12 489 Folate 9.3 03/04/22 07:23 WBC RBC Hgb Hct MCV MCH MCHC RDW Plt Count MPV Absolute Nucleated RBC Nucleated RBC % (auto) Sodium Potassium Chloride Carbon Dioxide Anion Gap BUN Creatinine Estim Creat Clear Calc Estimated GFR POC Glucose 125 H Random Glucose Lactic Acid Lactic Acid F/U @ 2Hr Calcium Iron TIBC % Saturation Unsat Iron Binding Ferritin Vitamin B12 Folate ECG Interpretation: Admission EKG reviewed. She has a left bundle-branch block pattern. Rhythm is difficult to see. Initially thought to be atrial fibrillation but probably not. On telemetry, could see evidence of atrial activity but not always followed by QRS. Hence could be some form of ectopic atrial rhythm/atrial tachycardia with block. Imaging Radiologist's impression: Impressions [facility] X-Ray 03/03/22 21:02 IMPRESSION: Large volume of stool in colon. Nonobstructive bowel pattern. Assessment and Plan (1) Acute on chronic heart failure with preserved ejection fraction (HFpEF): Status: Acute (2) Presence of CardioMEMS HF system: Status: Acute (3) Left bundle branch block: Status: Acute (4) Chronic kidney disease, stage V: Status: Acute Plan In the echocardiogram for his today, LVEF 58%. Moderate diastolic dysfunction. Severe LVH. Inferior wall motion abnormality. Slight valvular calcification. In the previous echocardiogram from December, LVEF of 35-40%. Hence that seems to be some recovery of LVEF. In the prior perfusion imaging study from 2019, normal perfusion. Based on review of CardioMEMS data, very slight increase in PAD to18 mm Hg, but not too high. Overall, slight exacerbation of chronic heart failure with preserved ejection fraction, based on CardioMEMS readings. Renal consultation reviewed. IV Lasix as recommended. Agreed. If that does not work, then may have to pursue dialysis. If blood pressure is an issue, then hold off nitrates. With regard to the rhythm, do not think it is atrial fibrillation. Continue amiodarone. Will follow up with you. Time Spent With Patient Time: Total time managing care of this patient today 75 minutes. Procedures Date of Service Date of Service: 03/04/22
[2022-03-04 11:13] LABS: Glucose, Whole Blood 97 mg/dL (60-115)
--- NOTE | 2022-03-04 11:33 | P.PNIM_ITS ---
Subjective Subjective Date of Service: 03/04/22 Interval History: Fecal impaction/constipation,advanced kidney disease. ?pneumonia Review of Systems sob seems improvin reviewed ekg and tele -less likely afib. Physical Exam Vital Signs: Vital Signs: Last Vital Signs Temp 97.2 F 03/04/22 07:55 Pulse 54 03/04/22 07:55 Resp 17 03/04/22 07:55 BP 126/66 03/04/22 07:55 Pulse Ox 98 03/04/22 07:55 O2 Del Method 03/04/22 03:30 O2 Flow Rate 2 03/03/22 07:41 BMI result Body Mass Index 37.5 Appearance: Alert.? Oriented X3.? not in distress.? cvs: rrr, [id number] , no murmur res: air entry fair , diminshed at bases . abd: no rebound or guarding ,abd pain somewhat improving, bs present. ext pulses present , no cyanosis . neuro: axo3 , nonfocal. Objective Data Active Medications Allopurinol (Allopurinol 100 Mg Tablet) 200 mg PO DAILY [facility] Last Admin: 03/04/22 09:04 Dose: 200 mg Documented By: ANDRZEJ Amiodarone HCl (Amiodarone Hcl 200 Mg Tablet) 200 mg PO DAILY [facility] Last Admin: 03/04/22 09:05 Dose: 200 mg Documented By: ANDRZEJ Aspirin (Aspirin 81 Mg Tab.Chew) 81 mg PO DAILY [facility] Last Admin: 03/04/22 09:04 Dose: 81 mg Documented By: ANDRZEJ Atorvastatin Calcium (Atorvastatin Calcium 80 Mg Tablet) 80 mg PO BEDTIME [facility] Last Admin: 03/03/22 20:42 Dose: 80 mg Documented By: SARAH BETH Calcitriol (Calcitriol 0.25 Mcg Capsule) 0.25 mcg PO DAILY [facility] Last Admin: 03/04/22 09:04 Dose: 0.25 mcg Documented By: ANDRZEJ Dextrose (Dextrose 50 % 25 Gm/50 Ml Syringe) 25 gm IVPUSH Q15M PRN; Protocol PRN Reason: per Hypoglycemia Standing Ord. Docusate Sodium (Docusate Sodium 100 Mg Capsule) 100 mg PO BID [facility] Last Admin: 03/04/22 09:05 Dose: 100 mg Documented By: ANDRZEJ Furosemide (Furosemide 100 Mg/10 Ml Vial) 80 mg IVPUSH BID@0900,1800 [facility]; Protocol Last Admin: 03/04/22 09:04 Dose: 80 mg Documented By: ANDRZEJ Glucose (Glucose Gel 15 Gm Gel..Gram.) 15 gm PO Q15M PRN; Protocol PRN Reason: per Hypoglycemia Standing Ord. Ceftriaxone Sodium 1 gm/ (Sodium Chloride) 50 mls @ 100 mls/hr IV Q24H [facility] Acetaminophen (Ofirmev) 1,000 mg in 100 mls @ 400 mls/hr IV Q6H [facility] Last Infusion: 03/04/22 06:19 Dose: 400 mls/hr Documented By: TON Insulin Human Lispro (Insulin Lispro 100 Unit/Ml 3 Ml Vial) 0 unit SUBCUT QIDACHS [facility]; Protocol Last Admin: 03/04/22 07:35 Dose: Not Given Documented By: ANDRZEJ Non-Admin Reason: No Insulin Coverage Isosorbide Mononitrate (Isosorbide Mononitrate 60 Mg Tab.Er.24h) 60 mg PO DAILY [facility]; Protocol Last Admin: 03/04/22 09:05 Dose: 60 mg Documented By: ANDRZEJ Latanoprost (Latanoprost 0.005 % Ophth Cyndi 2.5 Ml Drops) 1 drop EYE-BOTH BEDTIME [facility] Last Admin: 03/03/22 20:40 Dose: 1 drop Documented By: SARAH BETH Lidocaine (Lidocaine 4 % Patch Adh..Patch) 1 patch TRANSDERMA DAILY [facility]; Protocol Last Admin: 03/04/22 09:04 Dose: 1 patch Documented By: ANDRZEJ Melatonin (Melatonin 3 Mg Tablet) 9 mg PO BEDTIME PRN PRN Reason: Sleep Omeprazole (Omeprazole 20 Mg Capsule.) 20 mg PO DAILY@0630 [facility] Last Admin: 03/04/22 05:57 Dose: 20 mg Documented By: TON Ondansetron HCl (Ondansetron Hcl 4 Mg/2 Ml Vial) 4 mg IVPUSH Q8H PRN PRN Reason: Nausea and Vomiting Pharmacy Consult (Consult Rx Perform Med Rec) 1 each MISCELLANE ONCE PRN PRN Reason: Consult order Polyethylene Glycol (Polyethylene Glycol 3350 17 Gm Powd.Pack) 17 gm PO DAILY [facility] Last Admin: 03/04/22 09:06 Dose: 17 gm Documented By: ANDRZEJ Sodium Chloride (0.9 % Sodium Chloride Flush 3 Ml Syringe) 3 ml IVFLUSH QSHIFT [facility] Last Admin: 03/04/22 09:05 Dose: 3 ml Documented By: ANDRZEJ Vitamin D (Cholecalciferol (Vitamin D3) 25 Mcg Tablet) 25 mcg PO DAILY [facility] Last Admin: 03/04/22 09:05 Dose: 25 mcg Documented By: ANDRZEJ Labs 03/04/22 06:06 03/04/22 06:06 Labs: Laboratory Results - last 24 hr 03/03/22 03/03/22 03/03/22 07:35 11:14 11:14 MCV MCH MCHC RDW Plt Count MPV Absolute Nucleated RBC Nucleated RBC % (auto) Anion Gap 15 Estim Creat Clear Calc 9.9 Estimated GFR 7 POC Glucose Random Glucose 183 H Lactic Acid 2.1 H* Lactic Acid F/U @ 2Hr 1.2 Calcium 9.6 Iron TIBC % Saturation Unsat Iron Binding Ferritin Vitamin B12 Folate 03/03/22 03/03/22 03/03/22 11:14 15:12 20:37 MCV MCH MCHC RDW Plt Count MPV Absolute Nucleated RBC Nucleated RBC % (auto) Anion Gap Estim Creat Clear Calc Estimated GFR POC Glucose 146 H 159 H Random Glucose Lactic Acid 1.2 Lactic Acid F/U @ 2Hr Calcium Iron TIBC % Saturation Unsat Iron Binding Ferritin Vitamin B12 Folate 03/04/22 03/04/22 03/04/22 06:06 06:06 06:06 MCV 91.5 MCH 28.5 MCHC 31.2 RDW 17.9 H Plt Count 129 L MPV 9.9 Absolute Nucleated RBC 0.000 Nucleated RBC % (auto) 0.0 Anion Gap 19 Estim Creat Clear Calc 10.2 Estimated GFR 7 POC Glucose Random Glucose 110 Lactic Acid Lactic Acid F/U @ 2Hr Calcium 9.5 Iron 44 TIBC 201 L % Saturation 22 Unsat Iron Binding 157 Ferritin 210 Vitamin B12 489 Folate 9.3 03/04/22 03/04/22 07:23 11:05 MCV MCH MCHC RDW Plt Count MPV Absolute Nucleated RBC Nucleated RBC % (auto) Anion Gap Estim Creat Clear Calc Estimated GFR POC Glucose 125 H 97 Random Glucose Lactic Acid Lactic Acid F/U @ 2Hr Calcium Iron TIBC % Saturation Unsat Iron Binding Ferritin Vitamin B12 Folate Assessment and Plan (1) (HFpEF) heart failure with preserved ejection fraction: Status: Acute (2) YULIA (acute kidney injury): Status: Acute (3) Acute on chronic heart failure with preserved ejection fraction (HFpEF): Status: Acute (4) Fecal impaction in rectum: Status: Acute (5) Constipation: Status: Acute (6) Anemia: Status: Acute Plan 81-year-old female with a PMH significant for?diastolic CHF, HLD, HTN, insulin-dependent DM, CKD stage 4, morbid obesity, and chronic constipation?who presents to the ED with?severe abdominal pain and constipation x4 days. Pt will be admitted to telemetry for treatment evaluation of fecal impaction, new onset afib, and acute CHF exacerbation. Fecal impaction/constipation: CT?found a large stool burden in the colon with a large stool ball in the rectum and some perirectal inflammatory changes suggesting early stercoral colitis less likely infection -more likely constipation passing bm's after receiving luxatives/enema,also disimpaction was done by surgery yesterday continue Colace p.o.,Miralax p.o.,Bisacodyl 10 mg suppository advance diet Lidocaine patch and IV Tylenol for pain management Hyperkalemia reolved with lokelfl CKD stage 4 Creatinine stable, but LLE and hyperkalemia concerning for worsening kidney function and possible need for dialysis Nephrology consult acute exacacerbation HFpEf ,also advance renal failure might also be contributin, hypervolemic Patient had CardioMEMS device implanted 2 weeks ago EKG and telemetry reviewed-no AFib Lasix 80mg bid, per nephrology Monitor BP, lytes, mg, I/o: 1 liter negative. Echocardiogram Cardiology consult Question of pneumonia Chest x-ray with evidence of possible pneumonia Ceftriaxone Insulin-dependent DM Hold home meds SSI, lantus Morbid obesity Weight loss encouraged hx of thrombocytopenia ,normocyctic anemia chronic: no eccymosis or bleedin moniter cbc added anemia workup dvt prophylax :s/c scd due to -thrombocytopenia ,normocyctic anemia Pt will require a hospitalization of at least two nights?for treatment eval uation of fecal impaction- required disimpaction,needs and acute CHF exacerbation-iv diuretics ,moniter i/o,anemia workup Time Spent With Patient Time: Total time managing care of this patient today ____ minutes. Quality Stroke Does the patient have a stroke diagnosis?: No VTE Prior VTE?: No VTE Risk Level:: Medical - moderate - high VTE Device Contraindication: Treatment Not Indicated VTE Drug Contraindication: N/A - Med Ordered
--- NOTE | 2022-03-04 11:34 | PM.PNNEP ---
Subjective Subjective Date of Service: 03/04/22 Interval history: seen and examined denies CP/SOB/N/V/D Physical Exam Vital Signs: Vital Signs: Last Vital Signs Temp 97.2 F 03/04/22 07:55 Pulse 54 03/04/22 07:55 Resp 17 03/04/22 07:55 BP 126/66 03/04/22 07:55 Pulse Ox 98 03/04/22 07:55 O2 Del Method 03/04/22 03:30 O2 Flow Rate 2 03/03/22 07:41 BMI result Body Mass Index 37.5 Const: General: no acute distress HEENT: Head: Yes normocephalic and Yes atraumatic Neck: Neck: Yes supple Resp: Auscultation: diminished lung sounds Cardio: Heart sounds: S1 normal heart sound present and S2 normal heart sound present GI: Palpation (GI): Soft to palpation and nontender Extrem: General: Yes edema Objective Data Labs 03/04/22 06:06 03/04/22 06:06 Labs: Laboratory Results - last 24 hr 03/03/22 03/03/22 03/03/22 07:35 11:14 11:14 WBC RBC Hgb Hct MCV MCH MCHC RDW Plt Count MPV Absolute Nucleated RBC Nucleated RBC % (auto) Sodium 137 Potassium 5.6 H Chloride 102 Carbon Dioxide 26 Anion Gap 15 BUN 75 H Creatinine 5.86 H* Estim Creat Clear Calc 9.9 Estimated GFR 7 POC Glucose Random Glucose 183 H Lactic Acid 2.1 H* Lactic Acid F/U @ 2Hr 1.2 Calcium 9.6 Iron TIBC % Saturation Unsat Iron Binding Ferritin Vitamin B12 Folate 03/03/22 03/03/22 03/03/22 11:14 15:12 20:37 WBC RBC Hgb Hct MCV MCH MCHC RDW Plt Count MPV Absolute Nucleated RBC Nucleated RBC % (auto) Sodium Potassium Chloride Carbon Dioxide Anion Gap BUN Creatinine Estim Creat Clear Calc Estimated GFR POC Glucose 146 H 159 H Random Glucose Lactic Acid 1.2 Lactic Acid F/U @ 2Hr Calcium Iron TIBC % Saturation Unsat Iron Binding Ferritin Vitamin B12 Folate 03/04/22 03/04/22 03/04/22 06:06 06:06 06:06 WBC 6.7 RBC 2.84 L Hgb 8.1 L Hct 26.0 L MCV 91.5 MCH 28.5 MCHC 31.2 RDW 17.9 H Plt Count 129 L MPV 9.9 Absolute Nucleated RBC 0.000 Nucleated RBC % (auto) 0.0 Sodium 140 Potassium 4.9 Chloride 102 Carbon Dioxide 24 Anion Gap 19 BUN 75 H Creatinine 5.64 H* Estim Creat Clear Calc 10.2 Estimated GFR 7 POC Glucose Random Glucose 110 Lactic Acid Lactic Acid F/U @ 2Hr Calcium 9.5 Iron 44 TIBC 201 L % Saturation 22 Unsat Iron Binding 157 Ferritin 210 Vitamin B12 489 Folate 9.3 03/04/22 03/04/22 07:23 11:05 WBC RBC Hgb Hct MCV MCH MCHC RDW Plt Count MPV Absolute Nucleated RBC Nucleated RBC % (auto) Sodium Potassium Chloride Carbon Dioxide Anion Gap BUN Creatinine Estim Creat Clear Calc Estimated GFR POC Glucose 125 H 97 Random Glucose Lactic Acid Lactic Acid F/U @ 2Hr Calcium Iron TIBC % Saturation Unsat Iron Binding Ferritin Vitamin B12 Folate Procedures Date of Service Date of Service: 03/04/22 Assessment & Plan Assessment and plan (1) YULIA (acute kidney injury): Status: Acute (2) (HFpEF) heart failure with preserved ejection fraction: Status: Acute (3) Anemia: Status: Acute (4) CKD (chronic kidney disease) stage V requiring chronic dialysis: Status: Acute Plan YULIA superimposed on advanced CKD ? ESRD known CKD due to DM/HTN nephrotic range proteinuria baseline Scr ~ 4-4.5 mg/dl h/o diastolic HF severe restriction in free water clearance REC continue IV furosemide no indication for SHOVEL LOG LOADER OPERATOR protect non dominant arm follow kidney function and electrolytes Time Spent With Patient Time: Total time managing care of this patient today ____ minutes. Progress Note: Quality Stroke Does the patient have a stroke diagnosis?: No
[2022-03-04] MEDS: cefTRIAXone sodium 1 GM in 0.9 % Sodium Chloride 50 ML IV (12:06)
[2022-03-04 15:48] LABS: Glucose, Whole Blood 122 mg/dL (60-115)
[2022-03-04 20:12] LABS: Glucose, Whole Blood 227 mg/dL (60-115)
[2022-03-04] MEDS: Atorvastatin Calcium 80 MG TABLET PO (20:37)
[2022-03-04] MEDS: Insulin Lispro 100 UNIT/ML 3 ML VIAL SUBCUT (20:37)
[2022-03-04] MEDS: Latanoprost 0.005 % Ophth Sol 2.5 ML DROPS 1 DROP EYE-BOTH (20:38)
[2022-03-04] MEDS: traZODone HCL 50 MG TABLET PO (23:35)
[2022-03-05 04:00] VITALS: BP 139/75; PULSE 75; RESP 20; TEMP 36.2; O2SAT 100
[2022-03-05] MEDS: Acetaminophen 1,000 MG/100 ML PIGGYBACK 400 MG IV ×2 (06:19→13:35)
[2022-03-05] MEDS: Omeprazole 20 MG CAPSULE.DR PO (06:19)
[2022-03-05 07:07] VITALS: BP 140/67; PULSE 63; RESP 20; TEMP 36.8; O2SAT 90
[2022-03-05 07:38] LABS: Glucose, Whole Blood 119 mg/dL (60-115)
[2022-03-05 08:42] LABS: Hemoglobin 7.2 g/dl (12.0-16.0)
[2022-03-05 09:04] LABS: Anion Gap 16 (12-20); Blood Urea Nitrogen 76 mg/dL (9-16); Carbon Dioxide 27 mmol/L (22-29); Chloride 101 mmol/L (96-108); Estimated Glomerular Filt Rate 7; Glucose Random 112 mg/dL (60-115); Potassium 5.2 mmol/L (3.3-5.1); Sodium 139 mmol/L (135-145)
--- NOTE | 2022-03-05 09:05 | P.PNNP_ITS ---
Subjective Subjective Date of Service: 03/05/22 Interval history: seen and examined Physical Exam Vital Signs: Vital Signs: Last Vital Signs Temp 98.3 F 03/05/22 07:07 Pulse 63 03/05/22 07:07 Resp 20 03/05/22 07:07 BP 139/75 03/05/22 04:00 Pulse Ox 90 L 03/05/22 07:07 O2 Del Method 03/05/22 07:07 O2 Flow Rate 2 03/03/22 07:41 BMI result Body Mass Index 37.5 Const: General: no acute distress HEENT: Head: Yes normocephalic and Yes atraumatic Neck: Neck: Yes supple Resp: Auscultation: diminished lung sounds Cardio: Heart sounds: S1 normal heart sound present and S2 normal heart sound present GI: Palpation (GI): Soft to palpation and nontender Extrem: General: Yes edema Objective Data Labs 03/05/22 08:10 03/05/22 08:11 Labs: Laboratory Results - last 24 hr 03/04/22 03/04/22 03/04/22 06:06 11:05 15:38 Hgb Hct Sodium Potassium Chloride Carbon Dioxide Anion Gap BUN Creatinine Estim Creat Clear Calc Estimated GFR POC Glucose 97 122 H Random Glucose Calcium Procalcitonin 0.20 03/04/22 03/05/22 03/05/22 20:09 07:21 08:10 Hgb 7.2 L Hct 23.0 L Sodium Potassium Chloride Carbon Dioxide Anion Gap BUN Creatinine Estim Creat Clear Calc Estimated GFR POC Glucose 227 H 119 H Random Glucose Calcium Procalcitonin 03/05/22 08:11 Hgb Hct Sodium 139 Potassium 5.2 H Chloride 101 Carbon Dioxide 27 Anion Gap 16 BUN 76 H Creatinine 5.75 H* Estim Creat Clear Calc 10.0 Estimated GFR 7 POC Glucose Random Glucose 112 Calcium 9.0 Procalcitonin Microbiology Microbiology Results: Microbiology 03/03/22 12:04 Blood - Venous Blood Culture - Preliminary No growth after 24 hours. 03/03/22 12:04 Blood - Venous Blood Culture - Preliminary No growth after 24 hours. Procedures Date of Service Date of Service: 03/05/22 Assessment & Plan Assessment and plan (1) YULIA (acute kidney injury): Status: Acute (2) (HFpEF) heart failure with preserved ejection fraction: Status: Acute (3) Anemia: Status: Acute (4) CKD (chronic kidney disease) stage V requiring chronic dialysis: Status: Acute Plan Scr stable YULIA superimposed on advanced CKD ? ESRD known CKD due to DM/HTN nephrotic range proteinuria baseline Scr ~ 4-4.5 mg/dl h/o diastolic HF severe restriction in free water clearance REC continue IV furosemide procrit [id number] unis sc x 1 (ordered) no indication for RECEIVING AND PROCESSING SUPERVISOR protect non dominant arm follow kidney function and electrolytes Time Spent With Patient Time: Total time managing care of this patient today ____ minutes. Progress Note: Quality Stroke Does the patient have a stroke diagnosis?: No
[2022-03-05] MEDS: Furosemide 100 MG/10 ML VIAL 80 MG IVPUSH ×2 (10:12→17:13)
[2022-03-05] MEDS: Lidocaine 4 % Patch ADH..PATCH 1 PATCH TRANSDERMA (10:18)
[2022-03-05] MEDS: polyethylene glycoL 3350 17 GM POWD.PACK PO (10:18)
[2022-03-05] MEDS: 0.9 % Sodium Chloride Flush 3 ML SYRINGE IVFLUSH ×3 (10:18→22:26)
[2022-03-05] MEDS: Aspirin 81 MG TAB.CHEW PO (10:19)
[2022-03-05] MEDS: Isosorbide Mononitrate 60 MG TAB.ER.24H PO (10:19)
[2022-03-05] MEDS: calcitrioL 0.25 MCG CAPSULE PO (10:19)
[2022-03-05] MEDS: allopurinoL 100 MG TABLET 200 MG PO (10:19)
[2022-03-05] MEDS: Docusate Sodium 100 MG CAPSULE PO ×2 (10:20→22:23)
[2022-03-05] MEDS: Amiodarone HCL 200 MG TABLET PO (10:20)
[2022-03-05] MEDS: Cholecalciferol (Vitamin D3) 25 MCG TABLET PO (10:20)
[2022-03-05 10:59] LABS: Glucose, Whole Blood 197 mg/dL (60-115)
[2022-03-05 11:01] VITALS: BP 144/67; PULSE 67; RESP 16; TEMP 36.7; O2SAT 91
[2022-03-05] MEDS: cefTRIAXone sodium 1 GM in 0.9 % Sodium Chloride 50 ML IV (12:02)
[2022-03-05] MEDS: Insulin Lispro 100 UNIT/ML 3 ML VIAL SUBCUT ×2 (12:02→22:24)
[2022-03-05 15:30] LABS: Glucose, Whole Blood 151 mg/dL (60-115)
[2022-03-05 15:39] VITALS: BP 133/60; PULSE 63; RESP 18; TEMP 36.6; O2SAT 94
[2022-03-05 20:00] VITALS: BP 139/64; PULSE 66; RESP 18; TEMP 36.1; O2SAT 93
[2022-03-05 20:45] LABS: Glucose, Whole Blood 256 mg/dL (60-115)
[2022-03-05] MEDS: Atorvastatin Calcium 80 MG TABLET PO (22:23)
[2022-03-05] MEDS: Melatonin 3 MG TABLET 9 MG PO (22:24)
[2022-03-05] MEDS: Latanoprost 0.005 % Ophth Sol 2.5 ML DROPS 1 DROP EYE-BOTH (22:25)
[2022-03-06] VITALS (9 sets, daily range): BP systolic 129–160; BP diastolic 47–70; PULSE 58–77; RESP 16–20; TEMP 36.1–36.6; O2SAT 90–99
[2022-03-06] MEDS: Acetaminophen 1,000 MG/100 ML PIGGYBACK 400 MG IV (00:11)
--- NOTE | 2022-03-06 01:35 | PM.EVENT ---
Event Note Date of Service: 03/06/22 Time Spent With Patient Time: Total time managing care of this patient today ____ minutes.
[2022-03-06] MEDS: traZODone HCL 50 MG TABLET PO ×2 (04:39→23:45)
[2022-03-06] MEDS: Omeprazole 20 MG CAPSULE.DR PO (06:40)
[2022-03-06 07:31] LABS: Glucose, Whole Blood 105 mg/dL (60-115)
--- NOTE | 2022-03-06 07:51 | PM.PNNEP ---
Subjective Subjective Date of Service: 03/06/22 Interval history: seen and examined feels better Physical Exam Vital Signs: Vital Signs: Last Vital Signs Temp 97 F 03/06/22 04:00 Pulse 65 03/06/22 04:00 Resp 18 03/06/22 04:00 BP 143/65 H 03/06/22 04:00 Pulse Ox 93 03/06/22 04:00 O2 Del Method 03/06/22 04:00 O2 Flow Rate 2 03/03/22 07:41 BMI result Body Mass Index 37.5 Const: General: no acute distress HEENT: Head: Yes normocephalic and Yes atraumatic Neck: Neck: Yes supple Resp: Auscultation: diminished lung sounds Cardio: Heart sounds: S1 normal heart sound present and S2 normal heart sound present GI: Palpation (GI): Soft to palpation and nontender Extrem: General: Yes edema Objective Data Labs 03/05/22 08:10 03/05/22 08:11 Labs: Laboratory Results - last 24 hr 03/05/22 03/05/22 03/05/22 08:10 08:10 08:11 Hgb 7.2 L Hct 23.0 L Sodium 139 Potassium 5.2 H Chloride 101 Carbon Dioxide 27 Anion Gap 16 BUN 76 H Creatinine 5.75 H* Estim Creat Clear Calc 10.0 Estimated GFR 7 POC Glucose Random Glucose 112 Calcium 9.0 Blood Type O Positive Antibody Screen NEGATIVE 03/05/22 03/05/22 03/05/22 10:38 15:15 20:28 Hgb Hct Sodium Potassium Chloride Carbon Dioxide Anion Gap BUN Creatinine Estim Creat Clear Calc Estimated GFR POC Glucose 197 H 151 H 256 H Random Glucose Calcium Blood Type Antibody Screen 03/06/22 07:16 Hgb Hct Sodium Potassium Chloride Carbon Dioxide Anion Gap BUN Creatinine Estim Creat Clear Calc Estimated GFR POC Glucose 105 Random Glucose Calcium Blood Type Antibody Screen Microbiology Microbiology Results: Microbiology 03/03/22 12:04 Blood - Venous Blood Culture - Preliminary No growth after 48 hours. 03/03/22 12:04 Blood - Venous Blood Culture - Preliminary No growth after 48 hours. Procedures Date of Service Date of Service: 03/06/22 Assessment & Plan Assessment and plan (1) YULIA (acute kidney injury): Status: Acute (2) (HFpEF) heart failure with preserved ejection fraction: Status: Acute (3) Anemia: Status: Acute (4) CKD (chronic kidney disease) stage V requiring chronic dialysis: Status: Acute Plan Scr stable YULIA superimposed on advanced CKD ? ESRD known CKD due to DM/HTN nephrotic range proteinuria baseline Scr ~ 4-4.5 mg/dl h/o diastolic HF severe restriction in free water clearance REC transition to oral diuretics procrit [id number] [address]is sc weekly no indication for ENVIRONMENTAL PERMITTING SPECIALIST protect non dominant arm follow kidney function and electrolytes Time Spent With Patient Time: Total time managing care of this patient today ____ minutes. Progress Note: Quality Stroke Does the patient have a stroke diagnosis?: No
[2022-03-06] MEDS: Furosemide 100 MG/10 ML VIAL 80 MG IVPUSH (09:04)
[2022-03-06] MEDS: 0.9 % Sodium Chloride Flush 3 ML SYRINGE IVFLUSH ×3 (09:04→23:46)
[2022-03-06] MEDS: Docusate Sodium 100 MG CAPSULE PO ×2 (09:05→21:05)
[2022-03-06] MEDS: Isosorbide Mononitrate 60 MG TAB.ER.24H PO (09:05)
[2022-03-06] MEDS: Cholecalciferol (Vitamin D3) 25 MCG TABLET PO (09:05)
[2022-03-06] MEDS: Amiodarone HCL 200 MG TABLET PO (09:05)
[2022-03-06] MEDS: allopurinoL 100 MG TABLET 200 MG PO (09:05)
[2022-03-06] MEDS: calcitrioL 0.25 MCG CAPSULE PO (09:05)
[2022-03-06 09:06] LABS: Hematocrit 23.1 % (37.0-47.0); Hemoglobin 7.2 g/dl (12.0-16.0)
[2022-03-06] MEDS: polyethylene glycoL 3350 17 GM POWD.PACK PO (09:06)
[2022-03-06 09:39] LABS: Anion Gap 17 (12-20); Blood Urea Nitrogen 83 mg/dL (9-16); Carbon Dioxide 26 mmol/L (22-29); Chloride 99 mmol/L (96-108); Creatinine Clr Calc Pharmacy 10.1; Estimated Glomerular Filt Rate 7; Glucose Random 100 mg/dL (60-115); Potassium 4.8 mmol/L (3.3-5.1); Sodium 137 mmol/L (135-145)
[2022-03-06 11:05] LABS: Glucose, Whole Blood 157 mg/dL (60-115)
[2022-03-06] MEDS: cefTRIAXone sodium 1 GM in 0.9 % Sodium Chloride 50 ML IV (12:36)
--- NOTE | 2022-03-06 13:41 | P.PNIM_ITS ---
Subjective Subjective Date of Service: 03/06/22 Physical Exam Vital Signs: Vital Signs: Last Vital Signs Temp 97.7 F 03/06/22 11:26 Pulse 58 03/06/22 11:26 Resp 16 03/06/22 11:26 BP 146/50 H 03/06/22 11:26 Pulse Ox 97 03/06/22 11:26 O2 Del Method 03/06/22 11:26 O2 Flow Rate 2 03/03/22 07:41 BMI result Body Mass Index 37.5 Objective Data Active Medications Allopurinol (Allopurinol 100 Mg Tablet) 200 mg PO DAILY [facility] Last Admin: 03/06/22 09:05 Dose: 200 mg Documented By: CHRISTA Amiodarone HCl (Amiodarone Hcl 200 Mg Tablet) 200 mg PO DAILY [facility] Last Admin: 03/06/22 09:05 Dose: 200 mg Documented By: CHRISTA Aspirin (Aspirin 81 Mg Tab.Chew) 81 mg PO DAILY [facility] Last Admin: 03/05/22 10:19 Dose: 81 mg Documented By: CHRISTA Atorvastatin Calcium (Atorvastatin Calcium 80 Mg Tablet) 80 mg PO BEDTIME [facility] Last Admin: 03/05/22 22:23 Dose: 80 mg Documented By: JESSICA Calcitriol (Calcitriol 0.25 Mcg Capsule) 0.25 mcg PO DAILY [facility] Last Admin: 03/06/22 09:05 Dose: 0.25 mcg Documented By: CHRISTA Dextrose (Dextrose 50 % 25 Gm/50 Ml Syringe) 25 gm IVPUSH Q15M PRN; Protocol PRN Reason: per Hypoglycemia Standing Ord. Docusate Sodium (Docusate Sodium 100 Mg Capsule) 100 mg PO BID [facility] Last Admin: 03/06/22 09:05 Dose: 100 mg Documented By: CHRISTA Furosemide (Furosemide 100 Mg/10 Ml Vial) 80 mg IVPUSH BID@0900,1800 [facility]; Protocol Last Admin: 03/06/22 09:04 Dose: 80 mg Documented By: CHRISTA Glucose (Glucose Gel 15 Gm Gel..Gram.) 15 gm PO Q15M PRN; Protocol PRN Reason: per Hypoglycemia Standing Ord. Ceftriaxone Sodium 1 gm/ (Sodium Chloride) 50 mls @ 100 mls/hr IV Q24H [facility] Last Admin: 03/06/22 12:36 Dose: 100 mls/hr Documented By: CHRISTA Insulin Human Lispro (Insulin Lispro 100 Unit/Ml 3 Ml Vial) 0 unit SUBCUT QIDACHS [facility]; Protocol Last Admin: 03/06/22 11:16 Dose: Not Given Documented By: CHRISTA Non-Admin Reason: No Insulin Coverage Isosorbide Mononitrate (Isosorbide Mononitrate 60 Mg Tab.Er.24h) 60 mg PO DAILY [facility]; Protocol Last Admin: 03/06/22 09:05 Dose: 60 mg Documented By: CHRISTA Latanoprost (Latanoprost 0.005 % Ophth Cyndi 2.5 Ml Drops) 1 drop EYE-BOTH BEDTIME [facility] Last Admin: 03/05/22 22:25 Dose: 1 drop Documented By: JESSICA Lidocaine (Lidocaine 4 % Patch Adh..Patch) 1 patch TRANSDERMA DAILY [facility]; Protocol Last Admin: 03/06/22 09:05 Dose: Not Given Documented By: CHRISTA Non-Admin Reason: Patient Refused Melatonin (Melatonin 3 Mg Tablet) 9 mg PO BEDTIME PRN PRN Reason: Sleep Last Admin: 03/05/22 22:24 Dose: 9 mg Documented By: JESSICA Omeprazole (Omeprazole 20 Mg Capsule.Dr) 20 mg PO DAILY@0630 [facility] Last Admin: 03/06/22 06:40 Dose: 20 mg Documented By: JESSICA Ondansetron HCl (Ondansetron Hcl 4 Mg/2 Ml Vial) 4 mg IVPUSH Q8H PRN PRN Reason: Nausea and Vomiting Pharmacy Consult (Consult Rx Perform Med Rec) 1 each MISCELLANE ONCE PRN PRN Reason: Consult order Polyethylene Glycol (Polyethylene Glycol 3350 17 Gm Powd.Pack) 17 gm PO DAILY [facility] Last Admin: 03/06/22 09:06 Dose: 17 gm Documented By: CHRISTA Sodium Chloride (0.9 % Sodium Chloride Flush 3 Ml Syringe) 3 ml IVFLUSH QSHIFT [facility] Last Admin: 03/06/22 09:04 Dose: 3 ml Documented By: CHRISTA Vitamin D (Cholecalciferol (Vitamin D3) 25 Mcg Tablet) 25 mcg PO DAILY [facility] Last Admin: 03/06/22 09:05 Dose: 25 mcg Documented By: CHRISTA Labs 03/06/22 08:45 03/06/22 08:45 Labs: Laboratory Results - last 24 hr 03/05/22 03/05/22 03/06/22 15:15 20:28 07:16 Anion Gap Estim Creat Clear Calc Estimated GFR POC Glucose 151 H 256 H 105 Random Glucose Calcium 03/06/22 03/06/22 08:45 10:53 Anion Gap 17 Estim Creat Clear Calc 10.1 Estimated GFR 7 POC Glucose 157 H Random Glucose 100 Calcium 9.0 Microbiology Microbiology Results: Microbiology 03/03/22 12:04 Blood Culture - Preliminary Blood - Venous No growth after 48 hours. 03/03/22 12:04 Blood Culture - Preliminary Blood - Venous No growth after 48 hours. Assessment and Plan (1) (HFpEF) heart failure with preserved ejection fraction: Status: Acute (2) YULIA (acute kidney injury): Status: Acute (3) Acute on chronic heart failure with preserved ejection fraction (HFpEF): Status: Acute (4) Anemia: Status: Acute Plan day:4 81-year-old female with a PMH significant for?diastolic CHF, HLD, HTN, insulin- dependent DM, CKD stage 4, morbid obesity, and chronic constipation?who presents to the ED with?severe abdominal pain and constipation x4 days. Pt will be admitted to telemetry for treatment evaluation of fecal impaction, new onset afib, and acute CHF exacerbation. Fecal impaction/constipation: CT?found a large stool burden in the colon with a large stool ball in the rectum and some perirectal inflammatory changes suggesting early stercoral colitis less likely infection -more likely constipation passing bm's after receiving luxatives/enema,also disimpaction was done by surgery yesterday continue Colace p.o.,Miralax p.o.,Bisacodyl 10 mg suppository advance diet improved,producing bm's . Hyperkalemia resolved with lokelma CKD stage 4 Creatinine stable, but LLE and hyperkalemia concerning for worsening kidney function and possible need for dialysis Nephrology consult HFpEF) heart failure with preserved ejection fraction-possible combination ( advanced renal dis/chf) hypervolemic Patient had CardioMEMS device implanted 2 weeks ago EKG and telemetry reviewed-no AFib iv Lasix 80mg bid, per nephrology Monitor BP, lytes, mg, I/o: 1 liter negative. Echocardiogram-ef 58%.diastolic dysfunction Cardiology consult-LVEF 58%.? Moderate diastolic dysfunction.? Severe LVH.? Inferior wall motion abnormality.? Slight valvular calcification.? In the previous echocardiogram from December, LVEF of 35-40%.? Hence that seems to be some recovery of LVEF.? review of CardioMEMS data, very slight increase in PAD to18 mm Hg, but not too high. rythem -not afib possible pneumonia blood cultures neg@48hrs , no fever or leucocytosis -denies any cough procalcitonin low intial Chest x-ray with ? possible pneumonia , will repeat cxr. Ceftriaxone Insulin-dependent DM Hold home meds SSI, lantus Morbid obesity Weight loss encouraged hx of thrombocytopenia ,normocyctic anemia chronic: anemia seems aocd no eccymosis or bleedin moniter cbc nephro -added procrit moniter h/h dvt prophylax :s/c scd due to -thrombocytopenia ,normocyctic anemia Pt will require a hospitalization :needs and acute CHF exacerbation-iv diuretics ,moniter i/o, Time Spent With Patient Time: Total time managing care of this patient today ____ minutes. Quality Stroke Does the patient have a stroke diagnosis?: No VTE Prior VTE?: No VTE Risk Level:: Medical - moderate - high VTE Device Contraindication: Treatment Not Indicated VTE Drug Contraindication: N/A - Med Ordered
[2022-03-06 14:07] LABS: Mean Corpuscular HGB Conc 31.3 g/dl (31.0-35.0); Mean Corpuscular Hemoglobin 28.7 pg (27.0-33.0); Mean Corpuscular Volume 91.6 fL (80.0-98.0); Platelet Count 129 X10*3/uL (160-400); Red Blood Count 2.51 X10*6/uL (4.20-5.50); Red Cell Distribution Width 17.9 % (11.0-16.0); White Blood Count 6.7 X10*3/uL (4.8-10.8)
[2022-03-06 15:58] LABS: Glucose, Whole Blood 199 mg/dL (60-115)
[2022-03-06] MEDS: Albuterol/Iprat 2.5/0.5MG 3 ML AMPUL.NEB INHALE ×2 (16:39→19:18)
[2022-03-06] MEDS: Bumetanide 1 MG TABLET PO (17:35)
[2022-03-06 19:47] LABS: Glucose, Whole Blood 192 mg/dL (60-115)
[2022-03-06] MEDS: Atorvastatin Calcium 80 MG TABLET PO (21:05)
[2022-03-06] MEDS: Melatonin 3 MG TABLET 9 MG PO (21:05)
[2022-03-06] MEDS: Latanoprost 0.005 % Ophth Sol 2.5 ML DROPS 1 DROP EYE-BOTH (21:17)
[2022-03-07] VITALS (12 sets, daily range): BP systolic 131–145; BP diastolic 54–66; PULSE 56–79; RESP 16–20; TEMP 36.1–36.7; O2SAT 89–98
[2022-03-07] MEDS: Omeprazole 20 MG CAPSULE.DR PO (05:11)
[2022-03-07] MEDS: polyethylene glycoL 3350 17 GM POWD.PACK PO (07:45)
[2022-03-07] MEDS: Docusate Sodium 100 MG CAPSULE PO ×2 (07:45→22:28)
[2022-03-07] MEDS: Isosorbide Mononitrate 60 MG TAB.ER.24H PO (07:46)
[2022-03-07] MEDS: calcitrioL 0.25 MCG CAPSULE PO (07:46)
[2022-03-07] MEDS: Amiodarone HCL 200 MG TABLET PO (07:47)
[2022-03-07] MEDS: Cholecalciferol (Vitamin D3) 25 MCG TABLET PO (07:47)
[2022-03-07] MEDS: allopurinoL 100 MG TABLET 200 MG PO (07:47)
[2022-03-07] MEDS: Bumetanide 1 MG TABLET PO (07:47)
[2022-03-07] MEDS: 0.9 % Sodium Chloride Flush 3 ML SYRINGE IVFLUSH ×2 (07:48→22:28)
[2022-03-07] MEDS: Albuterol/Iprat 2.5/0.5MG 3 ML AMPUL.NEB INHALE ×3 (07:48→15:42)
[2022-03-07 07:50] LABS: Glucose, Whole Blood 155 mg/dL (60-115)
[2022-03-07] MEDS: Lidocaine 4 % Patch ADH..PATCH 1 PATCH TRANSDERMA (08:03)
--- NOTE | 2022-03-07 10:34 | PM.PNNEP ---
Subjective Subjective Date of Service: 03/08/22 Interval history: Events noted Physical Exam Vital Signs: Vital Signs: Last Vital Signs Temp 97.4 F 03/07/22 07:19 Pulse 72 03/07/22 07:51 Resp 20 03/07/22 07:51 BP 139/66 03/07/22 07:19 Pulse Ox 91 L 03/07/22 07:19 O2 Del Method 03/07/22 07:19 O2 Flow Rate 2 03/03/22 07:41 BMI result Body Mass Index 37.5 Const: General: no acute distress HEENT: Head: Yes normocephalic and Yes atraumatic Neck: Neck: Yes supple Resp: Auscultation: diminished lung sounds Cardio: Heart sounds: S1 normal heart sound present and S2 normal heart sound present GI: Palpation (GI): Soft to palpation and nontender Extrem: General: Yes edema Objective Data Labs 03/06/22 08:45 03/06/22 08:45 Labs: Laboratory Results - last 24 hr 03/06/22 03/06/22 03/06/22 08:45 10:53 15:37 WBC 6.7 RBC 2.51 L Hgb 7.2 L Hct 23.1 L MCV 91.6 MCH 28.7 MCHC 31.3 RDW 17.9 H Plt Count 129 L MPV 10.0 Absolute Nucleated RBC 0.000 Nucleated RBC % (auto) 0.0 POC Glucose 157 H 199 H 03/06/22 03/07/22 18:55 07:23 WBC RBC Hgb Hct MCV MCH MCHC RDW Plt Count MPV Absolute Nucleated RBC Nucleated RBC % (auto) POC Glucose 192 H 155 H Microbiology Microbiology Results: Microbiology 03/03/22 12:04 Blood - Venous Blood Culture - Preliminary No growth after 48 hours. 03/03/22 12:04 Blood - Venous Blood Culture - Preliminary No growth after 48 hours. Procedures Date of Service Date of Service: 03/07/22 Assessment & Plan Assessment and plan (1) Anemia: Status: Acute (2) CKD (chronic kidney disease) stage V requiring chronic dialysis: Status: Acute Plan CKD 5 approaching ESRD known CKD due to DM/HTN nephrotic range proteinuria baseline Scr ~ 4-4.5 mg/dl No indication for dialysis yet Has been evaluated by home dialysis nurse for possible PD . To be started as out pt h/o diastolic HF severe restriction in free water clearance REC OK to DC with oral diuretics procrit [id number] unis sc weekly no indication for SCREEN MACHINE OPERATOR yet follow kidney function and electrolytes Will arrange for OP follow up Time Spent With Patient Time: Total time managing care of this patient today ____ minutes. Progress Note: Quality Stroke Does the patient have a stroke diagnosis?: No
--- NOTE | 2022-03-07 10:41 | PM.PNCARD ---
Subjective Subjective Date of Service: 03/07/22 Interval history: Seen examined at bedside. Overall feeling better. Physical Exam Vital Signs: Last Vital Signs Temp 97.4 F 03/07/22 07:19 Pulse 72 03/07/22 07:51 Resp 20 03/07/22 07:51 BP 139/66 03/07/22 07:19 Pulse Ox 91 L 03/07/22 07:19 O2 Del Method 03/07/22 07:19 O2 Flow Rate 2 03/03/22 07:41 BMI result Body Mass Index 37.5 GENERAL APPEARANCE: in no acute distress, pleasant. NECK: no carotid bruit, no jugular venous distention. SKIN: no suspicious lesions, warm and dry. HEART: no murmurs, regular rate and rhythm. LUNGS: clear to auscultation bilaterally. ABDOMEN: soft, nontender. EXTREMITIES: Chronic lymphedema. PERIPHERAL PULSES: equal. NEUROLOGIC: No gross deficits, AAO X 3 Objective Labs and Meds 03/06/22 08:45 03/06/22 08:45 Lab results: Laboratory Results - last 24 hr 03/06/22 03/06/22 03/06/22 08:45 10:53 15:37 WBC 6.7 RBC 2.51 L Hgb 7.2 L Hct 23.1 L MCV 91.6 MCH 28.7 MCHC 31.3 RDW 17.9 H Plt Count 129 L MPV 10.0 Absolute Nucleated RBC 0.000 Nucleated RBC % (auto) 0.0 POC Glucose 157 H 199 H 03/06/22 03/07/22 18:55 07:23 WBC RBC Hgb Hct MCV MCH MCHC RDW Plt Count MPV Absolute Nucleated RBC Nucleated RBC % (auto) POC Glucose 192 H 155 H Imaging Radiologist's impression: Impressions Chest X-Ray 03/06/22 14:21 IMPRESSION: Similar small left-sided pleural effusion with overlying airspace disease, suspect atelectasis. Progress Note: A&P Assessment and plan (1) CKD (chronic kidney disease) stage V requiring chronic dialysis: Status: Acute (2) (HFpEF) heart failure with preserved ejection fraction: Status: Acute Plan 81-year-old female with advanced kidney disease and heart failure with preserved ejection fraction. Admitted with volume overload. Diuresed with IV diuretics and improving overall. Ejection fraction on echocardiography is improved after rhythm control strategy for the atrial tachycardia. Overall she is stable and can return home. Nephrology is following her closely. Thank you for allowing me to participate in the care of your patient. Please feel free to contact me if you have any questions. Time Spent With Patient Time: Total time managing care of this patient today ____ minutes. Progress Note: Quality Stroke Does the patient have a stroke diagnosis?: No Procedures Date of Service Date of Service: 03/07/22
[2022-03-07 11:29] LABS: Glucose, Whole Blood 264 mg/dL (60-115)
[2022-03-07] MEDS: Insulin Lispro 100 UNIT/ML 3 ML VIAL SUBCUT ×2 (11:55→16:10)
[2022-03-07] MEDS: cefTRIAXone sodium 1 GM in 0.9 % Sodium Chloride 50 ML IV (11:56)
--- NOTE | 2022-03-07 12:19 | MHC.CM.PN ---
per rounds pt expected to dc today home with vna
--- NOTE | 2022-03-07 15:01 | MHC.CM.PN ---
[facility] could not see pt for 2 days referrral given to wilfredo who can service the pt per medicare regulations within 48 hrs
[2022-03-07] MEDS: Acetaminophen 325 MG TABLET 650 MG PO (15:30)
--- NOTE | 2022-03-07 15:51 | P.PNIM_ITS ---
Subjective Subjective Date of Service: 03/05/22 Interval History: Date of service :03/05/22 Fecal impaction/constipation,advanced kidney disease. ?pneumonia anemia Review of Systems sob seems improvin reviewed ekg and tele -less likely afib. Physical Exam Vital Signs: Vital Signs: Last Vital Signs vitals from 03/05/22 reviewed. BMI result Appearance: Alert.? Oriented X3.? not in distress.? cvs: rrr, [id number] , no murmur res: air entry fair , diminshed at bases . abd: no rebound or guarding ,abd pain improving , bs present. ext pulses present , no cyanosis . neuro: axo3 , nonfocal. Objective Data Active Medications Labs 03/06/22 08:45 03/06/22 08:45 Labs: Laboratory Results - last 24 hr Assessment and Plan (1) Constipation: Status: Acute (2) CKD (chronic kidney disease) stage V requiring chronic dialysis: Status: Acute (3) Acute on chronic heart failure with preserved ejection fraction (HFpEF): Status: Acute (4) Fecal impaction in rectum: Status: Acute Plan 81-year-old female with a PMH significant for?diastolic CHF, HLD, HTN, insulin- dependent DM, CKD stage 4, morbid obesity, and chronic constipation?who presents to the ED with?severe abdominal pain and constipation x4 days. Pt will be admitted to telemetry for treatment evaluation of fecal impaction, new onset afib, and acute CHF exacerbation. Fecal impaction/constipation: CT?found a large stool burden in the colon with a large stool ball in the rectum and some perirectal inflammatory changes suggesting early stercoral colitis less likely infection -more likely constipation passing bm's after receiving luxatives/enema,also disimpaction was done by surgery yesterday continue Colace p.o.,Miralax p.o.,Bisacodyl 10 mg suppository passing bm's advance diet Lidocaine patch and IV Tylenol for pain management Hyperkalemia reolved with lokelmd CKD stage 4-5 Creatinine stable, but LLE and hyperkalemia concerning for worsening kidney function and possible need for dialysis Nephrology consult noted -continue iv diuresis ?acute exacacerbation HFpEf ,also advance renal failure might also be contributin, ?hypervolemic Patient had CardioMEMS device implanted 2 weeks ago EKG and telemetry reviewed-no AFib Lasix 80mg bid, per nephrology Monitor BP, lytes, mg, I/o: 1 liter negative. Echocardiogram Cardiology consult Question of pneumonia Chest x-ray with evidence of possible pneumonia Ceftriaxone Insulin-dependent DM Hold home meds SSI, lantus Morbid obesity Weight loss encouraged hx of thrombocytopenia ,normocyctic anemia chronic: no eccymosis or bleedin moniter cbc added anemia workup dvt prophylax :s/c scd due to?-thrombocytopenia ,normocyctic anemia inpatient need- fecal impaction- required disimpaction,needs and acute CHF exacerbation-iv diuretics ,moniter i/o,anemia workup Time Spent With Patient Time: Total time managing care of this patient today ____ minutes. Quality Stroke Does the patient have a stroke diagnosis?: No VTE Prior VTE?: No VTE Risk Level:: Medical - moderate - high VTE Device Contraindication: Treatment Not Indicated VTE Drug Contraindication: N/A - Med Ordered
--- NOTE | 2022-03-07 15:59 | HO.PM.IMPN ---
Subjective Subjective Date of Service: 03/07/22 Interval History: advanced kidney disease. ?pneumonia anemia Review of Systems sob seems improvin denies any chest pain or nausea or vomiting or fever Physical Exam Vital Signs: Vital Signs: Last Vital Signs Temp 97.6 F 03/07/22 15:45 Pulse 68 03/07/22 15:45 Resp 17 03/07/22 15:45 BP 136/62 03/07/22 15:45 Pulse Ox 98 03/07/22 15:45 O2 Del Method 03/07/22 15:45 O2 Flow Rate 2 03/03/22 07:41 BMI result Body Mass Index 37.5 Appearance: Alert.? Oriented X3.? not in distress.? cvs: rrr, [id number] , no murmur res: air entry fair , diminshed at bases . abd: no rebound or guarding ,abd pain somewhat improving, bs present. ext pulses present , no cyanosis . neuro: axo3 , nonfocal. Objective Data Active Medications Albuterol/Ipratropium (Albuterol/Iprat 2.5/0.5mg 3 Ml Ampul.Neb) 3 ml INHALE RQ4H WHILE AWAKE [facility] Last Admin: 03/07/22 15:42 Dose: 3 ml Documented By: LESLIE Allopurinol (Allopurinol 100 Mg Tablet) 200 mg PO DAILY [facility] Last Admin: 03/07/22 07:47 Dose: 200 mg Documented By: LISA Amiodarone HCl (Amiodarone Hcl 200 Mg Tablet) 200 mg PO DAILY [facility] Last Admin: 03/07/22 07:47 Dose: 200 mg Documented By: LISA Aspirin (Aspirin 81 Mg Tab.Chew) 81 mg PO DAILY [facility] Last Admin: 03/05/22 10:19 Dose: 81 mg Documented By: REDORRMehrdad Atorvastatin Calcium (Atorvastatin Calcium 80 Mg Tablet) 80 mg PO BEDTIME [facility] Last Admin: 03/06/22 21:05 Dose: 80 mg Documented By: LYSSA Calcitriol (Calcitriol 0.25 Mcg Capsule) 0.25 mcg PO DAILY [facility] Last Admin: 03/07/22 07:46 Dose: 0.25 mcg Documented By: LISA Dextrose (Dextrose 50 % 25 Gm/50 Ml Syringe) 25 gm IVPUSH Q15M PRN; Protocol PRN Reason: per Hypoglycemia Standing Ord. Docusate Sodium (Docusate Sodium 100 Mg Capsule) 100 mg PO BID [facility] Last Admin: 03/07/22 07:45 Dose: 100 mg Documented By: LISA Glucose (Glucose Gel 15 Gm Gel..Gram.) 15 gm PO Q15M PRN; Protocol PRN Reason: per Hypoglycemia Standing Ord. Ceftriaxone Sodium 1 gm/ (Sodium Chloride) 50 mls @ 100 mls/hr IV Q24H [facility] Last Infusion: 03/07/22 13:12 Dose: 0 mls/hr Documented By: LISA Insulin Human Lispro (Insulin Lispro 100 Unit/Ml 3 Ml Vial) 0 unit SUBCUT QIDACHS [facility]; Protocol Last Admin: 03/07/22 11:55 Dose: 6 unit Documented By: LISA Isosorbide Mononitrate (Isosorbide Mononitrate 60 Mg Tab.Er.24h) 60 mg PO DAILY [facility]; Protocol Last Admin: 03/07/22 07:46 Dose: 60 mg Documented By: LISA Latanoprost (Latanoprost 0.005 % Ophth Cyndi 2.5 Ml Drops) 1 drop EYE-BOTH BEDTIME [facility] Last Admin: 03/06/22 21:17 Dose: 1 drop Documented By: YLSSA Lidocaine (Lidocaine 4 % Patch Adh..Patch) 1 patch TRANSDERMA DAILY [facility]; Protocol Last Admin: 03/07/22 08:03 Dose: 1 patch Documented By: LISA Melatonin (Melatonin 3 Mg Tablet) 9 mg PO BEDTIME PRN PRN Reason: Sleep Last Admin: 03/06/22 21:05 Dose: 9 mg Documented By: LYSSA Omeprazole (Omeprazole 20 Mg Capsule.) 20 mg PO DAILY@0630 [facility] Last Admin: 03/07/22 05:11 Dose: 20 mg Documented By: FESTUS Ondansetron HCl (Ondansetron Hcl 4 Mg/2 Ml Vial) 4 mg IVPUSH Q8H PRN PRN Reason: Nausea and Vomiting Pharmacy Consult (Consult Rx Perform Med Rec) 1 each MISCELLANE ONCE PRN PRN Reason: Consult order Polyethylene Glycol (Polyethylene Glycol 3350 17 Gm Powd.Pack) 17 gm PO DAILY [facility] Last Admin: 03/07/22 07:45 Dose: 17 gm Documented By: LISA Sodium Chloride (0.9 % Sodium Chloride Flush 3 Ml Syringe) 3 ml IVFLUSH QSHIFT [facility] Last Admin: 03/07/22 07:48 Dose: 3 ml Documented By: LISA Vitamin D (Cholecalciferol (Vitamin D3) 25 Mcg Tablet) 25 mcg PO DAILY [facility] Last Admin: 03/07/22 07:47 Dose: 25 mcg Documented By: LISA Labs 03/06/22 08:45 03/06/22 08:45 Labs: Laboratory Results - last 24 hr 03/05/22 03/06/22 03/07/22 08:10 18:55 07:23 POC Glucose 192 H 155 H Blood Type O Positive Antibody Screen NEGATIVE Crossmatch See Detail 03/07/22 11:19 POC Glucose 264 H Blood Type Antibody Screen Crossmatch Assessment and Plan (1) CKD (chronic kidney disease) stage V requiring chronic dialysis: Status: Acute (2) Acute on chronic heart failure with preserved ejection fraction (HFpEF): Status: Acute (3) Anemia: Status: Acute Assessment and Plan: 81-year-old female with a PMH significant for?diastolic CHF, HLD, HTN, insulin-dependent DM, CKD stage 4, morbid obesity, and chronic constipation?who presents to the ED with?severe abdominal pain and constipation x4 days. Pt will be admitted to telemetry for treatment evaluation of fecal impaction, new onset afib, and acute CHF exacerbation. Fecal impaction/constipation: CT?found a large stool burden in the colon with a large stool ball in the rectum and some perirectal inflammatory changes suggesting early stercoral colitis less likely infection -more likely constipation passing bm's after receiving luxatives/enema,also disimpaction was done by surgery yesterday continue Colace p.o.,Miralax p.o.,Bisacodyl 10 mg suppository advance diet improved,producing bm's . Hyperkalemia resolved with lokelma CKD stage 4 Creatinine stable, but LLE and hyperkalemia concerning for worsening kidney function and possible need for dialysis Nephrology consult HFpEF) heart failure with preserved ejection fraction-possible combination ( advanced renal dis/chf) ?hypervolemic Patient had CardioMEMS device implanted 2 weeks ago EKG and telemetry reviewed-no AFib iv Lasix 80mg bid, per nephrology Monitor BP, lytes, mg, I/o: 1 liter negative. Echocardiogram-ef 58%.diastolic dysfunction Cardiology consult-LVEF 58%.? Moderate diastolic dysfunction.? Severe LVH.? Inferior wall motion abnormality.? Slight valvular calcification.? In the previous echocardiogram from December, LVEF of 35-40%.? Hence that seems to be some recovery of LVEF.? review of CardioMEMS data, very slight increase in PAD to18 mm Hg, but not too high. rythem -not afib possible? pneumonia blood cultures neg@48hrs , no fever or leucocytosis -denies any cough procalcitonin low intial Chest x-ray with ? possible pneumonia , repeat cxr shows-atelacatsis added incentive citlalli,chest physio,nebs Ceftriaxone Insulin-dependent DM Hold home meds SSI, lantus Morbid obesity Weight loss encouraged hx of thrombocytopenia ,normocyctic anemia chronic: iron studies seems aocd fobt added to complete workup no eccymosis or bleedin moniter cbc nephro -added procrit,added 1 prbc moniter h/h dvt prophylax :s/c scd due to?-thrombocytopenia ,normocyctic anemia pT-home with services Pt will require a hospitalization :needs and acute CHF exacerbation-iv diuretics ,moniter i/o,anemia -need transfusion,h/h moniterin Time Spent With Patient Time: Total time managing care of this patient today ____ minutes. Quality Stroke Does the patient have a stroke diagnosis?: No VTE Prior VTE?: No VTE Risk Level:: Medical - moderate - high VTE Device Contraindication: Treatment Not Indicated VTE Drug Contraindication: N/A - Med Ordered
[2022-03-07 16:03] LABS: Glucose, Whole Blood 210 mg/dL (60-115)
[2022-03-07] MEDS: Furosemide 100 MG/10 ML VIAL 80 MG IVPUSH (18:13)
[2022-03-07 20:06] LABS: Glucose, Whole Blood 174 mg/dL (60-115)
[2022-03-07] MEDS: Latanoprost 0.005 % Ophth Sol 2.5 ML DROPS 1 DROP EYE-BOTH (22:28)
[2022-03-07] MEDS: Melatonin 3 MG TABLET 9 MG PO (22:29)
[2022-03-07] MEDS: Atorvastatin Calcium 80 MG TABLET PO (22:29)
[2022-03-07] MEDS: ondansetron HCL 4 MG/2 ML VIAL IVPUSH (22:29)
[2022-03-08] VITALS (15 sets, daily range): BP systolic 115–165; BP diastolic 56–72; PULSE 53–69; RESP 15–20; TEMP 36.1–36.9; O2SAT 89–95
[2022-03-08] MEDS: Omeprazole 20 MG CAPSULE.DR PO (06:21)
[2022-03-08 06:26] LABS: Hematocrit 22.9 % (37.0-47.0); Hemoglobin 7.1 g/dl (12.0-16.0); Mean Corpuscular Hemoglobin 28.2 pg (27.0-33.0); Mean Corpuscular Volume 90.9 fL (80.0-98.0); Mean Platelet Volume 9.5 fL (9.4-12.3); NRBC Pct Auto 0.3 /100WBC (0.0-0.2); Platelet Count 128 X10*3/uL (160-400); Red Blood Count 2.52 X10*6/uL (4.20-5.50); White Blood Count 5.8 X10*3/uL (4.8-10.8)
[2022-03-08 07:22] LABS: Glucose, Whole Blood 136 mg/dL (60-115)
[2022-03-08] MEDS: Albuterol/Iprat 2.5/0.5MG 3 ML AMPUL.NEB INHALE ×4 (07:35→19:25)
[2022-03-08] MEDS: 0.9 % Sodium Chloride Flush 3 ML SYRINGE IVFLUSH ×2 (09:19→21:35)
[2022-03-08] MEDS: Lidocaine 4 % Patch ADH..PATCH 1 PATCH TRANSDERMA (09:20)
[2022-03-08] MEDS: allopurinoL 100 MG TABLET 200 MG PO (09:20)
[2022-03-08] MEDS: Docusate Sodium 100 MG CAPSULE PO ×2 (09:20→21:34)
[2022-03-08] MEDS: polyethylene glycoL 3350 17 GM POWD.PACK PO (09:20)
[2022-03-08] MEDS: Cholecalciferol (Vitamin D3) 25 MCG TABLET PO (09:21)
[2022-03-08] MEDS: Amiodarone HCL 200 MG TABLET PO (09:21)
[2022-03-08] MEDS: calcitrioL 0.25 MCG CAPSULE PO (09:21)
[2022-03-08] MEDS: Isosorbide Mononitrate 60 MG TAB.ER.24H PO (09:21)
--- NOTE | 2022-03-08 10:07 | P.PNNP_ITS ---
Subjective Subjective Date of Service: 03/08/22 Interval history: Event s noted Comfortable Physical Exam Vital Signs: Vital Signs: Last Vital Signs Temp 98.0 F 03/08/22 07:30 Pulse 63 03/08/22 07:36 Resp 18 03/08/22 07:36 BP 160/69 H 03/08/22 07:30 Pulse Ox 92 03/08/22 07:30 O2 Del Method 03/08/22 07:30 O2 Flow Rate 2 03/03/22 07:41 BMI result Body Mass Index 37.5 Const: General: no acute distress HEENT: Head: Yes normocephalic and Yes atraumatic Neck: Neck: Yes supple Resp: Auscultation: diminished lung sounds Cardio: Heart sounds: S1 normal heart sound present and S2 normal heart sound present GI: Palpation (GI): Soft to palpation and nontender Extrem: General: Yes edema Objective Data Labs 03/08/22 05:54 03/06/22 08:45 Labs: Laboratory Results - last 24 hr 03/05/22 03/07/22 03/07/22 08:10 11:19 15:54 WBC RBC Hgb Hct MCV MCH MCHC RDW Plt Count MPV Absolute Nucleated RBC Nucleated RBC % (auto) POC Glucose 264 H 210 H Blood Type O Positive Antibody Screen NEGATIVE Crossmatch See Detail 03/07/22 03/08/22 03/08/22 19:59 05:54 07:06 WBC 5.8 RBC 2.52 L Hgb 7.1 L Hct 22.9 L MCV 90.9 MCH 28.2 MCHC 31.0 RDW 18.0 H Plt Count 128 L MPV 9.5 Absolute Nucleated RBC 0.020 H Nucleated RBC % (auto) 0.3 H POC Glucose 174 H 136 H Blood Type Antibody Screen Crossmatch Microbiology Microbiology Results: Microbiology 03/03/22 12:04 Blood - Venous Blood Culture - Preliminary No growth after 48 hours. 03/03/22 12:04 Blood - Venous Blood Culture - Preliminary No growth after 48 hours. 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 Progress Note: Quality Stroke Does the patient have a stroke diagnosis?: No
[2022-03-08 11:30] LABS: Glucose, Whole Blood 195 mg/dL (60-115)
[2022-03-08] MEDS: cefTRIAXone sodium 1 GM in 0.9 % Sodium Chloride 50 ML IV (12:11)
[2022-03-08 16:36] LABS: Glucose, Whole Blood 206 mg/dL (60-115)
[2022-03-08] MEDS: Insulin Lispro 100 UNIT/ML 3 ML VIAL SUBCUT ×2 (18:02→21:35)
[2022-03-08 21:08] LABS: Glucose, Whole Blood 201 mg/dL (60-115)
[2022-03-08] MEDS: Atorvastatin Calcium 80 MG TABLET PO (21:34)
[2022-03-08] MEDS: Latanoprost 0.005 % Ophth Sol 2.5 ML DROPS 1 DROP EYE-BOTH (21:35)
[2022-03-08] MEDS: Melatonin 3 MG TABLET 9 MG PO (21:37)
[2022-03-09] VITALS (11 sets, daily range): BP systolic 117–159; BP diastolic 56–70; PULSE 55–71; RESP 16–20; TEMP 36.3–36.9; O2SAT 90–95
[2022-03-09] MEDS: Omeprazole 20 MG CAPSULE.DR PO (06:09)
[2022-03-09 07:14] LABS: Glucose, Whole Blood 100 mg/dL (60-115)
--- NOTE | 2022-03-09 08:28 | P.CDIC_ITS ---
CDI Concurrent Query Documentation Clarification: PHYSICIAN'S DOCUMENTATION REQUEST Date of Query: 03/09/22 0829 Patient Name: Kate Vidal Admit Date: 03/03/22 Dear Doctor, A review of the medical record indicates additional documentation may be needed. Please review below and update the documentation accordingly. Clinical Indicators: A diagnosis of CKD was documented in provider notes but lacks subsequent documentation regarding specificity. Please provide clarification/specificity to the diagnosis based on the findings below: Risk Factors/Clinical Indicators/Treatments Per provider progress note on 03/04: CKD stage 4 Per nephrology progress note on 03/05: YULIA superimposed on advanced CKD ? ESRD Per nephrology progress note on 03/07: CKD 5 approaching ESRD Per discharge summary on 03/08: CKD stage 4 Per nephrology progress note on 03/08: CKD 5 approaching ESRD Labs: baseline Scr ~ 4-4.5 mg/dl Please clarify which of the following accurately represents the patient's renal status: * CKD, please provide stage - see criteria * ESRD - CKD V now requiring permanent dialysis and/or transplant * Other (please specify) * Unable to determine Use of terms such as suspected, likely, concern for, or probable (associated with a specific diagnosis that is being evaluated, monitored, or treated as if it exists) are acceptable and can be coded in the inpatient setting, when documented at the time of discharge. Thank you, Bronwyn Hercules MS, RN, CCRN Extension: [phone] Please use your independent medical judgment in providing your response. THIS QUERY IS PART OF THE PERMANENT MEDICAL RECORD Provider Response: Other Other Diagnosis: see note
[2022-03-09] MEDS: Albuterol/Iprat 2.5/0.5MG 3 ML AMPUL.NEB INHALE ×4 (08:41→20:03)
[2022-03-09 08:58] LABS: Hematocrit 25.8 % (37.0-47.0); Mean Corpuscular Hemoglobin 29.1 pg (27.0-33.0); Mean Corpuscular Volume 93.8 fL (80.0-98.0); Mean Platelet Volume 9.5 fL (9.4-12.3); NRBC Pct Auto 0.6 /100WBC (0.0-0.2); Platelet Count 152 X10*3/uL (160-400); Red Blood Count 2.75 X10*6/uL (4.20-5.50)
[2022-03-09 09:19] LABS: Blood Urea Nitrogen 86 mg/dL (9-16); Calcium 9.5 mg/dL (8.4-10.2); Creatinine Clr Calc Pharmacy 9.6; Estimated Glomerular Filt Rate 7; Glucose Random 125 mg/dL (60-115)
[2022-03-09 09:30] LABS: Anion Gap 22 (12-20); Carbon Dioxide 24 mmol/L (22-29); Chloride 98 mmol/L (96-108); Potassium 5.5 mmol/L (3.3-5.1); Sodium 138 mmol/L (135-145)
[2022-03-09] MEDS: Lidocaine 4 % Patch ADH..PATCH 1 PATCH TRANSDERMA (09:33)
[2022-03-09] MEDS: Docusate Sodium 100 MG CAPSULE PO ×2 (09:33→20:29)
[2022-03-09] MEDS: polyethylene glycoL 3350 17 GM POWD.PACK PO (09:33)
[2022-03-09] MEDS: Cholecalciferol (Vitamin D3) 25 MCG TABLET PO (09:34)
[2022-03-09] MEDS: calcitrioL 0.25 MCG CAPSULE PO (09:34)
[2022-03-09] MEDS: Amiodarone HCL 200 MG TABLET PO (09:34)
[2022-03-09] MEDS: 0.9 % Sodium Chloride Flush 3 ML SYRINGE IVFLUSH ×3 (09:34→20:30)
[2022-03-09] MEDS: Isosorbide Mononitrate 60 MG TAB.ER.24H PO (09:34)
[2022-03-09] MEDS: allopurinoL 100 MG TABLET 200 MG PO (09:34)
--- NOTE | 2022-03-09 11:11 | P.PNIM_ITS ---
Subjective Subjective Date of Service: 03/09/22 Interval History: f/u on worsening renal failure H/H improved after transfusion, Cr and K higher Physical Exam Vital Signs: Vital Signs: Last Vital Signs Temp 97.5 F 03/09/22 07:22 Pulse 56 03/09/22 08:41 Resp 18 03/09/22 08:41 BP 117/56 L 03/09/22 07:42 Pulse Ox 93 03/09/22 07:42 O2 Del Method 03/09/22 07:22 O2 Flow Rate 2 03/03/22 07:41 BMI result Body Mass Index 37.5 Const: Other: General: AO X 3, no acute distress Resp: CTA bilateral CVS: S1,S2,RRR GI: +BS, NT, no distention Skin: No rash Neuro: motor grossly intact Psych: appropriate affect Objective Data Active Medications Albuterol/Ipratropium (Albuterol/Iprat 2.5/0.5mg 3 Ml Ampul.Neb) 3 ml INHALE RQ4H WHILE AWAKE [facility] Last Admin: 03/09/22 08:41 Dose: 3 ml Documented By: SANTINO Allopurinol (Allopurinol 100 Mg Tablet) 200 mg PO DAILY [facility] Last Admin: 03/09/22 09:34 Dose: 200 mg Documented By: CHRISTA Amiodarone HCl (Amiodarone Hcl 200 Mg Tablet) 200 mg PO DAILY [facility] Last Admin: 03/09/22 09:34 Dose: 200 mg Documented By: CHRISTA Aspirin (Aspirin 81 Mg Tab.Chew) 81 mg PO DAILY [facility] Last Admin: 03/05/22 10:19 Dose: 81 mg Documented By: CHRISTA Atorvastatin Calcium (Atorvastatin Calcium 80 Mg Tablet) 80 mg PO BEDTIME [facility] Last Admin: 03/08/22 21:34 Dose: 80 mg Documented By: EVER Calcitriol (Calcitriol 0.25 Mcg Capsule) 0.25 mcg PO DAILY [facility] Last Admin: 03/09/22 09:34 Dose: 0.25 mcg Documented By: CHRISTA Dextrose (Dextrose 50 % 25 Gm/50 Ml Syringe) 25 gm IVPUSH Q15M PRN; Protocol PRN Reason: per Hypoglycemia Standing Ord. Docusate Sodium (Docusate Sodium 100 Mg Capsule) 100 mg PO BID [facility] Last Admin: 03/09/22 09:33 Dose: 100 mg Documented By: CHRISTA Glucose (Glucose Gel 15 Gm Gel..Gram.) 15 gm PO Q15M PRN; Protocol PRN Reason: per Hypoglycemia Standing Ord. Ceftriaxone Sodium 1 gm/ (Sodium Chloride) 50 mls @ 100 mls/hr IV Q24H [facility] Last Infusion: 03/08/22 13:01 Dose: 0 mls/hr Documented By: DUSTIN Insulin Human Lispro (Insulin Lispro 100 Unit/Ml 3 Ml Vial) 0 unit SUBCUT QIDACHS [facility]; Protocol Last Admin: 03/09/22 07:55 Dose: Not Given Documented By: CHRISTA Non-Admin Reason: No Insulin Coverage Isosorbide Mononitrate (Isosorbide Mononitrate 60 Mg Tab.Er.24h) 60 mg PO DAILY [facility]; Protocol Last Admin: 03/09/22 09:34 Dose: 60 mg Documented By: CHRISTA Latanoprost (Latanoprost 0.005 % Ophth Cyndi 2.5 Ml Drops) 1 drop EYE-BOTH BEDTIME [facility] Last Admin: 03/08/22 21:35 Dose: 1 drop Documented By: EVER Lidocaine (Lidocaine 4 % Patch Adh..Patch) 1 patch TRANSDERMA DAILY [facility]; Protocol Last Admin: 03/09/22 09:33 Dose: 1 patch Documented By: CHRISTA Melatonin (Melatonin 3 Mg Tablet) 9 mg PO BEDTIME PRN PRN Reason: Sleep Last Admin: 03/08/22 21:37 Dose: 9 mg Documented By: EVER Omeprazole (Omeprazole 20 Mg Chin.) 20 mg PO DAILY@0630 [facility] Last Admin: 03/09/22 06:09 Dose: 20 mg Documented By: EVER Ondansetron HCl (Ondansetron Hcl 4 Mg/2 Ml Vial) 4 mg IVPUSH Q8H PRN PRN Reason: Nausea and Vomiting Last Admin: 03/07/22 22:29 Dose: 4 mg Documented By: EVER Pharmacy Consult (Consult Rx Perform Med Rec) 1 each MISCELLANE ONCE PRN PRN Reason: Consult order Polyethylene Glycol (Polyethylene Glycol 3350 17 Gm Powd.Pack) 17 gm PO DAILY [facility] Last Admin: 03/09/22 09:33 Dose: 17 gm Documented By: CHRISTA Sodium Biphosphate/Sodium Phosphate (Sodium Phosphate,[place]-Dibasic 133 Ml Enema) 133 ml [place] ONCE PRN PRN Reason: Constipation Sodium Chloride (0.9 % Sodium Chloride Flush 3 Ml Syringe) 3 ml IVFLUSH QSHIFT [facility] Last Admin: 03/09/22 09:34 Dose: 3 ml Documented By: CHRISTA Vitamin D (Cholecalciferol (Vitamin D3) 25 Mcg Tablet) 25 mcg PO DAILY [facility] Last Admin: 03/09/22 09:34 Dose: 25 mcg Documented By: CHRISTA Labs 03/09/22 08:42 03/09/22 08:42 Labs: Laboratory Results - last 24 hr 03/05/22 03/08/22 03/08/22 08:10 11:18 11:22 MCV MCH MCHC RDW Plt Count MPV Absolute Nucleated RBC Nucleated RBC % (auto) Anion Gap Estim Creat Clear Calc Estimated GFR POC Glucose 195 H Random Glucose Calcium Blood Type O Positive Antibody Screen NEGATIVE Crossmatch See Detail See Detail 03/08/22 03/08/22 03/09/22 16:21 20:57 07:09 MCV MCH MCHC RDW Plt Count MPV Absolute Nucleated RBC Nucleated RBC % (auto) Anion Gap Estim Creat Clear Calc Estimated GFR POC Glucose 206 H 201 H 100 Random Glucose Calcium Blood Type Antibody Screen Crossmatch 03/09/22 03/09/22 08:42 08:42 MCV 93.8 MCH 29.1 MCHC 31.0 RDW 18.0 H Plt Count 152 L MPV 9.5 Absolute Nucleated RBC 0.040 H Nucleated RBC % (auto) 0.6 H Anion Gap 22 H Estim Creat Clear Calc 9.6 Estimated GFR 7 POC Glucose Random Glucose 125 H Calcium 9.5 Blood Type Antibody Screen Crossmatch Microbiology Microbiology Results: Microbiology 03/03/22 12:04 Blood Culture - Final Blood - Venous No growth after 5 days. 03/03/22 12:04 Blood Culture - Final Blood - Venous No growth after 5 days. Assessment and Plan (1) CKD (chronic kidney disease) stage V requiring chronic dialysis: Status: Acute (2) Acute on chronic heart failure with preserved ejection fraction (HFpEF): Status: Acute (3) Anemia: Status: Acute Assessment and Plan: 81-year-old female with a PMH significant for?diastolic CHF, HLD, HTN, insulin- dependent DM, CKD stage 4, morbid obesity, and chronic constipation?who presents to the ED with?severe abdominal pain and constipation x4 days. Pt will be admitted to telemetry for treatment evaluation of fecal impaction, new onset afib, and acute CHF exacerbation. Fecal impaction/constipation: bowel regimen including enema today continue Colace p.o.,Miralax p.o.,Bisacodyl 10 mg suppository Hyperkalemia--treat with [facility] CKD stage 5, Nephrelogy to reassess for dialysis in light of worsening Cr and persistant hyperkalemia HFpEF) heart failure with preserved ejection fraction-possible combination ( advanced renal dis/chf) ?hypervolemic Patient had CardioMEMS device implanted 2 weeks ago EKG and telemetry reviewed-no AFib iv Lasix 80mg bid, per nephrology Monitor BP, lytes, mg, I/o: 1 liter negative. Echocardiogram-ef 58%.diastolic dysfunction Cardiology consult-LVEF 58%.? Moderate diastolic dysfunction.? Severe LVH.? Inferior wall motion abnormality.? Slight valvular calcification.? In the previous echocardiogram from December, LVEF of 35-40%.? Hence that seems to be some recovery of LVEF.? review of CardioMEMS data, very slight increase in PAD to18 mm Hg, but not too high. rythem -not afib possible? pneumonia--completed course of Abx, repeat cxr only atelectasis Insulin-dependent DM Hold home meds SSI, lantus Morbid obesity Weight loss encouraged hx of thrombocytopenia ,normocyctic anemia chronic: iron studies seems aocd fobt added to complete workup no eccymosis or bleedin moniter cbc nephro -added procrit, s/p 2 units of prbc moniter h/h dvt prophylax :s/c scd due to?-thrombocytopenia ,normocyctic anemia pT-home with services Pt will require a hospitalization :needs and acute CHF exacerbation-iv diuretics ,moniter i/o,anemia -need transfusion,h/h moniterin Time Spent With Patient Time: Total time managing care of this patient today ____ minutes. Quality Stroke Does the patient have a stroke diagnosis?: No VTE Prior VTE?: No VTE Risk Level:: Medical - moderate - high VTE Device Contraindication: Treatment Not Indicated VTE Drug Contraindication: N/A - Med Ordered
[2022-03-09 11:15] LABS: Glucose, Whole Blood 162 mg/dL (60-115)
[2022-03-09] MEDS: cefTRIAXone sodium 1 GM in 0.9 % Sodium Chloride 50 ML IV (11:47)
[2022-03-09] MEDS: Sodium Phosphate,Mono-Dibasic 133 ML ENEMA PR (13:01)
--- NOTE | 2022-03-09 13:15 | PM.PNNEP ---
Subjective Subjective Date of Service: 03/09/22 Interval history: Seen and examined. All recent data reviewed. Denied any uremic symptoms Physical Exam Vital Signs: Vital Signs: Last Vital Signs Temp 97.4 F 03/09/22 11:14 Pulse 61 03/09/22 11:58 Resp 16 03/09/22 11:58 BP 136/61 03/09/22 11:14 Pulse Ox 95 03/09/22 11:14 O2 Del Method 03/09/22 11:14 O2 Flow Rate 2 03/03/22 07:41 BMI result Body Mass Index 37.5 Const: General: comfortable Orientation/consciousness: patient oriented x3 Eyes: EOM: EOMs intact bilaterally Neck: Neck: Yes supple Resp: Auscultation: diminished lung sounds Cardio: Rate: regular rate GI: Palpation (GI): Soft to palpation Skin: General skin exam: no rashes or lesions noted Neuro: General: patient oriented x3 and moves all extremities Objective Data Labs 03/09/22 08:42 03/09/22 08:42 Labs: Laboratory Results - last 24 hr 03/05/22 03/08/22 03/08/22 08:10 11:18 16:21 WBC RBC Hgb Hct MCV MCH MCHC RDW Plt Count MPV Absolute Nucleated RBC Nucleated RBC % (auto) Sodium Potassium Chloride Carbon Dioxide Anion Gap BUN Creatinine Estim Creat Clear Calc Estimated GFR POC Glucose 206 H Random Glucose Calcium Crossmatch See Detail See Detail 03/08/22 03/09/22 03/09/22 20:57 07:09 08:42 WBC 7.0 RBC 2.75 L Hgb 8.0 L Hct 25.8 L MCV 93.8 MCH 29.1 MCHC 31.0 RDW 18.0 H Plt Count 152 L MPV 9.5 Absolute Nucleated RBC 0.040 H Nucleated RBC % (auto) 0.6 H Sodium Potassium Chloride Carbon Dioxide Anion Gap BUN Creatinine Estim Creat Clear Calc Estimated GFR POC Glucose 201 H 100 Random Glucose Calcium Crossmatch 03/09/22 03/09/22 08:42 11:10 WBC RBC Hgb Hct MCV MCH MCHC RDW Plt Count MPV Absolute Nucleated RBC Nucleated RBC % (auto) Sodium 138 Potassium 5.5 H Chloride 98 Carbon Dioxide 24 Anion Gap 22 H BUN 86 H Creatinine 6.00 H* Estim Creat Clear Calc 9.6 Estimated GFR 7 POC Glucose 162 H Random Glucose 125 H Calcium 9.5 Crossmatch Microbiology Microbiology Results: Microbiology 03/03/22 12:04 Blood - Venous Blood Culture - Final No growth after 5 days. 03/03/22 12:04 Blood - Venous Blood Culture - Final No growth after 5 days. Procedures Date of Service Date of Service: 03/09/22 Assessment & Plan Assessment and plan (1) Chronic kidney disease, stage V: Status: Acute Assessment and Plan: CKD 5 approaching ESRD known CKD due to DM/HTN nephrotic range proteinuria baseline Scr ~ 4-4.5 mg/dl No indication for dialysis yet Has been evaluated by home dialysis nurse? for possible PD (To be started as out pt) OK to DC with? oral diuretics procrit [id number] unis sc weekly Lokelma 10 Gram PO daily 2 Gram PO K resricted diet no indication for dialysis yet Will arrange for OP follow up Progress Note: Quality Stroke Does the patient have a stroke diagnosis?: No
[2022-03-09] MEDS: Sodium Zirconium Cyclosilicate 10 GM POWD.PACK PO (14:34)
--- NOTE | 2022-03-09 15:28 | MHC.CM.PN ---
per rounds pt may need dialysis no anticapated dc at this time home with wilfredo renteria and noe
--- NOTE | 2022-03-09 16:32 | W.MHC.F2F ---
Service Date Service Date: 03/09/22 Encounter Date of encounter: 03/09/22 Reasons for Services Signs and symptoms assessed: weakness Reason for correction: medication management and teach disease management Homebound: Leaving the home is medically contraindicated at this time without the asist of a device and/or another person due th the listed conditions above and below. Reason homebound: weakness related to hospital stay Homebound supporting statement: homebound due to weakness from hospitalization and therefore needs the assitance of anothe person Certification: Based on the above findings, I certify that this patient is confined to the home and needs intermittent correction care, physical therapy and/or speech therapy, or continues to need occupational therapy. The patient is under my care, and I have initiated the establishment of the plan of care. The patient will be followed by a physician who will periodically review the plan of care. Time Spent With Patient Time: Total time managing care of this patient today ____ minutes.
[2022-03-09] MEDS: Hydrocortisone 2.5 % Rectal Cr 30 GM TUBE 1 APPL PR (16:41)
[2022-03-09 17:41] LABS: Glucose, Whole Blood 187 mg/dL (60-115)
[2022-03-09] MEDS: Acetaminophen 325 MG TABLET 650 MG PO (17:58)
[2022-03-09 19:34] LABS: Glucose, Whole Blood 206 mg/dL (60-115)
[2022-03-09] MEDS: Atorvastatin Calcium 80 MG TABLET PO (20:29)
[2022-03-09] MEDS: Insulin Lispro 100 UNIT/ML 3 ML VIAL SUBCUT (20:29)
[2022-03-09] MEDS: Latanoprost 0.005 % Ophth Sol 2.5 ML DROPS 1 DROP EYE-BOTH (20:30)
[2022-03-09] MEDS: diphenhydrAMINE HCL 25 MG CAPSULE 50 MG PO (20:54)
[2022-03-09] MEDS: Melatonin 3 MG TABLET 9 MG PO (20:54)
[2022-03-10 03:32] VITALS: BP 126/58; PULSE 71; RESP 18; TEMP 36.7; O2SAT 79
[2022-03-10 03:38] VITALS: O2SAT 93
[2022-03-10 07:22] LABS: Glucose, Whole Blood 115 mg/dL (60-115)
[2022-03-10] MEDS: Albuterol/Iprat 2.5/0.5MG 3 ML AMPUL.NEB INHALE ×2 (07:36→11:06)
[2022-03-10 07:37] VITALS: BP 140/71; PULSE 59; PULSE 76; RESP 16; RESP 18; TEMP 37.1; O2SAT 92; O2SAT 94
[2022-03-10 08:34] LABS: Anion Gap 21 (12-20); Blood Urea Nitrogen 88 mg/dL (9-16); Calcium 9.4 mg/dL (8.4-10.2); Carbon Dioxide 26 mmol/L (22-29); Chloride 98 mmol/L (96-108); Creatinine Clr Calc Pharmacy 9.9; Estimated Glomerular Filt Rate 7; Glucose Random 121 mg/dL (60-115); Sodium 140 mmol/L (135-145)
[2022-03-10] MEDS: Isosorbide Mononitrate 60 MG TAB.ER.24H PO (09:02)
[2022-03-10] MEDS: Amiodarone HCL 200 MG TABLET PO (09:02)
[2022-03-10] MEDS: allopurinoL 100 MG TABLET 200 MG PO (09:02)
[2022-03-10] MEDS: Docusate Sodium 100 MG CAPSULE PO (09:02)
[2022-03-10] MEDS: polyethylene glycoL 3350 17 GM POWD.PACK PO (09:02)
[2022-03-10] MEDS: 0.9 % Sodium Chloride Flush 3 ML SYRINGE IVFLUSH (09:02)
[2022-03-10] MEDS: calcitrioL 0.25 MCG CAPSULE PO (09:02)
[2022-03-10] MEDS: Cholecalciferol (Vitamin D3) 25 MCG TABLET PO (09:03)
[2022-03-10] MEDS: Lidocaine 4 % Patch ADH..PATCH 1 PATCH TRANSDERMA (09:04)
--- NOTE | 2022-03-10 09:55 | PM.DS ---
DS: Providers Provider Date of Service: 03/10/22 Date of admission: 03/03/22 12:31 Primary care physician: Imer Hernandez MD Consults: 03/03/22 13:01 Consult to Cardiology Routine Consulting Provider: Rick Benitez Reason for consultation: New onset afib/chf Has provider been notified: No Consult to General Surgery Routine Consulting Provider: Tommy Frank Reason for consultation: Constipation 03/03/22 13:02 Consult to Nephrology Routine Consulting Provider: Nilay Hurst Reason for consultation: CKD stage 4 DS: Diagnosis Discharge Diagnosis (1) CKD (chronic kidney disease) stage V requiring chronic dialysis: Status: Acute (2) Acute on chronic heart failure with preserved ejection fraction (HFpEF): Status: Acute (3) Anemia: Status: Acute DS: Summary Hospital Course Hospital Course: Chief Complaint: Constipation Pt is a 81-year-old female with a PMH significant for?diastolic CHF, HLD, HTN, insulin-dependent DM, CKD stage 4, morbid obesity, and chronic constipation?who presents to the ED with?severe abdominal pain and constipation x4 days. Pt states that she has chronic constipation which she treats with laxatives as necessary, but this is her by far her worst episode ever. Normally has a BM every 2-3 days, but it has over 4 days since last BM. Pt has had hemorrhoid pain that prevents her from pushing and a small amount of bright red blood on toilet paper. Pt also complains of severe 10/10 lower abdominal pain and has experienced two episodes of vomiting yesterday, one after orange juice and the other in the evening after differ. She has tried oral laxatives and rectal enema with no effect. Pt complains of worsening SOB with exertion and chronic cough and lower leg edema. Of note, pt had a cardioMEMS device implanted two weeks ago. Pt complains of chronic chills but no fever. In the ED patient was mildly hypoxic at 89-90% O2, improved on supplemental oxygen. Labs were significant for WBC WNL, H&H chronically decreased at 8.4/27.1 (stable, near baseline), slightly low platelets at 143, mild hyperkalemia at 5.6, chronically elevated BUN at 74 (stable, near baseline), chronically elevated creatinine at 5.86 (stable, at baseline), lactic acid 2.1 with repeat at 1.2, chronically elevated troponin of 61.5 with repeat 57.8 (at baseline), and BNP mildly elevated at 183. VBG WNL.? UA clear. CXR showed prominence of pulmonary vasculature and interstitium with opacity of the mediastinal right lung base suggestive of developing infectious/inflammatory etiology, and small right-sided pleural effusion. CT?of the abdomen and pelvis found a large stool burden in the colon with a large stool ball in the rectum and some perirectal inflammatory changes suggesting early stercoral colitis.? EKG showed new onset AFib and chronic left branch block. Pt was treated with NS, fentanyl, ceftriaxone, and IV lasix. Pt will be admitted to the hospital for treatment and further evaluation acute constipation in new onset AFib. Hospital course: HFpEF exaccerbation from fluid overload in setting of advanced kidney disease--hence cardiorenal syndrome. She was diuressed with IV Lasix with much improvment, was seen by cardiology and will be transitioned to oral Lasix Patient had CardioMEMS device implanted 2 weeks ago, data showed very slight increase in PAD to18 mm Hg, but not too hig. Echocardiogram-ef 58%..? Moderate diastolic dysfunction.? Severe LVH.? Inferior wall motion abnormality.? Slight valvular calcification.?To resume Bumex upon discharge Fecal impaction/constipation: CT?found a large stool burden in the colon with a large stool ball in the rectum and some perirectal inflammatory changes suggesting early stercoral colitis less likely infection -more likely constipation passing bm's after receiving luxatives/enema,also disimpaction was done by surgery yesterday continue Colace p.o.,Miralax p.o.,Bisacodyl 10 mg suppository Hyperkalemia resolved with lokelma, and will be maintained of 10 mg daily of lokelma CKD stage 5 Creatinine stable, but LLE and hyperkalemia concerning for worsening kidney function and possible need for dialysis in the near future, Nephrology will arrange for outpatient dialysis possibly peritoneal dialysis Possible? pneumonia--treated with Ceftriaxone, no clinical symptoms, repeat CXR showed atelectasis, no additional antibiotics Insulin-dependent DM--resume home meds Morbid obesity Weight loss encouraged Anemia of chronic disease, iron deficiency anemia--s/p 2 units of RBC, h and h is stable, will need procrit on outpatient bais Time Spent with Patient Time attestation: Total time managing care of this patient today ____ minutes. Discharge coordination time: Greater than 30 minutes Quality: Safe Use of Opioids Does Pt have an Active Cancer Diagnosis on the Problem List?: No Quality: Stroke Does the patient have a stroke diagnosis?: No Physical Exam Vital Signs: Vital Signs: Last Vital Signs Temp 98.0 F 03/08/22 07:30 Pulse 63 03/08/22 07:36 Resp 18 03/08/22 07:36 BP 160/69 H 03/08/22 07:30 Pulse Ox 92 03/08/22 07:30 O2 Del Method 03/08/22 07:30 O2 Flow Rate 2 03/03/22 07:41 BMI result Body Mass Index 37.5 DS: Data Data Completed and Pending Labs on day of discharge: Laboratory Results - last 24 hr 03/05/22 03/07/22 03/07/22 08:10 11:19 15:54 WBC RBC Hgb Hct MCV MCH MCHC RDW Plt Count MPV Absolute Nucleated RBC Nucleated RBC % (auto) POC Glucose 264 H 210 H Blood Type O Positive Antibody Screen NEGATIVE Crossmatch See Detail 03/07/22 03/08/22 03/08/22 19:59 05:54 07:06 WBC 5.8 RBC 2.52 L Hgb 7.1 L Hct 22.9 L MCV 90.9 MCH 28.2 MCHC 31.0 RDW 18.0 H Plt Count 128 L MPV 9.5 Absolute Nucleated RBC 0.020 H Nucleated RBC % (auto) 0.3 H POC Glucose 174 H 136 H Blood Type Antibody Screen Crossmatch Preliminary micro results at discharge 03/03/22 12:04 Blood Culture - Preliminary Blood - Venous No growth after 48 hours. 03/03/22 12:04 Blood Culture - Preliminary Blood - Venous No growth after 48 hours. Discharge Plan Discharge Anticipated Discharge Date/Time: 03/10/22 10:46 Patient Disposition: Home Health Service Discharge Diagnosis: chf ,anemia (aocd), constipation. Referrals: wilfredo [Other] - 1 Week Imer Hernandez MD [Primary Care Provider] - 1 Week Discharge Medications: New Lokelma 10 gram powder in packet 10 g PO DAILY Qty: 30 0RF Continued (DME) pen needle, diabetic 32 gauge x 5/32 needle See Rx Instructions subcut .MEDSUPPLY Qty: 360 3RF Rx Instructions: As directed 4 times a day (DME) OneTouch Verio test strips Strip See Rx Instructions .ROUTE .MEDSUPPLY Qty: 400 3RF Rx Instructions: four times a day (DME) pen needle, diabetic [BD Ultra-Fine Renetta Pen Needle] 32 gauge x 5/32 needle See Rx Instructions .ROUTE .MEDSUPPLY Qty: 100 5RF Rx Instructions: As directed 4 times a day hydralazine 50 mg tablet 100 mg PO TID 90 Days Qty: 540 3RF Protocol: Hold for SBP< HOLD for SBP < : 90 amlodipine 5 mg tablet 5 mg PO DAILY Qty: 30 0RF Protocol: Hold for SBP< HOLD for SBP < : 90 isosorbide mononitrate 60 mg tablet extended release 24 hr 60 mg PO DAILY 30 Days Qty: 30 0RF Protocol: Hold for SBP< HOLD for SBP < : 90 insulin glargine U-300 conc 300 unit/mL (3 mL) insulin pen 20 unit subcut BEDTIME atorvastatin 80 mg tablet 80 mg PO BEDTIME docusate sodium 100 mg Capsule 200 mg PO BEDTIME bumetanide 1 mg tablet 0.5 tab PO DAILY@1800 pantoprazole 40 mg tablet,delayed release (DR/EC) 40 mg PO DAILY@0630 bumetanide 1 mg tablet 1 mg PO DAILY Rx Instructions: 1 tab in the AM and 1/2 a tab in the PM (DME) pen needle, diabetic [BD Ultra-Fine Renetta Pen Needle] 32 gauge x 5/32 needle See Rx Instructions .ROUTE .MEDSUPPLY Qty: 100 3RF Rx Instructions: As directed once a day (DME) OneTouch Verio test strips Strip See Rx Instructions .Route Qty: 300 3RF Rx Instructions: As directed 3 times a day (DME) lancets [OneTouch UltraSoft Lancets] Misc See Rx Instructions .ROUTE .MEDSUPPLY Qty: 300 3RF Rx Instructions: As directed 3 times a day latanoprost 0.005 % drops 1 drp ophthalmic (eye) BEDTIME (DME) lancets 33 gauge misc See Rx Instructions topical TID Qty: 100 Rx Instructions: As directed cholecalciferol (vitamin D3) 25 mcg (1,000 unit) capsule 25 mcg PO DAILY allopurinol 100 mg tablet 200 mg PO DAILY (DME) FreeStyle Charly 2 Sensor Kit See Rx Instructions .Route Rx Instructions: As directed melatonin 5 mg capsule 10 mg PO BEDTIME PRN (Reason: Sleep) calcitriol 0.25 mcg capsule 0.25 mcg PO DAILY insulin lispro 100 unit/mL solution See Protocol subcut TIDAC Protocol: Insulin Correction Scale Less than or equal to 110 ---- Give (units): 0 111 to 150 Give (units): 0 151 to 200 Give (units): 2 201 to 250 Give (units): 4 251 to 300 Give (units): 6 301 to 350 Give (units): 8 Greater than 350 Give (units): 10 Call MD if Blood Glucose > : 350 Label Comments: Humalog amiodarone 200 mg tablet 200 mg PO DAILY 90 Days Qty: 90 1RF Discontinued aspirin 81 mg Tablet,Chewable 81 mg PO DAILY Qty: 30 0RF Discharge Orders: Discharge Order (Routine); Ordered 03/10/22 Ordered By: Dany Pichardo Diet: Advance to usual diet Activity on Discharge: As tolerated Stand Alone Forms: Patient Portal Discharge page Other Ambulatory Orders: Complete Blood Count no Diff (Routine) Timeframe: 1 Week Facility: [facility] - Location: Laboratory Ordered By: Josemanuel Farrar Care Plan Goals: full recovery Health Concerns: end stage kidney disease Plan of Treatment: take Lokelma 10 mg daily to prevent high potassium follow up with [employer] to be set up for dialysis Assessment: as above Discharge Date/Time: 03/10/22 13:36
--- NOTE | 2022-03-10 10:31 | MHC.CM.PN ---
DP: IMM DELIVERED PT HAS BEEN MEDICALLY CLEARED FOR DC HOME WITH NEW [facility] ([facility]) RN AWARE. [facility] NOTIFIED. CM SPOKE WITH DAUGHTER CARLIE WHO WILL ASSIST PT IN ARRANGING F/U WITH NEPHROLOGY OP. DAUGHTER WILL TRANSPORT HOME AT 12 NOON.
[2022-03-10 10:55] VITALS: BP 142/60; PULSE 67; RESP 20; TEMP 36.4; O2SAT 92
[2022-03-10 10:56] LABS: Glucose, Whole Blood 193 mg/dL (60-115)
--- NOTE | 2022-03-10 11:06 | PM.PNNEP ---
Subjective Subjective Date of Service: 03/10/22 Interval history: Seen and examined. All recent data reviewed. Denied any uremic symptoms Physical Exam Vital Signs: Vital Signs: Last Vital Signs Temp 97.6 F 03/10/22 10:55 Pulse 67 03/10/22 10:55 Resp 20 03/10/22 10:55 BP 140/71 H 03/10/22 07:37 Pulse Ox 92 03/10/22 10:55 O2 Del Method 03/10/22 10:55 O2 Flow Rate 3 03/10/22 07:37 BMI result Body Mass Index 37.5 Const: General: no acute distress Orientation/consciousness: patient oriented x3 Eyes: EOM: EOMs intact bilaterally Neck: Neck: Yes supple Resp: Auscultation: diminished lung sounds Cardio: Rate: regular rate GI: Palpation (GI): Soft to palpation Neuro: General: patient oriented x3 and moves all extremities Objective Data Labs 03/09/22 08:42 03/10/22 07:38 Labs: Laboratory Results - last 24 hr 03/09/22 03/09/22 03/09/22 11:10 17:38 19:28 Sodium Potassium Chloride Carbon Dioxide Anion Gap BUN Creatinine Estim Creat Clear Calc Estimated GFR POC Glucose 162 H 187 H 206 H Random Glucose Calcium 03/10/22 03/10/22 03/10/22 07:05 07:38 10:47 Sodium 140 Potassium 5.0 Chloride 98 Carbon Dioxide 26 Anion Gap 21 H BUN 88 H Creatinine 5.87 H* Estim Creat Clear Calc 9.9 Estimated GFR 7 POC Glucose 115 193 H Random Glucose 121 H Calcium 9.4 Microbiology Microbiology Results: Microbiology 03/03/22 12:04 Blood - Venous Blood Culture - Final No growth after 5 days. 03/03/22 12:04 Blood - Venous Blood Culture - Final No growth after 5 days. Procedures Date of Service Date of Service: 03/10/22 Assessment & Plan Assessment and plan (1) Chronic kidney disease, stage V: Status: Acute Assessment and Plan: CKD 5 approaching ESRD known CKD due to DM/HTN nephrotic range proteinuria baseline Scr ~ 4-4.5 mg/dl No indication for dialysis yet Has been evaluated by home dialysis nurse? for possible PD (To be started as out pt) OK to DC with? oral diuretics procrit 85[address] [address] weekly Lokelma 10 Gram PO daily 2 Gram PO K resricted diet no indication for dialysis yet Will arrange for OP follow up Progress Note: Quality Stroke Does the patient have a stroke diagnosis?: No
[2022-03-10] MEDS: Bumetanide 1 MG TABLET PO (11:54)
== END 2022-03-10 13:36 | disposition home health service (06) | DRG 388 ==
LOC: HO.ED 11:08 → HO.EDOVER 12:57 → HO.IMC 14:04
PROVIDERS: Internal Medicine; Admitting Provider Student in an Organized Health Care Education/Training Program; Emergency Provider Student in an Organized Health Care Education/Training Program; PCP Internal Medicine; Visit Provider Internal Medicine
DX: K56.41 Fecal impaction (principal); I50.33 Acute on chronic diastolic (congestive) heart failure; J18.9 Pneumonia, unspecified organism; N17.9 Acute kidney failure, unspecified; J98.11 Atelectasis; N18.5 Chronic kidney disease, stage 5; I13.2 Hypertensive heart and chronic kidney disease with heart failure and with stage 5 chronic kidney disease, or end stage renal disease; D63.1 Anemia in chronic kidney disease; K52.89 Other specified noninfective gastroenteritis and colitis; E66.01 Morbid (severe) obesity due to excess calories; E11.22 Type 2 diabetes mellitus with diabetic chronic kidney disease; N25.0 Renal osteodystrophy; I44.7 Left bundle-branch block, unspecified; E87.5 Hyperkalemia; Z68.37 Body mass index [BMI] 37.0-37.9, adult; Z20.822 Contact with and (suspected) exposure to COVID-19; Z95.818 Presence of other cardiac implants and grafts; Z88.0 Allergy status to penicillin; Z88.5 Allergy status to narcotic agent; Z79.4 Long term (current) use of insulin; Z79.899 Other long term (current) drug therapy
CPT/HCPCS: 36415; 71045; 74018; 74176; 80048; 80053; 81001; 82607; 82728; 82746; 82803; 82947; 83540; 83605; 83880; 84145; 84484; 85014; 85018; 85025; 85027; 85610; 86850; 86900; 86901; 86923; 87040; 87086; 87635; 93005; 93306; 93356; 94640; 97116; 97162; 97530; 99285; C1758; J0131; J0696; J0885; J1940; J2270; J2405; J3010; P9016; Q9957

== ENCOUNTER → 2022-05-30 09:44 | Outpatient (BNVA) | payer MEDICARE, SELFPAY | PROVIDERS: PCP Internal Medicine; Visit Provider Internal Medicine | DX: G47.33 Obstructive sleep apnea (adult) (pediatric) (principal); I50.32 Chronic diastolic (congestive) heart failure; E66.01 Morbid (severe) obesity due to excess calories; Z99.89 Dependence on other enabling machines and devices; Z68.36 Body mass index [BMI] 36.0-36.9, adult | CPT/HCPCS: 99212 ==

== ENCOUNTER → 2022-06-06 14:31 | Outpatient (BNVA) | payer MEDICARE, SELFPAY | PROVIDERS: PCP Internal Medicine; Referring Provider Internal Medicine; Visit Provider Internal Medicine Cardiovascular Disease | DX: I50.32 Chronic diastolic (congestive) heart failure (principal); I47.1 Supraventricular tachycardia | CPT/HCPCS: 93005; 99212 ==

== ENCOUNTER → 2022-08-05 23:59 | Outpatient (BNV) | payer MEDICARE, SELFPAY ==
--- NOTE | 2022-08-19 17:44 | MHC.OFFVIS ---
Intake Intake Visit Reasons: [facility] - [facility] Allergies amoxicillin [Amoxicillin] Allergy (Severe, Verified 07/22/22 14:10) VAGINAL ITCH bee pollen [bee stings] Allergy (Severe, Verified 07/22/22 14:10) Anaphylaxis hydrocodone [HYDROCODONE] Allergy (Severe, Verified 07/22/22 14:10) severe lethargy PFSH Medical History (Updated 07/22/22 @ 14:43 by Imer Hernandez MD) (HFpEF) heart failure with preserved ejection fraction Acquired hypothyroidism Anemia Anemia of chronic disease Anxiety and depression Arthritis Back pain Benign essential hypertension CHF exacerbation Chronic kidney disease, stage 4 (severe) Chronic kidney disease, stage V CKD (chronic kidney disease) stage V requiring chronic dialysis Constipation Essential hypertension Fecal impaction in rectum GERD (gastroesophageal reflux disease) Gout History of kidney cancer Hyperlipidemia LDL goal <100 Left bundle branch block Morbid obesity with BMI of 40.0-44.9, adult Obesity due to excess calories Obstructive sleep apnea TRINH on CPAP Personal history of renal cell carcinoma Presence of CardioMEMS HF system Psoriasis Pure hypercholesterolemia Restless leg syndrome Sleep apnea Squamous cell carcinoma in situ Supraventricular tachycardia Type 2 diabetes mellitus with chronic kidney disease Type 2 diabetes mellitus with other diabetic kidney complication Vitamin D deficiency Surgical History History of carpal tunnel release of both wrists History of cryosurgery History of surgery Hx of colonoscopy Hx of hysterectomy Hx of mammogram Hx of tonsillectomy Hx of total knee replacement Family History Mother Diabetes Father No problems noted. Social History Household Members: Family and None Household Members Other:: daughter has being staying with pt for the past 2 weeks Housing: House Housing Other:: 2nd floor - uses stair chair Are you a primary care management assistant to a significant other at home: No Do you presently have visiting nurse or other home services: Yes Alcohol intake: never Patient Tobacco Use Status: Never used Tobacco e-Cigarette/Vaping Use: Never Used Second Hand Smoke Exposure: No Advance Directives Date on File: 12/15/21 service: No Current occupational status: retired Cognitive needs: Yes (walker ) Hearing needs: No Vision needs: Yes (glasses) Office Procedures Cardiac Device Check Cardiac Device Check Details: Monitoring period dates:06/03 - 07/05/22 Optimal PA pressure range: PAD 9 mmhg Procedure code: 99553 BACKGROUND: Kate is implanted with the CardioMEMS PA Sensor.? I use this technology to monitor PA pressures on a weekly basis to ensure patients are within their optimal range to prevent decompensation.? SUMMARY:? I utilized the remote monitoring platform ([employer]) to set optimal targets for pulmonary artery pressure thresholds as part of acute and chronic management of patient?s heart failure. During the period indicated above, I monitored the patient?s pulmonary artery pressures weekly via trend analysis and notification reports which provide alerts when patient?s PA pressures were outside of range to prompt immediate action in medication changes and communications.? The weekly reports are archived in the [employer] system which serve as a parallel record to document weekly PA pressures, medication changes, and clinical notes. I have reviewed readings on 07/08, 07/11, 07/15, 07/18, 07/24, 07/29, 08/05. PAD has ranged 7-11mmhg. She is on dialysis and doing well. [id number] - Remote monitoring of wireless pulmonary artery pressure sensor Procedure code (CPT) selection complete Coding Level of Care Code Procedure Only Diagnoses CPT Codes Cardiac Device Check - Cardiac Device 17: 58428 - Remote monitoring of wireless pulmonary artery pressure sensor ([id number])
== END ==
PROVIDERS: PCP Internal Medicine; Visit Provider Nurse Practitioner Family
DX: I50.31 Acute diastolic (congestive) heart failure (principal)
CPT/HCPCS: 93264

== ENCOUNTER 2022-08-29 14:15 | Outpatient (AMB) | payer MEDICARE, SELFPAY ==
[2022-08-29 14:17] VITALS: BP 124/68; PULSE 69; O2SAT 94; BMI 37.0
--- NOTE | 2022-08-29 14:17 | A.OFFVIS_ITS ---
Intake Vital Signs 08/29/22 14:17 Height 5 ft 6 in Weight 229 lb 4.492 oz BMI 37.0 BP 124/68 Blood Pressure Location Lt brachial Position Sitting Pulse 69 Pulse Source Pulse Oximeter Pulse Oximetry (%) 94 Oxygen Delivery Method Room Air Intake Visit Reasons: Obstructive sleep apnea Intake Note: Pt presents today for a f/u and has concerns about her CPAP machine. She reports that some nights the machine will not work. Allergies amoxicillin [Amoxicillin] Allergy (Severe, Verified 08/29/22 14:28) VAGINAL ITCH bee pollen [bee stings] Allergy (Severe, Verified 08/29/22 14:28) Anaphylaxis hydrocodone [HYDROCODONE] Allergy (Severe, Verified 08/29/22 14:28) severe lethargy Medication List - Last Reconciled 08/29/22 by Yogesh Alberto MD allopurinol 200 mg (2 x 100 mg) PO DAILY amiodarone 200 mg PO DAILY 90 days amlodipine 5 mg PO DAILY atorvastatin 80 mg PO BEDTIME blood sugar diagnostic (OneTouch Verio test strips) As directed 3 times a day blood sugar diagnostic (OneTouch Verio test strips) four times a day calcitriol 0.25 mcg PO DAILY cholecalciferol (vitamin D3) 25 mcg PO DAILY [CPAP Device Use as directed when sleeping every night. Settings at 4 to 20 cm H2O] docusate sodium 200 mg PO BEDTIME flash glucose scanning reader (FreeStyle Charly 2 [place]) As directed flash glucose sensor (FreeStyle Charly 2 Sensor kit) As directed flash glucose sensor (FreeStyle Charly 2 Sensor kit) As directed gabapentin 100 mg PO BEDTIME insulin glargine U-300 conc 20 units subcut BEDTIME insulin lispro 20 - 30 units (0.2 - 0.3 mL) subcut TID 90 days insulin lispro See Protocol units subcut TIDAC isosorbide mononitrate ER 60 mg See Protocol PO DAILY 30 days lancets (500FriendsTouch UltraSoft Lancets) As directed 3 times a day lancets As directed latanoprost 0.005% 1 drp ophthalmic (eye) BEDTIME 90 days levothyroxine 75 mcg PO DAILY 30 days melatonin 10 mg PO BEDTIME PRN pantoprazole 40 mg PO DAILY@0630 pen needle, diabetic (BD Ultra-Fine Renetta Pen Needle) As directed 4 times a day pen needle, diabetic (BD Ultra-Fine Renetta Pen Needle) As directed once a day pen needle, diabetic As directed 4 times a day ropinirole 0.25 mg PO BEDTIME HPI Obstructive sleep apnea HPI Details THIS 82 YEARS OLD VERY PLEASANT FEMALE WITH MULTIPLE COMORBIDITIES, INCLUDING OBESITY AND HIS OBSTRUCTIVE SLEEP APNEA, COMES AFTER 3 MONTHS FOR FOLLOW-UP. SHE DOES USE THE CPAP EVERY NIGHT, BUT SOMETIMES THE CPAP DEVICE SHORTS OFF BY ITSELF. ON SOME NIGHTS 8 GOES ON AND OFF. MOST OF THE NIGHTS SHE SLEEPS WELL, BUT ON SOME OF THE NIGHTS THIS SLEEP IS INTERRUPTED BECAUSE OF THE MACHINE GOING OFF AND ON. PATIENT DOES PERITONEAL DIALYSIS EVERY NIGHT AT HOME. LATELY SHE IS RETAINING SOME EXTRA FLUID, AND HAS DEVELOPED INCREASED SWELLING OF THE LEGS. SHE HAS NO COUGH OR WHEEZING. [facility] Medical History (HFpEF) heart failure with preserved ejection fraction Acquired hypothyroidism Anemia Anemia of chronic disease Anxiety and depression Arthritis Back pain Benign essential hypertension CHF exacerbation Chronic kidney disease, stage 4 (severe) Chronic kidney disease, stage V CKD (chronic kidney disease) stage V requiring chronic dialysis Constipation Essential hypertension Fecal impaction in rectum GERD (gastroesophageal reflux disease) Gout History of kidney cancer Hyperlipidemia LDL goal <100 Left bundle branch block Morbid obesity with BMI of 40.0-44.9, adult Obesity due to excess calories Obstructive sleep apnea TRINH on CPAP Personal history of renal cell carcinoma Presence of CardioMEMS HF system Psoriasis Pure hypercholesterolemia Restless leg syndrome Sleep apnea Squamous cell carcinoma in situ Supraventricular tachycardia Type 2 diabetes mellitus with chronic kidney disease Type 2 diabetes mellitus with other diabetic kidney complication Vitamin D deficiency Surgical History History of carpal tunnel release of both wrists History of cryosurgery History of surgery Hx of colonoscopy Hx of hysterectomy Hx of mammogram Hx of tonsillectomy Hx of total knee replacement Family History Mother Diabetes Father No problems noted. Social History Household Members: Family and None Household Members Other:: daughter has being staying with pt for the past 2 weeks Housing: House Housing Other:: 2nd floor - uses stair chair Are you a primary healthcare project manager to a significant other at home: No Do you presently have visiting nurse or other home services: Yes Alcohol intake: never Patient Tobacco Use Status: Never used Tobacco e-Cigarette/Vaping Use: Never Used Second Hand Smoke Exposure: No Advance Directives Date on File: 12/15/21 service: No Current occupational status: retired Cognitive needs: Yes (walker ) Hearing needs: No Vision needs: Yes (glasses) Review of Systems Const All systems reviewed & are unremarkable except as noted in HPI and below Eyes Reports no additional complaints ENT Reports nasal congestion (Mild) Card Reports chest pain, Denies irregular heart rhythm and Reports leg edema Resp Denies chest congestion, Denies cough and Denies wheezing GI Reports heartburn (GERD symptoms well controlled) Reports no additional complaints Musc Reports myalgias (Mild) and Reports arthralgias (Mild) Skin/Breast Reports system reviewed and no additional complaints, except as documented Neuro Reports no additional complaints Psych Reports no additional complaints Endo Reports other (Diabetes mellitus, hypo thyroidism) Aller/Immun Denies wheezing Physical Exam Vital Signs: Last Vital Signs Pulse 69 08/29/22 14:17 BP 124/68 08/29/22 14:17 Pulse Ox 94 08/29/22 14:17 Oxygen Delivery Method Room Air 08/29/22 14:17 BMI result Body Mass Index 37.0 Const Other: Grossly obese with a round face. General: comfortable, no acute distress, alert and awake Orientation/consciousness: oriented to person, oriented to place and patient oriented x3 HEENT Head: Yes normal to inspection General nose exam: No nasal polyps present and No nasal discharge present Face and sinus: Yes sinuses nontender Mouth: oropharynx abnormals (Oropharynx is narrow and crowded, Mallampati class 4) Throat: Yes posterior oropharynx normal Eyes General: appearance normal, both eyes and all related structures Neck Neck: Yes normal visual inspection, Yes no lymphadenopathy, Yes trachea midline and Yes no JVD Thyroid: Thyroid normal Chest Chest palpation & inspection: normal inspection of the chest, normal palpation of entire chest wall and no tenderness Resp Other: Percussion note is barely perceptible because of the thick chest wall. Breath sounds are distant especially over the basilar areas. No wheezes rhonchi or crepitations are heard. Cardio Palpation: normal PMI Rate: regular rate Rhythm: regular rhythm Heart sounds: no gallops and no murmurs GI Inspection: Yes other (Abdomen is obese and protuberant, HAS CATHETER IN PLACE FOR DIALYSIS.) Palpation (GI): Soft to palpation, nontender, No hepatosplenomegaly present and no masses Auscultation: normal bowel sounds Back/Spine/Pelvis Thoracic/Lumbar Spine: thoracic and lumbar spine normal to inspection Skin General skin exam: no rashes or lesions noted Neuro General: oriented to person, oriented to place, patient oriented x3 and no focal motor deficits Cranial nerves: Yes CN's II-XII intact bilaterally Extrem General: Yes normal to inspection, Yes no calf tenderness, Yes edema (HAS MODERATE AMOUNT OF EDEMA OF BOTH LEGS) and Yes venous stasis dermatitis Psych Appearance: grossly normal and well kempt Speech and movement: Normal speech and movement present Results Reviewed Results Reviewed: COMPLIANCE REPORT FOR THE LAST 30 NIGHTS IS REVIEWED. USED 20/30 NIGHTS, 67%. AVERAGE USE PER NIGHT 6 HOURS 12 MINUTES . 95TH PERCENTILE PRESSURE 11.7 CM. THERE IS MODERATE AIR LEAK, RESIDUAL AHI 1.0. Assessment & Plan Assessment & Plan (1) Chronic kidney disease, stage 4 (severe): Comment: Patient has end-stage renal failure and is on home dialysis on a daily basis. Code(s): N18.4 - Chronic kidney disease, stage 4 (severe) (2) Obesity due to excess calories: Comment: Patient has history of morbid obesity. After she started on dialysis she has lost weight , now down to moderate degree of obesity The weight fluctuates according to how much water she gets out. Not able to do much exercise. Weight loss is going to depend upon the results of dialysis. Code(s): E66.09 - Other obesity due to excess calories Qualifiers: Obesity classification: adult class 3 (BMI >= 40) Serious obesity comorbidity presence: with serious comorbidity Body mass index: BMI 40.0-44.9 Qualified Code(s): E66.01 - Morbid (severe) obesity due to excess calories; Z68.41 - Body mass index [BMI]40.0-44.9, adult (3) TRINH on CPAP: Comment: SHE IS CONFIRMED CASE OF OBSTRUCTIVE SLEEP APNEA BEING TREATED WITH CPAP AND SHE CLAIMS THAT SHE IS USING IT EVERY NIGHT. COMPLAINS OF SOME ELECTRICAL DEFECT, AND ON SOME NIGHTS THE CPAP MACHINE GOES ON AND OFF BY ITSELF. SHE IS THE REFERRED TO THE [facility] [place], TO CONTACT AND HAVE THE CPAP DEVICE CHECKED BY THEM. IF SHE IS NOT ABLE TO CONTACT THE DME, THEN MAY BRING IN THE CPAP DEVICE NEXT WEEK AND WE WILL CHECK IT MUCH WE CAN. Code(s): G47.33 - Obstructive sleep apnea (adult) (pediatric); Z99.89 - Dependence on other enabling machines and devices (4) Restless leg syndrome: Comment: THIS IS PROBABLY DUE TO COMBINATION OF TRINH AND CHRONIC RENAL DISEASE. ADVISED TO CONTINUE USING ROPINIROLE 0.25 MG DAILY AT BEDTIME Code(s): G25.81 - Restless legs syndrome Coding Level of Care Code Est Pt Level 3 (40038) Diagnoses Chronic kidney disease, stage 4 (severe) N18.4 Obesity due to excess calories E66.01; Z68.41 Obesity classification: adult class 3 (BMI >= 40) Serious obesity comorbidity presence: with serious comorbidity Body mass index: BMI 40.0-44.9 TRINH on CPAP G47.33; Z99.89 Restless leg syndrome G25.81
== END 2022-08-29 14:41 | disposition home or self-care (01) ==
PROVIDERS: PCP Internal Medicine; Visit Provider Internal Medicine
DX: N18.4 Chronic kidney disease, stage 4 (severe) (principal); E66.01 Morbid (severe) obesity due to excess calories; Z68.41 Body mass index [BMI] 40.0-44.9, adult; G47.33 Obstructive sleep apnea (adult) (pediatric); Z99.89 Dependence on other enabling machines and devices; G25.81 Restless legs syndrome
CPT/HCPCS: 99213

== ENCOUNTER → 2022-08-29 14:15 | Outpatient (BNVA) | payer MEDICARE, SELFPAY | PROVIDERS: PCP Internal Medicine; Visit Provider Internal Medicine | DX: G47.33 Obstructive sleep apnea (adult) (pediatric) (principal); G25.81 Restless legs syndrome; N18.4 Chronic kidney disease, stage 4 (severe); E66.01 Morbid (severe) obesity due to excess calories; Z68.37 Body mass index [BMI] 37.0-37.9, adult; Z99.89 Dependence on other enabling machines and devices | CPT/HCPCS: 99212 ==

== ENCOUNTER → 2022-09-05 23:59 | Outpatient (BNV) | payer MEDICARE, SELFPAY ==
--- NOTE | 2022-09-15 13:10 | MHC.OFFVIS ---
Intake Intake Visit Reasons: [facility]omem- [facility] Allergies amoxicillin [Amoxicillin] Allergy (Severe, Verified 08/29/22 14:28) VAGINAL ITCH bee pollen [bee stings] Allergy (Severe, Verified 08/29/22 14:28) Anaphylaxis hydrocodone [HYDROCODONE] Allergy (Severe, Verified 08/29/22 14:28) severe lethargy PFSH Medical History (HFpEF) heart failure with preserved ejection fraction Acquired hypothyroidism Anemia Anemia of chronic disease Anxiety and depression Arthritis Back pain Benign essential hypertension CHF exacerbation Chronic kidney disease, stage 4 (severe) Chronic kidney disease, stage V CKD (chronic kidney disease) stage V requiring chronic dialysis Constipation Essential hypertension Fecal impaction in rectum GERD (gastroesophageal reflux disease) Gout History of kidney cancer Hyperlipidemia LDL goal <100 Left bundle branch block Morbid obesity with BMI of 40.0-44.9, adult Obesity due to excess calories Obstructive sleep apnea TRINH on CPAP Personal history of renal cell carcinoma Presence of CardioMEMS HF system Psoriasis Pure hypercholesterolemia Restless leg syndrome Sleep apnea Squamous cell carcinoma in situ Supraventricular tachycardia Type 2 diabetes mellitus with chronic kidney disease Type 2 diabetes mellitus with other diabetic kidney complication Vitamin D deficiency Surgical History History of carpal tunnel release of both wrists History of cryosurgery History of surgery Hx of colonoscopy Hx of hysterectomy Hx of mammogram Hx of tonsillectomy Hx of total knee replacement Family History Mother Diabetes Father No problems noted. Social History Household Members: Family and None Household Members Other:: daughter has being staying with pt for the past 2 weeks Housing: House Housing Other:: 2nd floor - uses stair chair Are you a primary residential care facility manager to a significant other at home: No Do you presently have visiting nurse or other home services: Yes Alcohol intake: never Patient Tobacco Use Status: Never used Tobacco e-Cigarette/Vaping Use: Never Used Second Hand Smoke Exposure: No Advance Directives Date on File: 12/15/21 service: No Current occupational status: retired Cognitive needs: Yes (walker ) Hearing needs: No Vision needs: Yes (glasses) Office Procedures Cardiac Device Check Cardiac Device Check Details: Monitoring period dates: - 09/05/22 Optimal PA pressure range: PAD goal 9mmhg. Procedure code: 15143 BACKGROUND: Kate is implanted with the CardioMEMS PA Sensor.? I use this technology to monitor PA pressures on a weekly basis to ensure patients are within their optimal range to prevent decompensation.? SUMMARY:? I utilized the remote monitoring platform ([employer]) to set optimal targets for pulmonary artery pressure thresholds as part of acute and chronic management of patient?s heart failure. During the period indicated above, I monitored the patient?s pulmonary artery pressures weekly via trend analysis and notification reports which provide alerts when patient?s PA pressures were outside of range to prompt immediate action in medication changes and communications.? The weekly reports are archived in the [employer] system which serve as a parallel record to document weekly PA pressures, medication changes, and clinical notes. I have reviewed readings on 07/09, 08/09, 08/13, 08/17, 08/22, 08/25, 08/30. PAD has ranged 5-16. She is on Bumex and undergoes dialysis. 56868 - Remote monitoring of wireless pulmonary artery pressure sensor Procedure code (CPT) selection complete Coding Level of Care Code Procedure Only Diagnoses CPT Codes Cardiac Device Check - Cardiac Device 17: 96506 - Remote monitoring of wireless pulmonary artery pressure sensor ([id number])
== END ==
PROVIDERS: PCP Internal Medicine; Visit Provider Internal Medicine Cardiovascular Disease
DX: I50.31 Acute diastolic (congestive) heart failure (principal)
CPT/HCPCS: 93264

== ENCOUNTER → 2022-10-06 23:59 | Outpatient (BNV) | payer MEDICARE, SELFPAY ==
--- NOTE | 2022-10-18 18:21 | MHC.OFFVIS ---
Intake Intake Visit Reasons: Remote CardioMEMS- [facility] Allergies amoxicillin [Amoxicillin] Allergy (Severe, Verified 08/29/22 14:28) VAGINAL ITCH bee pollen [bee stings] Allergy (Severe, Verified 08/29/22 14:28) Anaphylaxis hydrocodone [HYDROCODONE] Allergy (Severe, Verified 08/29/22 14:28) severe lethargy PFSH Medical History (HFpEF) heart failure with preserved ejection fraction Acquired hypothyroidism Anemia Anemia of chronic disease Anxiety and depression Arthritis Back pain Benign essential hypertension CHF exacerbation Chronic kidney disease, stage 4 (severe) Chronic kidney disease, stage V CKD (chronic kidney disease) stage V requiring chronic dialysis Constipation Essential hypertension Fecal impaction in rectum GERD (gastroesophageal reflux disease) Gout History of kidney cancer Hyperlipidemia LDL goal <100 Left bundle branch block Morbid obesity with BMI of 40.0-44.9, adult Obesity due to excess calories Obstructive sleep apnea TRINH on CPAP Personal history of renal cell carcinoma Presence of CardioMEMS HF system Psoriasis Pure hypercholesterolemia Restless leg syndrome Sleep apnea Squamous cell carcinoma in situ Supraventricular tachycardia Type 2 diabetes mellitus with chronic kidney disease Type 2 diabetes mellitus with other diabetic kidney complication Vitamin D deficiency Surgical History History of carpal tunnel release of both wrists History of cryosurgery History of surgery Hx of colonoscopy Hx of hysterectomy Hx of mammogram Hx of tonsillectomy Hx of total knee replacement Family History Mother Diabetes Father No problems noted. Social History Household Members: Family and None Household Members Other:: daughter has being staying with pt for the past 2 weeks Housing: House Housing Other:: 2nd floor - uses stair chair Are you a primary vocational childcare teacher to a significant other at home: No Do you presently have visiting nurse or other home services: Yes Alcohol intake: never Patient Tobacco Use Status: Never used Tobacco e-Cigarette/Vaping Use: Never Used Second Hand Smoke Exposure: No Advance Directives Date on File: 12/15/21 service: No Current occupational status: retired Cognitive needs: Yes (walker ) Hearing needs: No Vision needs: Yes (glasses) Office Procedures Cardiac Device Check Cardiac Device Check Details: Monitoring period dates:09/06/2022 - 10/06/2022 Optimal PA pressure range: PAD goal 9mmhg Procedure code: 64052 BACKGROUND: Kate is implanted with the CardioMEMS PA Sensor.? I use this technology to monitor PA pressures on a weekly basis to ensure patients are within their optimal range to prevent decompensation.? SUMMARY:? I utilized the remote monitoring platform ([employer]) to set optimal targets for pulmonary artery pressure thresholds as part of acute and chronic management of patient?s heart failure. During the period indicated above, I monitored the patient?s pulmonary artery pressures weekly via trend analysis and notification reports which provide alerts when patient?s PA pressures were outside of range to prompt immediate action in medication changes and communications.? The weekly reports are archived in the [employer] system which serve as a parallel record to document weekly PA pressures, medication changes, and clinical notes. I have reviewed readings on 09/06, 09/11, 09/18, 09/25, 09/30, 10/04. PAD has ranged between 4-10mmhg. She has hemodialysis and her debubblizer has been updated on PA readings. 76037 - Remote monitoring of wireless pulmonary artery pressure sensor Procedure code (CPT) selection complete Coding Level of Care Code Procedure Only CPT Codes Cardiac Device Check - Cardiac Device 17: 91055 - Remote monitoring of wireless pulmonary artery pressure sensor ([id number])
== END ==
PROVIDERS: PCP Internal Medicine; Visit Provider Nurse Practitioner Family
DX: I50.31 Acute diastolic (congestive) heart failure (principal)
CPT/HCPCS: 93264

== ENCOUNTER 2022-10-28 13:19 | Outpatient (AMB) | payer MEDICARE, SELFPAY ==
[2022-10-28 13:34] VITALS: BP 120/70; PULSE 64; O2SAT 97; BMI 36.6
--- NOTE | 2022-10-28 13:34 | MHC.PC.OV ---
Vital Signs 10/28/22 13:34 Height 5 ft 6 in Weight 226 lb 8 oz BMI 36.6 BP 120/70 Blood Pressure Location Rt brachial Position Sitting Pulse 64 Pulse Source Pulse Oximeter Pulse Oximetry (%) 97 Oxygen Delivery Method Room Air Intake Visit Reasons: CRF, HTN, hyperlipidemia, anemia Intake Note: Patient is here to follow up on CRF, HTN, Hyperlipidemia, Anemia. Lab results Party Host Required: No Newspaper Correspondent: Present Accompanied by: Daughter Allergies amoxicillin [Amoxicillin] Allergy (Severe, Verified 10/28/22 14:09) VAGINAL ITCH bee pollen [bee stings] Allergy (Severe, Verified 10/28/22 14:09) Anaphylaxis hydrocodone [HYDROCODONE] Allergy (Severe, Verified 10/28/22 14:09) severe lethargy Medication List - Last Reconciled 10/28/22 by Imer Hernandez MD allopurinol 200 mg (2 x 100 mg) PO DAILY amiodarone 200 mg PO DAILY 90 days amlodipine 5 mg PO DAILY atorvastatin 80 mg PO BEDTIME blood sugar diagnostic (NasuniTouch Verio test strips) As directed 3 times a day calcitriol 0.25 mcg PO DAILY cholecalciferol (vitamin D3) 25 mcg PO DAILY [CPAP Device Use as directed when sleeping every night. Settings at 4 to 20 cm H2O] docusate sodium 200 mg PO BEDTIME flash glucose scanning reader (Parental HealthStyle Charly 2 [place]) As directed flash glucose sensor (FreeStyle Charly 2 Sensor kit) As directed gabapentin 100 mg PO BEDTIME insulin glargine U-300 conc 20 units subcut BEDTIME insulin lispro 20 - 30 units (0.2 - 0.3 mL) subcut TID 90 days insulin lispro See Protocol units subcut TIDAC isosorbide mononitrate ER 60 mg See Protocol PO DAILY 30 days lancets (NasuniTouch UltraSoft Lancets) As directed 3 times a day latanoprost 0.005% 1 drp ophthalmic (eye) BEDTIME 90 days levothyroxine 75 mcg PO DAILY 30 days losartan 25 mg PO DAILY melatonin 10 mg PO BEDTIME PRN pantoprazole 40 mg PO DAILY@0630 pen needle, diabetic (BD Ultra-Fine Renetta Pen Needle) As directed 4 times a day pen needle, diabetic (BD Ultra-Fine Renetta Pen Needle) As directed once a day ropinirole 0.25 mg PO BEDTIME sevelamer HCl 800 mg PO TID Tobacco use date assessed: 10/28/22 Fall risk assessment: No Falls in past year Last assessed Fall Risk: 10/28/22 HPI CRF, HTN, hyperlipidemia, anemia HPI Details Patient comes in today for her follow up visit States that she feels okay She denies any headaches or dizziness Denies any chest pains, no increased SOB No nausea/vomiting, no abdominal pain No change in bowel habits noted Had her follow up labs done at the dialysis center a few weeks ago - to discuss her results Patient admits that she stopped taking / using all of her insulin (both long and short-acting) when she was reportedly told by visiting nurses a couple of months ago that her blood sugars were good and she does not need to take her insulin Explained to her that they most likely meant this to be her rapid-acting mealtime insulin, which is dosed according to her readings and based on her sliding scale but she misunderstood this to include ALL of her insulin injections Adds that she has too much sugar in her belly and does not think that the shots would help PFSH Medical History Restless leg syndrome TRINH on CPAP Anemia of chronic disease Acquired hypothyroidism CKD (chronic kidney disease) stage V requiring chronic dialysis Anemia (HFpEF) heart failure with preserved ejection fraction Fecal impaction in rectum CHF exacerbation Presence of CardioMEMS HF system Chronic kidney disease, stage V Back pain GERD (gastroesophageal reflux disease) Anxiety and depression Squamous cell carcinoma in situ Vitamin D deficiency Morbid obesity with BMI of 40.0-44.9, adult Constipation Psoriasis Personal history of renal cell carcinoma Obstructive sleep apnea Pure hypercholesterolemia Benign essential hypertension Chronic kidney disease, stage 4 (severe) Type 2 diabetes mellitus with chronic kidney disease Obesity due to excess calories Left bundle branch block Supraventricular tachycardia Gout Arthritis Sleep apnea History of kidney cancer Type 2 diabetes mellitus with other diabetic kidney complication Essential hypertension Hyperlipidemia LDL goal <100 Surgical History History of surgery Hx of colonoscopy Hx of mammogram Hx of hysterectomy Hx of total knee replacement History of carpal tunnel release of both wrists Hx of tonsillectomy History of cryosurgery Family History Mother Diabetes Father No problems noted. Social History Household Members: Family and None Household Members Other:: daughter has being staying with pt for the past 2 weeks Housing: House Housing Other:: 2nd floor - uses stair chair Are you a primary customer care consultant to a significant other at home: No Do you presently have visiting nurse or other home services: Yes Alcohol intake: never Patient Tobacco Use Status: Never used Tobacco e-Cigarette/Vaping Use: Never Used Second Hand Smoke Exposure: No Advance Directives Date on File: 12/15/21 service: No Current occupational status: retired Cognitive needs: Yes (walker ) Hearing needs: No Vision needs: Yes (glasses) Questionnaire Thrive Questionnaire Date Thrive assessed: 07/22/22 VICKY-7 AMB Questionnaire VICKY-7 Date VICKY - 7 assessed: 07/22/22 Source: Developed by Drs. Geovani Hernández, Ana Garcia, Mac Fraser and colleagues, with an educational abran from [employer]. Review of Systems Const Denies chills, Reports fatigue, Denies fever(s) and Denies headache(s) ENT Denies dysphagia, Denies dizziness, Denies otalgia, Denies headache(s), Denies odynophagia and Denies sore throat Card Denies chest pain, Denies palpitations and Reports dyspnea on exertion (mild) Resp Denies cough and Reports dyspnea on exertion (mild) GI Denies abdominal pain, Denies constipation, Denies dysphagia, Denies heartburn, Denies diarrhea, Denies nausea, Denies odynophagia and Denies vomiting Denies difficulty voiding, Denies nocturia and Denies dysuria Neuro Denies dizziness and Denies headache(s) Endo Reports fatigue and Denies palpitations Physical exam (Primary Care) Vital Signs: Last Vital Signs Pulse 64 10/28/22 13:34 BP 120/70 10/28/22 13:34 Pulse Ox 97 10/28/22 13:34 Oxygen Delivery Method Room Air 10/28/22 13:34 BMI result Body Mass Index 36.6 Tobacco/Smoking Status: Tobacco use Status Tobacco use date assessed 10/28/22 10/28/22 13:35 Patient Tobacco Use Status Never used Tobacco 10/28/22 13:35 e-Cigarette/Vaping Use Never Used 10/28/22 13:35 Thrive Assessment: Date of Thrive Assessment Date Thrive assessed 07/22/22 10/28/22 13:35 Const General: no acute distress and alert HENMT Ears: TM's normal bilaterally and EAC's normal Throat: Yes posterior oropharynx normal and Yes tonsils normal (no TP congestion noted) Neck Neck: Yes no lymphadenopathy and Yes supple Resp Auscultation: clear to auscultation bilaterally, no rales and no wheezes Cardio Rate: bradycardic Rhythm: regular rhythm Heart sounds: no murmurs GI Palpation (GI): Soft to palpation, nontender (but abdomen is slightly distended) and no guarding Auscultation: Hypoactive bowel sounds present General: Yes no CVA tenderness Back/Spine/Pelvis Back: no CVA tenderness Skin Lesions: no lesions Rashes: no rashes Extrem General: No clubbing, No cyanosis and Yes edema (2+ bipedal edema - chronic) Results AMB Hemoglobin A1c AMB Hemoglobin A1c 9.5 % Last Edit by Kanwal Mcallister on 10/28/22 14:31 Results Reviewed Results Reviewed: Laboratory Last Values Hgb A1c (Clinic) 9.5 % (4.0-6.0) H 10/28/22 14:30 Assessment and Plan Assessment & Plan (1) (HFpEF) heart failure with preserved ejection fraction: Comment: She is being followed by Cardiology closely. Code(s): I50.30 - Unspecified diastolic (congestive) heart failure Qualifiers: Heart failure chronicity: chronic Qualified Code(s): I50.32 - Chronic diastolic (congestive) heart failure Plan: Reinforced fluid restriction Used to take Bumetanide 1 mg Q AM and 0.5 mg Q PM but is now OFF all diuretics Currently has CardioMems in place and is reportedly doing well from cardiology standpoint, based on her most recent cardiology OV notes Follow up with cardiology as scheduled (2) Supraventricular tachycardia: Code(s): I47.1 - Supraventricular tachycardia Plan: Adequately controlled / suppressed on Tx with Amiodarone 200 mg QD Follow up with cardiology as scheduled (3) Type 2 diabetes mellitus with chronic kidney disease: Code(s): E11.22 - Type 2 diabetes mellitus with diabetic chronic kidney disease Qualifiers: Chronic kidney disease stage: stage 4 (severe) Diabetes mellitus nursing home insulin use: with nursing home use Qualified Code(s): E11.22 - Type 2 diabetes mellitus with diabetic chronic kidney disease; N18.4 - Chronic kidney disease, stage 4 (severe); Z79.4 - senior care (current) use of insulin Plan: In-office Hgb A1c done today is at 9.5%; HgbA1c was at 7.5% - goal is at least <7.5% Reinforced diabetic diet Was on Toujeo 20 units QD and Humalog 2 to 10 units as instructed TID with meals but patient now admits that she has not been taking these in a few months now as she apparently misunderstood [facility]'s comments to her a couple of months ago that her blood sugar was good and she did not need to take her insulin injections to include all of her insulin injections instead of just her mealtime insulin dose Have advised her to start back on her Toujeo 20 units QD and Humalog 2 to 10 units as instructed TID with meals dosed per her sliding scale She used to see endocrinology but has not been back to see them in a while - will refer her to [facility]ocr[facility] for further evaluation and management She also has not had her eye exam done in a couple of years now - will refer to ophthalmology for annual diabetic eye exam (4) Anemia of chronic disease: Code(s): D63.8 - Anemia in other chronic diseases classified elsewhere Plan: H/H was at 10.7/32.1 on her recent labs States that she has been getting her iron injections (most likely Procrit) from nephrology regularly when needed Will continue to monitor her CBC regularly/closely (5) Chronic kidney disease, stage V: Code(s): N18.5 - Chronic kidney disease, stage 5 Plan: Is currently on daily peritoneal dialysis at home Follow up with nephrology as scheduled Have explained to patient that her comment about her having too much sugar in her abdomen is NOT accurate as any glucose in her peritoneal fluid has nothing to do with her diabetes control and should not have any influence on her Rx (6) Benign essential hypertension: Code(s): I10 - Essential (primary) hypertension Plan: Reinforced low sodium diet - goal is systolic BP of 120 mm or less Continue Amlodipine 5 mg QD; Metoprolol was previously discontinued due to significant bradycardia (7) Acquired hypothyroidism: Code(s): E03.9 - Hypothyroidism, unspecified Plan: Continue Levothyroxine 75 mcg QD Will recheck her TFTs in 3 months for follow up (8) Pure hypercholesterolemia: Code(s): E78.00 - Pure hypercholesterolemia, unspecified Plan: Results of her labs done at the dialysis center a few weeks ago reviewed and discussed with patient Reinforced low cholesterol diet Continue Atorvastatin 80 mg QD Will recheck her labs and fasting lipids in 3 months for follow up (9) Restless leg syndrome: Comment: THIS IS PROBABLY DUE TO COMBINATION OF TRINH AND CHRONIC RENAL DISEASE. ADVISED TO CONTINUE USING ROPINIROLE 0.25 MG DAILY AT BEDTIME Code(s): G25.81 - Restless legs syndrome Plan: Continue Gabapentin 100 mg Q HS and Ropinirole 0.25 mg Q HS (10) Obstructive sleep apnea: Code(s): G47.33 - Obstructive sleep apnea (adult) (pediatric) Plan: Continue using her CPAP device when sleeping at night (11) Personal history of renal cell carcinoma: Comment: S/P cryotherapy in 2011 Code(s): Z85.528 - Personal history of other malignant neoplasm of kidney Plan: Follow up with urology as scheduled for continuing surveillance (12) Gout: Code(s): M10.9 - Gout, unspecified Qualifiers: Chronicity: chronic Gout etiology: unspecified cause Gout site: unspecified site Presence of tophus: without tophus Qualified Code(s): M1A.9XX0 - Chronic gout, unspecified, without tophus (tophi) Plan: Reinforced low purine diet Continue Allopurinol 100 mg 2 tablets QD (13) Vitamin D deficiency: Code(s): E55.9 - Vitamin D deficiency, unspecified Plan: Continue Vitamin D3 1000 units QD (14) Psoriasis: Code(s): L40.9 - Psoriasis, unspecified Plan: Continue Halobetasol 0.05% apply to rash QD PRN (15) Squamous cell carcinoma in situ: Code(s): D09.9 - Carcinoma in situ, unspecified Plan: S/P excision of a squamous cell carcinoma lesion on the posterior aspect of the left lower leg by Dr. Aleman at [facility] Follow up with dermatology as scheduled for continuing surveillance (16) Morbid obesity with BMI of 40.0-44.9, adult: Code(s): E66.01 - Morbid (severe) obesity due to excess calories; Z68.41 - Body mass index [BMI] 40.0-44.9, adult Plan: Reinforced diet; exercise and weight loss are unrealistic given patient's cardiac issues and multiple comorbidities Plan Follow up in 3 months Orders: Orders AMB Hemoglobin A1c 10/28/22 Z13.9 - Encounter for screening, unspecified Complete Blood Count Auto Diff 3 Months I10 - Essential (primary) hypertension Comprehensive [place]. Panel Fast 3 Months E78.00 - Pure hypercholesterolemia, unspecified Thyroid Stimulating Hormone 3 Months E03.9 - Hypothyroidism, unspecified Free T4 (Free Thyroxine) 3 Months E03.9 - Hypothyroidism, unspecified Vitamin D 25-OH Total 3 Months E55.9 - Vitamin D deficiency, unspecified UA CC w/rflx Micro + Cult 3 Months R30.0 - Dysuria Hemoglobin A1c 3 Months E11.9 - Type 2 diabetes mellitus without complications Lipid Panel 3 Months E78.00 - Pure hypercholesterolemia, unspecified Vitamin B12 and Folate 3 Months E53.8 - Deficiency of other specified B group vitamins Uric Acid 3 Months M10.9 - Gout, unspecified Referrals Endocrinology Referral E11.22 - Type 2 diabetes mellitus with diabetic chronic kidney disease Ophthalmology Referral E11.9 - Type 2 diabetes mellitus without complications Coding Level of Care Code Est Pt Level 4 (48655) Diagnoses Chronic heart failure with preserved ejection fraction I50.32 Heart failure chronicity: chronic Supraventricular tachycardia I47.1 Type 2 diabetes mellitus with stage 4 chronic kidney disease, with long-term current use of insulin E11.22; N18.4; Z79.4 Chronic kidney disease stage: stage 4 (severe) Diabetes mellitus nursing home insulin use: with intermodal dispatcher use Anemia of chronic disease D63.8 Chronic kidney disease, stage V N18.5 Benign essential hypertension I10 Acquired hypothyroidism E03.9 Pure hypercholesterolemia E78.00 Restless leg syndrome G25.81 Obstructive sleep apnea G47.33 Personal history of renal cell carcinoma Z85.528 Chronic gout without tophus, unspecified cause, unspecified site [id number] Chronicity: chronic Gout etiology: unspecified cause Gout site: unspecified site Presence of tophus: without tophus Vitamin D deficiency E55.9 Psoriasis L40.9 Squamous cell carcinoma in situ D09.9 Morbid obesity with BMI of 40.0-44.9, adult E66.01; Z68.41
== END 2022-10-28 14:39 | disposition home or self-care (01) ==
PROVIDERS: PCP Internal Medicine; Visit Provider Internal Medicine
DX: E11.22 Type 2 diabetes mellitus with diabetic chronic kidney disease (principal); N18.4 Chronic kidney disease, stage 4 (severe); Z79.4 Long term (current) use of insulin
CPT/HCPCS: 83036; 99214

== ENCOUNTER → 2022-11-11 23:59 | Outpatient (BNV) | payer MEDICARE, SELFPAY ==
--- NOTE | 2022-11-22 08:58 | A.OFFVIS_ITS ---
Intake Intake Visit Reasons: Remote CardioMEMS Check- [place] Allergies amoxicillin [Amoxicillin] Allergy (Severe, Verified 10/28/22 14:09) VAGINAL ITCH bee pollen [bee stings] Allergy (Severe, Verified 10/28/22 14:09) Anaphylaxis hydrocodone [HYDROCODONE] Allergy (Severe, Verified 10/28/22 14:09) severe lethargy PFSH Medical History Restless leg syndrome TRINH on CPAP Anemia of chronic disease Acquired hypothyroidism CKD (chronic kidney disease) stage V requiring chronic dialysis Anemia (HFpEF) heart failure with preserved ejection fraction Fecal impaction in rectum CHF exacerbation Presence of CardioMEMS HF system Chronic kidney disease, stage V Back pain GERD (gastroesophageal reflux disease) Anxiety and depression Squamous cell carcinoma in situ Vitamin D deficiency Morbid obesity with BMI of 40.0-44.9, adult Constipation Psoriasis Personal history of renal cell carcinoma Obstructive sleep apnea Pure hypercholesterolemia Benign essential hypertension Chronic kidney disease, stage 4 (severe) Type 2 diabetes mellitus with chronic kidney disease Obesity due to excess calories Left bundle branch block Supraventricular tachycardia Gout Arthritis Sleep apnea History of kidney cancer Type 2 diabetes mellitus with other diabetic kidney complication Essential hypertension Hyperlipidemia LDL goal <100 Surgical History History of surgery Hx of colonoscopy Hx of mammogram Hx of hysterectomy Hx of total knee replacement History of carpal tunnel release of both wrists Hx of tonsillectomy History of cryosurgery Family History Mother Diabetes Father No problems noted. Social History Household Members: Family and None Household Members Other:: daughter has being staying with pt for the past 2 weeks Housing: House Housing Other:: 2nd floor - uses stair chair Are you a primary home care and home health aides teacher to a significant other at home: No Do you presently have visiting nurse or other home services: Yes Alcohol intake: never Patient Tobacco Use Status: Never used Tobacco e-Cigarette/Vaping Use: Never Used Second Hand Smoke Exposure: No Advance Directives Date on File: 12/15/21 service: No Current occupational status: retired Cognitive needs: Yes (walker ) Hearing needs: No Vision needs: Yes (glasses) Office Procedures Cardiac Device Check Cardiac Device Check Details: Monitoring period dates: 10/07/22 - 11/05/22 Optimal PA pressure range: PAD goal 9 mmhg Procedure code: 29568 BACKGROUND: Kate is implanted with the CardioMEMS PA Sensor.? I use this technology to monitor PA pressures on a weekly basis to ensure patients are within their optimal range to prevent decompensation.? SUMMARY:? I utilized the remote monitoring platform ([employer]) to set optimal targets for pulmonary artery pressure thresholds as part of acute and chronic management of patient?s heart failure. During the period indicated above, I monitored the patient?s pulmonary artery pressures weekly via trend analysis and notification reports which provide alerts when patient?s PA pressures were outside of range to prompt immediate action in medication changes and communications.? The weekly reports are archived in the [employer] system which serve as a parallel record to document weekly PA pressures, medication changes, and clinical notes. I have reviewed readings on 10/10, 10/17, 10/23, 10/30, 11/02. PAD ranged 4- 10 mmhg. No med adjustments required. She undergoes hemodialysis. No HF admissions. 80007 - Remote monitoring of wireless pulmonary artery pressure sensor Procedure code (CPT) selection complete Coding Level of Care Code Procedure Only CPT Codes Cardiac Device Check - Cardiac Device 17: 48820 - Remote monitoring of wireless pulmonary artery pressure sensor ([id number])
== END ==
PROVIDERS: PCP Internal Medicine; Visit Provider Nurse Practitioner Family
DX: I50.31 Acute diastolic (congestive) heart failure (principal); Z95.818 Presence of other cardiac implants and grafts
CPT/HCPCS: 93264

== ENCOUNTER 2022-12-12 14:57 | Outpatient (AMB) | payer MEDICARE, SELFPAY ==
--- NOTE | 2022-12-12 14:58 | MHC.OFFVIS ---
Intake Vital Signs 12/12/22 14:59 Height 5 ft 6 in Weight 232 lb 5.875 oz BMI 37.5 BP 104/48 L Blood Pressure Location Lt brachial Position Sitting Intake Visit Reasons: dm Intake Note: Patient presents today to follow up on Type Diabetes Mellitus. Last Diabetic Eye exam:11/2022 Last Podiatry Visit: 12/2022 Random Glucose: 243mg/dl HgA1C:9.5% 10/28/22 Scissors Sharpener Required: No Accompanied by: Other Relationship Allergies amoxicillin [Amoxicillin] Allergy (Severe, Verified 12/12/22 15:11) VAGINAL ITCH bee pollen [bee stings] Allergy (Severe, Verified 12/12/22 15:11) Anaphylaxis hydrocodone [HYDROCODONE] Allergy (Severe, Verified 12/12/22 15:11) severe lethargy HPI HPI Comments History of Present Illness Details Patient is 80 yo female with DM type 2 diagnosed approximately 2002 here for continued management of diabetes. 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 Her sensitivity should be 20 with a target of 140. ? She will add 1 unit for every 20 mg/dL over 160 to a maximum of plus 7 units for blood sugar over 280 mg/dL.? Patient is intolerant of Bydureon and had diarrhea with Trulicity. Not taking insulin Continuous glucose monitoring: In the past 2 weeks C GM is active 44% with an average blood glucose of 191, . Hypoglycemia: none Activity: Limited due to hot weather. When it is cooler she will work in the garden. Eye Exam: 2 wks ago Specialist: Cooling Pan Tender, pebble mill operator, podiatry Laboratory Tests 09/14/20 12/18/20 01/07/21 09:03 13:38 08:38 Creatinine 2.96 H Estimated GFR 15 Hgb A1c (Clinic) 8.5 H Triglycerides 185 Cholesterol 162 LDL Cholesterol, C alc 95 HDL Cholesterol 30 09/14/20 09:03 Microalb/Creat Rat io 5338.6 Laboratory Tests 06/22/20 10:12 Creatinine 2.48 H Estimated GFR 19 PFSH Medical History Restless leg syndrome TRINH on CPAP Anemia of chronic disease Acquired hypothyroidism CKD (chronic kidney disease) stage V requiring chronic dialysis Anemia (HFpEF) heart failure with preserved ejection fraction Fecal impaction in rectum CHF exacerbation Presence of CardioMEMS HF system Chronic kidney disease, stage V Back pain GERD (gastroesophageal reflux disease) Anxiety and depression Squamous cell carcinoma in situ Vitamin D deficiency Morbid obesity with BMI of 40.0-44.9, adult Constipation Psoriasis Personal history of renal cell carcinoma Obstructive sleep apnea Pure hypercholesterolemia Benign essential hypertension Chronic kidney disease, stage 4 (severe) Type 2 diabetes mellitus with chronic kidney disease Obesity due to excess calories Left bundle branch block Supraventricular tachycardia Gout Arthritis Sleep apnea History of kidney cancer Type 2 diabetes mellitus with other diabetic kidney complication Essential hypertension Hyperlipidemia LDL goal <100 Surgical History History of surgery Hx of colonoscopy Hx of mammogram Hx of hysterectomy Hx of total knee replacement History of carpal tunnel release of both wrists Hx of tonsillectomy History of cryosurgery Family History Mother Diabetes Father No problems noted. Social History Household Members: Family and None Household Members Other:: daughter has being staying with pt for the past 2 weeks Housing: House Housing Other:: 2nd floor - uses stair chair Are you a primary transition of care specialist to a significant other at home: No Do you presently have visiting nurse or other home services: Yes Alcohol intake: never Patient Tobacco Use Status: Never used Tobacco e-Cigarette/Vaping Use: Never Used Second Hand Smoke Exposure: No Advance Directives Date on File: 12/15/21 service: No Current occupational status: retired Cognitive needs: Yes (walker ) Hearing needs: No Vision needs: Yes (glasses) Physical Exam Vital Signs: Last Vital Signs BP 104/48 L 12/12/22 14:59 BMI result Body Mass Index 37.5 Absence of Cushingoid features. Absence of acromegalic features. Neck exam reveals nl size thyroid about 15 gms. No thyroid nodules palpable. No carotid bruits present. Lungs CTA. Heart S1 S2, Reg R/R. No M/R/ G. Skin exam reveals absence of vitiligo or acanthosis nigricans. Abdominal exam reveals Soft NT/ND with NA BS. No organomegaly present. Neck Other: . Extrem Other: Visual exam of foot performed. No ulcerations or open lesions. No onchomycosis, no callouses.Pulses 2 + distally Sensation intact to monofilament exam. Vibratory sensation sensed is intact with 128 Hz tuning fork Results Reviewed Results Reviewed: 12/12/22 15:09 Glucose, Whole Blood Routine Laboratory Last Values Glucose (Clinic) 243 mg/dL (60-115) H 12/12/22 15:09 Assessment & Plan Assessment & Plan (1) Type 2 diabetes mellitus with other diabetic kidney complication: Code(s): E11.29 - Type 2 diabetes mellitus with other diabetic kidney complication Plan: This is 82-year-old white female with a history of type 2 diabetes the stenting of end-stage renal disease currently being treated with basal-bolus insulin with poor glycemic control and known microvascular complications namely end-stage renal disease. Plan is reinitiate Toujeo 20 units to keep point care 150 -200. I also asked that the patient scan with the Charly more frequently. . HbA1c goal should be 8.0 to 8.5%. Will have follow-up with the coding educator. Will also patient see gasoline pump mechanic and follow-up with the coding educator Coding Level of Care Code New Pt Level 4 (36292) Diagnoses Type 2 diabetes mellitus with other diabetic kidney complication E11.29
[2022-12-12 14:59] VITALS: BP 104/48; BMI 37.5
[2022-12-12 15:14] LABS: Glucose, Whole Blood 243 mg/dL (60-115)
== END 2022-12-12 15:39 | disposition home or self-care (01) ==
PROVIDERS: PCP Internal Medicine; Visit Provider Internal Medicine Endocrinology, Diabetes & Metabolism
DX: E11.29 Type 2 diabetes mellitus with other diabetic kidney complication (principal)
CPT/HCPCS: 99204

== ENCOUNTER → 2022-12-12 14:57 | Outpatient (BNVA) | payer MEDICARE, SELFPAY | PROVIDERS: PCP Internal Medicine; Visit Provider Internal Medicine Endocrinology, Diabetes & Metabolism | DX: E11.22 Type 2 diabetes mellitus with diabetic chronic kidney disease (principal); N18.6 End stage renal disease; Z79.4 Long term (current) use of insulin; Z99.2 Dependence on renal dialysis | CPT/HCPCS: 82947; 99202 ==

== ENCOUNTER → 2022-12-12 23:59 | Outpatient (BNV) | payer MEDICARE, SELFPAY ==
--- NOTE | 2023-01-06 15:31 | MHC.OFFVIS ---
Intake Intake Visit Reasons: Remote CardioMEMS Check- [facility] Allergies amoxicillin [Amoxicillin] Allergy (Severe, Verified 12/26/22 15:01) VAGINAL ITCH bee pollen [bee stings] Allergy (Severe, Verified 12/26/22 15:01) Anaphylaxis hydrocodone [HYDROCODONE] Allergy (Severe, Verified 12/26/22 15:01) severe lethargy PFSH Medical History (Updated 01/06/23 @ 15:33 by Cady Escobedo QUALITY LEAD-C) Presence of CardioMEMS HF system Restless leg syndrome TRINH on CPAP Anemia of chronic disease Acquired hypothyroidism CKD (chronic kidney disease) stage V requiring chronic dialysis Anemia (HFpEF) heart failure with preserved ejection fraction Fecal impaction in rectum CHF exacerbation Chronic kidney disease, stage V Back pain GERD (gastroesophageal reflux disease) Anxiety and depression Squamous cell carcinoma in situ Vitamin D deficiency Morbid obesity with BMI of 40.0-44.9, adult Constipation Psoriasis Personal history of renal cell carcinoma Obstructive sleep apnea Pure hypercholesterolemia Benign essential hypertension Chronic kidney disease, stage 4 (severe) Type 2 diabetes mellitus with chronic kidney disease Obesity due to excess calories Left bundle branch block Supraventricular tachycardia Gout Arthritis Sleep apnea History of kidney cancer Type 2 diabetes mellitus with other diabetic kidney complication Essential hypertension Hyperlipidemia LDL goal <100 Surgical History History of surgery Hx of colonoscopy Hx of mammogram Hx of hysterectomy Hx of total knee replacement History of carpal tunnel release of both wrists Hx of tonsillectomy History of cryosurgery Family History Mother Diabetes Father No problems noted. Social History Household Members: Family and None Household Members Other:: daughter has being staying with pt for the past 2 weeks Housing: House Housing Other:: 2nd floor - uses stair chair Are you a primary disabilities caregiver to a significant other at home: No Do you presently have visiting nurse or other home services: Yes Alcohol intake: never Comment: pt rings appropriately Patient Tobacco Use Status: Never used Tobacco e-Cigarette/Vaping Use: Never Used Second Hand Smoke Exposure: No Advance Directives Date on File: 12/15/21 service: No Current occupational status: retired Cognitive needs: Yes (walker ) Hearing needs: No Vision needs: Yes (glasses) Office Procedures Cardiac Device Check Cardiac Device Check Details: Monitoring period dates:11/06/22 - 12/06/22 Optimal PA pressure range: PAD goal 9mmhg Procedure code: [id number] BACKGROUND: Kate is implanted with the CardioMEMS PA Sensor.? I use this technology to monitor PA pressures on a weekly basis to ensure patients are within their optimal range to prevent decompensation.? SUMMARY:? I utilized the remote monitoring platform ([employer]) to set optimal targets for pulmonary artery pressure thresholds as part of acute and chronic management of patient?s heart failure. During the period indicated above, I monitored the patient?s pulmonary artery pressures weekly via trend analysis and notification reports which provide alerts when patient?s PA pressures were outside of range to prompt immediate action in medication changes and communications.? The weekly reports are archived in the [employer] system which serve as a parallel record to document weekly PA pressures, medication changes, and clinical notes. I have reviewed readings on 11/08, 11/15, 11/21, 11/25, 12/01 and 12/05. PAD range has been 4-10mmhg. No symptoms. No med changes. Does peritoneal dialysis. 04008 - Remote monitoring of wireless pulmonary artery pressure sensor Procedure code (CPT) selection complete Assessment & Plan Assessment & Plan (1) Presence of CardioMEMS HF system: Comment: anjel Londono 01/27/2022 Code(s): Z95.818 - Presence of other cardiac implants and grafts Plan: monthly report Coding Level of Care Code Procedure Only Diagnoses Presence of CardioMEMS HF system Z95.818 CPT Codes Cardiac Device Check - Cardiac Device 17: 01592 - Remote monitoring of wireless pulmonary artery pressure sensor ([id number])
== END ==
PROVIDERS: PCP Internal Medicine; Visit Provider Nurse Practitioner Family
DX: I50.31 Acute diastolic (congestive) heart failure (principal); Z95.818 Presence of other cardiac implants and grafts
CPT/HCPCS: 93264

== ENCOUNTER 2022-12-19 14:19 | Outpatient (AMB) | payer MEDICARE, SELFPAY ==
[2022-12-19 14:23] VITALS: BP 118/78; PULSE 67; BMI 37.4
--- NOTE | 2022-12-19 14:23 | A.OFFVIS_ITS ---
Intake Vital Signs 12/19/22 14:23 Height 5 ft 6 in Weight 231 lb 7.766 oz BMI 37.4 BP 118/78 Blood Pressure Location Lt brachial Position Sitting Pulse 67 Intake Visit Reasons: 6 month follow up w/ EKG [facility] Intake Note: 6 month follow-up with ekg and [facility] check Allergies amoxicillin [Amoxicillin] Allergy (Severe, Verified 12/12/22 15:11) VAGINAL ITCH bee pollen [bee stings] Allergy (Severe, Verified 12/12/22 15:11) Anaphylaxis hydrocodone [HYDROCODONE] Allergy (Severe, Verified 12/12/22 15:11) severe lethargy Medication List - Last Reconciled 12/19/22 by Shaquille Pandya MD allopurinol 200 mg (2 x 100 mg) PO DAILY amiodarone 200 mg PO DAILY 90 days amlodipine 5 mg PO DAILY atorvastatin 80 mg PO BEDTIME blood sugar diagnostic (DogeoTouch Verio test strips) As directed 3 times a day calcitriol 0.25 mcg PO DAILY cholecalciferol (vitamin D3) 25 mcg PO DAILY [CPAP Device Use as directed when sleeping every night. Settings at 4 to 20 cm H2O] docusate sodium 200 mg PO BEDTIME flash glucose scanning reader ([employer] Charly 2 [place]) As directed flash glucose sensor (FreeStyle Charly 2 Sensor kit) As directed gabapentin 100 mg PO BEDTIME insulin glargine U-300 conc 20 units subcut BEDTIME insulin lispro 20 - 30 units (0.2 - 0.3 mL) subcut TID 90 days insulin lispro See Protocol units subcut TIDAC isosorbide mononitrate ER 60 mg PO DAILY lancets (DogeoTouch UltraSoft Lancets) As directed 3 times a day latanoprost 0.005% 1 drp ophthalmic (eye) BEDTIME 90 days levothyroxine 75 mcg PO DAILY 30 days losartan 25 mg PO DAILY melatonin 10 mg PO BEDTIME PRN pantoprazole 40 mg PO DAILY@0630 pen needle, diabetic (BD Ultra-Fine Renetta Pen Needle) As directed 4 times a day pen needle, diabetic (BD Ultra-Fine Renetta Pen Needle) As directed once a day ropinirole 0.25 mg PO BEDTIME sevelamer HCl 800 mg PO TID PRN HPI HPI Comments History of Present Illness Details Kate comes for follow-up, with her daughter. She has done well overall. Continues to exertional shortness of breath but no significant orthopnea. Her weight remains fluctuating, currently on peritoneal dialysis and weight goes from to 24-229 lb. Her CardioMEMS pressures have been stable and being monitored regularly through your office. Blood pressures been well controlled. No prolonged palpitations or irregular heartbeat. Takes all her medications regularly. [facility] Medical History Restless leg syndrome TRINH on CPAP Anemia of chronic disease Acquired hypothyroidism CKD (chronic kidney disease) stage V requiring chronic dialysis Anemia (HFpEF) heart failure with preserved ejection fraction Fecal impaction in rectum CHF exacerbation Presence of CardioMEMS HF system Chronic kidney disease, stage V Back pain GERD (gastroesophageal reflux disease) Anxiety and depression Squamous cell carcinoma in situ Vitamin D deficiency Morbid obesity with BMI of 40.0-44.9, adult Constipation Psoriasis Personal history of renal cell carcinoma Obstructive sleep apnea Pure hypercholesterolemia Benign essential hypertension Chronic kidney disease, stage 4 (severe) Type 2 diabetes mellitus with chronic kidney disease Obesity due to excess calories Left bundle branch block Supraventricular tachycardia Gout Arthritis Sleep apnea History of kidney cancer Type 2 diabetes mellitus with other diabetic kidney complication Essential hypertension Hyperlipidemia LDL goal <100 Surgical History History of surgery Hx of colonoscopy Hx of mammogram Hx of hysterectomy Hx of total knee replacement History of carpal tunnel release of both wrists Hx of tonsillectomy History of cryosurgery Family History Mother Diabetes Father No problems noted. Social History Household Members: Family and None Household Members Other:: daughter has being staying with pt for the past 2 weeks Housing: House Housing Other:: 2nd floor - uses stair chair Are you a primary ambulatory care coordinator to a significant other at home: No Do you presently have visiting nurse or other home services: Yes Alcohol intake: never Patient Tobacco Use Status: Never used Tobacco e-Cigarette/Vaping Use: Never Used Second Hand Smoke Exposure: No Advance Directives Date on File: 12/15/21 service: No Current occupational status: retired Cognitive needs: Yes (walker ) Hearing needs: No Vision needs: Yes (glasses) Review of Systems Const Denies chills, Denies fatigue, Denies fever(s), Denies frequent falls, Denies weakness, Denies weight gain and Denies weight loss ENT Denies dizziness Card Denies chest pain, Denies leg edema, Denies lightheadedness, Denies palpitations, Denies dyspnea, Denies dyspnea on exertion, Denies orthopnea and D enies other (loss of consciousness) Resp Denies cough, Denies dyspnea and Denies dyspnea on exertion GI Denies hematochezia and Denies change in stool character Musc Denies abnormal gait, Denies muscle weakness, Denies numbness, Denies radiating pain into limb and Denies tingling Neuro Denies abnormal gait, Denies dizziness, Denies frequent falls, Denies numbness, Denies tingling and Denies weakness Endo Denies fatigue and Denies palpitations Physical Exam Vital Signs: Last Vital Signs Pulse 67 12/19/22 14:23 BP 118/78 12/19/22 14:23 BMI result Body Mass Index 37.4 Const Other: Ambulates slowly with a walker General: cooperative, comfortable and no acute distress Orientation/consciousness: patient oriented x3 Neck Neck: Yes normal visual inspection and Yes no JVD Resp Effort & Inspection: normal respiratory effort Auscultation: clear to auscultation bilaterally, no crackles, no rales, no rhonchi and no wheezes Cardio Rate: regular rate Rhythm: regular rhythm Heart sounds: S1 normal heart sound present, S2 normal heart sound present, no murmurs and no rubs Neuro General: patient oriented x3 Extrem Other: Tight swelling in lower extremities bilateral Psych Appearance: grossly normal Mental Status: mental status grossly normal Speech and movement: Normal speech and movement present Office Procedures EKG Details: EKG shows normal sinus rhythm with first-degree AV block with left bundle-branch block. Unchanged from before [id number], Complete Assessment & Plan Assessment & Plan (1) (HFpEF) heart failure with preserved ejection fraction: Comment: She is being followed by Cardiology closely. Code(s): I50.30 - Unspecified diastolic (congestive) heart failure Qualifiers: Heart failure chronicity: chronic Qualified Code(s): I50.32 - Chronic diastolic (congestive) heart failure Plan: Heart failure preserved ejection fraction, clinically being managed with help of CardioMEMS device and peritoneal dialysis. Has done well with dialysis with managing of fluid. Advised to continue the same. Advised to avoid salt loading. Continue rhythm control approach, see below. Continue CPAP therapy. Continue participate in physical activity as tolerated. Continue aggressive blood pressure control which is currently well optimized. Importance of monitoring based on CardioMEMS device was discussed with her. She understands and agrees. Overall prognosis guarded. Goals of therapy were discussed. Blood pressure is currently well optimized. (2) Atrial tachycardia: Code(s): I47.19 - Other supraventricular tachycardia Plan: Atrial tachycardia with LV systolic dysfunction. Has remained control with amiodarone therapy. Has done well with rhythm control approach and will continue pursue the same to avoid progressive LV systolic dysfunction heart failure syndrome. No indication for antiarrhythmic drug therapy given that this was atrial tachycardia no evidence of flutter or fibrillation. Will follow up in the clinic in 3 months time, sooner p.r.n.. Thank you for allowing me to partake in her care Coding Level of Care Code Est Pt Level 4 (34744) Diagnoses Chronic heart failure with preserved ejection fraction I50.32 Heart failure chronicity: chronic Atrial tachycardia I47.19 CPT Codes EKG - CPT: 46672-[id number], Complete ([id number])
== END 2022-12-19 14:56 | disposition home or self-care (01) ==
PROVIDERS: Visit Provider Internal Medicine Cardiovascular Disease
DX: I50.32 Chronic diastolic (congestive) heart failure (principal); I47.19 Other supraventricular tachycardia
CPT/HCPCS: 93010; 99214

== ENCOUNTER → 2022-12-19 14:19 | Outpatient (BNVA) | payer MEDICARE, SELFPAY | PROVIDERS: Visit Provider Internal Medicine Cardiovascular Disease | DX: E11.22 Type 2 diabetes mellitus with diabetic chronic kidney disease (principal); N18.4 Chronic kidney disease, stage 4 (severe); I50.32 Chronic diastolic (congestive) heart failure; I47.19 Other supraventricular tachycardia; Z79.4 Long term (current) use of insulin | CPT/HCPCS: 93005; 99211; 99212 ==

== ENCOUNTER 2022-12-19 15:12 | Outpatient (AMB) | payer MEDICARE, SELFPAY ==
--- NOTE | 2022-12-19 15:59 | A.OFFVIS_ITS ---
Intake Intake Visit Reasons: DM-CONFIRMED Construction Safety Manager Required: No Accompanied by: Daughter Allergies amoxicillin [Amoxicillin] Allergy (Severe, Verified 12/12/22 15:11) VAGINAL ITCH bee pollen [bee stings] Allergy (Severe, Verified 12/12/22 15:11) Anaphylaxis hydrocodone [HYDROCODONE] Allergy (Severe, Verified 12/12/22 15:11) severe lethargy HPI Comprehensive Diabetes Asmnt Most Recent Diabetes Results: No Data to Display [facility] Medical History Restless leg syndrome TRINH on CPAP Anemia of chronic disease Acquired hypothyroidism CKD (chronic kidney disease) stage V requiring chronic dialysis Anemia (HFpEF) heart failure with preserved ejection fraction Fecal impaction in rectum CHF exacerbation Presence of CardioMEMS HF system Chronic kidney disease, stage V Back pain GERD (gastroesophageal reflux disease) Anxiety and depression Squamous cell carcinoma in situ Vitamin D deficiency Morbid obesity with BMI of 40.0-44.9, adult Constipation Psoriasis Personal history of renal cell carcinoma Obstructive sleep apnea Pure hypercholesterolemia Benign essential hypertension Chronic kidney disease, stage 4 (severe) Type 2 diabetes mellitus with chronic kidney disease Obesity due to excess calories Left bundle branch block Supraventricular tachycardia Gout Arthritis Sleep apnea History of kidney cancer Type 2 diabetes mellitus with other diabetic kidney complication Essential hypertension Hyperlipidemia LDL goal <100 Surgical History History of surgery Hx of colonoscopy Hx of mammogram Hx of hysterectomy Hx of total knee replacement History of carpal tunnel release of both wrists Hx of tonsillectomy History of cryosurgery Family History Mother Diabetes Father No problems noted. Social History Household Members: Family and None Household Members Other:: daughter has being staying with pt for the past 2 weeks Housing: House Housing Other:: 2nd floor - uses stair chair Are you a primary assistant child care teacher to a significant other at home: No Do you presently have visiting nurse or other home services: Yes Alcohol intake: never Patient Tobacco Use Status: Never used Tobacco e-Cigarette/Vaping Use: Never Used Second Hand Smoke Exposure: No Advance Directives Date on File: 12/15/21 service: No Current occupational status: retired Cognitive needs: Yes (walker ) Hearing needs: No Vision needs: Yes (glasses) Assessment & Plan Assessment & Plan (1) Type 2 diabetes mellitus with chronic kidney disease: Code(s): E11.22 - Type 2 diabetes mellitus with diabetic chronic kidney disease Qualifiers: Diabetes mellitus nursing home insulin use: with remote computer terminal operator use Chronic kidney disease stage: stage 4 (severe) Qualified Code(s): E11.22 - Type 2 diabetes mellitus with diabetic chronic kidney disease; N18.4 - Chronic kidney disease, stage 4 (severe); Z79.4 - remote computer terminal operator (current) use of insulin Plan: Personal Continuous Glucose Monitor: Patients CGM information reviewed Reviewed patient's sensor data: Hypoglycemia: ? 0% Hyperglycemia:? 55% Time in Range:? 45% Average glucose for the last 2 weeks?191 mg/dL Patient has not been seen since October 2021, at visit with her daughter. Patient is now on peritoneal dialysis. She has not been scanning sensor frequently. She is no longer taking Humalog She is currently using Toujeo 20 units daily Recommended to patient to scan sensor 4 times daily, bring sensor to clinic for download Patient reports that she finds contradiction in dietary advise so she just eats whatever she wants Recommended to patient she make appointment with dietitian to discuss both renal and diabetes diet Reviewed how to interpret trend arrows Reminded patient that to check finger sticks if symptoms do not match sensor reading. Discussed lag time between finger stick and sensor data.? Patient able to insert sensor independently at home without issue.? Patient Instructions: Make appointment with registered dietitian Follow-up with streetcar dispatcher in 5 months Coding Level of Care Code Est Pt Level 1 (32256) Diagnoses Type 2 diabetes mellitus with stage 4 chronic kidney disease, with long-term current use of insulin E11.22; N18.4; Z79.4 Diabetes mellitus nursing home insulin use: with nursing home use Chronic kidney disease stage: stage 4 (severe)
== END 2022-12-19 16:03 | disposition home or self-care (01) ==
PROVIDERS: PCP Internal Medicine; Visit Provider Registered Nurse Diabetes Educator
DX: E11.22 Type 2 diabetes mellitus with diabetic chronic kidney disease (principal); N18.4 Chronic kidney disease, stage 4 (severe); Z79.4 Long term (current) use of insulin

== ENCOUNTER 2022-12-26 13:59 | Outpatient (AMB) | payer MEDICARE, SELFPAY ==
--- NOTE | 2022-12-26 14:21 | MHC.OFFVIS ---
Intake Vital Signs 12/26/22 14:22 Height 5 ft 6 in Weight 232 lb BMI 37.4 BP 104/52 L Blood Pressure Location Lt brachial Position Sitting Pulse 65 Pulse Source Pulse Oximeter Pulse Oximetry (%) 94 Oxygen Delivery Method Room Air Intake Visit Reasons: trinh Intake Note: pt is here for follow up of TRINH and states states she is getting very dry mouth and dry sinus in am. Looking for suggestions. Primer Expeditor And Drier Required: No Allergies amoxicillin [Amoxicillin] Allergy (Severe, Verified 12/26/22 15:01) VAGINAL ITCH bee pollen [bee stings] Allergy (Severe, Verified 12/26/22 15:01) Anaphylaxis hydrocodone [HYDROCODONE] Allergy (Severe, Verified 12/26/22 15:01) severe lethargy Medication List - Last Reconciled 12/26/22 by Yogesh Alberto MD allopurinol 200 mg (2 x 100 mg) PO DAILY amiodarone 200 mg PO DAILY 90 days amlodipine 5 mg PO DAILY atorvastatin 80 mg PO BEDTIME blood sugar diagnostic (Full Throttle Indoor Kart RacingTouch Verio test strips) As directed 3 times a day calcitriol 0.25 mcg PO DAILY cholecalciferol (vitamin D3) 25 mcg PO DAILY [CPAP Device Use as directed when sleeping every night. Settings at 4 to 20 cm H2O] docusate sodium 200 mg PO BEDTIME flash glucose scanning reader (shopandsaveStyle Charly 2 [place]) As directed flash glucose sensor (FreeStyle Charly 2 Sensor kit) As directed gabapentin 100 mg PO BEDTIME insulin glargine U-300 conc 20 units subcut BEDTIME insulin lispro 20 - 30 units (0.2 - 0.3 mL) subcut TID 90 days insulin lispro See Protocol units subcut TIDAC isosorbide mononitrate ER 60 mg PO DAILY lactulose PO lancets (Full Throttle Indoor Kart RacingTouch UltraSoft Lancets) As directed 3 times a day latanoprost 0.005% 1 drp ophthalmic (eye) BEDTIME 90 days levothyroxine 75 mcg PO DAILY 30 days losartan 25 mg PO DAILY melatonin 10 mg PO BEDTIME PRN pantoprazole 40 mg PO DAILY@0630 pen needle, diabetic (BD Ultra-Fine Renetta Pen Needle) As directed 4 times a day pen needle, diabetic (BD Ultra-Fine Renetta Pen Needle) As directed once a day ropinirole 0.25 mg PO BEDTIME sevelamer HCl 800 mg PO TID PRN Do you need a note to return to daycare/school/sports/work: No HPI trinh HPI Details THIS 82 YEARS OLD VERY PLEASANT FEMALE. IS A CASE OF GROSS OBESITY, ROUND FACE AND OBSTRUCTIVE SLEEP APNEA, ALONG WITH MULTIPLE COMORBIDITIES. SHE IS VERY COMPLIANT AND USES THE CPAP EVERY NIGHT 100% OF THE NIGHTS. HER ISSUE AT THIS TIME IS THAT THE AIR COMES VERY FORCEFULLY LIKE A BLAST, SHE DOES USE THE DISTILLED WATER FOR HUMIDIFICATION PROPERLY A.M. BUT STILL WAKES UP IN THE MORNING WITH A DRY MOUTH HER INTERFACE IS NASAL AIR , AND SHE DOES KEEP FIND HER MOUTH TO STAY OPEN AT NIGHT . FORMERLY [facility] Medical History Restless leg syndrome TRINH on CPAP Anemia of chronic disease Acquired hypothyroidism CKD (chronic kidney disease) stage V requiring chronic dialysis Anemia (HFpEF) heart failure with preserved ejection fraction Fecal impaction in rectum CHF exacerbation Presence of CardioMEMS HF system Chronic kidney disease, stage V Back pain GERD (gastroesophageal reflux disease) Anxiety and depression Squamous cell carcinoma in situ Vitamin D deficiency Morbid obesity with BMI of 40.0-44.9, adult Constipation Psoriasis Personal history of renal cell carcinoma Obstructive sleep apnea Pure hypercholesterolemia Benign essential hypertension Chronic kidney disease, stage 4 (severe) Type 2 diabetes mellitus with chronic kidney disease Obesity due to excess calories Left bundle branch block Supraventricular tachycardia Gout Arthritis Sleep apnea History of kidney cancer Type 2 diabetes mellitus with other diabetic kidney complication Essential hypertension Hyperlipidemia LDL goal <100 Surgical History History of surgery Hx of colonoscopy Hx of mammogram Hx of hysterectomy Hx of total knee replacement History of carpal tunnel release of both wrists Hx of tonsillectomy History of cryosurgery Family History Mother Diabetes Father No problems noted. Social History Household Members: Family and None Household Members Other:: daughter has being staying with pt for the past 2 weeks Housing: House Housing Other:: 2nd floor - uses stair chair Are you a primary youth care professional to a significant other at home: No Do you presently have visiting nurse or other home services: Yes Alcohol intake: never Patient Tobacco Use Status: Never used Tobacco e-Cigarette/Vaping Use: Never Used Second Hand Smoke Exposure: No Advance Directives Date on File: 12/15/21 service: No Current occupational status: retired Cognitive needs: Yes (walker ) Hearing needs: No Vision needs: Yes (glasses) Review of Systems Const All systems reviewed & are unremarkable except as noted in HPI and below Eyes Reports no additional complaints ENT Reports nasal congestion (Mild) Card Reports chest pain, Denies irregular heart rhythm and Reports leg edema Resp Denies chest congestion, Denies cough and Denies wheezing GI Reports heartburn (GERD symptoms well controlled) Reports no additional complaints Musc Reports myalgias (Mild) and Reports arthralgias (Mild) Skin/Breast Reports system reviewed and no additional complaints, except as documented Neuro Reports no additional complaints Psych Reports no additional complaints Endo Reports other (Diabetes mellitus, hypo thyroidism) Aller/Immun Denies wheezing Physical Exam Vital Signs: Last Vital Signs Pulse 65 12/26/22 14:22 BP 104/52 L 12/26/22 14:22 Pulse Ox 94 12/26/22 14:22 Oxygen Delivery Method Room Air 12/26/22 14:22 BMI result Body Mass Index 37.4 Const Other: Grossly obese with a round face. General: comfortable, no acute distress, alert and awake Orientation/consciousness: oriented to person, oriented to place and patient oriented x3 HEENT Head: Yes normal to inspection General nose exam: No nasal polyps present and No nasal discharge present Face and sinus: Yes sinuses nontender Mouth: oropharynx abnormals (Oropharynx is narrow and crowded, Mallampati class 4) Throat: Yes posterior oropharynx normal Eyes General: appearance normal, both eyes and all related structures Neck Neck: Yes normal visual inspection, Yes no lymphadenopathy, Yes trachea midline and Yes no JVD Thyroid: Thyroid normal Chest Chest palpation & inspection: normal inspection of the chest, normal palpation of entire chest wall and no tenderness Resp Other: Percussion note is barely perceptible because of the thick chest wall. Breath sounds are distant especially over the basilar areas. No wheezes rhonchi or crepitations are heard. Cardio Palpation: normal PMI Rate: regular rate Rhythm: regular rhythm Heart sounds: no gallops and no murmurs GI Inspection: Yes other (Abdomen is obese and protuberant, HAS CATHETER IN PLACE FOR DIALYSIS.) Palpation (GI): Soft to palpation, nontender, No hepatosplenomegaly present and no masses Auscultation: normal bowel sounds Back/Spine/Pelvis Thoracic/Lumbar Spine: thoracic and lumbar spine normal to inspection Skin General skin exam: no rashes or lesions noted Neuro General: oriented to person, oriented to place, patient oriented x3 and no focal motor deficits Cranial nerves: Yes CN's II-XII intact bilaterally Extrem General: Yes normal to inspection, Yes no calf tenderness, Yes edema (HAS MODERATE AMOUNT OF EDEMA OF BOTH LEGS) and Yes venous stasis dermatitis Psych Appearance: grossly normal and well kempt Speech and movement: Normal speech and movement present Results Reviewed Results Reviewed: COMPLIANCE REPORT IS REVIEWED. SHE HAS USED 30/30 NIGHTS, 100% OF THE TIME. AVERAGE USE IT PER NIGHT. 6 HOURS 52 MINUTES WHICH IS GOOD PRESSURE USED MOSTLY 12-13 CM. THERE IS THE MODERATE AMOUNT OF AIR LEAK. RESIDUAL AHI 0.9 Assessment & Plan Assessment & Plan (1) Obesity due to excess calories: Comment: Patient has history of morbid obesity. After she started on dialysis she has lost weight , now down to moderate degree of obesity The weight fluctuates according to how much water she gets out. Not able to do much exercise. Weight loss is going to depend upon the results of dialysis. Code(s): E66.09 - Other obesity due to excess calories Qualifiers: Obesity classification: adult class 3 (BMI >= 40) Serious obesity comorbidity presence: with serious comorbidity Body mass index: BMI 40.0-44.9 Qualified Code(s): E66.01 - Morbid (severe) obesity due to excess calories; Z68.41 - Body mass index [BMI]40.0-44.9, adult Plan: ABOVE (2) TRINH on CPAP: Comment: SHE IS CONFIRMED CASE OF OBSTRUCTIVE SLEEP APNEA BEING TREATED WITH CPAP AND SHE CLAIMS THAT SHE IS USING IT EVERY NIGHT. HER CPAP MACHINE IS WORKING HOWEVER SHE FINDS THAT THE AIR BLAST COMES AT A FORCE, WHICH IS SOMETIMES UNCOMFORTABLE. ALSO THERE IS MILD TO MODERATE AIR LEAK, SHE COMPLAINS OF DRY MOUTH IN THE MORNING WHICH IS PROBABLY DUE TO MOUTH BREATHING. Code(s): G47.33 - Obstructive sleep apnea (adult) (pediatric); Z99.89 - Dependence on other enabling machines and devices Plan: INSTRUCTIONS AND ORDERS BEING SENT TO THE [facility] TO 1- PROVIDE A CHINSTRAP. 2- HAD RAMP MODE FOR 10 MINUTES IF THIS DOES NOT WORK THEN SHE WOULD NEED A FULLFACE MASK, PATIENT IS ADVISED TO USE A VAPORIZER OR HUMIDIFIER IN THE BEDROOM (3) Restless leg syndrome: Comment: THIS IS PROBABLY DUE TO COMBINATION OF TRINH AND CHRONIC RENAL DISEASE. Code(s): G25.81 - Restless legs syndrome Plan: CONTINUE USING ROPINIROLE 0.25 MG DAILY AT HS Coding Level of Care Code Est Pt Level 3 (43057) Diagnoses Class 3 severe obesity due to excess calories with serious comorbidity and body mass index (BMI) of 40.0 to 44.9 in adult E66.01; Z68.41 Obesity classification: adult class 3 (BMI >= 40) Serious obesity comorbidity presence: with serious comorbidity Body mass index: BMI 40.0-44.9 TRINH on CPAP G47.33; Z99.89 Restless leg syndrome G25.81
[2022-12-26 14:22] VITALS: BP 104/52; PULSE 65; O2SAT 94; BMI 37.4
== END 2022-12-26 15:04 | disposition home or self-care (01) ==
PROVIDERS: PCP Internal Medicine; Visit Provider Internal Medicine
DX: E66.01 Morbid (severe) obesity due to excess calories (principal); Z68.41 Body mass index [BMI] 40.0-44.9, adult; G47.33 Obstructive sleep apnea (adult) (pediatric); Z99.89 Dependence on other enabling machines and devices; G25.81 Restless legs syndrome
CPT/HCPCS: 99213

== ENCOUNTER → 2022-12-26 13:59 | Outpatient (BNVA) | payer MEDICARE, SELFPAY | PROVIDERS: PCP Internal Medicine; Visit Provider Internal Medicine | DX: G47.33 Obstructive sleep apnea (adult) (pediatric) (principal); E66.01 Morbid (severe) obesity due to excess calories; G25.81 Restless legs syndrome; Z99.89 Dependence on other enabling machines and devices; Z68.37 Body mass index [BMI] 37.0-37.9, adult | CPT/HCPCS: 99212 ==

== ENCOUNTER → 2023-01-13 23:59 | Outpatient (BNV) | payer MEDICARE, SELFPAY ==
--- NOTE | 2023-01-23 12:28 | MHC.OFFVIS ---
Intake Intake Visit Reasons: Remote CardioMEMS- [facility] Allergies amoxicillin [Amoxicillin] Allergy (Severe, Verified 12/26/22 15:01) VAGINAL ITCH bee pollen [bee stings] Allergy (Severe, Verified 12/26/22 15:01) Anaphylaxis hydrocodone [HYDROCODONE] Allergy (Severe, Verified 12/26/22 15:01) severe lethargy PFSH Medical History (Updated 01/06/23 @ 15:33 by Cady Escobedo SUPERVISOR TUMBLERS-C) Presence of CardioMEMS HF system Restless leg syndrome TRINH on CPAP Anemia of chronic disease Acquired hypothyroidism CKD (chronic kidney disease) stage V requiring chronic dialysis Anemia (HFpEF) heart failure with preserved ejection fraction Fecal impaction in rectum CHF exacerbation Chronic kidney disease, stage V Back pain GERD (gastroesophageal reflux disease) Anxiety and depression Squamous cell carcinoma in situ Vitamin D deficiency Morbid obesity with BMI of 40.0-44.9, adult Constipation Psoriasis Personal history of renal cell carcinoma Obstructive sleep apnea Pure hypercholesterolemia Benign essential hypertension Chronic kidney disease, stage 4 (severe) Type 2 diabetes mellitus with chronic kidney disease Obesity due to excess calories Left bundle branch block Supraventricular tachycardia Gout Arthritis Sleep apnea History of kidney cancer Type 2 diabetes mellitus with other diabetic kidney complication Essential hypertension Hyperlipidemia LDL goal <100 Surgical History History of surgery Hx of colonoscopy Hx of mammogram Hx of hysterectomy Hx of total knee replacement History of carpal tunnel release of both wrists Hx of tonsillectomy History of cryosurgery Family History Mother Diabetes Father No problems noted. Social History Household Members: Family and None Household Members Other:: daughter has being staying with pt for the past 2 weeks Housing: House Housing Other:: 2nd floor - uses stair chair Are you a primary pediatric care coordinator to a significant other at home: No Do you presently have visiting nurse or other home services: Yes Alcohol intake: never Comment: pt rings appropriately Patient Tobacco Use Status: Never used Tobacco e-Cigarette/Vaping Use: Never Used Second Hand Smoke Exposure: No Advance Directives Date on File: 12/15/21 service: No Current occupational status: retired Cognitive needs: Yes (walker ) Hearing needs: No Vision needs: Yes (glasses) Office Procedures Cardiac Device Check Cardiac Device Check Details: Monitoring period dates: 12/07/22 - 01/06/23 Optimal PA pressure range:PAD 9mmhg Procedure code: 56177 BACKGROUND: Kate is implanted with the CardioMEMS PA Sensor.? I use this technology to monitor PA pressures on a weekly basis to ensure patients are within their optimal range to prevent decompensation.? SUMMARY:? I utilized the remote monitoring platform ([employer]) to set optimal targets for pulmonary artery pressure thresholds as part of acute and chronic management of patient?s heart failure. During the period indicated above, I monitored the patient?s pulmonary artery pressures weekly via trend analysis and notification reports which provide alerts when patient?s PA pressures were outside of range to prompt immediate action in medication changes and communications.? The weekly reports are archived in the [employer] system which serve as a parallel record to document weekly PA pressures, medication changes, and clinical notes. I have reviewed readings on 12/08, 12/12, 12/19, 12/26, 01/01, 01/05. PAD has ranged 4-9mmhg. 66424 - Remote monitoring of wireless pulmonary artery pressure sensor Procedure code (CPT) selection complete Assessment & Plan Assessment & Plan (1) Presence of CardioMEMS HF system: Comment: anjel Londono 01/27/2022 Code(s): Z95.818 - Presence of other cardiac implants and grafts Plan: monthyly report Coding Level of Care Code Procedure Only Diagnoses Presence of CardioMEMS HF system Z95.818 CPT Codes Cardiac Device Check - Cardiac Device 17: 36967 - Remote monitoring of wireless pulmonary artery pressure sensor ([id number])
== END ==
PROVIDERS: PCP Internal Medicine; Visit Provider Nurse Practitioner Family
DX: I50.31 Acute diastolic (congestive) heart failure (principal); Z95.818 Presence of other cardiac implants and grafts
CPT/HCPCS: 93264

== ENCOUNTER 2023-02-09 14:21 | Outpatient (REF) | payer MEDICARE, SELFPAY | END 2023-02-09 14:22 | disposition home or self-care (01) | LOC: HO.US 14:21 | PROVIDERS: PCP Internal Medicine; Visit Provider Podiatrist | DX: I82.403 Acute embolism and thrombosis of unspecified deep veins of lower extremity, bilateral (principal) | CPT/HCPCS: 93970 ==

== ENCOUNTER 2023-02-13 12:25 | Outpatient (AMB) | payer MEDICARE, SELFPAY ==
[2023-02-13 12:34] VITALS: BMI 36.4
--- NOTE | 2023-02-13 12:34 | A.OFFVIS_ITS ---
Intake VS Expanded 02/13/23 12:34 02/23/23 11:48 Height 5 ft 6 in 5 ft 6 in Weight 225 lb 8.526 oz 225 lb BMI 36.4 36.3 Intake Visit Reasons: DM/CONFIRMED Allergies amoxicillin [Amoxicillin] Allergy (Severe, Verified 12/26/22 15:01) VAGINAL ITCH bee pollen [bee stings] Allergy (Severe, Verified 12/26/22 15:01) Anaphylaxis hydrocodone [HYDROCODONE] Allergy (Severe, Verified 12/26/22 15:01) severe lethargy HPI Nutrition Presentation Details Pt presents for MNT for T2DM. Pt was referred by Dr. Guzman, retail security professional. The Pt presents with daughter who helps with meal preparation. The Pt's daughter and Pt are asking for meal plan consisting of low phosphorus related to, per Pt and daughter, elevated phosphorus level. Pt has CKD and is on daily peritoneal dialysis since around 04/2022. Pt reports taking phosphate binders and has pending appt with remelt pan tank operator Pt reports often omitting glargine insulin as she thinks 20 units is a small dosage. Pt brought her glucose download and most recent 14 d bg average at 196 mg/dl, report shows 39% within target, 52% above 180 mg/dl and 9 % above 250 mg/dl, no hypoglycemia. pt reports feeling full too fast, Meals consist of B/L: getting up after 11 am : oatmeal or sandwich egg/ham/cheese, tea or coffee or water dinner: soup (beans /lentils) or pasta with chicken ,water snack :fruits, yogurt , crackers [employer] Equation Height 5 ft 6 in Weight 225 lb Resting Metabolic Rate 1512.71 Calculated Activity Level Sedentary Calories Needed to Maintain Weight 1815.25 Diagnosis Nutrition problem #1 altered nutrition labs and food nutri know defi As related to (etiology) #1 diagnosis As evidenced by (sign/symptom) #1 knowledge deficit of diet Monitoring/Goals Nutrition problem monitoring level of knowledge/skill Learning/Education Readiness to learn fair Stages of change contemplation Most Recent Diabetes Results: No Data to Display [facility] Medical History (Updated 01/06/23 @ 15:33 by Cady Escobedo, COMPUTER OPERATIONS MANAGER-C) Presence of CardioMEMS HF system Restless leg syndrome TRINH on CPAP Anemia of chronic disease Acquired hypothyroidism CKD (chronic kidney disease) stage V requiring chronic dialysis Anemia (HFpEF) heart failure with preserved ejection fraction Fecal impaction in rectum CHF exacerbation Chronic kidney disease, stage V Back pain GERD (gastroesophageal reflux disease) Anxiety and depression Squamous cell carcinoma in situ Vitamin D deficiency Morbid obesity with BMI of 40.0-44.9, adult Constipation Psoriasis Personal history of renal cell carcinoma Obstructive sleep apnea Pure hypercholesterolemia Benign essential hypertension Chronic kidney disease, stage 4 (severe) Type 2 diabetes mellitus with chronic kidney disease Obesity due to excess calories Left bundle branch block Supraventricular tachycardia Gout Arthritis Sleep apnea History of kidney cancer Type 2 diabetes mellitus with other diabetic kidney complication Essential hypertension Hyperlipidemia LDL goal <100 Surgical History History of surgery Hx of colonoscopy Hx of mammogram Hx of hysterectomy Hx of total knee replacement History of carpal tunnel release of both wrists Hx of tonsillectomy History of cryosurgery Family History Mother Diabetes Father No problems noted. Social History Household Members: Family and None Household Members Other:: daughter has being staying with pt for the past 2 weeks Housing: House Housing Other:: 2nd floor - uses stair chair Are you a primary care manager to a significant other at home: No Do you presently have visiting nurse or other home services: Yes Alcohol intake: never Comment: pt rings appropriately Patient Tobacco Use Status: Never used Tobacco e-Cigarette/Vaping Use: Never Used Second Hand Smoke Exposure: No Advance Directives Date on File: 12/15/21 service: No Current occupational status: retired Cognitive needs: Yes (walker ) Hearing needs: No Vision needs: Yes (glasses) Assessment & Plan Assessment & Plan (1) Type 2 diabetes mellitus with chronic kidney disease: Code(s): E11.22 - Type 2 diabetes mellitus with diabetic chronic kidney disease Qualifiers: Chronic kidney disease stage: stage 4 (severe) Diabetes mellitus senior care insulin use: with senior care use Qualified Code(s): E11.22 - Type 2 diabetes mellitus with diabetic chronic kidney disease; N18.4 - Chronic kidney disease, stage 4 (severe); Z79.4 - MCC (current) use of insulin Plan: Wt: 102 Kg ( 02/2023 ) Est kcal needs as per MSJ: 1800 (40% carb, 30% protein/fat) Est fluid needs as per 25 ml/d: 2500 UNLESS OTHERWISE SPECIFIED BY YOUR DOCTOR Est prot per day as per 1.2 g/kg bw: 122 Recommend fiber intake : 8-10 g per day and gradually increase to 25-28 g per day for women and 35-38 g for men or as tolerated Recommend sodium intake per day : less than 1500 mg less than 2000 mg Educated patient on: ( R = reviewed V = verbalizes understanding N/R = needs review N/A = not applicable * Food sources of carbohydrate, adequate serving sizes and its role in various health conditions: N/R * Differences between complex carbohydrates a simple carbohydrates, role of fiber in diet: N/R * Lean protein sources of foods: R * Differences between types of fats and role in diet (mono on saturated fat fatty acids, saturated fatty acids, trans fats): N/R * Food sources of sodium in salt and healthy modifications for heart health in kidney health: V * Vitamins and minerals: R related to P * Healthy plate method concept: R * Physical activity: Benefits a precaution: N/R * Hypoglycemia protocol (rule of 15): N/R * Dietary prevention of Hyperglycemia: R * phosphorus content of foods: R, Patient Instructions: Take your DM meds as prescribed by your doctor Choose low phosphorus food options , reduce/limit your intake of processed foods see meal plan ideas with lower Phosphorus options- as discussed/mailed/emailed Coding Level of Care Code Nutr Indiv Subseq (98957) Diagnoses Type 2 diabetes mellitus with stage 4 chronic kidney disease, with long-term current use of insulin E11.22; N18.4; Z79.4 Chronic kidney disease stage: stage 4 (severe) Diabetes mellitus senior care insulin use: with senior care use Time Spent (min) 30
[2023-02-23 11:48] VITALS: BMI 36.3
== END 2023-02-13 13:11 | disposition home or self-care (01) ==
PROVIDERS: PCP Internal Medicine; Visit Provider Dietitian, Registered
DX: E11.22 Type 2 diabetes mellitus with diabetic chronic kidney disease (principal); N18.4 Chronic kidney disease, stage 4 (severe); Z79.4 Long term (current) use of insulin

== ENCOUNTER → 2023-02-13 12:25 | Outpatient (BNVA) | payer MEDICARE, SELFPAY | PROVIDERS: PCP Internal Medicine; Visit Provider Dietitian, Registered | DX: E11.22 Type 2 diabetes mellitus with diabetic chronic kidney disease (principal); N18.4 Chronic kidney disease, stage 4 (severe); Z79.4 Long term (current) use of insulin | CPT/HCPCS: 97803 ==

== ENCOUNTER → 2023-02-13 23:59 | Outpatient (BNV) | payer MEDICARE, SELFPAY ==
--- NOTE | 2023-02-21 18:24 | A.OFFVIS_ITS ---
Intake Intake Visit Reasons: Remote CardioMEMS- [facility] Allergies amoxicillin [Amoxicillin] Allergy (Severe, Verified 12/26/22 15:01) VAGINAL ITCH bee pollen [bee stings] Allergy (Severe, Verified 12/26/22 15:01) Anaphylaxis hydrocodone [HYDROCODONE] Allergy (Severe, Verified 12/26/22 15:01) severe lethargy PFSH Medical History (Updated 01/06/23 @ 15:33 by Cady Escobedo IT WEB DEVELOPMENT CONSULTANT-C) Presence of CardioMEMS HF system Restless leg syndrome TRINH on CPAP Anemia of chronic disease Acquired hypothyroidism CKD (chronic kidney disease) stage V requiring chronic dialysis Anemia (HFpEF) heart failure with preserved ejection fraction Fecal impaction in rectum CHF exacerbation Chronic kidney disease, stage V Back pain GERD (gastroesophageal reflux disease) Anxiety and depression Squamous cell carcinoma in situ Vitamin D deficiency Morbid obesity with BMI of 40.0-44.9, adult Constipation Psoriasis Personal history of renal cell carcinoma Obstructive sleep apnea Pure hypercholesterolemia Benign essential hypertension Chronic kidney disease, stage 4 (severe) Type 2 diabetes mellitus with chronic kidney disease Obesity due to excess calories Left bundle branch block Supraventricular tachycardia Gout Arthritis Sleep apnea History of kidney cancer Type 2 diabetes mellitus with other diabetic kidney complication Essential hypertension Hyperlipidemia LDL goal <100 Surgical History History of surgery Hx of colonoscopy Hx of mammogram Hx of hysterectomy Hx of total knee replacement History of carpal tunnel release of both wrists Hx of tonsillectomy History of cryosurgery Family History Mother Diabetes Father No problems noted. Social History Household Members: Family and None Household Members Other:: daughter has being staying with pt for the past 2 weeks Housing: House Housing Other:: 2nd floor - uses stair chair Are you a primary manager care management to a significant other at home: No Do you presently have visiting nurse or other home services: Yes Alcohol intake: never Comment: pt rings appropriately Patient Tobacco Use Status: Never used Tobacco e-Cigarette/Vaping Use: Never Used Second Hand Smoke Exposure: No Advance Directives Date on File: 12/15/21 service: No Current occupational status: retired Cognitive needs: Yes (walker ) Hearing needs: No Vision needs: Yes (glasses) Office Procedures Cardiac Device Check Cardiac Device Check Details: Monitoring period dates: 01/06/23 - 02/05/23 Optimal PA pressure range:PAD goal 9 mmhg Procedure code: 68307 BACKGROUND: Kate is implanted with the CardioMEMS PA Sensor.? I use this technology to monitor PA pressures on a weekly basis to ensure patients are within their optimal range to prevent decompensation.? SUMMARY:? I utilized the remote monitoring platform (dscout) to set optimal targets for pulmonary artery pressure thresholds as part of acute and chronic management of patient?s heart failure. During the period indicated above, I monitored the patient?s pulmonary artery pressures weekly via trend analysis and notification reports which provide alerts when patient?s PA pressures were outside of range to prompt immediate action in medication changes and communications.? The weekly reports are archived in the dscout system which serve as a parallel record to document weekly PA pressures, medication changes, and clinical notes. I have reviewed readings on 01/07, 01/13, 01/20, 01/25, 01/31, 02/03. Her PAD has ranged between 6 - 9mmhg. stable. 57938 - Remote monitoring of wireless pulmonary artery pressure sensor Procedure code (CPT) selection complete Assessment & Plan Assessment & Plan (1) Presence of CardioMEMS HF system: Comment: anjel Londono 01/27/2022 Code(s): Z95.818 - Presence of other cardiac implants and grafts Plan: monthly report Coding Level of Care Code Procedure Only Diagnoses Presence of CardioMEMS HF system Z95.818 CPT Codes Cardiac Device Check - Cardiac Device 17: 34803 - Remote monitoring of wireless pulmonary artery pressure sensor ([id number])
== END ==
PROVIDERS: PCP Internal Medicine; Visit Provider Nurse Practitioner Family
DX: I50.31 Acute diastolic (congestive) heart failure (principal); Z95.818 Presence of other cardiac implants and grafts
CPT/HCPCS: 93264

== ENCOUNTER 2023-02-24 09:13 | Outpatient (REF) | payer MEDICARE, SELFPAY ==
[2023-02-24 11:30] LABS: MANUAL DIFF FLAG NO
[2023-02-24 11:49] LABS: Appearance Urine Turbid; Color Urine Yellow; Glucose Urine UA 250 mg/dL (Negative); Leukocyte Esterase Urine Large (3+) (Negative); Nitrite Urine Negative (Negative); Specific Gravity - Urine >= 1.030 (1.005-1.025); UMIC TRIGGER UACC YES; Urine Blood Moderate (2+) (Negative); Urine Ketones Trace mg/dL (Negative); Urine Protein 100 (2+) mg/dL (Neg-Trace)
[2023-02-24 11:57] LABS: Bacteria Urine 4+ (None Seen); UACC Culture Trigger YES; WBC Urine >50 /HPF (0-5)
[2023-02-24 12:02] LABS: Basophils Percent Auto 0.5 % (0-2); Eosinophils Absolute Auto 0.1 X10*3/uL (0.0-0.4); Eosinophils Percent Auto 1.5 % (0-4); Hemoglobin 10.8 g/dl (12.0-16.0); Imm Gran Abs Auto 0.31 X10*3/uL (0.00-0.03); Imm Gran Pct Auto 4.8 % (0.0-0.4); Lymphocytes Absolute Auto 1.7 X10*3/uL (1.2-4.9); Lymphocytes Percent Auto 25.5 % (20-40); Mean Corpuscular HGB Conc 32.7 g/dl (31.0-35.0); Mean Corpuscular Hemoglobin 30.6 pg (27.0-33.0); Mean Corpuscular Volume 93.5 fL (80.0-98.0); Mean Platelet Volume 9.5 fL (9.4-12.3); Monocytes Absolute Auto 0.5 X10*3/uL (0.1-1.2); Monocytes Percent Auto 7.8 % (2-11); Neutrophils Absolute Auto 3.9 x10*3/uL (2.0-8.3); Neutrophils Percent Auto 59.9 % (45-73); Platelet Count 330 X10*3/uL (160-400); Red Blood Count 3.53 X10*6/uL (4.20-5.50); Red Cell Distribution Width 13.6 % (11.0-16.0); White Blood Count 6.5 X10*3/uL (4.8-10.8)
[2023-02-24 12:46] LABS: Estimated Average Glucose 192 mg/dL; Hemoglobin A1c % 8.3 % (<6.0)
[2023-02-24 14:17] LABS: Alanine Aminotransferase 6 U/L (0-31); Albumin Level 3.2 g/dL (3.5-5.0); Alkaline Phosphatase 116 U/L (39-117); Anion Gap 24 (12-20); Aspartate Amino Transferase 7 U/L (5-31); Bilirubin Total 0.4 mg/dL (0.0-1.0); Blood Urea Nitrogen 38 mg/dL (9-16); Carbon Dioxide 24 mmol/L (22-29); Chloride 90 mmol/L (96-108); Cholesterol 188 mg/dL (<200); Estimated Glomerular Filt Rate 5; Free T4 (Free Thyroxine) 0.43 ng/dL (0.71-1.85); Glucose Fasting 200 mg/dL (60-99); HDL Cholesterol 41 mg/dL (>40); LDL Cholesterol Calculated 96 mg/dL (<100); Potassium 4.7 mmol/L (3.3-5.1); Sodium 133 mmol/L (135-145); Thyroid Stimulating Hormone 84.25 uIU/mL (0.32-4.0); Total Protein 6.6 g/dL (6.5-8.0); Triglycerides 255 mg/dL (<150); Uric Acid 5.6 mg/dL (2.4-5.7); Vitamin D 25-OH Total 37.3 ng/mL (>30)
[2023-02-24 14:39] LABS: Folate 6.7 ng/mL (> or = 4.0); Vitamin B12 590 pg/mL (200-900)
== END 2023-02-24 09:14 | disposition home or self-care (01) ==
LOC: HO.HMGCLDS 09:13
PROVIDERS: PCP Internal Medicine; Visit Provider Internal Medicine
DX: E78.00 Pure hypercholesterolemia, unspecified (principal); E03.9 Hypothyroidism, unspecified; E55.9 Vitamin D deficiency, unspecified; E11.9 Type 2 diabetes mellitus without complications; I10 Essential (primary) hypertension; E53.8 Deficiency of other specified B group vitamins; M10.9 Gout, unspecified; R30.0 Dysuria
CPT/HCPCS: 36415; 80053; 80061; 81001; 82306; 82607; 82746; 83036; 84439; 84443; 84550; 85025; 87086; 87088; 87186

== ENCOUNTER 2023-02-28 12:20 | Outpatient (AMB) | payer MEDICARE, SELFPAY ==
--- NOTE | 2023-02-28 12:34 | A.OFFPC_ITS ---
Vital Signs 02/28/23 12:35 Height 5 ft 6 in Weight 220 lb 7.396 oz BMI 35.6 BP 100/60 Blood Pressure Location Lt brachial Position Sitting Pulse 83 Pulse Source Pulse Oximeter Pulse Oximetry (%) 99 Oxygen Delivery Method Room Air Intake Visit Reasons: 3 Months F/U Company Driver Required: No Accompanied by: Self / Same As Patient Allergies amoxicillin [Amoxicillin] Allergy (Severe, Verified 02/28/23 12:58) VAGINAL ITCH bee pollen [bee stings] Allergy (Severe, Verified 02/28/23 12:58) Anaphylaxis hydrocodone [HYDROCODONE] Allergy (Severe, Verified 02/28/23 12:58) severe lethargy Medication List - Last Reconciled 02/28/23 by Imer Hernandez MD allopurinol 200 mg (2 x 100 mg) PO DAILY amiodarone 200 mg PO DAILY 90 days amlodipine 5 mg PO DAILY atorvastatin 80 mg PO BEDTIME blood sugar diagnostic (AlphaNationTouch Verio test strips) As directed 3 times a day calcitriol 0.25 mcg PO DAILY cholecalciferol (vitamin D3) 25 mcg PO DAILY [CPAP Device Use as directed when sleeping every night. Settings at 4 to 20 cm H2O] docusate sodium 200 mg PO BEDTIME flash glucose scanning reader (GemPhonesStyle Charly 2 Margie) As directed flash glucose sensor (FreeStyle Charly 2 Sensor kit) As directed gabapentin 100 mg PO BEDTIME insulin glargine U-300 conc 20 units subcut BEDTIME insulin lispro 20 - 30 units (0.2 - 0.3 mL) subcut TID 90 days insulin lispro See Protocol units subcut TIDAC isosorbide mononitrate ER 60 mg PO DAILY lactulose PO lancets (AlphaNationTouch UltraSoft Lancets) As directed 3 times a day latanoprost 0.005% 1 drp ophthalmic (eye) BEDTIME 90 days levothyroxine 75 mcg PO DAILY 30 days losartan 25 mg PO DAILY melatonin 10 mg PO BEDTIME PRN pantoprazole 40 mg PO DAILY@0630 pen needle, diabetic (BD Ultra-Fine Renetta Pen Needle) As directed 4 times a day pen needle, diabetic (BD Ultra-Fine Renetta Pen Needle) As directed once a day ropinirole 0.25 mg PO BEDTIME sevelamer HCl 800 mg PO TID PRN Tobacco use date assessed: 02/28/23 Fall risk assessment: 2 + Falls in past year Last assessed Fall Risk: 02/28/23 Dental Screening Dental Screen Date: 02/28/23 Did you have a dental visit in the last 12 months?: Yes Did you have a dental problem in the last 6 months where you did not have access to dental care?: No Was dental information given to patient?: Patient has dentist HPI 3 Months F/U HPI Details Patient comes in today for her follow up visit States that she has been feeling very tired and fatigued more than usual lately Adds that she's had a painful rash/lesion on the medial side of her right lower leg for a while now and she feels that this is slowly getting worse States that she has an appointment coming up to see her vascular surgeon next month and is wondering if this has something to do with her circulation and if this can wait until she is seen by vascular surgery next month She denies any headaches or dizziness lately Denies any chest pains or SOB but reports feeling some EVANS more than usual lately Relates (+) nausea recently and states that she sometimes ends up throwing up her meds as a result Feels that some of her medications are too big for her to swallow and is wondering if she can cut them up before drinking them She denies any abdominal pain and no change in bowel habits noted lately Adds that she was recently started on some antibiotics by dialysis for UTI - describes her Rx as some green capsules that she took twice a day for a few days - are most likely Macrobid capsules She continues to do peritoneal dialysis at home everyday Her friend states that patient has been experiencing some family chaos recently and has been feeling more depressed than usual lately Had her follow up labs done a few days ago - to discuss her results [facility] Medical History Presence of CardioMEMS HF system Restless leg syndrome TRINH on CPAP Anemia of chronic disease Acquired hypothyroidism CKD (chronic kidney disease) stage V requiring chronic dialysis Anemia (HFpEF) heart failure with preserved ejection fraction Fecal impaction in rectum CHF exacerbation Chronic kidney disease, stage V Back pain GERD (gastroesophageal reflux disease) Anxiety and depression Squamous cell carcinoma in situ Vitamin D deficiency Morbid obesity with BMI of 40.0-44.9, adult Constipation Psoriasis Personal history of renal cell carcinoma Obstructive sleep apnea Pure hypercholesterolemia Benign essential hypertension Chronic kidney disease, stage 4 (severe) Type 2 diabetes mellitus with chronic kidney disease Obesity due to excess calories Left bundle branch block Supraventricular tachycardia Gout Arthritis Sleep apnea History of kidney cancer Type 2 diabetes mellitus with other diabetic kidney complication Essential hypertension Hyperlipidemia LDL goal <100 Surgical History History of surgery Hx of colonoscopy Hx of mammogram Hx of hysterectomy Hx of total knee replacement History of carpal tunnel release of both wrists Hx of tonsillectomy History of cryosurgery Family History Mother Diabetes Father No problems noted. Social History Household Members: Family and None Household Members Other:: daughter has being staying with pt for the past 2 weeks Housing: House Housing Other:: 2nd floor - uses stair chair Are you a primary inspector health care facilities to a significant other at home: No Do you presently have visiting nurse or other home services: Yes Alcohol intake: never Comment: pt rings appropriately Patient Tobacco Use Status: Never used Tobacco e-Cigarette/Vaping Use: Never Used Second Hand Smoke Exposure: No Advance Directives Date on File: 12/15/21 service: No Current occupational status: retired Cognitive needs: Yes (walker ) Hearing needs: No Vision needs: Yes (glasses) Questionnaire PHQ-9 Over the last 2 weeks, how often have you been bothered by any of the following problems? 1. Little interest or pleasure in doing things: not at all 2. Feeling down, depressed, or hopeless: more than half the days 3. Trouble falling or staying asleep, or sleeping too much: nearly every day 4. Feeling tired or having little energy: not at all 5. Poor appetite or overeating: nearly every day 6. Feeling bad about yourself - or that you are a failure or have let yourself or your family down: more than half the days 7. Trouble concentrating on things, such as reading the newspaper or watching television: not at all 8. Moving or speaking so slowly that other people could have noticed. Or the opposite - being so fidgety or restless that you have been moving around a lot more than usual: not at all 9. Thoughts that you would be better off or of hurting yourself in some way: not at all Total score: 10 Depression Screening Interpretation: Positive Depression Screening Follow-up: Existing condition and Follow-up Visit Requested Depression Screening Done: Yes 72818 - PHQ-9 Billing: Yes Source: Developed by Drs. Geovani Hernández, Ana Garcia, Mac Fraser and colleagues, with an educational abran from [employer]. Thrive Questionnaire Date Thrive assessed: 02/28/23 I am a: Patient What is your living situation today?: I have a steady place to live Within the past 12 months, did the food you bought not last and you didn't have the money to get more?: Never true Within the past 12 months, did you worry whether your food would run out before you got money to buy more?: Never true Do you have trouble paying for medicines?: No Do you have trouble getting transportation to medical appointments?: No Do you have trouble paying your heating and electricity bill?: No Do you have trouble taking care of your child, family member or friend?: No Do you have trouble with day-to-day activities such as bathing, preparing meals, shopping, managing finances, etc.?: No Are you currently unemployed and looking for a job?: No Are you interested in more education?: No Please select the resources that you would like help with: None Currently or been in a relationship where the following occur: no concerns reported THRIVE Score: 0 AUDIT C Alcohol Use Questionnaire (AUDIT-C) 1. How often do you have a drink containing alcohol?: Never Total Score: 0 Score Reviewed/Action Taken: Yes VICKY-7 AMB Questionnaire VICKY-7 Date VICKY - 7 assessed: 02/28/23 Feeling nervous, anxious, or on edge: 0 = Not at all Not being able to stop or control worryin = Not at all Worrying too much about different things: 0 = Not at all Trouble relaxin = Not at all Being so restless that it is hard to sit still: 0 = Not at all Becoming easily annoyed or irritable: 0 = Not at all Feeling afraid as if something awful might happen: 0 = Not at all Total VICKY-7 score (0-4 normal; 5-9 mild; 10-14 moderate; 15-21 severe): 0 Source: Developed by Drs. Geovani Hernández, Ana Garcia, Mac Fraser and colleagues, with an educational abran from [employer]. Review of Systems Const Denies chills, Reports fatigue (increased lately), Denies fever(s) and Denies headache(s) ENT Denies dysphagia, Denies dizziness, Denies otalgia, Denies headache(s), Denies odynophagia and Denies sore throat Card Denies chest pain, Denies palpitations and Reports dyspnea on exertion (mild) Resp Denies cough and Reports dyspnea on exertion (mild) GI Denies abdominal pain, Denies constipation, Denies dysphagia, Denies heartburn, Denies diarrhea, Reports nausea (recurrent), Denies odynophagia and Reports vomiting (at times; sometimes throws up her meds as soon as she takes them) Denies difficulty voiding, Denies nocturia, Denies dysuria and Denies urinary urgency Musc Reports arthralgias Skin/Breast Details: (+) increasingly painful rash/lesion on the medial side of the right lower leg Neuro Denies dizziness and Denies headache(s) Psych Reports depression Endo Reports fatigue (increased lately) and Denies palpitations Physical exam (Primary Care) Vital Signs: Last Vital Signs Pulse 83 02/28/23 12:35 BP 100/60 02/28/23 12:35 Pulse Ox 99 02/28/23 12:35 Oxygen Delivery Method Room Air 02/28/23 12:35 BMI result Body Mass Index 35.6 Tobacco/Smoking Status: Tobacco use Status Tobacco use date assessed 02/28/23 02/28/23 12:45 Patient Tobacco Use Status Never used Tobacco 02/28/23 12:45 e-Cigarette/Vaping Use Never Used 02/28/23 12:45 PHQ-9: PHQ-9 Score PHQ-9: Total score 10 02/28/23 12:45 Depression Screening Interpretation: Positive Depression Screening Follow-up: Existing condition and Follow-up Visit Requested Thrive Assessment: Date of Thrive Assessment Date Thrive assessed 02/28/23 02/28/23 12:45 Currently or been in a relationship where the following occur: no concerns repo rted Const General: no acute distress and alert HENMT Ears: TM's normal bilaterally and EAC's normal Throat: Yes posterior oropharynx normal and Yes tonsils normal (no TP congestion noted) Neck Neck: Yes no lymphadenopathy and Yes supple Resp Auscultation: clear to auscultation bilaterally, no rales and no wheezes Cardio Rate: bradycardic Rhythm: regular rhythm Heart sounds: no murmurs GI Palpation (GI): Soft to palpation and nontender Auscultation: normal bowel sounds General: Yes no CVA tenderness Back/Spine/Pelvis Back: no CVA tenderness Skin Other: (+) large area of circular, scaling/crusting lesion over the medial aspect of the distal half of the right lower leg - lesion appears friable but currently has no oozing or discharge and is tender on palpation Extrem General: No clubbing, No cyanosis and Yes edema (2+ bipedal edema - chronic) Results Reviewed Results Reviewed: Laboratory Tests 02/24/23 02/24/23 02/24/23 09:20 09:20 09:20 WBC Hgb Hct Plt Count Sodium 133 L Potassium 4.7 Creatinine 8.32 H* Estimated GFR 5 Fasting Glucose 200 H Hemoglobin A1c % Uric Acid 5.6 Calcium 10.0 D AST 7 ALT 6 Triglycerides 255 H Cholesterol 188 LDL Cholesterol, Calc 96 HDL Cholesterol 41 Vitamin B12 25-OH Vitamin D Total 37.3 TSH 84.25 H Free T4 0.43 L Ur Specific [place] Urine Protein Urine Glucose (UA) Urine Blood Urine Nitrite Ur Leukocyte Esterase Urine RBC Urine WBC 02/24/23 02/24/23 02/24/23 09:22 09:22 09:22 WBC Hgb Hct Plt Count Sodium Potassium Creatinine Estimated GFR Fasting Glucose Hemoglobin A1c % 8.3 H Uric Acid Calcium AST ALT Triglycerides Cholesterol LDL Cholesterol, Calc HDL Cholesterol Vitamin B12 590 25-OH Vitamin D Total TSH Free T4 Ur Specific [place] >= 1.030 H Urine Protein 100 (2+) H Urine Glucose (UA) 250 H Urine Blood Moderate (2+) H Urine Nitrite Negative Ur Leukocyte Esterase Large (3+) H Urine RBC 3-5 H Urine WBC >50 H 02/24/23 09:27 WBC 6.5 Hgb 10.8 L D Hct 33.0 L D Plt Count 330 D Sodium Potassium Creatinine Estimated GFR Fasting Glucose Hemoglobin A1c % Uric Acid Calcium AST ALT Triglycerides Cholesterol LDL Cholesterol, Calc HDL Cholesterol Vitamin B12 25-OH Vitamin D Total TSH Free T4 Ur Specific [place] Urine Protein Urine Glucose (UA) Urine Blood Urine Nitrite Ur Leukocyte Esterase Urine RBC Urine WBC Assessment and Plan Assessment & Plan (1) (HFpEF) heart failure with preserved ejection fraction: Comment: She is being followed by Cardiology closely. Code(s): I50.30 - Unspecified diastolic (congestive) heart failure Qualifiers: Heart failure chronicity: chronic Qualified Code(s): I50.32 - Chronic diastolic (congestive) heart failure Plan: Reinforced fluid restriction Used to take Bumetanide 1 mg Q AM and 0.5 mg Q PM but has been OFF all diuretics for a while now Currently has CardioMems in place and is reportedly doing well from cardiology standpoint, based on her most recent cardiology OV notes Follow up with cardiology as scheduled (2) Supraventricular tachycardia: Code(s): I47.1 - Supraventricular tachycardia Plan: Adequately controlled / suppressed on Tx with Amiodarone 200 mg QD Follow up with cardiology as scheduled (3) Type 2 diabetes mellitus with chronic kidney disease: Code(s): E11.22 - Type 2 diabetes mellitus with diabetic chronic kidney disease Qualifiers: Diabetes mellitus custodial insulin use: with intermodal customer service use Chronic kidney disease stage: stage 4 (severe) Qualified Code(s): E11.22 - Type 2 diabetes mellitus with diabetic chronic kidney disease; N18.4 - Chronic kidney disease, stage 4 (severe); 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 Guzman again for endocrinology follow up (4) Anemia of chronic disease: Code(s): D63.8 - Anemia in other chronic diseases classified elsewhere Plan: H/H was at 10.8/33.0 on her recent labs States that she has been getting her Procrit injections from nephrology regularly when needed Will continue to monitor her CBC regularly/closely (5) Chronic kidney disease, stage V: Code(s): N18.5 - Chronic kidney disease, stage 5 Plan: Is currently on daily peritoneal dialysis at home Follow up with nephrology as scheduled (6) Benign essential hypertension: Code(s): I10 - Essential (primary) hypertension Plan: Reinforced low sodium diet - goal is systolic BP of 120 mm or less Continue Amlodipine 5 mg QD; Metoprolol was previously discontinued due to significant bradycardia (7) Acquired hypothyroidism: Code(s): E03.9 - Hypothyroidism, unspecified Plan: She is advised that her TFTs are completely OFF THE CHART on her recent labs and it looks like she has NOT been taking her thyroid Rx for a while now Patient admits that she takes her Levothyroxine in the morning TOGETHER with several other meds and she drinks coffee and does not wait for a while before eating after she takes her meds; feels that she sometimes also throws up her meds Will have her continue on Levothyroxine 75 mcg QD for now and instructed her that she should take this ALONE with sips of water first thing in the morning and she SHOULD NOT eat or drink anything else for at least half an hour Will have her recheck her TFTs in 6 weeks for follow up Discussed that a lot of her current symptoms may actually be due to her severe hypothyroid state and may improve once her thyroid is corrected again (8) Pure hypercholesterolemia: Code(s): E78.00 - Pure hypercholesterolemia, unspecified Plan: Results of her labs done a few days ago reviewed and discussed with patient - advised that her serum triglyceride level has increased significantly from previous and may also be related to her current hypothyroid state Reinforced low cholesterol diet Continue Atorvastatin 80 mg QD for now Will recheck her labs and fasting lipids in 3 months for follow up (9) Restless leg syndrome: Comment: THIS IS PROBABLY DUE TO COMBINATION OF TRINH AND CHRONIC RENAL DISEASE. Code(s): G25.81 - Restless legs syndrome Plan: Continue Gabapentin 100 mg Q HS and Ropinirole 0.25 mg Q HS (10) Obstructive sleep apnea: Code(s): G47.33 - Obstructive sleep apnea (adult) (pediatric) Plan: Continue using her CPAP device when sleeping at night (11) Personal history of renal cell carcinoma: Comment: S/P cryotherapy in 2011 Code(s): Z85.528 - Personal history of other malignant neoplasm of kidney Plan: Follow up with urology as scheduled for continuing surveillance (12) Gout: Code(s): M10.9 - Gout, unspecified Qualifiers: Gout site: unspecified site Gout etiology: unspecified cause Chronicity: chronic Presence of tophus: without tophus Qualified Code(s): M1A.9XX0 - Chronic gout, unspecified, without tophus (tophi) Plan: Reinforced low purine diet Continue Allopurinol 100 mg 2 tablets QD (13) Vitamin D deficiency: Code(s): E55.9 - Vitamin D deficiency, unspecified Plan: Continue Vitamin D3 1000 units QD (14) Psoriasis: Code(s): L40.9 - Psoriasis, unspecified Plan: Continue Halobetasol 0.05% apply to rash QD PRN (15) Ulcer of right lower leg: Code(s): L97.919 - Non-pressure chronic ulcer of unspecified part of right lower leg with unspecified severity Qualifiers: Non-pressure ulcer stage: unspecified non-pressure ulcer stage Qualified Code(s): L97.919 - Non-pressure chronic ulcer of unspecified part of right lower leg with unspecified severity Plan: Have advised patient that her current right leg lesion looks concerning and that skin breakdown, based on how the lesion looks, appears imminent Discussed that this may be due to vascular etiology (insufficiency) so she should continue to follow up closely with vascular surgery but with her Hx of SCC in situ on her contralateral leg, cutaneous malignancy also cannot be entirely ruled out Will go ahead and refer her to the wound clinic for further evaluation and management before actual skin breakdown occurs, which can then be more troublesome to manage (16) Squamous cell carcinoma in situ: Code(s): D09.9 - Carcinoma in situ, unspecified Plan: S/P excision of a squamous cell carcinoma lesion on the posterior aspect of the left lower leg by Dr. Aleman at [facility] Follow up with dermatology as scheduled for continuing surveillance (17) Morbid obesity with BMI of 40.0-44.9, adult: Code(s): E66.01 - Morbid (severe) obesity due to excess calories; Z68.41 - Body mass index [BMI] 40.0-44.9, adult Plan: Reinforced diet; exercise and weight loss are unrealistic given patient's cardiac issues and multiple comorbidities Plan Follow up in 3 months Orders: Orders Complete Blood Count Auto Diff 3 Months D64.9 - Anemia, unspecified Comprehensive [place]. Panel Fast 3 Months E78.00 - Pure hypercholesterolemia, unspecified Free T4 (Free Thyroxine) 3 Months E03.9 - Hypothyroidism, unspecified Thyroid Stimulating Hormone 3 Months E03.9 - Hypothyroidism, unspecified Free T4 (Free Thyroxine) 6 Weeks E03.9 - Hypothyroidism, unspecified Thyroid Stimulating Hormone 6 Weeks E03.9 - Hypothyroidism, unspecified Lipid Panel 3 Months E78.00 - Pure hypercholesterolemia, unspecified Hemoglobin A1c 3 Months E11.9 - Type 2 diabetes mellitus without complications Referrals Wound Care Referral L97.919 - Non-pressure chronic ulcer of unspecified part of right lower leg with unspecified severity Coding Level of Care Code Est Pt Level 4 (62180) Diagnoses Chronic heart failure with preserved ejection fraction I50.32 Heart failure chronicity: chronic Supraventricular tachycardia I47.1 Type 2 diabetes mellitus with stage 4 chronic kidney disease, with long-term current use of insulin E11.22; N18.4; Z79.4 Diabetes mellitus custodial insulin use: with intermodal customer service use Chronic kidney disease stage: stage 4 (severe) Anemia of chronic disease D63.8 Chronic kidney disease, stage V N18.5 Benign essential hypertension I10 Acquired hypothyroidism E03.9 Pure hypercholesterolemia E78.00 Restless leg syndrome G25.81 Obstructive sleep apnea G47.33 Personal history of renal cell carcinoma Z85.528 Chronic gout without tophus, unspecified cause, unspecified site [id number] Gout site: unspecified site Gout etiology: unspecified cause Chronicity: chronic Presence of tophus: without tophus Vitamin D deficiency E55.9 Psoriasis L40.9 Ulcer of right lower leg, with unspecified severity L97.919 Non-pressure ulcer stage: unspecified non-pressure ulcer stage Squamous cell carcinoma in situ D09.9 Morbid obesity with BMI of 40.0-44.9, adult E66.01; Z68.41
[2023-02-28 12:35] VITALS: BP 100/60; PULSE 83; O2SAT 99; BMI 35.6
== END 2023-02-28 13:25 | disposition home or self-care (01) ==
PROVIDERS: PCP Internal Medicine; Visit Provider Internal Medicine
DX: I13.2 Hypertensive heart and chronic kidney disease with heart failure and with stage 5 chronic kidney disease, or end stage renal disease (principal); N18.5 Chronic kidney disease, stage 5; I50.32 Chronic diastolic (congestive) heart failure; I47.10 Supraventricular tachycardia, unspecified
CPT/HCPCS: 99214

== ENCOUNTER 2023-03-15 13:44 | Outpatient (RCR) | payer MEDICARE, SELFPAY | END 2023-06-06 08:00 | disposition EXP | LOC: HO.WCC 13:44 | PROVIDERS: PCP Internal Medicine; Visit Provider Surgery | DX: E10.69 Type 1 diabetes mellitus with other specified complication (principal); M62.271 Nontraumatic ischemic infarction of muscle, right ankle and foot; I70.221 Atherosclerosis of native arteries of extremities with rest pain, right leg; E10.22 Type 1 diabetes mellitus with diabetic chronic kidney disease; E10.40 Type 1 diabetes mellitus with diabetic neuropathy, unspecified; I13.2 Hypertensive heart and chronic kidney disease with heart failure and with stage 5 chronic kidney disease, or end stage renal disease; I50.9 Heart failure, unspecified; N18.6 End stage renal disease; Z79.4 Long term (current) use of insulin; Z99.2 Dependence on renal dialysis; Z92.21 Personal history of antineoplastic chemotherapy | CPT/HCPCS: 99214 ==

== ENCOUNTER → 2023-03-17 23:59 | Outpatient (BNV) | payer MEDICARE, SELFPAY ==
--- NOTE | 2023-03-21 17:41 | MHC.OFFVIS ---
Intake Intake Visit Reasons: Remote CardioMEMS Check- [facility] Allergies amoxicillin [Amoxicillin] Allergy (Severe, Verified 02/28/23 12:58) VAGINAL ITCH bee pollen [bee stings] Allergy (Severe, Verified 02/28/23 12:58) Anaphylaxis hydrocodone [HYDROCODONE] Allergy (Severe, Verified 02/28/23 12:58) severe lethargy PFSH Medical History Presence of CardioMEMS HF system Restless leg syndrome TRINH on CPAP Anemia of chronic disease Acquired hypothyroidism CKD (chronic kidney disease) stage V requiring chronic dialysis Anemia (HFpEF) heart failure with preserved ejection fraction Fecal impaction in rectum CHF exacerbation Chronic kidney disease, stage V Back pain GERD (gastroesophageal reflux disease) Anxiety and depression Squamous cell carcinoma in situ Vitamin D deficiency Morbid obesity with BMI of 40.0-44.9, adult Constipation Psoriasis Personal history of renal cell carcinoma Obstructive sleep apnea Pure hypercholesterolemia Benign essential hypertension Chronic kidney disease, stage 4 (severe) Type 2 diabetes mellitus with chronic kidney disease Obesity due to excess calories Left bundle branch block Supraventricular tachycardia Gout Arthritis Sleep apnea History of kidney cancer Type 2 diabetes mellitus with other diabetic kidney complication Essential hypertension Hyperlipidemia LDL goal <100 Surgical History History of surgery Hx of colonoscopy Hx of mammogram Hx of hysterectomy Hx of total knee replacement History of carpal tunnel release of both wrists Hx of tonsillectomy History of cryosurgery Family History Mother Diabetes Father No problems noted. Social History Household Members: Family and None Household Members Other:: daughter has being staying with pt for the past 2 weeks Housing: House Housing Other:: 2nd floor - uses stair chair Are you a primary career consultant to a significant other at home: No Do you presently have visiting nurse or other home services: Yes Alcohol intake: never Comment: pt rings appropriately Patient Tobacco Use Status: Never used Tobacco e-Cigarette/Vaping Use: Never Used Second Hand Smoke Exposure: No Advance Directives Date on File: 12/15/21 service: No Current occupational status: retired Cognitive needs: Yes (walker ) Hearing needs: No Vision needs: Yes (glasses) Office Procedures Cardiac Device Check Cardiac Device Check Details: Monitoring period dates: 02/06/23 - 03/17/23 Optimal PA pressure range: PAD goal 9 mm hg Procedure code: 40119 BACKGROUND: Kate is implanted with the CardioMEMS PA Sensor.? I use this technology to monitor PA pressures on a weekly basis to ensure patients are within their optimal range to prevent decompensation.? SUMMARY:? I utilized the remote monitoring platform ([employer]) to set optimal targets for pulmonary artery pressure thresholds as part of acute and chronic management of patient?s heart failure. During the period indicated above, I monitored the patient?s pulmonary artery pressures weekly via trend analysis and notification reports which provide alerts when patient?s PA pressures were outside of range to prompt immediate action in medication changes and communications.? The weekly reports are archived in the [employer] system which serve as a parallel record to document weekly PA pressures, medication changes, and clinical notes. I have reviewed readings on 02/07, 02/13, 02/20, 02/23, 02/28, 03/07, 03/14. Her PAD reading has ranged between 4-10mmhg. She is on Dialysis. 48917 - Remote monitoring of wireless pulmonary artery pressure sensor Procedure code (CPT) selection complete Assessment & Plan Assessment & Plan (1) Presence of CardioMEMS HF system: Comment: anjel Londono 01/27/2022 Code(s): Z95.818 - Presence of other cardiac implants and grafts Plan: monthly report Coding Level of Care Code Procedure Only Diagnoses Presence of CardioMEMS HF system Z95.818 CPT Codes Cardiac Device Check - Cardiac Device 17: 76516 - Remote monitoring of wireless pulmonary artery pressure sensor ([id number])
== END ==
PROVIDERS: PCP Internal Medicine; Visit Provider Nurse Practitioner Family
DX: I50.31 Acute diastolic (congestive) heart failure (principal); Z95.818 Presence of other cardiac implants and grafts
CPT/HCPCS: 93264